=== PATIENT | female | born 1965 | race African-American/Black ===

== ENCOUNTER 2018-07-14 20:56 | Inpatient (IN) ==
[2018-07-14] MEDS ORDERED: Ondansetron 4 MG/2 ML VIAL IVP PRN (22:19)
[2018-07-14] MEDS ORDERED: Naloxone 0.4 MG/ML INJ IVP PRN (22:19)
[2018-07-14] MEDS ORDERED: Acetaminophen 325 MG TABLET PO PRN (22:19)
--- NOTE | 2018-07-14 22:19 | Internal Med History&Physical ---
Date of Encounter: 08/13/18 Time of Encounter: 22:19 Internal Medicine - H&P: HPI Chief complaint: increasing leukocytosis despite being on antibiotics Admitted From: Emergency Dept History of present illness: Ms. Ngo is a 52 year old female Patient sent to ED from local [facility] for evaluation of increasing leukocytosis despite being on antibiotics vancomycin and ceftin. Per assisted report to ED staff they suspected that patient may have an infection at her permacath dialysis access site, The patient also has a picc line and decubitus wound ulcer, Patient has a tracheostomy and is vent dependent. She had history of anoxic brain injury and she cannot answer any questions, the patient was admitted for further evaluation and management Past Med Surg Social Fam HX - Past Medical History Medical history: diabetes, GERD, hyperlipidemia, renal disease, seizures, other Additional medical history: Anoxic brain injury. Anemia. Contracture Psychiatric history: other - Social History Smoking Status: Smoker, status unknown Smokeless Tobacco Status: No (unknown) Alcohol use: none Drug use: unknown Internal Medicine - H&P: Meds Atorvastatin Calcium [Lipitor] 40 mg GTUBE DAILY 07/14/18 [History] Benzocaine [Orabase] 1 appl MM QID PRN 07/14/18 [History] Chlorhexidine Gluconate [Peridex] 1 appl MM QID PRN 07/14/18 [History] Docusate [Colace] 100 mg GTUBE DAILY 07/14/18 [History] Esomeprazole Magnesium [Nexium] 40 mg GTUBE BID 07/14/18 [History] Mineral Oil/Petrolatum,White [Minerin Creme] 1 appl TP DAILY 07/14/18 [History] Nystatin [Nystatin Suspension] 500,000 units PO QID PRN 07/14/18 [History] RX: Baclofen 5 mg GTUBE TID 07/14/18 [History] RX: Heparin 5,000 unit SQ Q8HR 07/14/18 [History] RX: Vancomycin HCl 500 mg IV MOWEFR 07/14/18 [History] Sennosides/Docusate Sodium [Senna-Docusate Sodium Tablet] 1 tab GTUBE DAILY PRN 07/14/18 [History] Vit B Comp C 19/Folic Acid/D3 [Nephronex-Sl Tablet] 1 tab GTUBE DAILY 07/14/18 [History] Amino Acids/Protein Hydrolys [Pro-Stat Awc Liquid Packet] 30 ml GTUBE TID 07/15/18 [History] Aspirin [Lo-Dose Aspirin EC] 81 mg GTUBE DAILY 07/15/18 [History] Cefepime HCl [Maxipime] 500 mg IV 2000 07/15/18 [History] Insulin Glargine [Lantus] 40 unit SQ DAILY 07/15/18 [History] Insulin Human Regular [HumuLIN R] 0 - 12 unit SQ QID 07/15/18 [History] Ipratropium/Albuterol Neb [Duoneb] 3 ml IH Q6HR PRN 07/15/18 [History] LevETIRAcetam [Keppra] 500 mg GTUBE DAILY 07/15/18 [History] Polyvinyl Alcohol [Artificial Tears] 1 drop BOTH EYES QID PRN 07/15/18 [History] Allergy/AdvReac Type Severity Reaction Status Date / Time No Known Allergies Allergy Verified 07/14/18 17:44 ROS unobtainable: due to mental status All Systems PM: A 10-system review of systems was performed and is negative for pertinent findings except as documented above in the HPI. - Constitutional Exam: As below - Head Head exam: Present: atraumatic, normocephalic - Respiratory Respiratory exam: Present: rhonchi. Absent: accessory muscle use, rales, wheezes - Cardiovascular Cardiovascular exam: Present: RRR, +S1, +S2. Absent: diastolic murmur, gallop, rubs, systolic murmur - GI/Abdominal GI/Abdominal exam: Present: normal bowel sounds, soft, no peritoneal signs. Absent: distended, tenderness - Extremities Exam Extremities exam: Present: warm, radial pulses palpable and symmetrical. Absent: calf tenderness, cyanotic, pedal edema Internal Med - H&P Results - Labs CBC & Chem 7: 08/02/18 04:28 08/02/18 04:28 - Assessment and plan (1) Sepsis Status: Acute Assessment and plan: ASSESSMENT: -Septic shock DD *Pneumonia *Decubitus *UTI * Line related bacterimia - ABs -UA -CBCD, BMP in AM -Tylenol 650 mg PO q 4-6 hr PRN pain or fever -Protonix 40 mg IV QD -Heparin 5000 U SQ BID Qualifiers: Sepsis type: sepsis due to unspecified organism Qualified Code(s): A41.9 - Sepsis, unspecified organism (2) Hypokalemia Status: Acute Assessment and plan: We will replace and repeat renal panel in a.m. (3) Anemia in chronic kidney disease (CKD) Status: Chronic Assessment and plan: hronic and stable. Closely monitor H/H. Per nephro, 1 unit of PRBC transfused. Hgb 7.4 today. Transfusion as needed Qualifiers: Chronic kidney disease stage: on chronic dialysis Qualified Code(s): N18.6 - End stage renal disease; D63.1 - Anemia in chronic kidney disease; Z99.2 - Dependence on renal dialysis (4) Chronic kidney disease-mineral and bone disorder Status: Acute (5) ESRD (end stage renal disease) Status: Chronic Assessment and plan: Family will persue hospice and now code status is DNRCC, no further HD. - Time Spent With Patient Total time spent is greater than 50% in coordination of care (as documented) at patient's floor/unit and/or counseling patient:
[2018-07-14] MEDS ORDERED: Vancomycin (wt based) 1,000 MG VIAL IVPB SCH (23:00)
[2018-07-15 00:02] LABS: Hematocrit 24.7 % (35.3-44.9); Hemoglobin 7.8 g/dL (11.5-15.4); Mean Corpuscular HGB Conc 31.6 g/dL (31.6-35.5); Mean Corpuscular Hemoglobin 27.3 pg (28.0-33.3); Mean Corpuscular Volume 86.4 fL (83.0-100.0); Mean Platelet Volume 9.3 fL (9.4-12.4); Platelet Count 590 K/mcL (140-400); Red Blood Count 2.86 M/mcL (3.82-4.97); Red Cell Distribution Width 15.8 % (11.5-14.5)
[2018-07-15 00:06] LABS: INR 1.1; Prothrombin Time 12.3 Seconds (9.4-12.1)
[2018-07-15 00:08] LABS: Activated Partial Thrombo Time 31.5 Seconds (26.0-36.0)
[2018-07-15 00:12] LABS: Albumin 2.5 g/dL (3.5-5.7); Albumin/Globulin Ratio 0.6 (1.1-2.2); Bilirubin,Total 0.3 mg/dL (0.3-1.0); Calcium 8.6 mg/dL (8.6-10.3); Globulin 4.4 g/dL (2.4-3.5); Magnesium 2.1 mg/dL (1.6-2.6); Phosphorous 1.2 mg/dL (2.7-4.5); Potassium 2.8 mEq/L (3.5-5.1); Total Protein 6.9 g/dL (6.4-8.9)
[2018-07-15 00:58] LABS: Chol/HDL Ratio 3.2 (0-4.9)
[2018-07-15] MEDS ORDERED: *HR* Dextrose 50 % in Water (Syg) 50 ML SYRINGE IVP PRN (07:52)
[2018-07-15] MEDS ORDERED: D5% in Water 1,000 ML IVC PRN (07:52)
[2018-07-15] MEDS ORDERED: Dextrose Gel 15 GM/37.5 ML TUBE PO PRN ×2 (07:52)
[2018-07-15] MEDS ORDERED: Insulin LISPRO 300 UNITS/3 ML VIAL SQ SCH ×2 (08:00)
--- NOTE | 2018-07-15 11:04 | Internal Med Progress Note ---
Hospitalist Progress Note - Encounter Date of Encounter: 07/15/18 Time of Encounter: 10:35 - Subjective Interval History: H&P reviewed. Patient with history of anoxic brain injury on trach/PEG was admitted for worsening leukocytosis despite being on vanco/ceftin. It appears that she was being treated for ?HD cath infection but was declining. Pt is unab le to provide any meaningful history due to her premorbid condition. No fever overnight. - Exam Vitals: Temp Pulse Resp BP Pulse Ox 99.4 F 92 19 128/72 100 07/15/18 07:32 07/15/18 07:32 07/15/18 08:29 07/15/18 07:32 07/15/18 08:29 Exam: General: Alert, breathing spontaneously. Not oriented, no verbal output Cardiovascular:Normal S1 & S2, No JVD. Borderline tachycardia Lungs: diminished breath sounds bilaterally Abdomen:Soft, non-tender, no rigidity. Extremities: Both UE contracted. R chest HD catheter and R UE midline noted - Assessment and Plan (1) Sepsis Current Visit: Yes Status: Acute Assessment and Plan: Presented from assisted with worsening leukocytosis despite being on vanc/ceftin CXR suspicious for L lower zone opacity blood culture from 07/13 +ve for Enterobacter cloacae by PCR other possible sources include tunneled HD catheter on R chest and infected decubitus ulcer continue vanc/zosyn, renally dosed peripheral blood cultures obtained overnight, get blood culture from HD catheter as well monitor WBC may need line removed, consult ID (2) ESRD (end stage renal disease) Current Visit: No Status: Acute Assessment and Plan: nephrology consulted for HD (3) Hypokalemia Current Visit: No Status: Acute Assessment and Plan: IV replacement undergoing repeat BMP after (4) Anemia in chronic kidney disease (CKD) Current Visit: No Status: Acute Assessment and Plan: monitor Hb DVT Prophylaxis: SQ heparin - Time Spent with Patient Total time spent is greater than 50% in coordination of care (as documented) at patient's floor/unit and/or counseling patient: Plan of Care Discussed with: nurse (discussed with RN and ID) Internal Medicine: Result - Labs CBC & Chem 7: 07/14/18 23:41 07/14/18 23:41 Labs: Short CBC 07/14/18 Range/Units 23:41 WBC 21.4 H (4.3-11.1) K/mcL Hgb 7.8 L (11.5-15.4) g/dL Hct 24.7 L (35.3-44.9) % Plt Count 590 H (140-400) K/mcL BMP 07/14/18 23:41 Sodium 134 L Potassium 2.8 L Chloride 100 Carbon Dioxide 24 BUN 53 H Creatinine 3.58 H Glucose 313 H Calcium 8.6 Liver Function 07/14/18 Range/Units 23:41 Total Bilirubin 0.3 (0.3-1.0) mg/dL AST 19 (13-39) Units/L ALT 26 (7-52) Units/L Alkaline Phosphatase 141 H (34-104) Units/L Albumin 2.5 L (3.5-5.7) g/dL - ABG Interpretation ABG results: PT/INR, D-dimer PT 12.3 Seconds (9.4-12.1) H 07/14/18 23:41 Consult Discharge Plan - Plan Referrals: NONE,PCP [Primary Care Provider] - (1) Sepsis Qualifiers: Sepsis type: sepsis due to unspecified organism Qualified Code(s): A41.9 - Sepsis, unspecified organism (4) Anemia in chronic kidney disease (CKD) Qualifiers: Chronic kidney disease stage: on chronic dialysis Qualified Code(s): N18.6 - End stage renal disease; D63.1 - Anemia in chronic kidney disease; Z99.2 - Dependence on renal dialysis
[2018-07-15 11:53] LABS: Basophils # 0.1 K/mcL (0.0-0.2); Basophils % 0.3 %; Eosinophils # 0.3 K/mcL (0.0-0.6); Eosinophils % 1.4 %; Hematocrit 24.9 % (35.3-44.9); Hemoglobin 7.4 g/dL (11.5-15.4); Immature Granulocytes % 3.1 % (0-4); Lymphocytes # 1.6 K/mcL (0.6-4.6); Lymphocytes % 8.5 %; Mean Corpuscular HGB Conc 29.7 g/dL (31.6-35.5); Mean Corpuscular Volume 90.9 fL (83.0-100.0); Mean Platelet Volume 9.1 fL (9.4-12.4); Monocytes # 1.1 K/mcL (0.0-1.3); Monocytes % 5.9 %; Neutrophils # 15.2 K/mcL (1.6-8.9); Nucleated Red Blood Cells 0.1 /100 WBC (0); Platelet Count 577 K/mcL (140-400); Red Blood Count 2.74 M/mcL (3.82-4.97); Red Cell Distribution Width 16.1 % (11.5-14.5); Segmented Neutrophils % 80.8 %
[2018-07-15] MEDS ORDERED: Piperacillin/Tazobactam 3.375 GM in 0.9 % Sodium Chloride Mini Bag 100 ML IVPB SCH ×2 (12:00)
[2018-07-15 12:13] LABS: Calcium 8.7 mg/dL (8.6-10.3); Potassium 3.5 mEq/L (3.5-5.1)
[2018-07-15] MEDS: Insulin LISPRO 300 UNITS/3 ML VIAL SQ SCH ×2 (13:23→17:54)
--- NOTE | 2018-07-15 15:46 | Infectious Disease Consult ---
Date of Encounter: 07/15/18 Time of Encounter: 15:26 Assessment and Plan (1) Sepsis Status: Acute Assessment and plan: Patient had severe sepsis criteria including tachycardia, tachypnea, leukocytosis and lactic acidosis Likely secondary to central line associated bloodstream infection and possible pneumonia Decubitus ulcers do not appear to be infected but recommend wound care Qualifiers: Sepsis type: sepsis due to unspecified organism Qualified Code(s): A41.9 - Sepsis, unspecified organism (2) CLABSI (central line-associated bloodstream infection) Status: Acute Assessment and plan: cultures obtained from dialysis cath on 07/13 positive for Enterobacter cloacae only one set and none from peripheral patient was started on zosyn get blood cutlures x 2 peripheral will need to remove dialysis cath if okay with nephrology and reinsert it once cultures are negative for 48 hours will d/c zosyn and start meropenem until susceptibilites come back stop vancomycin monitor labs duration of treatment depends on clinical picture but likely 14 days Qualifiers: Encounter type: initial encounter Qualified Code(s): T80.211A - Bloodstream infection due to central venous catheter, initial encounter (3) Pneumonia Status: Acute Assessment and plan: Unable to really tell if she has a pneumonia or no. Aspiration is a concern but there is no residual on tube feeding We will check urine legionella and pneumococcal antigen Check MRSA screen is negative. Vancomycin Continue meropenem Low probability of viral infection so I will not check a respiratory infectious panel Qualifiers: Pneumonia type: due to unspecified organism Laterality: bilateral Lung location: lower lobe of lung Qualified Code(s): J18.1 - Lobar pneumonia, unspecified organism (4) Diabetes mellitus type 2 in obese Status: Acute (5) Anoxic brain injury Status: Acute Assessment and plan: History of anoxic brain injury, vent dependent Not sure what the etiology is not in the records (6) Chronic respiratory failure Status: Acute Assessment and plan: On ventilator support with a tracheostomy Qualifiers: Respiratory failure complication: hypoxia Qualified Code(s): J96.11 - Chr onic respiratory failure with hypoxia (7) ESRD (end stage renal disease) on dialysis Status: Acute Assessment and plan: Dialysis catheter has to be removed if okay with nephrology and a new catheter has to be placed once she is not bacteremic for 48 hours Infectious Disease HPI - Data of Consult Patient: new to practice Consult date: 07/15/18 Requesting Physician: David Arora MD Primary Care Provider: PCP NONE - Consult Narrative Reason for consult: Bacteremia with Enterobacter History of present illness: Ms. Ngo is a 52 year old female Patient is a 52-year-old woman who presented to [facility] for evaluation of increasing leukocytosis. We are consulted for antibiotic recommendation. All the information on this patient were taken from medical records since the patient is nonverbal and on vent support with tracheostomy. Apparently patient has been having leukocytosis and they suspected a an infection of the permacath dialysis access site. Patient was started on vancomycin and Ceftin but continues to have rising leukocytosis from 16,000-19,000 for the past few days. Patient was sent to the emergency department for evaluation. I was unable to get review of system the patient. Since admission, patient has been afebrile with MAXIMUM TEMPERATURE of 99.8, tachycardic and tachypneic but hemodynamically stable. Presenting labs revealed a WBC of 23.2 thousand with 78% neutrophils no bands, BUN 51, CR 3.53, potassium 2.8, lactic acid of 2.8. Apparently patient had a peripheral central catheter blood cultures obtained which grew Enterobacter cloacae with susceptibilities pending. I did review her whole chart there is no previous records of her had no previous cultures that we can compare to. Patient had a chest x-ray done which was read as limited by patient rotation and shallow inspiration.. Mild nonspecific left basilar opacities with pneumonia not excluded. A sputum culture was obtained and revealed gram-positive cocci and gram-positive rods and yeast but no gram-negative rods. Patient was started on vancomycin and Zosyn and we were asked to evaluate the patient's make further recommendations. Currently patient laying in bed on vent support does not answer questions does not respond does not track with her eyes when I move around the room. She does have 3 decubitus ulcers on her back some R stage III. PEG tube intact. Dialysis catheter dry and intact no erythema CC: David Arora MD Past Med Surg Social Fam HX - Past Medical History Medical history: diabetes, GERD, hyperlipidemia, renal disease, seizures, other Additional medical history: Anoxic brain injury. Anemia. Contracture Psychiatric history: other - Social History Smoking Status: Smoker, status unknown Smokeless Tobacco Status: No (unknown) Alcohol use: none Drug use: unknown Infectious Disease-CN:Meds Atorvastatin Calcium [Lipitor] 40 mg GTUBE DAILY 07/14/18 [History] Baclofen 5 mg GTUBE TID 07/14/18 [History] Benzocaine [Orabase] 1 appl MM QID PRN 07/14/18 [History] Chlorhexidine Gluconate [Peridex] 1 appl MM QID PRN 07/14/18 [History] Docusate [Colace] 100 mg GTUBE DAILY 07/14/18 [History] Esomeprazole Magnesium [Nexium] 40 mg GTUBE BID 07/14/18 [History] Heparin 5,000 unit SQ Q8HR 07/14/18 [History] Mineral Oil/Petrolatum,White [Minerin Creme] 1 appl TP DAILY 07/14/18 [History] Nystatin [Nystatin Suspension] 500,000 units PO QID PRN 07/14/18 [History] Sennosides/Docusate Sodium [Senna-Docusate Sodium Tablet] 1 tab GTUBE DAILY PRN 07/14/18 [History] Vancomycin HCl 500 mg IV MOWEFR 07/14/18 [History] Vit B Comp C 19/Folic Acid/D3 [Nephronex-Sl Tablet] 1 tab GTUBE DAILY 07/14/18 [History] Amino Acids/Protein Hydrolys [Pro-Stat Awc Liquid Packet] 30 ml GTUBE TID 07/15/18 [History] Aspirin [Lo-Dose Aspirin EC] 81 mg GTUBE DAILY 07/15/18 [History] Cefepime HCl [Maxipime] 500 mg IV 2000 07/15/18 [History] Insulin Glargine [Lantus] 40 unit SQ DAILY 07/15/18 [History] Insulin Human Regular [HumuLIN R] 0 - 12 unit SQ QID 07/15/18 [History] Ipratropium/Albuterol Neb [Duoneb] 3 ml IH Q6HR PRN 07/15/18 [History] LevETIRAcetam [Keppra] 500 mg GTUBE DAILY 07/15/18 [History] Polyvinyl Alcohol [Artificial Tears] 1 drop BOTH EYES QID PRN 07/15/18 [History] Allergy/AdvReac Type Severity Reaction Status Date / Time No Known Allergies Allergy Verified 07/14/18 17:44 ROS unobtainable: due to endotracheal tube Exam - Constitutional Vitals: Temp Pulse Resp BP Pulse Ox 98.3 F 100 18 125/79 100 07/15/18 11:27 07/15/18 11:27 07/15/18 11:27 07/15/18 11:27 07/15/18 11:27 General appearance: no febrile, no cooperative, no no acute distress - Head Head exam: Present: atraumatic, normocephalic - Eye Eye exam: Present: PERRL, sclera anicteric - ENT ENT exam: Present: mucous membranes dry, normal exam - Neck Additional comments: Tracheostomy collar intact. No erythema or mucus drainage. No stridor. - Respiratory Additional comments: Air sounds audible both lung arambula. Poor inspiratory effort. Chest expanding symmetrically. No obvious wheezing - Cardiovascular Cardiovascular exam: Present: RRR, +S1, +S2, tachycardia - GI/Abdominal GI/Abdominal exam: Present: soft. Absent: firm, guarding Additional comments: PEG tube intact - Extremities Exam Additional comments: Contractures upper and lower extremities. No joint swelling - Back Exam Additional comments: 3 different decubitus ulcers stages 2 and 3. - Neurological Exam Neurological exam: Present: altered. Absent: alert, oriented X3 Additional comments: Eyes open spontaneously. Does not follow command. Does not respond to questions. - Skin Skin exam: Present: normal color. Absent: rash Infectious Disease CN: Results - Labs CBC & Chem 7: 07/15/18 11:41 07/15/18 11:41 Consult Discharge Plan - Plan Referrals: NONE,PCP [Primary Care Provider] -
[2018-07-15] MEDS ORDERED: Meropenem 500 MG in 0.9 % Sodium Chloride Mini Bag 100 ML IVPB SCH (16:00)
[2018-07-15] MEDS: *HR* Heparin 5,000 UNIT/ML VIAL SQ SCH (17:02)
--- NOTE | 2018-07-15 17:35 | Nephrology Consult Note ---
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 I will be happy to help arrange for dialysis for this pt while admitted. She has a Right sided Tunneled Dialysis Catheter. ID is following and is working her up for potential Dialysis Catheter infection -- this pt is not one who I follow chronically, and so it's unclear why she has a Permacath instead of an AVF. Need to request medical records from her asbestos worker, if she has one since [employer] has reportedly retired. Next HD planned for tomorrow 07/16/18. Thank you for consulting the [facility]. (2) Anemia in chronic kidney disease (CKD) Current Visit: No Status: Chronic She is quite anemic. Often chronic dialysis pt's will have anemia of CKD, and I will prove EPO with her HD tomorrow. I will defer any GIB work up to the primary team, if indicated. Qualifiers: Chronic kidney disease stage: on chronic dialysis Qualified Code(s): N18.6 - End stage renal disease; D63.1 - Anemia in chronic kidney disease; Z99.2 - Dependence on renal dialysis History of Present Illness - Reason for Consult Consult date: 07/15/18 end stage renal disease Requesting physician: Aziza Gomes - Chief Complaint ESRD - History of Present Illness Monica Ngo is a 52 y/o AAF with a pmh of ESRD, reported anoxic brain injury on chronic trach who was recently admitted from an ECF. She reported dialyzes thrice weekly, but none of her outside dialysis records are immediately available to me. Her prior nephrology was with the former [employer] group who retired and has no inpatient coverage at [facility]; not clear who this pt's current asbestos worker is. Nevertheless, she was by herself in the room, and she is not able to communicate, so her HPI, Family history, ROS, and even PMH and PSH and Medicine list, and Allergies cannot be confirmed with the pt. This limits the HPI. Past Med Surg Social Fam HX - Past Medical History Medical history: diabetes, GERD, hyperlipidemia, renal disease, seizures, other Additional medical history: Anoxic brain injury. Anemia. Contracture Psychiatric history: other - Social History Smoking Status: Smoker, status unknown Smokeless Tobacco Status: No (unknown) Alcohol use: none Drug use: unknown Medications and Allergies Atorvastatin Calcium [Lipitor] 40 mg GTUBE DAILY 07/14/18 [History] Baclofen 5 mg GTUBE TID 07/14/18 [History] Benzocaine [Orabase] 1 appl MM QID PRN 07/14/18 [History] Chlorhexidine Gluconate [Peridex] 1 appl MM QID PRN 07/14/18 [History] Docusate [Colace] 100 mg GTUBE DAILY 07/14/18 [History] Esomeprazole Magnesium [Nexium] 40 mg GTUBE BID 07/14/18 [History] Heparin 5,000 unit SQ Q8HR 07/14/18 [History] Mineral Oil/Petrolatum,White [Minerin Creme] 1 appl TP DAILY 07/14/18 [History] Nystatin [Nystatin Suspension] 500,000 units PO QID PRN 07/14/18 [History] Sennosides/Docusate Sodium [Senna-Docusate Sodium Tablet] 1 tab GTUBE DAILY PRN 07/14/18 [History] Vancomycin HCl 500 mg IV MOWEFR 07/14/18 [History] Vit B Comp C 19/Folic Acid/D3 [Nephronex-Sl Tablet] 1 tab GTUBE DAILY 07/14/18 [History] Amino Acids/Protein Hydrolys [Pro-Stat Awc Liquid Packet] 30 ml GTUBE TID 07/15/18 [History] Aspirin [Lo-Dose Aspirin EC] 81 mg GTUBE DAILY 07/15/18 [History] Cefepime HCl [Maxipime] 500 mg IV 2000 07/15/18 [History] Insulin Glargine [Lantus] 40 unit SQ DAILY 07/15/18 [History] Insulin Human Regular [HumuLIN R] 0 - 12 unit SQ QID 07/15/18 [History] Ipratropium/Albuterol Neb [Duoneb] 3 ml IH Q6HR PRN 07/15/18 [History] LevETIRAcetam [Keppra] 500 mg GTUBE DAILY 07/15/18 [History] Polyvinyl Alcohol [Artificial Tears] 1 drop BOTH EYES QID PRN 07/15/18 [History] Allergy/AdvReac Type Severity Reaction Status Date / Time No Known Allergies Allergy Verified 07/14/18 17:44 Review of Systems ROS unobtainable: due to mental status Exam - Vital Signs Vital signs: Initial Vital Signs Temp Pulse Resp BP Pulse Ox 98.7 F 103 18 123/66 100 07/14/18 23:20 07/14/18 23:20 07/14/18 23:20 07/14/18 23:20 07/14/18 23:20 Vital Signs - Last 8 Hours Temp Pulse Resp BP Pulse Ox 07/15/18 16:27 98.8 F 89 18 127/69 100 07/15/18 11:27 98.3 F 100 18 125/79 100 07/15/18 11:12 22 100 Intake and Output 07/15/18 07/15/18 07/15/18 07:59 15:59 23:59 Intake Total 250 / 250 837 / 837 200 / 200 Balance 250 / 250 837 / 837 200 / 200 Intake: IV Fluids 250 / 250 400 / 400 Zosyn 3.375 GM In 0.9 % Sodium 100 / 100 Chloride (Mini-Bag +) 100 ML @ 25 mls/hr IVPB Q8HR [facility] Rx#: [id number] Potassium Chloride 10 mEq/100mL 300 / 300 10 meq In 100 ml @ 100 mls/hr IVPB Q1H [facility] Rx#:[id number] Vancocin 750 MG In 0.9 % Sodium 250 / 250 Chloride 250 ML @ 250 mls/hr IVPB ONCE ONE Rx#:[id number] Oral 0 / 0 Tube Feeding 237 / 237 Free Water 200 / 200 Free Water Intake Amount 200 / 200 Other: Meal NPO Percent of Meal Consumed 0% Stool Size Smear Stool Color Brown # Bowel Movements 1 # Bowel Movement Diapers 1 Weight 68.7 kg Blood Glucose* 283 278 Patient Weight 07/15/18 23:59 Weight 68.7 kg - General Appearance General appearance: chronically ill, frail, comatose EENT: mucous membranes moist Respiratory: course breath sounds Cardiology: no edema, normal S1, normal S2 - Dialysis Access Dialysis Vascular Access: Venous Catheter (Right sided Permacath with exit site C/D/I) Gastrointestinal: normoactive bowel sounds, distended Integumentary: warm and dry Neurologic: obtunded Musculoskeletal: no clubbing Results - Lab Results 07/16/18 05:36 07/16/18 05:36 Most recent lab results Calcium 8.7 mg/dL (8.6-10.3) 07/15/18 11:41 Phosphorus 1.2 mg/dL (2.7-4.5) L 07/14/18 23:41 Magnesium 2.1 mg/dL (1.6-2.6) 07/14/18 23:41 Consult Discharge Plan - Plan Referrals: NONE,PCP [Primary Care Provider] -
[2018-07-16 04:24] LABS: C.difficile Toxin A/B Gene PCR Not detected (Not detect); Campylobacter by PCR Not detected (Not detect); Enteroaggregative E.coli(EAEC) Not detected (Not detect); Enteropathogenic E.coli(EPEC) Not detected (Not detect); Enterotoxigenic E.coli (ETEC) Not detected (Not detect); Plesiomonas shigelloides PCR Not detected (Not detect); Salmonella PCR Not detected (Not detect); Shigalike tox-prod E coli STEC Not detected (Not detect); Vibrio PCR Not detected (Not detect); Vibrio cholerae PCR Not detected (Not detect); Yersinia enterocolitica PCR Not detected (Not detect)
[2018-07-16 04:25] LABS: Adenovirus F 40/41 PCR Not detected (Not detect); Astrovirus PCR Not detected (Not detect); Cryptosporidium by PCR Not detected (Not detect); Cyclospora cayetanensis PCR Not detected (Not detect); Entamoeba histolytica PCR Not detected (Not detect); Giardia lamblia PCR Not detected (Not detect); Norovirus GI/GII PCR Not detected (Not detect); Rotavirus A PCR Not detected (Not detect); Sapovirus PCR Not detected (Not detect); Shig/EnteroinvasiveE coli EIEC Not detected (Not detect)
[2018-07-16] MEDS: Insulin LISPRO 300 UNITS/3 ML VIAL SQ SCH ×5 (05:03→23:34)
[2018-07-16] MEDS: *HR* Heparin 5,000 UNIT/ML VIAL SQ SCH ×2 (05:10→17:21)
[2018-07-16 06:04] LABS: Basophils # 0.1 K/mcL (0.0-0.2); Basophils % 0.3 %; Eosinophils # 0.3 K/mcL (0.0-0.6); Eosinophils % 1.5 %; Hematocrit 22.6 % (35.3-44.9); Immature Granulocytes % 2.6 % (0-4); Lymphocytes # 1.7 K/mcL (0.6-4.6); Lymphocytes % 10.2 %; Mean Corpuscular Volume 87.3 fL (83.0-100.0); Mean Platelet Volume 9.1 fL (9.4-12.4); Monocytes % 5.6 %; Neutrophils # 13.6 K/mcL (1.6-8.9); Nucleated Red Blood Cells 0.2 /100 WBC (0); Platelet Count 573 K/mcL (140-400); Red Blood Count 2.59 M/mcL (3.82-4.97); Red Cell Distribution Width 15.9 % (11.5-14.5); Segmented Neutrophils % 79.8 %
[2018-07-16 06:11] LABS: INR 1.1
[2018-07-16 06:12] LABS: Albumin 2.6 g/dL (3.5-5.7); Albumin/Globulin Ratio 0.6 (1.1-2.2); Bilirubin,Total 0.3 mg/dL (0.3-1.0); Calcium 9.2 mg/dL (8.6-10.3); Globulin 4.2 g/dL (2.4-3.5); Magnesium 2.3 mg/dL (1.6-2.6); Phosphorous 1.3 mg/dL (2.7-4.5); Potassium 3.2 mEq/L (3.5-5.1); Total Protein 6.8 g/dL (6.4-8.9)
[2018-07-16] MEDS ORDERED: 0.9 % Sodium Chloride 250 ML IVC PRN (06:41)
[2018-07-16 08:33] LABS: Hepatitis B Surface Antibody 38.07 mIU/mL
[2018-07-16 08:43] LABS: Hepatitis B Surface Antigen Nonreactive (Nonreactive)
--- NOTE | 2018-07-16 09:45 | Nephrology Progress Note ---
Addendum entered and electronically signed by Claudy Lockett DO 07/17/18 09:28: I have personally performed a face to face evaluation on this patient. I have reviewed and agree with the care plan. History and Exam on 07/16/18 (delayed documentation) by me shows: ESRD on HD MWF with no outside dialysis records immediately available to me; her outside nephrology provider has no coverage at [facility]. Needs HD for clearance on Saturday; her next HD is planned for Saturday. Appreciate ID and IR and I helped in discussions regarding the dialysis catheter exchange with culture of the tip. This CLABSI should be attributed not to the [facility] but her outside Nephrology provider. Original Note: Date of Encounter: 07/16/18 Time of Encounter: 09:41 - Assessment and Plan (1) ESRD (end stage renal disease) on dialysis Current Visit: No Status: Acute ESRD on MWF. HD in progress. IR consulted to remove HD line per ID note. 48 hour line holiday, replace line on Saturday07/18/18. (2) Anemia in chronic kidney disease (CKD) Current Visit: No Status: Chronic Goal Hgb is 10-11. Hgb is 7 today. Will defer workup to primary team. Qualifiers: Chronic kidney disease stage: on chronic dialysis Qualified Code(s): N18.6 - End stage renal disease; D63.1 - Anemia in chronic kidney disease; Z99.2 - Dependence on renal dialysis (3) CLABSI (central line-associated bloodstream infection) Current Visit: Yes Status: Acute See above. Qualifiers: Encounter type: initial encounter Qualified Code(s): T80.211A - Bloodstream infection due to central venous catheter, initial encounter Subjective Principal diagnosis: leukocytosis Interval history: Pt seen and examined during HD, tolerating well. Objective - Vital Signs Vital signs: Vital Signs Temp Pulse Resp BP Pulse Ox 07/16/18 07:39 98.5 F 89 18 133/70 100 07/16/18 05:02 99.1 F 82 18 134/67 100 07/16/18 04:48 18 134/66 100 07/15/18 23:32 98.6 F 88 18 134/66 100 07/15/18 23:24 18 146/76 100 07/15/18 20:05 98.8 F 90 17 146/76 100 07/15/18 18:27 18 127/69 100 07/15/18 16:27 98.8 F 89 18 127/69 100 07/15/18 11:27 98.3 F 100 18 125/79 100 07/15/18 11:12 22 100 Intake and Output 07/15/18 07/16/18 07/16/18 23:59 07:59 15:59 Intake Total 200 / 200 0 / 0 Balance 200 / 200 0 / 0 Intake: Oral 0 / 0 Free Water Intake Amount 200 / 200 Other: Meal NPO/tube feed Percent of Meal Consumed 0% Stool Size Moderate Small Stool Consistency loose Stool Characteristics Normal for Patient Normal for Patient Stool Color Brown Green # Bowel Movements 1 Weight 69 kg Blood Glucose* 232 272 Patient Weight 07/16/18 23:59 Weight 69 kg - General Appearance General appearance: Present: fatigue, frail EENT: Present: ATNC, hearing intact, vision intact Neck: Present: supple Respiratory: Present: clear Cardiology: Present: normal S1, normal S2 Dialysis Vascular Access: Venous Catheter (DRSG C/D/I) Gastrointestinal: Present: normoactive bowel sounds, no tenderness, no guarding Integumentary: Present: no rash, warm and dry Musculoskeletal: Present: no deformities Psychiatric: Present: mood/affect appropriate, cooperative - Lab 07/16/18 05:36 07/16/18 05:36 Most recent lab results Calcium 9.2 mg/dL (8.6-10.3) 07/16/18 05:36 Phosphorus 1.3 mg/dL (2.7-4.5) L 07/16/18 05:36 Magnesium 2.3 mg/dL (1.6-2.6) 07/16/18 05:36 Consult Discharge Plan - Plan Referrals: NONE,PCP [Primary Care Provider] -
--- NOTE | 2018-07-16 11:12 | Internal Med Progress Note ---
Hospitalist Progress Note - Encounter Date of Encounter: 07/16/18 Time of Encounter: 11:11 - Subjective Interval History: 52-year-old female, group home resident with anoxic brain injury on trach and PEG, end-stage renal disease on hemodialysis, diabetes mellitus, sacral decubitus ulcer. She is DNR_CCA She is admitted and being managed for Enterobacter CLABSI. Infectious disease and nephrology following. She is seen and evaluated during hemodialysis She is nonverbal, plan is to remove right permacath and 48 hours line holiday. - Exam Vitals: Temp Pulse Resp BP Pulse Ox 98.5 F 86 18 120/65 100 07/16/18 09:00 07/16/18 08:00 07/16/18 09:00 07/16/18 09:00 07/16/18 09:00 Exam: General: Alert, breathing spontaneously. Not oriented, no verbal output Chest: Right permacath Cardiovascular:Normal S1 & S2, No JVD. Borderline tachycardia Lungs: diminished breath sounds bilaterally Abdomen:Soft, non-tender, no rigidity. Extremities: Both UE contracted. R chest HD catheter and R UE midline noted. Groin: not assessed - Assessment and Plan (1) ESRD (end stage renal disease) Current Visit: Yes Status: Chronic Assessment and Plan: nephrology consulted for HD (2) Sepsis Current Visit: Yes Status: Acute Assessment and Plan: Presented from group home with worsening leukocytosis despite being on vanc/ceftin CXR suspicious for L lower zone opacity Tracheal aspirate with gram-negative matheus, final culture pending cultures obtained from dialysis cath on 07/13 positive for Enterobacter cloacae only one set and none from peripheral Received Zosyn for 48 hours, started on meropenem on 07/15 by infectious disease. Started on levaquin today 07/16 per ID, will continue Total due to of antibiotics -day 2 Blood culture from 07/14 noted, no growth. Blood culture for central venous catheter 07/15 noted, no growth. Central line to be removed today by interventional radiology Infectious disease is following and input appreciated. (3) Hypokalemia Current Visit: Yes Status: Acute Assessment and Plan: Potassium 3.2 today, on dialysis, will continue to monitor chem (4) Anemia in chronic kidney disease (CKD) Current Visit: Yes Status: Chronic Assessment and Plan: Chronic and stable. (5) Anoxic brain injury Current Visit: Yes Status: Chronic Assessment and Plan: Continue tube feeds, regular turning, trach management (6) CLABSI (central line-associated bloodstream infection) Current Visit: Yes Status: Acute Assessment and Plan: As in sepsis. (7) Chronic respiratory failure Current Visit: Yes Status: Chronic Assessment and Plan: Patient with chronic respiratory failure. Trach, vent management per respiratory (8) Diabetes mellitus type 2 in obese Current Visit: Yes Status: Chronic Assessment and Plan: Continue sliding scale insulin DVT Prophylaxis: Subcutaneous heparin - Time Spent with Patient Total time spent is greater than 50% in coordination of care (as documented) at patient's floor/unit and/or counseling patient: Plan of Care Discussed with: nurse Internal Medicine: Result - Labs CBC & Chem 7: 07/16/18 05:36 07/16/18 05:36 Labs: Short CBC 07/15/18 07/16/18 Range/Units 11:41 05:36 WBC 18.9 H 17.0 H (4.3-11.1) K/mcL Hgb 7.4 L 7.0 L (11.5-15.4) g/dL Hct 24.9 L 22.6 L (35.3-44.9) % Plt Count 577 H 573 H (140-400) K/mcL Neutrophils # 15.2 H 13.6 H (1.6-8.9) K/mcL BMP 07/15/18 07/16/18 11:41 05:36 Sodium 135 L 135 L Potassium 3.5 3.2 L Chloride 101 101 Carbon Dioxide 22 L 21 L BUN 59 H 71 H Creatinine 4.11 H 4.96 H Glucose 281 H 286 H Calcium 8.7 9.2 Liver Function 07/16/18 Range/Units 05:36 Total Bilirubin 0.3 (0.3-1.0) mg/dL AST 17 (13-39) Units/L ALT 22 (7-52) Units/L Alkaline Phosphatase 145 H (34-104) Units/L Albumin 2.6 L (3.5-5.7) g/dL - ABG Interpretation ABG results: PT/INR, D-dimer PT 12.0 Seconds (9.4-12.1) 07/16/18 05:36 Consult Discharge Plan - Plan Referrals: NONE,PCP [Primary Care Provider] - ___ (2) Sepsis Qualifiers: Sepsis type: sepsis due to unspecified organism Qualified Code(s): A41.9 - Sepsis, unspecified organism (4) Anemia in chronic kidney disease (CKD) Qualifiers: Chronic kidney disease stage: on chronic dialysis Qualified Code(s): N18.6 - End stage renal disease; D63.1 - Anemia in chronic kidney disease; Z99.2 - Dependence on renal dialysis (6) CLABSI (central line-associated bloodstream infection) Qualifiers: Encounter type: initial encounter Qualified Code(s): T80.211A - Bloodstream infection due to central venous catheter, initial encounter (7) Chronic respiratory failure Qualifiers: Respiratory failure complication: hypoxia Qualified Code(s): J96.11 - Chronic respiratory failure with hypoxia
[2018-07-16] MEDS ORDERED: 0.9 % Sodium Chloride 2,000 ML ONE (12:09)
[2018-07-16] MEDS ORDERED: Aminoglycoside Consult 1 EACH MC ONE (13:44)
[2018-07-16] MEDS ORDERED: Heparin 1,000 UNITS/500 mL 500 ML ONE (14:05)
[2018-07-16] MEDS ORDERED: *HR* Heparin 5,000 UNIT/ML VIAL ONE ×2 (14:59→15:14)
[2018-07-16] MEDS ORDERED: Levofloxacin 750 MG/150 ML 750 MG/150 ML BAG IVPB SCH (15:00)
--- NOTE | 2018-07-16 15:02 | IR Procedure Note ---
Date of procedure: 07/16/18 Consent Obtained: Verbal consent Timeout: Correct patient and procedure verified, Time out performed, Skin prep completed Local anesthetic: Lidocaine 1% Indications: Bacteremia Procedure Performed: Exchange permacath Was there an lead recreation assistant present: No Results/Findings: Successful exchange with new 14F 28 cm anna-split permacath placement Estimated blood loss (cc): 0 Complications: None; Tolerated procedure well Post Procedure Treatment Plan: Monitor on floor Specimen: Tip sent for C&S
--- NOTE | 2018-07-16 19:28 | Infectious Disease Progress No ---
Date of Encounter: 07/16/18 Time of Encounter: 19:25 - Assessment and Plan (1) Sepsis Current Visit: Yes Status: Acute Patient had severe sepsis criteria including tachycardia, tachypnea, leukocytosis and lactic acidosis Likely secondary to central line associated bloodstream infection and possible pneumonia Decubitus ulcers do not appear to be infected but recommend wound care Qualifiers: Sepsis type: sepsis due to unspecified organism Qualified Code(s): A41.9 - Sepsis, unspecified organism (2) CLABSI (central line-associated bloodstream infection) Current Visit: Yes Status: Acute cultures obtained from dialysis cath on 07/13 positive for Enterobacter cloacae only one set and none from peripheral patient was started on zosyn switched to meropenem by me; Enterobacter S:levofloxacin get blood cutlures x 2 peripheral d/w IR, they recommend changing dialysis cath over wire. I explained to them that I had no peripheral cultures and i'm not sure if this is CLABSI or not so I was okay with it Start levaquin await peripheral cultures. monitor labs duration of treatment depends on clinical picture but likely 14 days Qualifiers: Encounter type: initial encounter Qualified Code(s): T80.211A - Bloodstream infection due to central venous catheter, initial encounter (3) Pneumonia Current Visit: Yes Status: Acute Unable to really tell if she has a pneumonia or no. Aspiration is a concern but there is no residual on tube feeding We will check urine legionella and pneumococcal antigen Check MRSA screen is negative. Vancomycin d/c meropenem ; start levaquin and flagyl Low probability of viral infection so I will not check a respiratory infectious panel Qualifiers: Pneumonia type: due to unspecified organism Laterality: bilateral Lung location: lower lobe of lung Qualified Code(s): J18.1 - Lobar pneumonia, unspecified organism (4) Diabetes mellitus type 2 in obese Current Visit: Yes Status: Chronic (5) Anoxic brain injury Current Visit: Yes Status: Chronic (6) Chronic respiratory failure Current Visit: Yes Status: Chronic Qualifiers: Respiratory failure complication: hypoxia Qualified Code(s): J96.11 - Chronic respiratory failure with hypoxia (7) ESRD (end stage renal disease) on dialysis Current Visit: No Status: Acute - Subjective Interval history: patient seen and examined at dialysis. unchaged clinically. unable to ROS due to her mentation Infect Dis PN-Objective Data - Labs CBC & Chem 7: 07/16/18 05:36 07/16/18 05:36 Labs: Laboratory Results - last 24 hr 07/15/18 07/15/18 07/15/18 17:15 17:46 20:02 WBC RBC Hgb Hct MCV MCH MCHC RDW Plt Count MPV Immature Gran % Seg Neutrophils % Lymphocytes % Monocytes % Eosinophils % Basophils % Neutrophils # Lymphocytes # Monocytes # Eosinophils # Basophils # Nucleated RBCs/100 WBC PT INR Sodium Potassium Chloride Carbon Dioxide BUN Creatinine Est GFR ( Amer) Est GFR (Non-Af Amer) BUN/Creatinine Ratio Glucose POC Glucose 255 H 279 H Calculated Osmolality Calcium Phosphorus Magnesium Total Bilirubin AST ALT Alkaline Phosphatase Serum Total Protein Albumin Globulin Albumin/Globulin Ratio Nasal Screen MRSA (PCR) Positive A Stl C. cayetanensis PCR Stool Rotavirus A PCR Stl Adenov F PCR Stool Astrovirus (PCR) Stool Campylobacter PCR Stool Cryptosporidium PCR Stl Sh Tox Pr E STEC PCR Stl Enterotoxigenic E PCR Stool EPEC (PCR) Stool EAEC (PCR) Stl E. histolytica PCR Stool Giardia Lamblia PCR Stool Salmonella PCR Stool Sapovirus (PCR) Stl P. shigelloides PCR Stl Shigella/EIEC PCR St Y.enterocolitica PCR Stool Vibrio (PCR) Stl Vibrio cholerae PCR Stl Norovirus GI/GII PCR Stl GI Panel (PCR) Com Random Vancomycin C.diff Toxin Gene (MARY) Hep Bs Antigen Hep Bs Antibody 07/15/18 07/16/18 07/16/18 23:35 02:40 05:08 WBC RBC Hgb Hct MCV MCH MCHC RDW Plt Count MPV Immature Gran % Seg Neutrophils % Lymphocytes % Monocytes % Eosinophils % Basophils % Neutrophils # Lymphocytes # Monocytes # Eosinophils # Basophils # Nucleated RBCs/100 WBC PT INR Sodium Potassium Chloride Carbon Dioxide BUN Creatinine Est GFR ( Amer) Est GFR (Non-Af Amer) BUN/Creatinine Ratio Glucose POC Glucose 232 H 272 H Calculated Osmolality Calcium Phosphorus Magnesium Total Bilirubin AST ALT Alkaline Phosphatase Serum Total Protein Albumin Globulin Albumin/Globulin Ratio Nasal Screen MRSA (PCR) Stl C. cayetanensis PCR Not detected Stool Rotavirus A PCR Not detected Stl Adenov F 40 PCR Not detected Stool Astrovirus (PCR) Not detected Stool Campylobacter PCR Not detected Stool Cryptosporidium PCR Not detected Stl Sh Tox Pr E STEC PCR Not detected Stl Enterotoxigenic E PCR Not detected Stool EPEC (PCR) Not detected Stool EAEC (PCR) Not detected Stl E. histolytica PCR Not detected Stool Giardia Lamblia PCR Not detected Stool Salmonella PCR Not detected Stool Sapovirus (PCR) Not detected Stl P. shigelloides PCR Not detected Stl Shigella/EIEC PCR Not detected St Y.enterocolitica PCR Not detected Stool Vibrio (PCR) Not detected Stl Vibrio cholerae PCR Not detected Stl Norovirus GI/GII PCR Not detected Stl GI Panel (PCR) Com See below Random Vancomycin C.diff Toxin Gene (MARY) Not detected Hep Bs Antigen Hep Bs Antibody 07/16/18 07/16/18 07/16/18 05:36 05:36 05:36 WBC 17.0 H RBC 2.59 L Hgb 7.0 L Hct 22.6 L MCV 87.3 MCH 27.0 L MCHC 31.0 L RDW 15.9 H Plt Count 573 H MPV 9.1 L Immature Gran % 2.6 Seg Neutrophils % 79.8 Lymphocytes % 10.2 Monocytes % 5.6 Eosinophils % 1.5 Basophils % 0.3 Neutrophils # 13.6 H Lymphocytes # 1.7 Monocytes # 1.0 Eosinophils # 0.3 Basophils # 0.1 Nucleated RBCs/100 WBC 0.2 H PT 12.0 INR 1.1 Sodium Potassium Chloride Carbon Dioxide BUN Creatinine Est GFR ( Amer) Est GFR (Non-Af Amer) BUN/Creatinine Ratio Glucose POC Glucose Calculated Osmolality Calcium Phosphorus Magnesium Total Bilirubin AST ALT Alkaline Phosphatase Serum Total Protein Albumin Globulin Albumin/Globulin Ratio Nasal Screen MRSA (PCR) Stl C. cayetanensis PCR Stool Rotavirus A PCR Stl Adenov F 40/41 PCR Stool Astrovirus (PCR) Stool Campylobacter PCR Stool Cryptosporidium PCR Stl Sh Tox Pr E STEC PCR Stl Enterotoxigenic E PCR Stool EPEC (PCR) Stool EAEC (PCR) Stl E. histolytica PCR Stool Giardia Lamblia PCR Stool Salmonella PCR Stool Sapovirus (PCR) Stl P. shigelloides PCR Stl Shigella/EIEC PCR St Y.enterocolitica PCR Stool Vibrio (PCR) Stl Vibrio cholerae PCR Stl Norovirus GI/GII PCR Stl GI Panel (PCR) Com Random Vancomycin 31 C.diff Toxin Gene (MARY) Hep Bs Antigen Hep Bs Antibody 07/16/18 07/16/18 05:36 07:07 WBC RBC Hgb Hct MCV MCH MCHC RDW Plt Count MPV Immature Gran % Seg Neutrophils % Lymphocytes % Monocytes % Eosinophils % Basophils % Neutrophils # Lymphocytes # Monocytes # Eosinophils # Basophils # Nucleated RBCs/100 WBC PT INR Sodium 135 L Potassium 3.2 L Chloride 101 Carbon Dioxide 21 L BUN 71 H Creatinine 4.96 H Est GFR ( Amer) 11 L Est GFR (Non-Af Amer) 9 L BUN/Creatinine Ratio 14 Glucose 286 H POC Glucose Calculated Osmolality 311 H Calcium 9.2 Phosphorus 1.3 L Magnesium 2.3 Total Bilirubin 0.3 AST 17 ALT 22 Alkaline Phosphatase 145 H Serum Total Protein 6.8 Albumin 2.6 L Globulin 4.2 H Albumin/Globulin Ratio 0.6 L Nasal Screen MRSA (PCR) Stl C. cayetanensis PCR Stool Rotavirus A PCR Stl Adenov F PCR Stool Astrovirus (PCR) Stool Campylobacter PCR Stool Cryptosporidium PCR Stl Sh Tox Pr E STEC PCR Stl Enterotoxigenic E PCR Stool EPEC (PCR) Stool EAEC (PCR) Stl E. histolytica PCR Stool Giardia Lamblia PCR Stool Salmonella PCR Stool Sapovirus (PCR) Stl P. shigelloides PCR Stl Shigella/EIEC PCR St Y.enterocolitica PCR Stool Vibrio (PCR) Stl Vibrio cholerae PCR Stl Norovirus GI/GII PCR Stl GI Panel (PCR) Com Random Vancomycin C.diff Toxin Gene (MARY) Hep Bs Antigen Nonreactive Hep Bs Antibody 38.07 Cultures: Cultures 07/15/18 11:41 Blood Culture - Preliminary Central Venous Catheter Culture is incubating and being continuously monitored for growth. Final report to follow. 07/14/18 23:41 Blood Culture - Preliminary Peripheral Venipuncture Culture is incubating and being continuously monitored for growth. Final report to follow. 07/14/18 23:41 Blood Culture - Preliminary Peripheral Venipuncture Culture is incubating and being continuously monitored for growth. Final report to follow. Serology 07/16/18 07/16/18 07/15/18 Range/Units 07:07 02:40 17:15 Nasal Screen MRSA (PCR) Positive A (Negative) Stl C. cayetanensis PCR Not detected (Not detect) Stool Rotavirus A PCR Not detected (Not detect) Stl Adenov F PCR Not detected (Not detect) Stool Astrovirus (PCR) Not detected (Not detect) Stool Campylobacter PCR Not detected (Not detect) Stool Cryptosporidium PCR Not detected (Not detect) Stl Sh Tox Pr E STEC PCR Not detected (Not detect) Stl Enterotoxigenic E PCR Not detected (Not detect) Stool EPEC (PCR) Not detected (Not detect) Stool EAEC (PCR) Not detected (Not detect) Stl E. histolytica PCR Not detected (Not detect) Stool Giardia Lamblia PCR Not detected (Not detect) Stool Salmonella PCR Not detected (Not detect) Stool Sapovirus (PCR) Not detected (Not detect) Stl P. shigelloides PCR Not detected (Not detect) Stl Shigella/EIEC PCR Not detected (Not detect) St Y.enterocolitica PCR Not detected (Not detect) Stool Vibrio (PCR) Not detected (Not detect) Stl Vibrio cholerae PCR Not detected (Not detect) Stl Norovirus GI/GII PCR Not detected (Not detect) Stl GI Panel (PCR) Com See below C.diff Toxin Gene (MARY) Not detected (Not detect) Hep Bs Antigen Nonreactive (Nonreactive) Hep Bs Antibody 38.07 (10.00 - ) mIU/mL - Impressions Impressions Insertion Tunneled Catheter 07/16/18 00:00 IMPRESSION: 1. Successful fluoroscopic guided exchange of a tunneled dialysis catheter as discussed above. D/ / Nikko Orona MD / Nikko Orona MD Interpreting Provider: Nikko Orona MD Exam - Constitutional Vitals: Temp Pulse Resp BP Pulse Ox 98.2 F 112 20 130/67 100 07/16/18 16:16 07/16/18 17:15 07/16/18 17:15 07/16/18 16:16 07/16/18 17:15 General appearance: no febrile, no cooperative, no no acute distress - Respiratory Additional comments: air sounds audible bilaterally no wheezing. chest expanding symmetrically - Cardiovascular Cardiovascular exam: Present: RRR. Absent: +S1, +S2 - GI/Abdominal GI/Abdominal exam: Present: hyperactive bowel sounds, soft Additional comments: peg intact - Neurological Exam Additional comments: anoexic brain injury, comatosed Consult Discharge Plan - Plan Referrals: NONE,PCP [Primary Care Provider] -
[2018-07-17 04:44] LABS: Hematocrit 24.3 % (35.3-44.9); Hemoglobin 7.6 g/dL (11.5-15.4); Mean Corpuscular HGB Conc 31.3 g/dL (31.6-35.5); Mean Corpuscular Hemoglobin 26.8 pg (28.0-33.3); Mean Corpuscular Volume 85.6 fL (83.0-100.0); Platelet Count 533 K/mcL (140-400); Red Blood Count 2.84 M/mcL (3.82-4.97); Red Cell Distribution Width 16.1 % (11.5-14.5)
[2018-07-17 05:06] LABS: Calcium 8.7 mg/dL (8.6-10.3); Potassium 3.3 mEq/L (3.5-5.1)
[2018-07-17] MEDS: *HR* Heparin 5,000 UNIT/ML VIAL SQ SCH ×2 (06:45→17:41)
[2018-07-17] MEDS: Insulin LISPRO 300 UNITS/3 ML VIAL SQ SCH ×4 (06:47→23:46)
--- NOTE | 2018-07-17 10:05 | Nephrology Progress Note ---
Addendum entered and electronically signed by Claudy Lockett DO 07/17/18 16:45: I have personally performed a face to face evaluation on this patient. I have reviewed and agree with the care plan. History and Exam by me shows: ESRD with next HD due for tomorrow. She is a pt of the former [facility], and so it's unclear why she has just a Tunneled HD catheter instead of an AVF, which would have a lower risk for line infection -- which this infection should be attributed to the former [facility] group (unclear who her current senior sustainability advisor is and why they do not have inpatient coverage for their patients). I would be happy to help in the meantime ensure that she continues to receive intermittent HD every MWF. Appreciate ID and IR. Anemia: cont the EPO that I had started for her ongoing severe anemia. Transfusions parameters as per primary. Original Note: Date of Encounter: 07/17/18 Time of Encounter: 10:03 - Assessment and Plan (1) ESRD (end stage renal disease) on dialysis Current Visit: No Status: Acute ESRD on MWF. HD completed yesterday. Did have line exchanged yesterday per IR. (2) Anemia in chronic kidney disease (CKD) Current Visit: Yes Status: Chronic Goal Hgb is 10-11. Hgb is 7.6, stable. Will defer workup to primary team. Qualifiers: Chronic kidney disease stage: on chronic dialysis Qualified Code(s): N18.6 - End stage renal disease; D63.1 - Anemia in chronic kidney disease; Z99.2 - Dependence on renal dialysis (3) CLABSI (central line-associated bloodstream infection) Current Visit: Yes Status: Acute See above. Qualifiers: Encounter type: initial encounter Qualified Code(s): T80.211A - Bloodstream infection due to central venous catheter, initial encounter (4) Wound of sacral region Current Visit: Yes Status: Acute Per wound care. Qualifiers: Qualified Code(s): S31.000A - Unspecified open wound of lower back and pelvis without penetration into retroperitoneum, initial encounter Subjective Principal diagnosis: leukocytosis Interval history: Pt seen and examined doing well. Objective - Vital Signs Vital signs: Vital Signs Temp Pulse Resp BP Pulse Ox 07/17/18 07:06 100.2 F H 110 18 114/71 100 07/17/18 04:53 18 122/70 100 07/17/18 03:30 100.4 F H 120 20 122/70 100 07/16/18 23:39 18 95/65 100 07/16/18 23:15 99.7 F H 116 18 95/65 100 07/16/18 20:48 18 110/71 100 07/16/18 19:51 99.1 F 123 23 110/71 100 07/16/18 17:15 112 20 100 07/16/18 16:16 98.2 F 119 22 130/67 100 07/16/18 15:55 24 133/70 100 07/16/18 15:40 120 20 100 07/16/18 12:35 98.6 F 16 107/62 07/16/18 12:15 99/54 07/16/18 12:00 112 20 104/64 100 07/16/18 11:45 110/63 07/16/18 11:30 113/69 07/16/18 11:15 111/66 07/16/18 11:00 104/64 07/16/18 10:45 110/67 07/16/18 10:30 111/65 07/16/18 10:15 108/71 Intake and Output 07/16/18 07/17/18 07/17/18 23:59 07:59 15:59 Intake Total 587 / 587 437 / 437 Balance 587 / 587 437 / 437 Intake: IV Fluids 150 / 150 Levaquin Premix 750mg/150 mL 150 / 150 750 mg In 150 ml @ 100 mls/hr IVPB Q48H [facility] Rx#:[id number] Tube Feeding 237 / 237 237 / 237 Free Water 200 / 200 200 / 200 Other: Meal NPO Percent of Meal Consumed 0% Stool Size Copious Small Stool Consistency liquid liquid Stool Color Brown Brown # Bowel Movements 1 Weight 66.1 kg Blood Glucose* 244 342 Patient Weight 07/17/18 23:59 Weight 66.1 kg - General Appearance General appearance: Present: well-developed, well-nourished EENT: Present: ATNC, hearing intact, vision intact Neck: Present: supple Respiratory: Present: clear Cardiology: Present: no edema, normal S1, normal S2 Dialysis Vascular Access: Venous Catheter (Tunneled Line, DRSG C/D/I) Gastrointestinal: Present: normoactive bowel sounds, no tenderness, no guarding Integumentary: Present: no rash, warm and dry Psychiatric: Present: mood/affect appropriate, cooperative - Lab 07/17/18 04:34 07/17/18 04:34 Most recent lab results Calcium 8.7 mg/dL (8.6-10.3) 07/17/18 04:34 Phosphorus 1.3 mg/dL (2.7-4.5) L 07/16/18 05:36 Magnesium 2.3 mg/dL (1.6-2.6) 07/16/18 05:36 Consult Discharge Plan - Plan Referrals: NONE,PCP [Primary Care Provider] -
--- NOTE | 2018-07-17 10:56 | Internal Med Progress Note ---
Hospitalist Progress Note - Encounter Date of Encounter: 07/17/18 Time of Encounter: 10:56 - Subjective Interval History: 52-year-old female, [facility] resident with anoxic brain injury on trach and PEG, end-stage renal disease on hemodialysis, diabetes mellitus, sacral decubitus ulcer. She is DNR_CCA She is admitted and being managed for Enterobacter CLABSI. Trach aspirate with MDRo acinetobacter Infectious disease and nephrology following. She is seen and evaluated at bedside She is nonverbal, plan is to remove right permacath and 48 hours line holiday. - Exam Vitals: Temp Pulse Resp BP Pulse Ox 100.2 F H 110 18 114/71 100 07/17/18 07:06 07/17/18 07:06 07/17/18 07:06 07/17/18 07:06 07/17/18 07:06 Exam: General: Alert, breathing spontaneously. Not oriented, no verbal output Chest: Right permacath Cardiovascular:Normal S1 & S2, No JVD. Borderline tachycardia Lungs: diminished breath sounds bilaterally Abdomen:Soft, non-tender, no rigidity. Extremities: Both UE contracted. R chest HD catheter and R UE midline noted. Groin: not assessed - Assessment and Plan (1) ESRD (end stage renal disease) Current Visit: Yes Status: Chronic Assessment and Plan: nephrology consulted for HD, continue car per recommendation (2) Sepsis Current Visit: Yes Status: Acute Assessment and Plan: Presented from [facility] with worsening leukocytosis despite being on vanc/ceftin CXR suspicious for L lower zone opacity Tracheal aspirate with MDRO acinetobacter, ID following cultures obtained from dialysis cath on 07/13 positive for Enterobacter cloacae only one set and none from peripheral Received Zosyn for 48 hours, started on meropenem on 07/15 by infectious disease. Started on levaquin today 07/16 per ID, will continue Total due to of antibiotics -day 3 Blood culture from 07/14 noted, no growth. Blood culture for central venous catheter 07/15 noted, no growth. Central line exchanged by IR Infectious disease is following and input appreciated. (3) Hypokalemia Current Visit: Yes Status: Acute Assessment and Plan: Potassium 3.2 today, will continue to monitor, patient is on HD (4) Anemia in chronic kidney disease (CKD) Current Visit: Yes Status: Chronic Assessment and Plan: Chronic and stable. (5) Anoxic brain injury Current Visit: Yes Status: Chronic Assessment and Plan: Continue tube feeds, regular turning, trach management (6) CLABSI (central line-associated bloodstream infection) Current Visit: Yes Status: Acute Assessment and Plan: As in sepsis. (7) Chronic respiratory failure Current Visit: Yes Status: Chronic Assessment and Plan: Patient with chronic respiratory failure. Trach, vent management per respiratory (8) Diabetes mellitus type 2 in obese Current Visit: Yes Status: Chronic Assessment and Plan: Continue sliding scale insulin DVT Prophylaxis: Subcutaneous heparin - Time Spent with Patient Total time spent is greater than 50% in coordination of care (as documented) at patient's floor/unit and/or counseling patient: Plan of Care Discussed with: nurse Internal Medicine: Result - Labs CBC & Chem 7: 07/17/18 04:34 07/17/18 04:34 Labs: Short CBC 07/17/18 Range/Units 04:34 WBC 18.8 H (4.3-11.1) K/mcL Hgb 7.6 L (11.5-15.4) g/dL Hct 24.3 L (35.3-44.9) % Plt Count 533 H (140-400) K/mcL BMP 07/17/18 04:34 Sodium 137 Potassium 3.3 L Chloride 94 L Carbon Dioxide 29 BUN 28 H Creatinine 3.02 H Glucose 341 H Calcium 8.7 - ABG Interpretation ABG results: PT/INR, D-dimer PT 12.0 Seconds (9.4-12.1) 07/16/18 05:36 - Impressions Impressions Insertion Tunneled Catheter 07/16/18 00:00 IMPRESSION: 1. Successful fluoroscopic guided exchange of a tunneled dialysis catheter as discussed above. D/ / Nikko Orona MD / Nikko Orona MD Interpreting Provider: Nikko Orona MD Consult Discharge Plan - Plan Referrals: NONE,PCP [Primary Care Provider] - (2) Sepsis Qualifiers: Sepsis type: sepsis due to unspecified organism Qualified Code(s): A41.9 - Sepsis, unspecified organism (4) Anemia in chronic kidney disease (CKD) Qualifiers: Chronic kidney disease stage: on chronic dialysis Qualified Code(s): N18.6 - End stage renal disease; D63.1 - Anemia in chronic kidney disease; Z99.2 - Dependence on renal dialysis (6) CLABSI (central line-associated bloodstream infection) Qualifiers: Encounter type: initial encounter Qualified Code(s): T80.211A - Bloodstream infection due to central venous catheter, initial encounter (7) Chronic respiratory failure Qualifiers: Respiratory failure complication: hypoxia Qualified Code(s): J96.11 - Chronic respiratory failure with hypoxia
--- NOTE | 2018-07-17 11:23 | Infectious Disease Progress No ---
Date of Encounter: 07/17/18 Time of Encounter: 11:21 - Assessment and Plan (1) Sepsis Current Visit: Yes Status: Acute Patient had severe sepsis criteria including tachycardia, tachypnea, leukocytosis and lactic acidosis. Likely secondary to central line associated bloodstream infection and possible pneumonia. Improved initially, but started having fevers again overnight with Tmax 100.4 and tachycardia. WBC trending up. HD catheter blood culture drawn 07/13/18 11 set was positive for E. cloacae. Repeat peripheral blood cultures drawn 07/14 are NGTD x 4 sets. Additional blood culture drawn 07/15/18 x 1 set from the HD catheter is NGTD. Recommendations: Repeat peripheral blood cultures x2 sets. Repeat cultures from HD catheter x 1 set. Draw all blood cultures at the same time. Repeat sputum culture now. Patient is anuric so unable to chekc S. pneumo and Legionella UATs. Place the patient in droplet precautions. Qualifiers: Qualified Code(s): A41.9 - Sepsis, unspecified organism (2) CLABSI (central line-associated bloodstream infection) Current Visit: Yes Status: Acute Causative organism: E. cloacae. Source vs. seeding of the line. HD catheter blood culture drawn 07/13/18 x1 set was positive for E. cloacae. Repeat peripheral blood cultures drawn 07/14 are NGTD x 4 sets. Additional blood culture drawn 07/15/18 x 1 set from the HD catheter is NGTD. Status post [id number] exchange of the line 07/16/18 by IR. Currently on Levaquin. Qualifiers: Qualified Code(s): T80.211A - Bloodstream infection due to central venous catheter, initial encounter (3) Pneumonia Current Visit: Yes Status: Acute PNA vs. colonization. CXR 07/14/18 limited due to patient rotation and shallow inspiration, but mild nonspecific left basilar opacities with pneumonia not excluded. Aspiration is possible given the patient's altered mental status, but has been tolerating tube feeds with minimal residuals. Sputum culture positive for MDRO A. baumannii. MRSA screen positive. Anuric. Unable to check UATs. Low probability of viral infection. Currently on Levaquin. Qualifiers: Qualified Code(s): J18.1 - Lobar pneumonia, unspecified organism (4) Anoxic brain injury Current Visit: Yes Status: Chronic (5) Chronic respiratory failure Current Visit: Yes Status: Chronic Secondary to anoxic brain injury. Chronic trach with ATC vent support. Qualifiers: Qualified Code(s): J96.11 - Chronic respiratory failure with hypoxia (6) Diabetes mellitus type 2 in obese Current Visit: Yes Status: Chronic (7) ESRD (end stage renal disease) on dialysis Current Visit: No Status: Acute Nephrology consulted and following. (8) Wound of sacral region Current Visit: Yes Status: Acute Clinically does not appear infected. Wound care and offloading. Qualifiers: Qualified Code(s): S31.000A - Unspecified open wound of lower back and pelvis without penetration into retroperitoneum, initial encounter - Subjective Interval history: Patient seen and examined. No acute events noted overnight. Patient has been febrile with a MAXIMUM TEMPERATURE of 100.4. She has had tachycardia. She remains unresponsive due to her an anoxic brain injury. Review of systems unobtainable from the patient. She did undergo an over the guidewire exchange of her dialysis catheter yesterday. Per nursing, tolerating tube feeds well. Infect Dis PN-Objective Data - Labs CBC & Chem 7: 07/17/18 04:34 07/17/18 04:34 Labs: Laboratory Results - last 24 hr 07/16/18 07/16/18 07/16/18 11:25 12:49 17:21 WBC RBC Hgb Hct MCV MCH MCHC RDW Plt Count MPV Sodium Potassium Chloride Carbon Dioxide BUN Creatinine Est GFR ( Amer) Est GFR (Non-Af Amer) BUN/Creatinine Ratio Glucose POC Glucose 116 H 129 H 296 H Calculated Osmolality Calcium 07/16/18 07/17/18 07/17/18 23:20 04:34 04:34 WBC 18.8 H RBC 2.84 L Hgb 7.6 L Hct 24.3 L MCV 85.6 MCH 26.8 L MCHC 31.3 L RDW 16.1 H Plt Count 533 H MPV 9.0 L Sodium 137 Potassium 3.3 L Chloride 94 L Carbon Dioxide 29 BUN 28 H Creatinine 3.02 H Est GFR ( Amer) 20 L Est GFR (Non-Af Amer) 16 L BUN/Creatinine Ratio 9 Glucose 341 H POC Glucose 244 H Calculated Osmolality 303 H Calcium 8.7 07/17/18 05:41 WBC RBC Hgb Hct MCV MCH MCHC RDW Plt Count MPV Sodium Potassium Chloride Carbon Dioxide BUN Creatinine Est GFR ( Amer) Est GFR (Non-Af Amer) BUN/Creatinine Ratio Glucose POC Glucose 342 H Calculated Osmolality Calcium Cultures: Cultures 07/15/18 11:41 Blood Culture - Preliminary Central Venous Catheter Culture is incubating and being continuously monitored for growth. Final report to follow. 07/14/18 23:41 Blood Culture - Preliminary Peripheral Venipuncture Culture is incubating and being continuously monitored for growth. Final report to follow. 07/14/18 23:41 Blood Culture - Preliminary Peripheral Venipuncture Culture is incubating and being continuously monitored for growth. Final report to follow. Serology 07/16/18 07/16/18 07/15/18 Range/Units 07:07 02:40 17:15 Nasal Screen MRSA (PCR) Positive A (Negative) Stl C. cayetanensis PCR Not detected (Not detect) Stool Rotavirus A PCR Not detected (Not detect) Stl Adenov F 4041 PCR Not detected (Not detect) Stool Astrovirus (PCR) Not detected (Not detect) Stool Campylobacter PCR Not detected (Not detect) Stool Cryptosporidium PCR Not detected (Not detect) Stl Sh Tox Pr E STEC PCR Not detected (Not detect) Stl Enterotoxigenic E PCR Not detected (Not detect) Stool EPEC (PCR) Not detected (Not detect) Stool EAEC (PCR) Not detected (Not detect) Stl E. histolytica PCR Not detected (Not detect) Stool Giardia Lamblia PCR Not detected (Not detect) Stool Salmonella PCR Not detected (Not detect) Stool Sapovirus (PCR) Not detected (Not detect) Stl P. shigelloides PCR Not detected (Not detect) Stl Shigella/EIEC PCR Not detected (Not detect) St Y.enterocolitica PCR Not detected (Not detect) Stool Vibrio (PCR) Not detected (Not detect) Stl Vibrio cholerae PCR Not detected (Not detect) Stl Norovirus GI/GII PCR Not detected (Not detect) Stl GI Panel (PCR) Com See below C.diff Toxin Gene (MARY) Not detected (Not detect) Hep Bs Antigen Nonreactive (Nonreactive) Hep Bs Antibody 38.07 (10.00 - ) mIU/mL - Impressions Impressions Insertion Tunneled Catheter 07/16/18 00:00 IMPRESSION: 1. Successful fluoroscopic guided exchange of a tunneled dialysis catheter as discussed above. D/ / Nikko Orona MD / Nikko Orona MD Interpreting Provider: Nikko Orona MD Exam - Constitutional Vitals: Temp Pulse Resp BP Pulse Ox 100.2 F H 110 18 114/71 100 07/17/18 07:06 07/17/18 07:06 07/17/18 07:06 07/17/18 07:06 07/17/18 07:06 General appearance: average body habitus, no acute distress, no febrile - Head Head exam: Present: atraumatic, normal inspection, normocephalic - Eye Eye exam: Present: EOMI, normal appearance Pupils: Present: normal accommodation Additional comments: Eyesmove spontaneously, but patient does not follow commands or track me around the room. - ENT ENT exam: Present: mucous membranes dry - Neck Neck exam: Present: normal inspection Additional comments: Tracheostomy midline with O2 via the vent. - Respiratory Respiratory exam: Present: rhonchi (Throughout). Absent: rales, respiratory distress, wheezes - Cardiovascular Cardiovascular exam: Present: +S1, +S2, tachycardia. Absent: irregular rhythm - GI/Abdominal GI/Abdominal exam: Present: normal bowel sounds, soft. Absent: distended, tenderness Additional comments: PEG tube noted to the epigastric region. - Extremities Exam Extremities exam: Absent: normal inspection (Status post TMA of the right foot. Surgical site with scabbing noted. No surrounding erythema, warmth, or drainage noted.) - Back Exam Additional comments: Sacral decubitus ulcer with central area of necrosis with otherwise pink wound bed without surrounding erythema, warmth, or drainage. - Neurological Exam Neurological exam: Present: altered (Eyes open, but does not follow commands or attempt to communicate. Contractures noted to the BUE.) - Skin Skin exam: Present: dry, intact, normal color, warm - Additional findings Additional findings: Perma-cath noted to the right upper chest with transparent dressing C/D/I. No surrounding erythema, warmth, or drainage noted. Consult Discharge Plan - Plan Referrals: NONE,PCP [Primary Care Provider] - - Attending Attestation I examined this patient and my medical decision-making was reviewed with the Resident Physician. I agree with the documented findings, disposition and treatment plan as described except to the extent set forth below.
[2018-07-17] MEDS: Leptospermum Honey Gel 44 ML TUBE TP SCH (13:06)
[2018-07-17] MEDS: levETIRAcetam 500 MG/5 ML UDC GTUBE SCH (13:06)
[2018-07-17] MEDS: Colistin (Colistimethate) 100 MG in 0.9 % Sodium Chloride 50 ML IVPB SCH (15:04)
[2018-07-18] MEDS: *HR* Heparin 5,000 UNIT/ML VIAL SQ SCH ×2 (06:15→18:14)
[2018-07-18] MEDS: Insulin LISPRO 300 UNITS/3 ML VIAL SQ SCH ×3 (06:18→18:14)
--- NOTE | 2018-07-18 06:48 | Nephrology Progress Note ---
Date of Encounter: 07/18/18 Time of Encounter: 07:55 - Assessment and Plan (1) ESRD (end stage renal disease) on dialysis Current Visit: No Status: Acute ESRD on MWF, and so she is due for [employer] today. All her labs are pending at this time. Appreciate ID and IR. Again her line infection should be attributed to her outside Nephrology group who no longer has rounding coverage at [facility], and not to my group [facility]. (2) Anemia in chronic kidney disease (CKD) Current Visit: Yes Status: Chronic Qualifiers: Chronic kidney disease stage: on chronic dialysis Qualified Code(s): N18.6 - End stage renal disease; D63.1 - Anemia in chronic kidney disease; Z99.2 - Dependence on renal dialysis (3) CLABSI (central line-associated bloodstream infection) Current Visit: Yes Status: Acute Qualifiers: Encounter type: initial encounter Qualified Code(s): T80.211A - Bloodstream infection due to central venous catheter, initial encounter (4) Wound of sacral region Current Visit: Yes Status: Acute Qualifiers: Qualified Code(s): S31.000A - Unspecified open wound of lower back and pelvis without penetration into retroperitoneum, initial encounter Subjective Principal diagnosis: leukocytosis Interval history: Pt was s/e. She has anoxic brain injury and does not interact, so this limits the subjective portion of the note. No family present. The Lab team was just finishing drawing AM labs. Objective - Vital Signs Vital signs: Vital Signs Temp Pulse Resp BP Pulse Ox 07/18/18 04:28 100.4 F H 103 21 134/82 92 07/18/18 04:27 19 97 07/18/18 00:13 18 100 07/17/18 23:41 99.3 F 107 22 117/71 100 07/17/18 21:09 18 100 07/17/18 21:05 108 07/17/18 19:42 99.5 F 105 19 107/64 100 07/17/18 16:09 100.9 F H 113 19 145/71 99 07/17/18 16:07 18 100 07/17/18 11:22 100.5 F H 113 18 145/71 99 07/17/18 11:02 19 99 07/17/18 07:06 100.2 F H 110 18 114/71 100 Intake and Output 07/17/18 07/17/18 07/18/18 15:59 23:59 07:59 Intake Total 200 / 200 500 / 500 437 / 437 Output Total 0 / 0 Balance 200 / 200 500 / 500 437 / 437 Intake: IV Fluids 50 / 50 Coly-Mycin M PARENTERAL 100 MG 50 / 50 In 0.9 % Sodium Chloride 50 ML @ 100 mls/hr IVPB DAILY [facility] Rx# :[id number] Oral 0 / 0 Tube Feeding 237 / 237 Free Water 200 / 200 Free Water Intake Amount 200 / 200 450 / 450 Output: Urine 0 / 0 Other: Meal NPO NPO Percent of Meal Consumed 0% 0% Stool Size Small Small Stool Consistency liquid liquid Stool Color Brown Brown Weight 65.7 kg Blood Glucose* [phone] Patient Weight 07/18/18 23:59 Weight 65.7 kg - General Appearance General appearance: Present: chronically ill EENT: Present: mucous membranes moist Additional Comments: trach in place Respiratory: Present: clear Cardiology: Present: no edema, normal S1, normal S2 Dialysis Vascular Access: Venous Catheter (Right sided Permacath with the clear dressing being C/D/I) Gastrointestinal: Present: normoactive bowel sounds, no guarding Neurologic: Present: obtunded (which limits her neuro exam) - Lab 07/18/18 07:54 07/18/18 07:54 Most recent lab results Calcium 8.7 mg/dL (8.6-10.3) 07/17/18 04:34 Phosphorus 1.3 mg/dL (2.7-4.5) L 07/16/18 05:36 Magnesium 2.3 mg/dL (1.6-2.6) 07/16/18 05:36 Consult Discharge Plan - Plan Referrals: NONE,PCP [Primary Care Provider] -
[2018-07-18] MEDS ORDERED: *HR* Heparin 10,000 UNIT/10 ML VIAL IV PRN (06:57)
[2018-07-18] MEDS ORDERED: 0.9 % Sodium Chloride 1,000 ML ONE (07:56)
[2018-07-18 08:20] LABS: Hematocrit 24.4 % (35.3-44.9); Hemoglobin 7.4 g/dL (11.5-15.4); Mean Corpuscular HGB Conc 30.3 g/dL (31.6-35.5); Mean Corpuscular Hemoglobin 26.5 pg (28.0-33.3); Mean Corpuscular Volume 87.5 fL (83.0-100.0); Mean Platelet Volume 9.2 fL (9.4-12.4); Platelet Count 565 K/mcL (140-400); Red Blood Count 2.79 M/mcL (3.82-4.97)
[2018-07-18 08:32] LABS: Calcium 9.1 mg/dL (8.6-10.3); Potassium 3.3 mEq/L (3.5-5.1)
--- NOTE | 2018-07-18 09:23 | Internal Med Progress Note ---
Hospitalist Progress Note - Encounter Date of Encounter: 07/18/18 Time of Encounter: 09:23 - Subjective Interval History: 52-year-old female, [facility] resident with anoxic brain injury on trach and PEG, end-stage renal disease on hemodialysis, diabetes mellitus, sacral decubitus ulcer. She is DNR_CCA She is admitted and being managed for Enterobacter CLABSI. Trach aspirate with MDRo acinetobacter Infectious disease and nephrology following. She is seen and evaluated at bedside She has been started on Colistin for Acinetobacter pneumonia, she is also receiving Levaquin for Enterobacter bacteremia She continues to be febrile with low-grade fevers recorded overnight, remains tachycardic, blood pressure is within normal limits - Exam Vitals: Temp Pulse Resp BP Pulse Ox 100.1 F H 107 18 136/67 100 07/18/18 07:23 07/18/18 07:23 07/18/18 07:23 07/18/18 07:23 07/18/18 07:23 Exam: General: Alert, breathing spontaneously. Not oriented, no verbal output Chest: Right permacath Neck: Trached with mucopurulent discharge in the tubes Cardiovascular:Normal S1 & S2, No JVD. Borderline tachycardia Lungs: diminished breath sounds bilaterally Abdomen:Soft, non-tender, no rigidity. Extremities: Both UE contracted. R chest HD catheter and R UE midline noted. Groin: not assessed Neuro: Nonverbal - Assessment and Plan (1) ESRD (end stage renal disease) Current Visit: Yes Status: Chronic Assessment and Plan: nephrology consulted for HD, continue care per recommendation (2) Sepsis Current Visit: Yes Status: Acute Assessment and Plan: Presented from sn[facility] with worsening leukocytosis despite being on vanc/ceftin CXR suspicious for L lower zone opacity cultures obtained from dialysis cath on 07/13 positive for Enterobacter cloacae only one set and none from peripheral Received Zosyn for 48 hours, started on meropenem on 07/15 by infectious disease. Started on levaquin 07/16 per ID, will continue Tracheal aspirate with MDRO acinetobacter, ID following, started on colistin- Day2 Blood culture from 07/14 noted, no growth. Blood culture for central venous catheter 07/15 noted, no growth. Central line exchanged by IR Blood culture from [facility] 07/17, no growth Peripheral blood culture from 07/17, prelim, no growth Patient with multiple decubiti wounds and still having fever and tachycardia Infectious disease is following and input appreciated. (3) Hypokalemia Current Visit: Yes Status: Acute Assessment and Plan: Potassium 3.3 today, will continue to monitor, patient is on HD (4) Anemia in chronic kidney disease (CKD) Current Visit: Yes Status: Chronic Assessment and Plan: Chronic and stable. (5) Anoxic brain injury Current Visit: Yes Status: Chronic Assessment and Plan: Continue tube feeds, regular turning, trach management (6) CLABSI (central line-associated bloodstream infection) Current Visit: Yes Status: Acute Assessment and Plan: As in sepsis. (7) Chronic respiratory failure Current Visit: Yes Status: Chronic Assessment and Plan: Patient with chronic respiratory failure, vent dependent. Trach, vent management per respiratory (8) Diabetes mellitus type 2 in obese Current Visit: Yes Status: Chronic Assessment and Plan: Continue sliding scale insulin (9) Pneumonia Current Visit: Yes Status: Acute Assessment and Plan: as in sepsis - Time Spent with Patient Total time spent is greater than 50% in coordination of care (as documented) at patient's floor/unit and/or counseling patient: Plan of Care Discussed with: nurse Internal Medicine: Result - Labs CBC & Chem 7: 07/18/18 07:54 07/18/18 07:54 Labs: Short CBC 07/18/18 Range/Units 07:54 WBC 16.5 H (4.3-11.1) K/mcL Hgb 7.4 L (11.5-15.4) g/dL Hct 24.4 L (35.3-44.9) % Plt Count 565 H (140-400) K/mcL BMP 07/18/18 07:54 Sodium 133 L Potassium 3.3 L Chloride 92 L Carbon Dioxide 31 H BUN 45 H Creatinine 4.55 H Glucose 432 H Calcium 9.1 - ABG Interpretation ABG results: PT/INR, D-dimer PT 12.0 Seconds (9.4-12.1) 07/16/18 05:36 Consult Discharge Plan - Plan Referrals: NONE,PCP [Primary Care Provider] - (2) Sepsis Qualifiers: Sepsis type: sepsis due to unspecified organism Qualified Code(s): A41.9 - Sepsis, unspecified organism (4) Anemia in chronic kidney disease (CKD) Qualifiers: Chronic kidney disease stage: on chronic dialysis Qualified Code(s): N18.6 - End stage renal disease; D63.1 - Anemia in chronic kidney disease; Z99.2 - Dependence on renal dialysis (6) CLABSI (central line-associated bloodstream infection) Qualifiers: Encounter type: initial encounter Qualified Code(s): T80.211A - Bloodstream infection due to central venous catheter, initial encounter (7) Chronic respiratory failure Qualifiers: Respiratory failure complication: hypoxia Qualified Code(s): J96.11 - Chronic respiratory failure with hypoxia (9) Pneumonia Qualifiers: Pneumonia type: due to other aerobic Gram-negative bacteria Laterality: bilateral Lung location: lower lobe of lung Qualified Code(s): J15.6 - Pneumonia due to other Gram-negative bacteria
--- NOTE | 2018-07-18 09:51 | Infectious Disease Progress No ---
Date of Encounter: 07/18/18 Time of Encounter: 09:49 - Assessment and Plan (1) Sepsis Current Visit: Yes Status: Acute Patient had severe sepsis criteria including tachycardia, tachypnea, leukocytosis and lactic acidosis. Likely secondary to central line associated bloodstream infection and possible pneumonia. Improved initially, but started having fevers again. Tmax overnight with 100.9 and tachycardia. WBC improved. HD catheter blood culture drawn 07/13/18 11 set was positive for E. cloacae. Repeat peripheral blood cultures drawn 07/14 are NGTD x 4 sets. Additional blood culture drawn 07/15/18 x 1 set from the HD catheter is NGTD. Repeat peripheral blood cultures drawn 07/17/18 x 2 sets are pending. Additional blood culture drawn from the Perma-cath 07/17/18 x 1 set is pending. Recommendations: Await repeat blood cultures. Await repeat sputum culture. Send Acinetobacter culture for colistin susceptibilities. Patient is anuric so unable to chekc S. pneumo and Legionella UATs. Continue droplet/contact precautions. Consider repeat imaging if the patient continues to have fevers. Continue Colistin. Will ask pharmacy to assist with dosing for the patient's HD status. Continue Levaquin 750mg IV Q48H. Start Vancomycin IV. Pharmacy to dose. Goal trough ~15. Duration of treatment depends on the clinical picture. Monitor drug levels and dose-adjust antibiotics. Qualifiers: Qualified Code(s): A41.9 - Sepsis, unspecified organism (2) CLABSI (central line-associated bloodstream infection) Current Visit: Yes Status: Acute Causative organism: E. cloacae. Source vs. seeding of the line. HD catheter blood culture drawn 07/13/18 x1 set was positive for E. cloacae. Repeat peripheral blood cultures drawn 07/14 are NGTD x 4 sets. Additional blood culture drawn 07/15/18 x 1 set from the HD catheter is NGTD. Status post [id number] exchange of the line 07/16/18 by IR. Repeat peripheral blood cultures drawn 07/17/18 x 2 sets are pending. Additional perma-cath blood culture drawn 07/17/18 x 1 set is pending. Currently on Levaquin. Qualifiers: Qualified Code(s): T80.211A - Bloodstream infection due to central venous catheter, initial encounter (3) Pneumonia Current Visit: Yes Status: Acute PNA vs. colonization. CXR 07/14/18 limited due to patient rotation and shallow inspiration, but mild nonspecific left basilar opacities with pneumonia not excluded. Aspiration is possible given the patient's altered mental status, but has been tolerating tube feeds with minimal residuals. Sputum culture positive for MDRO A. baumannii. MRSA screen positive. Anuric. Unable to check UATs. Low probability of viral infection. Repeat sputum culture is pending. Currently on Levaquin and Colistin. Qualifiers: Qualified Code(s): J18.1 - Lobar pneumonia, unspecified organism (4) Anoxic brain injury Current Visit: Yes Status: Chronic Etiology unclear. (5) Chronic respiratory failure Current Visit: Yes Status: Chronic Secondary to anoxic brain injury. Chronic trach with ATC vent support. Qualifiers: Qualified Code(s): J96.11 - Chronic respiratory failure with hypoxia (6) Diabetes mellitus type 2 in obese Current Visit: Yes Status: Chronic (7) ESRD (end stage renal disease) on dialysis Current Visit: No Status: Acute Nephrology consulted and following. (8) Wound of sacral region Current Visit: Yes Status: Acute Clinically does not appear infected. Wound care and offloading. Qualifiers: Qualified Code(s): S31.000A - Unspecified open wound of lower back and pelvis without penetration into retroperitoneum, initial encounter (9) Diarrhea Current Visit: Yes Status: Acute Likely secondary to tube feeds. GI panel and C. diff negative. FMS per the primary team to prevent contamination of her sacral wound. Qualifiers: Qualified Code(s): R19.7 - Diarrhea, unspecified - Subjective Interval history: Patient seen and examined in the HD unit. No acute events noted overnight. Patient has been febrile with a MAXIMUM TEMPERATURE of 100.9. She has had tachycardia. She remains unresponsive due to her an anoxic brain injury. Review of systems unobtainable from the patient. She did undergo an over the guidewire exchange of her dialysis catheter 07/16/18. Per nursing, tolerating tube feeds well. Rectal tube re-inserted to assist with wound contamination. Infect Dis PN-Objective Data - Labs CBC & Chem 7: 07/18/18 07:54 07/18/18 07:54 Labs: Laboratory Results - last 24 hr 07/17/18 07/17/18 07/17/18 11:16 11:16 17:15 WBC RBC Hgb Hct MCV MCH MCHC RDW Plt Count MPV Sodium Potassium Chloride Carbon Dioxide BUN Creatinine Est GFR ( Amer) Est GFR (Non-Af Amer) BUN/Creatinine Ratio Glucose POC Glucose 411 H* 402 H* 330 H Calculated Osmolality Calcium 07/17/18 07/18/18 07/18/18 23:48 05:48 07:54 WBC 16.5 H RBC 2.79 L Hgb 7.4 L Hct 24.4 L MCV 87.5 MCH 26.5 L MCHC 30.3 L RDW 16.0 H Plt Count 565 H MPV 9.2 L Sodium Potassium Chloride Carbon Dioxide BUN Creatinine Est GFR ( Amer) Est GFR (Non-Af Amer) BUN/Creatinine Ratio Glucose POC Glucose 253 H 334 H Calculated Osmolality Calcium 07/18/18 07:54 WBC RBC Hgb Hct MCV MCH MCHC RDW Plt Count MPV Sodium 133 L Potassium 3.3 L Chloride 92 L Carbon Dioxide 31 H BUN 45 H Creatinine 4.55 H Est GFR ( Amer) 12 L Est GFR (Non-Af Amer) 10 L BUN/Creatinine Ratio 10 Glucose 432 H POC Glucose Calculated Osmolality 306 H Calcium 9.1 Cultures: Cultures 07/17/18 20:45 Sputum Culture - Preliminary Trachea 07/17/18 13:53 Blood Culture - Preliminary Peripheral Venipuncture Culture is incubating and being continuously monitored for growth. Final report to follow. 07/17/18 13:53 Blood Culture - Preliminary Peripheral Venipuncture Culture is incubating and being continuously monitored for growth. Final report to follow. 07/17/18 14:35 Blood Culture - Preliminary Central Venous Catheter Culture is incubating and being continuously monitored for growth. Final report to follow. 07/15/18 11:41 Blood Culture - Preliminary Central Venous Catheter Culture is incubating and being continuously monitored for growth. Final report to follow. 07/14/18 23:41 Blood Culture - Preliminary Peripheral Venipuncture Culture is incubating and being continuously monitored for growth. Final report to follow. 07/14/18 23:41 Blood Culture - Preliminary Peripheral Venipuncture Culture is incubating and being continuously monitored for growth. Final report to follow. Serology 07/16/18 07/16/18 07/15/18 Range/Units 07:07 02:40 17:15 Nasal Screen MRSA (PCR) Positive A (Negative) Stl C. cayetanensis PCR Not detected (Not detect) Stool Rotavirus A PCR Not detected (Not detect) Stl Adenov F 40/41 PCR Not detected (Not detect) Stool Astrovirus (PCR) Not detected (Not detect) Stool Campylobacter PCR Not detected (Not detect) Stool Cryptosporidium PCR Not detected (Not detect) Stl Sh Tox Pr E STEC PCR Not detected (Not detect) Stl Enterotoxigenic E PCR Not detected (Not detect) Stool EPEC (PCR) Not detected (Not detect) Stool EAEC (PCR) Not detected (Not detect) Stl E. histolytica PCR Not detected (Not detect) Stool Giardia Lamblia PCR Not detected (Not detect) Stool Salmonella PCR Not detected (Not detect) Stool Sapovirus (PCR) Not detected (Not detect) Stl P. shigelloides PCR Not detected (Not detect) Stl Shigella/EIEC PCR Not detected (Not detect) St Y.enterocolitica PCR Not detected (Not detect) Stool Vibrio (PCR) Not detected (Not detect) Stl Vibrio cholerae PCR Not detected (Not detect) Stl Norovirus GI/GII PCR Not detected (Not detect) Stl GI Panel (PCR) Com See below C.diff Toxin Gene (MARY) Not detected (Not detect) Hep Bs Antigen Nonreactive (Nonreactive) Hep Bs Antibody 38.07 (10.00 - ) mIU/mL Exam - Constitutional Vitals: Temp Pulse Resp BP Pulse Ox 100.0 F H 107 20 94/55 100 07/18/18 09:10 07/18/18 07:23 07/18/18 09:10 07/18/18 09:10 07/18/18 07:23 General appearance: average body habitus, no acute distress, no febrile - Head Head exam: Present: atraumatic, normal inspection, normocephalic - Eye Eye exam: Present: normal appearance Additional comments: Spontaneous eye opening and movement noted, but not purposeful. - Neck Neck exam: Present: normal inspection Additional comments: Tracheostomy midline with O2 via the vent. - Respiratory Respiratory exam: Present: CTAB. Absent: rales, respiratory distress, rhonchi, wheezes - Cardiovascular Cardiovascular exam: Present: +S1, +S2, tachycardia. Absent: irregular rhythm - GI/Abdominal GI/Abdominal exam: Present: normal bowel sounds, soft. Absent: distended, ten derness Additional comments: Rectal tube noted with brown liquid stool in the collection bag. PEG tube noted to the epigastric region, currently clamped. - Extremities Exam Extremities exam: Absent: normal inspection (Right foot TMA site with scabbing noted. No surrounding erythema, warmth, fluctuance, or drainage noted.) Additional comments: Contractures noted to the BUE. - Neurological Exam Neurological exam: Present: altered (Spontaneous eye opening, but no purposeful movement noted. Does not follow commands. Does not attempt to communicate.) - Skin Skin exam: Present: dry, intact, normal color, warm - Additional findings Additional findings: Perma-cath noted to the right upper chest, currently accessed for HD. Consult Discharge Plan - Plan Referrals: NONE,PCP [Primary Care Provider] - - Attending Attestation I examined this patient and my medical decision-making was reviewed with the Resident Physician. I agree with the documented findings, disposition and brooks atment plan as described except to the extent set forth below.
[2018-07-18] MEDS: Colistin (Colistimethate) 100 MG in 0.9 % Sodium Chloride 50 ML IVPB SCH (13:00)
[2018-07-18] MEDS ORDERED: Vancomycin 1 EACH in 0.9 % Sodium Chloride 250 ML IVPB PRN (13:00)
[2018-07-18] MEDS: Levofloxacin 750 MG/150 ML 750 MG/150 ML BAG IVPB SCH (13:02)
[2018-07-18] MEDS: levETIRAcetam 500 MG/5 ML UDC GTUBE SCH (13:02)
[2018-07-18] MEDS: Leptospermum Honey Gel 44 ML TUBE TP SCH (13:03)
[2018-07-18] MEDS: Insulin DETEMIR 100 UNIT/ML X5UNITS SQ SCH (20:08)
[2018-07-19] MEDS: Insulin LISPRO 300 UNITS/3 ML VIAL SQ SCH ×5 (00:15→23:57)
[2018-07-19 05:02] LABS: Hematocrit 25.1 % (35.3-44.9); Hemoglobin 7.8 g/dL (11.5-15.4); Mean Corpuscular HGB Conc 31.1 g/dL (31.6-35.5); Mean Corpuscular Hemoglobin 27.4 pg (28.0-33.3); Mean Corpuscular Volume 88.1 fL (83.0-100.0); Platelet Count 569 K/mcL (140-400); Red Blood Count 2.85 M/mcL (3.82-4.97); Red Cell Distribution Width 16.2 % (11.5-14.5)
[2018-07-19 05:20] LABS: Calcium 9.2 mg/dL (8.6-10.3); Potassium 3.3 mEq/L (3.5-5.1)
[2018-07-19] MEDS: *HR* Heparin 5,000 UNIT/ML VIAL SQ SCH ×2 (05:34→18:22)
--- NOTE | 2018-07-19 07:04 | Event Note ---
Date of Encounter: 07/19/18 Time of Encounter: 07:02 - Nephrology Event Note Nephrology Chart Review/Update ESRD on thrice weekly HD, and she last dialyzed yesterday. Will tentatively plan for HD on Saturday. I will be available this weekend, if needed. After this admission, she would return to her outside [employer] who apparently no longer rounds or has coverage or privileges at [facility].
[2018-07-19] MEDS: Colistin (Colistimethate) 100 MG in 0.9 % Sodium Chloride 50 ML IVPB SCH (08:50)
[2018-07-19] MEDS: levETIRAcetam 500 MG/5 ML UDC GTUBE SCH (08:50)
[2018-07-19] MEDS: Leptospermum Honey Gel 44 ML TUBE TP SCH (08:53)
--- NOTE | 2018-07-19 13:40 | Internal Med Progress Note ---
Hospitalist Progress Note - Encounter Date of Encounter: 07/19/18 Time of Encounter: 13:35 - Subjective Interval History: Pt non-verbal. Discussed with nurse and no acute changes during the night. Currently working on disposition plans as pt does not have an appointed DPOA. - Exam Vitals: Temp Pulse Resp BP Pulse Ox 99.1 F 104 18 136/43 100 07/19/18 11:27 07/19/18 11:27 07/19/18 11:27 07/19/18 11:07/19/18 11:27 Exam: General: Alert, breathing spontaneously. Not oriented, non-verbal Chest: Right permacath Neck: Trached with mucopurulent discharge in the tubes Cardiovascular:Normal S1 & S2, No JVD. Borderline tachycardia Lungs: diminished breath sounds bilaterally Abdomen:Soft, non-tender, no rigidity. Extremities: Both UE contracted. R chest HD catheter and R UE midline noted. Groin: not assessed Neuro: Nonverbal - Assessment and Plan (1) Sepsis Current Visit: Yes Status: Acute Assessment and Plan: Presented from group home with worsening leukocytosis despite being on vanc/ceftin CXR suspicious for L lower zone opacity cultures obtained from dialysis cath on 07/13 positive for Enterobacter cloacae only one set and none from peripheral Received Zosyn for 48 hours, started on meropenem on 07/15 by infectious disease. Started on levaquin 07/16 per ID, will continue Tracheal aspirate with MDRO acinetobacter, ID following, started on colistin-Day 3. Sputum culture growing gram negative matheus. Blood culture from 07/14 noted, no growth. Blood culture for central venous catheter 07/15 noted, no growth. Central line exchanged by IR Blood culture from [facility] 07/17, no growth Peripheral blood culture from 07/17, prelim, no growth Patient with multiple decubiti wounds and still having fever and tachycardia Infectious disease is following and input appreciated. (2) ESRD (end stage renal disease) Current Visit: Yes Status: Chronic Assessment and Plan: nephrology consulted for HD, continue care per recommendation (3) Hypokalemia Current Visit: Yes Status: Acute Assessment and Plan: Potassium 3.3 today, will continue to monitor, patient is on HD (4) Anemia in chronic kidney disease (CKD) Current Visit: Yes Status: Chronic Assessment and Plan: Chronic and stable. (5) CLABSI (central line-associated bloodstream infection) Current Visit: Yes Status: Acute Assessment and Plan: discussed above under sepsis. (6) Pneumonia Current Visit: Yes Status: Acute Assessment and Plan: discussed above under sepsis (7) Diabetes mellitus type 2 in obese Current Visit: Yes Status: Chronic Assessment and Plan: Continue sliding scale insulin (8) Anoxic brain injury Current Visit: Yes Status: Chronic Assessment and Plan: Continue tube feeds, regular turning, trach management (9) Chronic respiratory failure Current Visit: Yes Status: Chronic Assessment and Plan: Patient with chronic respiratory failure, vent dependent. Trach, vent management per respiratory DVT Prophylaxis: Subcutaneous heparin - Summary of Assessment and Plan Summary of Assessment and Plan: Interval History: Dr. Cuba 52-year-old female, group home resident with anoxic brain injury on trach and PEG, end-stage renal disease on hemodialysis, diabetes mellitus, sacral decubitus ulcer. She is DNR_CCA She is admitted and being managed for Enterobacter CLABSI. Trach aspirate with MDRo acinetobacter Infectious disease and nephrology following. She is seen and evaluated at bedside She has been started on Colistin for Acinetobacter pneumonia, she is also receiving Levaquin for Enterobacter bacteremia She continues to be febrile with low-grade fevers recorded overnight, remains tachycardic, blood pressure is within normal limits - Time Spent with Patient Total time spent is greater than 50% in coordination of care (as documented) at patient's floor/unit and/or counseling patient: less than 15 minutes Plan of Care Discussed with: nurse Internal Medicine: Result - Labs CBC & Chem 7: 07/19/18 04:39 07/19/18 04:39 Labs: Short CBC 07/19/18 Range/Units 04:39 WBC 17.3 H (4.3-11.1) K/mcL Hgb 7.8 L (11.5-15.4) g/dL Hct 25.1 L (35.3-44.9) % Plt Count 569 H (140-400) K/mcL BMP 07/19/18 04:39 Sodium 134 L Potassium 3.3 L Chloride 92 L Carbon Dioxide 32 H BUN 26 H Creatinine 2.74 H Glucose 276 H Calcium 9.2 - ABG Interpretation ABG results: PT/INR, D-dimer PT 12.0 Seconds (9.4-12.1) 07/16/18 05:36 Consult Discharge Plan - Plan Referrals: NONE,PCP [Primary Care Provider] - (1) Sepsis Qualifiers: Sepsis type: sepsis due to unspecified organism Qualified Code(s): A41.9 - Sepsis, unspecified organism (4) Anemia in chronic kidney disease (CKD) Qualifiers: Chronic kidney disease stage: on chronic dialysis Qualified Code(s): N18.6 - End stage renal disease; D63.1 - Anemia in chronic kidney disease; Z99.2 - Dependence on renal dialysis (5) CLABSI (central line-associated bloodstream infection) Qualifiers: Encounter type: initial encounter Qualified Code(s): T80.211A - Bloodstream infection due to central venous catheter, initial encounter (6) Pneumonia Qualifiers: Pneumonia type: due to other aerobic Gram-negative bacteria Laterality: bilateral Lung location: lower lobe of lung Qualified Code(s): J15.6 - Pneumonia due to other Gram-negative bacteria (9) Chronic respiratory failure Qualifiers: Respiratory failure complication: hypoxia Qualified Code(s): J96.11 - Chronic respiratory failure with hypoxia
[2018-07-19] MEDS: Insulin DETEMIR 100 UNIT/ML X5UNITS SQ SCH (19:55)
[2018-07-20 04:41] LABS: Mean Corpuscular HGB Conc 31.8 g/dL (31.6-35.5); Mean Corpuscular Hemoglobin 26.8 pg (28.0-33.3); Mean Corpuscular Volume 84.3 fL (83.0-100.0); Platelet Count 511 K/mcL (140-400); Red Blood Count 2.61 M/mcL (3.82-4.97); Red Cell Distribution Width 16.1 % (11.5-14.5)
[2018-07-20 05:02] LABS: Calcium 9.4 mg/dL (8.6-10.3); Potassium 3.6 mEq/L (3.5-5.1)
[2018-07-20] MEDS: Insulin LISPRO 300 UNITS/3 ML VIAL SQ SCH ×3 (05:21→18:33)
[2018-07-20] MEDS: *HR* Heparin 5,000 UNIT/ML VIAL SQ SCH ×2 (05:23→18:34)
[2018-07-20] MEDS: levETIRAcetam 500 MG/5 ML UDC GTUBE SCH (09:16)
[2018-07-20] MEDS: Colistin (Colistimethate) 100 MG in 0.9 % Sodium Chloride 50 ML IVPB SCH (09:16)
[2018-07-20] MEDS: Levofloxacin 750 MG/150 ML 750 MG/150 ML BAG IVPB SCH (10:00)
[2018-07-20] MEDS: Leptospermum Honey Gel 44 ML TUBE TP SCH (10:00)
--- NOTE | 2018-07-20 18:50 | Internal Med Progress Note ---
Hospitalist Progress Note - Encounter Date of Encounter: 07/21/18 Time of Encounter: 18:43 - Subjective Interval History: Pt non-verbal. Discussed with nurse and no acute changes during the night. Currently working on disposition plans. Per case management. Pt's DPOA is her sister. Will likely benefit from palliative care discussion with family. - Exam Vitals: Temp Pulse Resp BP Pulse Ox 99.4 F 96 18 125/35 90 07/20/18 16:17 07/20/18 16:17 07/20/18 17:16 07/20/18 16:17 07/20/18 17:16 Exam: General: Alert, breathing spontaneously. Not oriented, non-verbal Chest: Right perma-cath Neck: Trached with mucopurulent discharge in the tubes Cardiovascular:Normal S1 & S2, No JVD. Borderline tachycardia Lungs: diminished breath sounds bilaterally Abdomen:Soft, non-tender, no rigidity. Extremities: Both UE contracted. R chest HD catheter and R UE midline noted. Groin: not assessed Neuro: Nonverbal - Assessment and Plan (1) Sepsis Current Visit: Yes Status: Acute Assessment and Plan: [facility] despite being on vanc/ceftin CXR suspicious for L lower zone opacity cultures obtained from dialysis cath on 07/13 positive for Enterobacter cloacae only one set and none from peripheral Received Zosyn for 48 hours, started on meropenem on 07/15 by infectious disease. Started on levaquin 07/16 per ID, will continue Tracheal aspirate with MDRO acinetobacter, ID following, started on colistin-Day 3. Sputum culture growing gram negative matheus. Blood culture from 07/14 noted, no growth. Blood culture for central venous catheter 07/15 noted, no growth. Central line exchanged by IR Blood culture from [facility] 07/17, no growth Peripheral blood culture from 07/17, prelim, no growth Patient with multiple decubiti wounds and still having fever and tachycardia Infectious disease is following and input appreciated. Prognosis guarded. (2) ESRD (end stage renal disease) Current Visit: Yes Status: Chronic Assessment and Plan: nephrology consulted for HD, continue care per recommendation (3) Hypokalemia Current Visit: Yes Status: Acute Assessment and Plan: Potassium 3.8 today, will continue to monitor, patient is on HD (4) Anemia in chronic kidney disease (CKD) Current Visit: Yes Status: Chronic Assessment and Plan: Chronic and stable. (5) CLABSI (central line-associated bloodstream infection) Current Visit: Yes Status: Acute Assessment and Plan: discussed above under sepsis. (6) Pneumonia Current Visit: Yes Status: Acute Assessment and Plan: discussed above under sepsis (7) Diabetes mellitus type 2 in obese Current Visit: Yes Status: Chronic Assessment and Plan: Continue sliding scale insulin (8) Anoxic brain injury Current Visit: Yes Status: Chronic Assessment and Plan: Continue tube feeds, regular turning, trach management (9) Chronic respiratory failure Current Visit: Yes Status: Chronic Assessment and Plan: Patient with chronic respiratory failure, vent dependent. Trach, vent management per respiratory (10) Decubitus skin ulcer Current Visit: Yes Status: Acute Assessment and Plan: Continue wound care Wound Care note "Received a referral to see patient regarding pressure injuries. I attempted to see her yesterday, but she was out having her Permacath exchanged. She is currently incontinent of a large amount of dark brown liquid stool that is leaking up under the Allevyn Foam dressings. She does not have the fecal incontinence system in place as documented earlier. This rectal tube needs to be replaced to prevent contamination of her wounds. Her wounds are as listed below: 1] 3cm x 3cm area of patchy excoriation to the right gluteal fold - wound bed is pink - (0.1cm deep) 2] 3cm x 3cm area of patchy excoriation to the left gluteal fold - wound bed is pink - (0.1cm deep) 3] 8cm x 1.4cm area of MASD (moisture associated skin damage) and maceration/fissure mid back in the skin fold between the shoulder blades - (0.1cm deep) light jaramillo wound bed 4] Unstageable pressure injury of the sacrum - total area measures 8cm x 9cm covered with yellow slough - in the center is an area of soft black eschar/brown slough measuring 3.5cm x 2cm. Unable to determine depth, but able to feel the c occyx directly under the area of brown slough. Will write orders to apply Medihoney Gel to the wounds. Will seal the dressings with Tegaderm and skin prep in an attempt to keep stool off wounds. Initialized on 07/17/18 10:32" DVT Prophylaxis: Subcutaneous heparin - Summary of Assessment and Plan Summary of Assessment and Plan: Interval History: Dr. Cuba 52-year-old female, [facility] with anoxic brain injury on trach and PEG, end-stage renal disease on hemodialysis, diabetes mellitus, sacral decubitus ulcer. She is DNR_CCA She is admitted and being managed for Enterobacter CLABSI. Trach aspirate with MDRo acinetobacter Infectious disease and nephrology following. She is seen and evaluated at bedside She has been started on Colistin for Acinetobacter pneumonia, she is also recei ving Levaquin for Enterobacter bacteremia She continues to be febrile with low-grade fevers recorded overnight, remains tachycardic, blood pressure is within normal limits - Time Spent with Patient Total time spent is greater than 50% in coordination of care (as documented) at patient's floor/unit and/or counseling patient: less than 15 minutes Plan of Care Discussed with: patient Internal Medicine: Result - Labs CBC & Chem 7: 07/21/18 04:42 07/21/18 04:42 Labs: Short CBC 07/20/18 Range/Units 04:28 WBC 17.3 H (4.3-11.1) K/mcL Hgb 7.0 L (11.5-15.4) g/dL Hct 22.0 L (35.3-44.9) % Plt Count 511 H (140-400) K/mcL BMP 07/20/18 04:28 Sodium 133 L Potassium 3.6 Chloride 91 L Carbon Dioxide 29 BUN 42 H Creatinine 4.03 H Glucose 231 H Calcium 9.4 - ABG Interpretation ABG results: PT/INR, D-dimer PT 12.0 Seconds (9.4-12.1) 07/16/18 05:36 Consult Discharge Plan - Plan Referrals: NONE,PCP [Primary Care Provider] - (1) Sepsis Qualifiers: Sepsis type: sepsis due to unspecified organism Qualified Code(s): A41.9 - Sepsis, unspecified organism (4) Anemia in chronic kidney disease (CKD) Qualifiers: Chronic kidney disease stage: on chronic dialysis Qualified Code(s): N18.6 - End stage renal disease; D63.1 - Anemia in chronic kidney disease; Z99.2 - Dependence on renal dialysis (5) CLABSI (central line-associated bloodstream infection) Qualifiers: Encounter type: initial encounter Qualified Code(s): T80.211A - Bloodstream infection due to central venous catheter, initial encounter (6) Pneumonia Qualifiers: Pneumonia type: due to other aerobic Gram-negative bacteria Laterality: bilateral Lung location: lower lobe of lung Qualified Code(s): J15.6 - Pneumonia due to other Gram-negative bacteria (9) Chronic respiratory failure Qualifiers: Respiratory failure complication: hypoxia Qualified Code(s): J96.11 - Chronic respiratory failure with hypoxia
[2018-07-20] MEDS: Insulin DETEMIR 100 UNIT/ML X5UNITS SQ SCH (20:11)
[2018-07-21] MEDS: Insulin LISPRO 300 UNITS/3 ML VIAL SQ SCH ×4 (00:11→18:18)
[2018-07-21 05:45] LABS: Hematocrit 23.5 % (35.3-44.9); Hemoglobin 7.6 g/dL (11.5-15.4); Mean Corpuscular HGB Conc 32.3 g/dL (31.6-35.5); Mean Corpuscular Hemoglobin 26.9 pg (28.0-33.3); Mean Platelet Volume 9.2 fL (9.4-12.4); Platelet Count 587 K/mcL (140-400); Red Blood Count 2.83 M/mcL (3.82-4.97); Red Cell Distribution Width 15.9 % (11.5-14.5)
[2018-07-21] MEDS: *HR* Heparin 5,000 UNIT/ML VIAL SQ SCH ×2 (05:52→18:06)
[2018-07-21 06:12] LABS: Calcium 10.3 mg/dL (8.6-10.3); Potassium 3.8 mEq/L (3.5-5.1)
[2018-07-21] MEDS ORDERED: *HR* Heparin 10,000 UNIT/10 ML VIAL IV PRN (07:15)
[2018-07-21] MEDS: levETIRAcetam 500 MG/5 ML UDC GTUBE SCH (08:00)
[2018-07-21] MEDS: Colistin (Colistimethate) 100 MG in 0.9 % Sodium Chloride 50 ML IVPB SCH (08:09)
[2018-07-21] MEDS: Leptospermum Honey Gel 44 ML TUBE TP SCH (08:10)
--- NOTE | 2018-07-21 08:23 | Internal Med Progress Note ---
Hospitalist Progress Note - Encounter Date of Encounter: 07/21/18 Time of Encounter: 08:22 - Subjective Interval History: Pt non-verbal. Discussed with nurse and no acute changes during the night. Currently working on disposition plans as pt does not have an appointed DPOA. Will likely benefit form palliative care consult. prognosis poor - Exam Vitals: Temp Pulse Resp BP Pulse Ox 99.8 F H 115 18 112/60 94 07/21/18 07:11 07/21/18 07:11 07/21/18 08:03 07/21/18 07:11 07/21/18 08:03 Exam: General: Alert, breathing spontaneously. Not oriented, non-verbal Chest: Right perma-cath Neck: Trached with mucopurulent discharge in the tubes Cardiovascular:Normal S1 & S2, No JVD. Borderline tachycardia Lungs: diminished breath sounds bilaterally Abdomen:Soft, non-tender, no rigidity. Extremities: Both UE contracted. R chest HD catheter and R UE midline noted. Groin: not assessed Neuro: Nonverbal - Assessment and Plan (1) Sepsis Current Visit: Yes Status: Acute Assessment and Plan: Presented from halfway with worsening leukocytosis despite being on vanc/ceftin CXR suspicious for L lower zone opacity cultures obtained from dialysis cath on 07/13 positive for Enterobacter cloacae only one set and none from peripheral Received Zosyn for 48 hours, started on meropenem on 07/15 by infectious disease. Started on levaquin 07/16 per ID, will continue Tracheal aspirate with MDRO acinetobacter, ID following, started on colistin-Day 3. Sputum culture growing gram negative matheus. Blood culture from 07/14 noted, no growth. Blood culture for central venous catheter 07/15 noted, no growth. Central line exchanged by IR Blood culture from [facility] 07/17, no growth Peripheral blood culture from 07/17, prelim, no growth Patient with multiple decubiti wounds and still having fever and tachycardia Infectious disease is following and input appreciated. Prognosis guarded. (2) ESRD (end stage renal disease) Current Visit: Yes Status: Chronic Assessment and Plan: nephrology consulted for HD, continue care per recommendation (3) Hypokalemia Current Visit: Yes Status: Acute Assessment and Plan: Potassium 3.8 today, will continue to monitor, patient is on HD (4) Anemia in chronic kidney disease (CKD) Current Visit: Yes Status: Chronic Assessment and Plan: Chronic and stable. (5) CLABSI (central line-associated bloodstream infection) Current Visit: Yes Status: Acute Assessment and Plan: discussed above under sepsis. (6) Pneumonia Current Visit: Yes Status: Acute Assessment and Plan: discussed above under sepsis (7) Diabetes mellitus type 2 in obese Current Visit: Yes Status: Chronic Assessment and Plan: Continue sliding scale insulin (8) Anoxic brain injury Current Visit: Yes Status: Chronic Assessment and Plan: Continue tube feeds, regular turning, trach management (9) Chronic respiratory failure Current Visit: Yes Status: Chronic Assessment and Plan: Patient with chronic respiratory failure, vent dependent. Trach, vent management per respiratory (10) Decubitus skin ulcer Current Visit: Yes Status: Acute Assessment and Plan: Continue wound care Wound Care note "Received a referral to see patient regarding pressure injuries. I attempted to see her yesterday, but she was out having her Permacath exchanged. She is currently incontinent of a large amount of dark brown liquid stool that is leaking up under the Allevyn Foam dressings. She does not have the fecal incontinence system in place as documented earlier. This rectal tube needs to be replaced to prevent contamination of her wounds. Her wounds are as listed below: 1] 3cm x 3cm area of patchy excoriation to the right gluteal fold - wound bed is pink - (0.1cm deep) 2] 3cm x 3cm area of patchy excoriation to the left gluteal fold - wound bed is pink - (0.1cm deep) 3] 8cm x 1.4cm area of MASD (moisture associated skin damage) and maceration/fissure mid back in the skin fold between the shoulder blades - (0.1cm deep) light jaramillo wound bed 4] Unstageable pressure injury of the sacrum - total area measures 8cm x 9cm covered with yellow slough - in the center is an area of soft black eschar/brown slough measuring 3.5cm x 2cm. Unable to determine depth, but able to feel the coccyx directly under the area of brown slough. Will write orders to apply Medihoney Gel to the wounds. Will seal the dressings with Tegaderm and skin prep in an attempt to keep stool off wounds. Initialized on 07/17/18 10:32" (11) Wound of sacral region Current Visit: Yes Status: Acute Assessment and Plan: as above DVT Prophylaxis: Subcutaneous heparin - Summary of Assessment and Plan Summary of Assessment and Plan: Interval History: Dr. Cuba 52-year-old female, halfway resident with anoxic brain injury on trach and PEG, end-stage renal disease on hemodialysis, diabetes mellitus, sacral decubitus ulcer. She is DNR_CCA She is admitted and being managed for Enterobacter CLABSI. Trach aspirate with MDRo acinetobacter Infectious disease and nephrology following. She is seen and evaluated at bedside She has been started on Colistin for Acinetobacter pneumonia, she is also receiving Levaquin for Enterobacter bacteremia She continues to be febrile with low-grade fevers recorded overnight, remains tachycardic, blood pressure is within normal limits - Time Spent with Patient Total time spent is greater than 50% in coordination of care (as documented) at patient's floor/unit and/or counseling patient: less than 15 minutes Plan of Care Discussed with: patient Internal Medicine: Result - Labs CBC & Chem 7: 07/21/18 04:42 07/21/18 04:42 Labs: Short CBC 07/21/18 Range/Units 04:42 WBC 22.0 H (4.3-11.1) K/mcL Hgb 7.6 L (11.5-15.4) g/dL Hct 23.5 L (35.3-44.9) % Plt Count 587 H (140-400) K/mcL BMP 07/21/18 04:42 Sodium 132 L Potassium 3.8 Chloride 88 L Carbon Dioxide 28 BUN 60 H Creatinine 5.06 H Glucose 194 H Calcium 10.3 - ABG Interpretation ABG results: PT/INR, D-dimer PT 12.0 Seconds (9.4-12.1) 07/16/18 05:36 Consult Discharge Plan - Plan Referrals: NONE,PCP [Primary Care Provider] - (1) Sepsis Qualifiers: Sepsis type: sepsis due to unspecified organism Qualified Code(s): A41.9 - Sepsis, unspecified organism (4) Anemia in chronic kidney disease (CKD) Qualifiers: Chronic kidney disease stage: on chronic dialysis Qualified Code(s): N18.6 - End stage renal disease; D63.1 - Anemia in chronic kidney disease; Z99.2 - Dependence on renal dialysis (5) CLABSI (central line-associated bloodstream infection) Qualifiers: Encounter type: initial encounter Qualified Code(s): T80.211A - Bloodstream infection due to central venous catheter, initial encounter (6) Pneumonia Qualifiers: Pneumonia type: due to other aerobic Gram-negative bacteria Laterality: bilateral Lung location: lower lobe of lung Qualified Code(s): J15.6 - Pneumonia due to other Gram-negative bacteria (9) Chronic respiratory failure Qualifiers: Respiratory failure complication: hypoxia Qualified Code(s): J96.11 - Chronic respiratory failure with hypoxia (11) Wound of sacral region Qualifiers: Qualified Code(s): S31.000A - Unspecified open wound of lower back and pelvis without penetration into retroperitoneum, initial encounter
--- NOTE | 2018-07-21 10:29 | Infectious Disease Progress No ---
Date of Encounter: 07/21/18 Time of Encounter: 09:35 - Assessment and Plan (1) Sepsis Current Visit: Yes Status: Acute Patient had severe sepsis criteria including tachycardia, tachypnea, leukocytosis and lactic acidosis. Likely secondary to central line associated bloodstream infection and possible pneumonia. Improved initially, but started having fevers again. Tmax overnight with 100.2 and tachycardia. WBC continues to trend up. HD catheter blood culture drawn 07/13/18 11 set was positive for E. cloacae. Repeat peripheral blood cultures drawn 07/14 are negative x 4 sets. Additional blood culture drawn 07/15/18 x 1 set from the HD catheter is neg ative. Repeat peripheral blood cultures drawn 07/17/18 x 2 sets are NGTD. Additional blood culture drawn from the Perma-cath 07/17/18 x 1 set is NGTD. Recommendations: Await repeat blood cultures to finalize. Await repeat sputum culture. Send Acinetobacter culture for colistin susceptibilities. Patient is anuric so unable to check S. pneumo and Legionella UATs. Continue droplet/contact precautions. Check peripheral smear. Check ESR and CRP. Check amylase, lipase, and LFTs. Get CT of the chest, abdomen, and pelvis. Continue Colistin. Will ask pharmacy to assist with dosing for the patient's HD status. Continue Levaquin 750mg IV Q48H. Continue Vancomycin IV. Pharmacy to dose. Goal trough ~15. Duration of treatment depends on the clinical picture. Monitor drug levels and dose-adjust antibiotics. Qualifiers: Sepsis type: sepsis due to unspecified organism Qualified Code(s): A41.9 - Sepsis, unspecified organism (2) CLABSI (central line-associated bloodstream infection) Current Visit: Yes Status: Acute Causative organism: E. cloacae. Source vs. seeding of the line. HD catheter blood culture drawn 07/13/18 x1 set was positive for E. cloacae. Repeat peripheral blood cultures drawn 07/14 are NGTD x 4 sets. Additional blood culture drawn 07/15/18 x 1 set from the HD catheter is NGTD. Status post [id number] exchange of the line 07/16/18 by IR. Repeat peripheral blood cultures drawn 07/17/18 x 2 sets are NGTD. Additional perma-cath blood culture drawn 07/17/18 x 1 set is NGTD. Currently on Levaquin. Qualifiers: Encounter type: initial encounter Qualified Code(s): T80.211A - Bloodstream infection due to central venous catheter, initial encounter (3) Pneumonia Current Visit: Yes Status: Acute PNA vs. colonization. CXR 07/14/18 limited due to patient rotation and shallow inspiration, but mild nonspecific left basilar opacities with pneumonia not excluded. Aspiration is possible given the patient's altered mental status, but has been tolerating tube feeds with minimal residuals. Sputum culture positive for MDRO A. baumannii. MRSA screen positive. Anuric. Unable to check UATs. Low probability of viral infection. Repeat sputum culture is pending, but gram stain shows GNR. Currently on Levaquin and Colistin and Vancomycin. Qualifiers: Pneumonia type: due to other aerobic Gram-negative bacteria Laterality: bilateral Lung location: lower lobe of lung Qualified Code(s): J15.6 - Pneumonia due to other Gram-negative bacteria (4) Anoxic brain injury Current Visit: Yes Status: Chronic Etiology unclear. (5) Chronic respiratory failure Current Visit: Yes Status: Chronic Secondary to anoxic brain injury. Chronic trach with ATC vent support. Qualifiers: Respiratory failure complication: hypoxia Qualified Code(s): J96.11 - Chronic respiratory failure with hypoxia (6) Diabetes mellitus type 2 in obese Current Visit: Yes Status: Chronic (7) ESRD (end stage renal disease) on dialysis Current Visit: No Status: Acute Nephrology consulted and following. (8) Wound of sacral region Current Visit: Yes Status: Acute Clinically does not appear infected. Wound care and offloading. Qualifiers: Qualified Code(s): S31.000A - Unspecified open wound of lower back and pelvis without penetration into retroperitoneum, initial encounter (9) Diarrhea Current Visit: Yes Status: Acute Likely secondary to tube feeds. GI panel and C. diff negative. FMS per the primary team to prevent contamination of her sacral wound. Qualifiers: Diarrhea type: unspecified type Qualified Code(s): R19.7 - Diarrhea, unspecified - Subjective Interval history: Patient seen and examined. No acute events noted overnight. Patient has been febrile with a MAXIMUM TEMPERATURE of 100.2 in the last 24 hours. She has had tachycardia. She remains unresponsive due to her an anoxic brain injury. Review of systems unobtainable from the patient. She did undergo an over the guidewire exchange of her dialysis catheter 07/16/18. Per nursing, tolerating tube feeds well. Rectal tube re-inserted to assist with wound contamination. No new issues per nursing. Infect Dis PN-Objective Data - Labs CBC & Chem 7: 07/21/18 04:42 07/21/18 04:42 Labs: Laboratory Results - last 24 hr 07/20/18 07/20/18 07/21/18 11:29 18:01 00:13 WBC RBC Hgb Hct MCV MCH MCHC RDW Plt Count MPV Sodium Potassium Chloride Carbon Dioxide BUN Creatinine Est GFR ( Amer) Est GFR (Non-Af Amer) BUN/Creatinine Ratio Glucose POC Glucose 283 H 205 H 179 H Calculated Osmolality Calcium 07/21/18 07/21/18 04:42 04:42 WBC 22.0 H RBC 2.83 L Hgb 7.6 L Hct 23.5 L MCV 83.0 MCH 26.9 L MCHC 32.3 RDW 15.9 H Plt Count 587 H MPV 9.2 L Sodium 132 L Potassium 3.8 Chloride 88 L Carbon Dioxide 28 BUN 60 H Creatinine 5.06 H Est GFR ( Amer) 11 L Est GFR (Non-Af Amer) 9 L BUN/Creatinine Ratio 12 Glucose 194 H POC Glucose Calculated Osmolality 296 Calcium 10.3 Cultures: Cultures 07/17/18 20:45 Sputum Culture - Final Trachea Acinetobacter baumannii MDRO 07/15/18 11:41 Blood Culture - Final Central Venous Catheter No growth. Final report. 07/16/18 15:00 Catheter Tip Culture - Final Intravenous or Arterial Cath Enterobacter cloacae complex 07/14/18 23:41 Blood Culture - Final Peripheral Venipuncture No growth. Final report. 07/14/18 23:41 Blood Culture - Final Peripheral Venipuncture No growth. Final report. 07/17/18 13:53 Blood Culture - Preliminary Peripheral Venipuncture Culture is incubating and being continuously monitored for growth. Final report to follow. 07/17/18 13:53 Blood Culture - Preliminary Peripheral Venipuncture Culture is incubating and being continuously m onitored for growth. Final report to follow. 07/17/18 14:35 Blood Culture - Preliminary Central Venous Catheter Culture is incubating and being continuously monitored for growth. Final report to follow. Serology 07/16/18 07/16/18 07/15/18 Range/Units 07:07 02:40 17:15 Nasal Screen MRSA (PCR) Positive A (Negative) Stl C. cayetanensis PCR Not detected (Not detect) Stool Rotavirus A PCR Not detected (Not detect) Stl Adenov F 40/41 PCR Not detected (Not detect) Stool Astrovirus (PCR) Not detected (Not detect) Stool Campylobacter PCR Not detected (Not detect) Stool Cryptosporidium PCR Not detected (Not detect) Stl Sh Tox Pr E STEC PCR Not detected (Not detect) Stl Enterotoxigenic E PCR Not detected (Not detect) Stool EPEC (PCR) Not detected (Not detect) Stool EAEC (PCR) Not detected (Not detect) Stl E. histolytica PCR Not detected (Not detect) Stool Giardia Lamblia PCR Not detected (Not detect) Stool Salmonella PCR Not detected (Not detect) Stool Sapovirus (PCR) Not detected (Not detect) Stl P. shigelloides PCR Not detected (Not detect) Stl Shigella/EIEC PCR Not detected (Not detect) St Y.enterocolitica PCR Not detected (Not detect) Stool Vibrio (PCR) Not detected (Not detect) Stl Vibrio cholerae PCR Not detected (Not detect) Stl Norovirus GI/GII PCR Not detected (Not detect) Stl GI Panel (PCR) Com See below C.diff Toxin Gene (MARY) Not detected (Not detect) Hep Bs Antigen Nonreactive (Nonreactive) Hep Bs Antibody 38.07 (10.00 - ) mIU/mL Exam - Constitutional Vitals: Temp Pulse Resp BP Pulse Ox 99.8 F H 114 18 112/60 97 07/21/18 07:11 07/21/18 09:00 07/21/18 09:00 07/21/18 07:11 07/21/18 09:00 General appearance: average body habitus, no acute distress, no febrile - Head Head exam: Present: atraumatic, normal inspection, normocephalic - Eye Eye exam: Present: normal appearance (Spontaneous eye movement/opening, but does not follow commands or track around the room.) - ENT ENT exam: Present: mucous membranes dry - Neck Neck exam: Present: normal inspection Additional comments: Tracheostomy midline with O2 via the ventilator. - Respiratory Respiratory exam: Present: CTAB. Absent: rales, respiratory distress, rhonchi, wheezes - Cardiovascular Cardiovascular exam: Present: +S1, +S2, tachycardia. Absent: irregular rhythm - GI/Abdominal GI/Abdominal exam: Present: normal bowel sounds, soft, tenderness (Patient opens eyes with palpation of the abdomen.). Absent: distended Additional comments: PEG tube noted to the epigastric region, currently clamped. Rectal tube noted with liquid brown stool noted in the collection bag. - Extremities Exam Extremities exam: Absent: normal inspection (Right foot TMA site with scabbing noted, but no surrounding erythema, warmth, tenderness, or drainage noted.) - Neurological Exam Neurological exam: Present: altered (Opens eyes spontaneously, but does not respond to verbal or tactile stimuli. Does not follow commands or attempt to verbalize.) Additional comments: Contractures noted to the BUE. - Skin Skin exam: Present: dry, intact, normal color, warm - Additional findings Additional findings: Perma-cath noted to the right upper chest with transparent dressing C/D/I. Consult Discharge Plan - Plan Referrals: NONE,PCP [Primary Care Provider] - - Attending Attestation I examined this patient and my medical decision-making was reviewed with the Resident Physician. I agree with the documented findings, disposition and treatment plan as described except to the extent set forth below.
[2018-07-21 10:35] LABS: Basophils # 0.1 K/mcL (0.0-0.2); Basophils % 0.3 %; Eosinophils # 0.3 K/mcL (0.0-0.6); Eosinophils % 1.5 %; Immature Granulocytes % 2.5 % (0-4); Lymphocytes # 2.3 K/mcL (0.6-4.6); Lymphocytes % 10.3 %; Monocytes # 1.3 K/mcL (0.0-1.3); Monocytes % 5.8 %; Neutrophils # 17.8 K/mcL (1.6-8.9); Nucleated Red Blood Cells 0.1 /100 WBC (0); Segmented Neutrophils % 79.6 %
[2018-07-21] MEDS ORDERED: Isovue-370 500 ML INFUS..BTL IV ONE (11:54)
[2018-07-21 12:59] LABS: Albumin 2.9 g/dL (3.5-5.7); Albumin/Globulin Ratio 0.6 (1.1-2.2); Bilirubin,Indirect 0.4 mg/dL (0.0-1.2); Bilirubin,Total 0.4 mg/dL (0.3-1.0); Globulin 4.5 g/dL (2.4-3.5); Total Protein 7.4 g/dL (6.4-8.9)
--- NOTE | 2018-07-21 15:14 | Nephrology Progress Note ---
Date of Encounter: 07/21/18 Time of Encounter: 15:12 - Assessment and Plan (1) ESRD (end stage renal disease) on dialysis Current Visit: No Status: Acute ESRD on MWF. HD in progress for today. Strict I/O Avoid nephrotoxins and renal dose. (2) Anemia in chronic kidney disease (CKD) Current Visit: Yes Status: Chronic Goal Hgb is 10-11. Hgb is 7.6, stable. Will defer workup to primary team. Qualifiers: Chronic kidney disease stage: on chronic dialysis Qualified Code(s): N18.6 - End stage renal disease; D63.1 - Anemia in chronic kidney disease; Z99.2 - Dependence on renal dialysis (3) CLABSI (central line-associated bloodstream infection) Current Visit: Yes Status: Acute Awaiting final cultures to determine if line holiday is indicated. Per ID, appreciate recommendations. Qualifiers: Encounter type: initial encounter Qualified Code(s): T80.211A - Bloodstream infection due to central venous catheter, initial encounter (4) Wound of sacral region Current Visit: Yes Status: Acute Per wound care. Qualifiers: Qualified Code(s): S31.000A - Unspecified open wound of lower back and pelvis without penetration into retroperitoneum, initial encounter Subjective Principal diagnosis: leukocytosis Interval history: Pt seen and examined during HD, tolerating well. Objective - Vital Signs Vital signs: Vital Signs Temp Pulse Resp BP Pulse Ox 07/21/18 14:25 107/56 07/21/18 14:10 112/56 07/21/18 13:55 114/55 07/21/18 13:40 118/61 07/21/18 13:25 125/50 07/21/18 13:10 111/48 07/21/18 12:55 119/57 07/21/18 12:40 122/65 07/21/18 12:25 108/58 07/21/18 12:10 114/57 07/21/18 11:55 105/69 07/21/18 11:40 113/68 07/21/18 11:25 134/76 07/21/18 11:10 100.3 F H 20 118/48 07/21/18 10:55 25 93 07/21/18 09:00 114 18 97 07/21/18 08:03 18 94 07/21/18 07:11 99.8 F H 115 18 112/60 100 07/21/18 07:00 114 07/21/18 04:27 100.2 F H 110 20 140/73 97 07/21/18 04:21 24 99 07/21/18 00:22 99.2 F 93 18 101/48 97 07/20/18 23:33 18 97 07/20/18 20:39 18 98 07/20/18 20:08 99.6 F 99 18 119/61 97 07/20/18 17:16 18 90 07/20/18 16:17 99.4 F 96 18 125/35 99 Intake and Output 07/20/18 07/21/18 07/21/18 23:59 07:59 15:59 Intake Total 437 / 437 874 / 874 600 / 600 Output Total 150 / 150 Balance 287 / 287 874 / 874 600 / 600 Intake: Oral 0 / 0 0 / 0 Tube Feeding 237 / 237 474 / 474 Free Water 200 / 200 400 / 400 Intake, Rinseback and Flushes 600 / 600 Output: Rectal Tube 150 / 150 Other: Meal NPO/TUBE FEED NPO Percent of Meal Consumed 0% 0% Weight 67.2 kg Blood Glucose* 205 217 Hemodialysis Net Fluid Removed 1600 (mL) Patient Weight 07/21/18 23:59 Weight 67.2 kg - General Appearance General appearance: Present: fatigue, frail EENT: Present: ATNC, hearing intact, vision intact Neck: Present: supple Respiratory: Present: clear Cardiology: Present: no edema, normal S1, normal S2 Dialysis Vascular Access: Venous Catheter (Tunneled Line, DRSG C/D/I) Gastrointestinal: Present: normoactive bowel sounds, no tenderness, no guarding Integumentary: Present: no rash, warm and dry Neurologic: Present: alert and oriented x3 Psychiatric: Present: mood/affect appropriate, cooperative - Lab 07/21/18 04:42 07/21/18 04:42 Most recent lab results Calcium 10.3 mg/dL (8.6-10.3) 07/21/18 04:42 Phosphorus 1.3 mg/dL (2.7-4.5) L 07/16/18 05:36 Magnesium 2.3 mg/dL (1.6-2.6) 07/16/18 05:36 Consult Discharge Plan - Plan Referrals: NONE,PCP [Primary Care Provider] -
[2018-07-21] MEDS ORDERED: Vancomycin 500 MG in 0.9 % Sodium Chloride Mini Bag 100 ML IVPB ONE (16:00)
[2018-07-21] MEDS: Insulin DETEMIR 100 UNIT/ML X5UNITS SQ SCH (20:00)
[2018-07-22] MEDS: Insulin LISPRO 300 UNITS/3 ML VIAL SQ SCH ×5 (00:06→23:54)
[2018-07-22] MEDS: *HR* Heparin 5,000 UNIT/ML VIAL SQ SCH ×2 (06:07→17:58)
[2018-07-22] MEDS ORDERED: Vancomycin 250 MG in 0.9 % Sodium Chloride Mini Bag 100 ML IVPB ONE (07:39)
[2018-07-22 07:40] LABS: Hematocrit 24.2 % (35.3-44.9); Hemoglobin 7.6 g/dL (11.5-15.4); Mean Corpuscular HGB Conc 31.4 g/dL (31.6-35.5); Mean Corpuscular Hemoglobin 26.6 pg (28.0-33.3); Mean Corpuscular Volume 84.6 fL (83.0-100.0); Mean Platelet Volume 9.1 fL (9.4-12.4); Platelet Count 508 K/mcL (140-400); Red Blood Count 2.86 M/mcL (3.82-4.97); Red Cell Distribution Width 16.1 % (11.5-14.5)
[2018-07-22 07:56] LABS: Calcium 9.5 mg/dL (8.6-10.3); Potassium 3.8 mEq/L (3.5-5.1)
[2018-07-22] MEDS: Levofloxacin 750 MG/150 ML 750 MG/150 ML BAG IVPB SCH (08:33)
[2018-07-22] MEDS: levETIRAcetam 500 MG/5 ML UDC GTUBE SCH (08:33)
[2018-07-22] MEDS: Colistin (Colistimethate) 100 MG in 0.9 % Sodium Chloride 50 ML IVPB SCH (10:17)
[2018-07-22] MEDS: Leptospermum Honey Gel 44 ML TUBE TP SCH (12:36)
--- NOTE | 2018-07-22 16:53 | Nephrology Progress Note ---
Date of Encounter: 07/22/18 Time of Encounter: 14:00 - Assessment and Plan (1) ESRD (end stage renal disease) on dialysis Current Visit: Yes Status: Acute s/p HD, next HD tomorrow Lytes stable Plan to consult palliative care to discuss goals of care (2) CLABSI (central line-associated bloodstream infection) Current Visit: Yes Status: Acute Per ID, appreciate recommendations. Qualifiers: Encounter type: initial encounter Qualified Code(s): T80.211A - Bloodstream infection due to central venous catheter, initial encounter (3) Anemia in chronic kidney disease (CKD) Current Visit: Yes Status: Chronic Hgb remains low but stable at 7.6 Goal is 10-11 Qualifiers: Chronic kidney disease stage: on chronic dialysis Qualified Code(s): N18.6 - End stage renal disease; D63.1 - Anemia in chronic kidney disease; Z99.2 - Dependence on renal dialysis (4) Wound of sacral region Current Visit: Yes Status: Acute Per wound care. Qualifiers: Qualified Code(s): S31.000A - Unspecified open wound of lower back and pelvis without penetration into retroperitoneum, initial encounter (5) Pneumonia Current Visit: Yes Status: Acute Abx per ID Qualifiers: Pneumonia type: due to other aerobic Gram-negative bacteria Laterality: bilateral Lung location: lower lobe of lung Qualified Code(s): J15.6 - Pneumonia due to other Gram-negative bacteria Subjective Principal diagnosis: leukocytosis Interval history: Pt seen and examined unchanged from yesterday, still on vent via trach and nonresponsive with eyes closed today. s/p Hd yesterday Objective - Vital Signs Vital signs: Vital Signs Temp Pulse Resp BP Pulse Ox 07/22/18 16:15 18 99 07/22/18 08:12 18 100 07/22/18 07:19 100.6 F H 107 18 119/53 100 07/22/18 04:26 99.4 F 110 18 142/49 100 07/22/18 00:06 99 F 101 20 123/56 91 07/21/18 23:53 18 124/60 100 07/21/18 20:24 20 124/43 100 07/21/18 20:14 99.4 F 109 21 123/43 100 07/21/18 17:53 108 20 99 Intake and Output 07/22/18 07/22/18 07/22/18 07:59 15:59 23:59 Intake Total 824 / 824 150 / 150 Balance 824 / 824 150 / 150 Intake: Oral 0 / 0 Tube Feeding 474 / 474 Free Water 350 / 350 Free Water Intake Amount 150 / 150 Other: Meal Breakfast Percent of Meal Consumed 0% Blood Glucose* 237 - General Appearance General appearance: Present: chronically ill Exam: with trach on vent EENT: Present: ATNC Neck: Present: no JVD Additional Comments: with trach and contracted neck Respiratory: Present: course breath sounds Cardiology: Present: no edema, normal S1, normal S2 Dialysis Vascular Access: Venous Catheter (permcath) Gastrointestinal: Present: no tenderness, no guarding Integumentary: Present: warm and dry, skin tear Additional Comments: nonrepsonsive Musculoskeletal: Present: deformities (contractures UE), decreased ROM Additional Comments: unable to assess due to condition - Lab 07/27/18 03:06 07/27/18 03:06 Most recent lab results Calcium 9.5 mg/dL (8.6-10.3) 07/22/18 07:22 Phosphorus 1.3 mg/dL (2.7-4.5) L 07/16/18 05:36 Magnesium 2.3 mg/dL (1.6-2.6) 07/16/18 05:36 Consult Discharge Plan - Plan Referrals: NONE,PCP [Primary Care Provider] - (PATIENT IS FROM [facility] NO PCP APPOINTMENT NEEDED)
--- NOTE | 2018-07-22 18:46 | Internal Med Progress Note ---
Hospitalist Progress Note - Encounter Date of Encounter: 07/22/18 Time of Encounter: 09:00 - Subjective Interval History: Patient is nonverbal, on ventilator, no family member at bedside. Still have low-grade fever. - Exam Vitals: Temp Pulse Resp BP Pulse Ox 99.8 F H 106 20 117/75 99 07/22/18 18:32 07/22/18 18:32 07/22/18 18:32 07/22/18 18:32 07/22/18 18:32 Exam: General: Alert, breathing spontaneously. Not oriented, non-verbal Chest: Right perma-cath Neck: Trached with mucopurulent discharge in the tubes Cardiovascular:Normal S1 & S2, No JVD. Borderline tachycardia Lungs: diminished breath sounds bilaterally Abdomen:Soft, non-tender, no rigidity. Extremities: Both UE contracted. R chest HD catheter and R UE midline noted. Groin: not assessed Neuro: Nonverbal - Assessment and Plan (1) ESRD (end stage renal disease) Current Visit: Yes Status: Chronic Assessment and Plan: nephrology consulted for HD, continue care per recommendation (2) Sepsis Current Visit: Yes Status: Acute Assessment and Plan: Presented from half-way with worsening leukocytosis despite being on vanc/ceftin CXR suspicious for L lower zone opacity cultures obtained from dialysis cath on 07/13 positive for Enterobacter cloacae only one set and none from peripheral Received Zosyn for 48 hours, started on meropenem on 07/15 by infectious disease. Started on levaquin 07/16 per ID, will continue Tracheal aspirate with MDRO acinetobacter, ID following, started on colistin-Day 3. Sputum culture growing gram negative matheus. Blood culture from 07/14 noted, no growth. Blood culture for central venous catheter 07/15 noted, no growth. Central line exchanged by IR Blood culture from [facility] 07/17, no growth Peripheral blood culture from 07/17, prelim, no growth Patient with multiple decubiti wounds and still having fever and tachycardia Infectious disease is following and input appreciated. Prognosis guarded. (3) Hypokalemia Current Visit: Yes Status: Acute Assessment and Plan: Potassium 3.8 today, will continue to monitor, patient is on HD (4) Anemia in chronic kidney disease (CKD) Current Visit: Yes Status: Chronic Assessment and Plan: Chronic and stable. (5) CLABSI (central line-associated bloodstream infection) Current Visit: Yes Status: Acute Assessment and Plan: discussed above under sepsis. (6) Pneumonia Current Visit: Yes Status: Acute Assessment and Plan: discussed above under sepsis (7) Diabetes mellitus type 2 in obese Current Visit: Yes Status: Chronic Assessment and Plan: Continue sliding scale insulin (8) Anoxic brain injury Current Visit: Yes Status: Chronic Assessment and Plan: Continue tube feeds, regular turning, trach management (9) Chronic respiratory failure Current Visit: Yes Status: Chronic Assessment and Plan: Patient with chronic respiratory failure, vent dependent. Trach, vent management per respiratory (10) Wound of sacral region Current Visit: Yes Status: Acute Assessment and Plan: as above (11) Decubitus skin ulcer Current Visit: Yes Status: Acute Assessment and Plan: Continue wound care per instruction from wound care consult DVT Prophylaxis: Subcutaneous heparin - Time Spent with Patient Total time spent is greater than 50% in coordination of care (as documented) at patient's floor/unit and/or counseling patient: 40 min Greater than 35 minutes Plan of Care Discussed with: nurse Internal Medicine: Result - Labs CBC & Chem 7: 07/22/18 07:22 07/22/18 07:22 Labs: Short CBC 07/22/18 Range/Units 07:22 WBC 19.6 H (4.3-11.1) K/mcL Hgb 7.6 L (11.5-15.4) g/dL Hct 24.2 L (35.3-44.9) % Plt Count 508 H (140-400) K/mcL BMP 07/22/18 07:22 Sodium 131 L Potassium 3.8 Chloride 92 L Carbon Dioxide 27 BUN 36 H Creatinine 3.44 H Glucose 283 H Calcium 9.5 - ABG Interpretation ABG results: PT/INR, D-dimer PT 12.0 Seconds (9.4-12.1) 07/16/18 05:36 Consult Discharge Plan - Plan Referrals: NONE,PCP [Primary Care Provider] - (2) Sepsis Qualifiers: Sepsis type: sepsis due to unspecified organism Qualified Code(s): A41.9 - Sepsis, unspecified organism (4) Anemia in chronic kidney disease (CKD) Qualifiers: Chronic kidney disease stage: on chronic dialysis Qualified Code(s): N18.6 - End stage renal disease; D63.1 - Anemia in chronic kidney disease; Z99.2 - Dependence on renal dialysis (5) CLABSI (central line-associated bloodstream infection) Qualifiers: Encounter type: initial encounter Qualified Code(s): T80.211A - Bloodstream infection due to central venous catheter, initial encounter (6) Pneumonia Qualifiers: Pneumonia type: due to other aerobic Gram-negative bacteria Laterality: bilateral Lung location: lower lobe of lung Qualified Code(s): J15.6 - Pneumonia due to other Gram-negative bacteria (9) Chronic respiratory failure Qualifiers: Respiratory failure complication: hypoxia Qualified Code(s): J96.11 - Chronic respiratory failure with hypoxia (10) Wound of sacral region Qualifiers: Qualified Code(s): S31.000A - Unspecified open wound of lower back and pelvis without penetration into retroperitoneum, initial encounter (11) Decubitus skin ulcer Qualifiers: Pressure injury location: sacral region Pressure injury stage: unstageable Qualified Code(s): L89.150 - Pressure ulcer of sacral region, unstageable
[2018-07-22] MEDS: Insulin DETEMIR 100 UNIT/ML X5UNITS SQ SCH (20:20)
[2018-07-23] MEDS: *HR* Heparin 5,000 UNIT/ML VIAL SQ SCH ×2 (05:09→17:40)
[2018-07-23] MEDS: Insulin LISPRO 300 UNITS/3 ML VIAL SQ SCH ×4 (05:09→23:17)
[2018-07-23 06:22] LABS: Basophils # 0.1 K/mcL (0.0-0.2); Basophils % 0.3 %; Eosinophils # 0.2 K/mcL (0.0-0.6); Eosinophils % 1.1 %; Hematocrit 25.4 % (35.3-44.9); Hemoglobin 7.9 g/dL (11.5-15.4); Immature Granulocytes % 2.6 % (0-4); Lymphocytes # 1.5 K/mcL (0.6-4.6); Lymphocytes % 7.3 %; Mean Corpuscular HGB Conc 31.1 g/dL (31.6-35.5); Mean Corpuscular Hemoglobin 26.5 pg (28.0-33.3); Mean Corpuscular Volume 85.2 fL (83.0-100.0); Mean Platelet Volume 9.1 fL (9.4-12.4); Monocytes # 1.4 K/mcL (0.0-1.3); Monocytes % 7.2 %; Neutrophils # 16.1 K/mcL (1.6-8.9); Platelet Count 554 K/mcL (140-400); Red Blood Count 2.98 M/mcL (3.82-4.97); Red Cell Distribution Width 15.9 % (11.5-14.5); Segmented Neutrophils % 81.5 %
[2018-07-23 06:46] LABS: Potassium 3.9 mEq/L (3.5-5.1)
[2018-07-23] MEDS ORDERED: *HR* Heparin 10,000 UNIT/10 ML VIAL IV PRN ×2 (07:33)
[2018-07-23] MEDS ORDERED: 0.9 % Sodium Chloride 250 ML IVC PRN (07:33)
[2018-07-23] MEDS ORDERED: 0.9 % Sodium Chloride 1,000 ML PRIME SCH (07:45)
[2018-07-23] MEDS ORDERED: 0.9 % Sodium Chloride 1,000 ML ONE (08:53)
--- NOTE | 2018-07-23 11:02 | Infectious Disease Progress No ---
Date of Encounter: 07/23/18 Time of Encounter: 11:00 - Assessment and Plan (1) Sepsis Current Visit: Yes Status: Acute Patient had severe sepsis criteria including tachycardia, tachypnea, leukocytosis and lactic acidosis. Likely secondary to central line associated bloodstream infection and possible pneumonia. Improved initially, but started having fevers again. Tmax overnight with 100.6 and tachycardia. WBC continues to stay elevated. HD catheter blood culture drawn 07/13/18 11 set was positive for E. cloacae. Repeat peripheral blood cultures drawn 07/14 are negative x 4 sets. Additional blood culture drawn 07/15/18 x 1 set from the HD catheter is negative. Repeat peripheral blood cultures drawn 07/17/18 x 2 sets are negative. Additional blood culture drawn from the Perma-cath 07/17/18 x 1 set is negative. ESR elevated at >130. CRP 218. Etiology unclear. Patient had TMA to the right foot, but unsure why/when. Will ask nursing to get details from family/ECF staff if possible. Amylase, lipase, LFTs normal. CT chest showed left basilar PNA vs. aspiration. CT abdomen and pelvis showed findings consistent with diarrheal illness and thickening of the bladder wall, but no other acute findings noted to explain leukocytosis and fevers. Peripheral smear is pending. Recommendations: Consider imaging of the right foot given recent surgery, although clinically it does not look infected. Consider tagged WBC to evaluate for nidus of infection. Continue droplet/contact precautions. Check peripheral smear.--> pending. Continue Colistin. Will ask pharmacy to assist with dosing for the patient's HD status. Continue Levaquin 750mg IV Q48H. Continue Vancomycin IV. Pharmacy to dose. Goal trough ~15. Palliative care consulted per the nephrology team. Duration of treatment depends on the clinical picture. Monitor drug levels and dose-adjust antibiotics. Qualifiers: Qualified Code(s): A41.9 - Sepsis, unspecified organism (2) CLABSI (central line-associated bloodstream infection) Current Visit: Yes Status: Acute Causative organism: E. cloacae. Source vs. seeding of the line. HD catheter blood culture drawn 07/13/18 x1 set was positive for E. cloacae. Repeat peripheral blood cultures drawn 07/14 are NGTD x 4 sets. Additional blood culture drawn 07/15/18 x 1 set from the HD catheter is NGTD. Status post [id number] exchange of the line 07/16/18 by IR. Catheter tip culture positive for E. cloacae. Repeat peripheral blood cultures drawn 07/17/18 x 2 sets are NGTD. Additional perma-cath blood culture drawn 07/17/18 x 1 set is NGTD. Currently on Levaquin. Qualifiers: Qualified Code(s): T80.211A - Bloodstream infection due to central venous catheter, initial encounter (3) Pneumonia Current Visit: Yes Status: Acute PNA vs. colonization. CXR 07/14/18 limited due to patient rotation and shallow inspiration, but mild nonspecific left basilar opacities with pneumonia not excluded. Aspiration is possible given the patient's altered mental status, but has been tolerating tube feeds with minimal residuals. Sputum culture positive for MDRO A. baumannii. MRSA screen positive. Anuric. Unable to check UATs. Low probability of viral infection. Repeat sputum culture A. baumannii. CT chest showed left basilar PNA vs. aspiration. Currently on Levaquin and Colistin and Vancomycin. Qualifiers: Qualified Code(s): J15.6 - Pneumonia due to other Gram-negative bacteria (4) Anoxic brain injury Current Visit: Yes Status: Chronic Etiology unclear. (5) Chronic respiratory failure Current Visit: Yes Status: Chronic Secondary to anoxic brain injury. Chronic trach with ATC vent support. Qualifiers: Qualified Code(s): J96.11 - Chronic respiratory failure with hypoxia (6) Diabetes mellitus type 2 in obese Current Visit: Yes Status: Chronic (7) ESRD (end stage renal disease) on dialysis Current Visit: Yes Status: Acute Nephrology consulted and following. (8) Wound of sacral region Current Visit: Yes Status: Acute Clinically does not appear infected. CT abdomen/pelvis does not show osteomyelitis or abscess. Wound care and offloading. Qualifiers: Qualified Code(s): S31.000A - Unspecified open wound of lower back and pelvis without penetration into retroperitoneum, initial encounter (9) Diarrhea Current Visit: Yes Status: Acute Likely secondary to tube feeds. GI panel and C. diff negative. FMS per the primary team to prevent contamination of her sacral wound. Qualifiers: Qualified Code(s): R19.7 - Diarrhea, unspecified (10) Status post transmetatarsal amputation of right foot Current Visit: Yes Status: Acute Etiology unclear. Timeframe unclear. Will ask nursing to get details. Clinically does not appear infected, but given relatively recent surgery, may be nidus of infection. - Subjective Interval history: Patient seen and examined in the HD unit. No acute events noted overnight. Patient has been febrile with a MAXIMUM TEMPERATURE of 100.6 in the last 24 hours. She has had tachycardia. She remains unresponsive due to her an anoxic brain injury. Review of systems unobtainable from the patient. She did undergo an over the guidewire exchange of her dialysis catheter 07/16/18. Per nursing, tolerating tube feeds well. Rectal tube patent. No new issues per nursing. Discussed with the nephrology team who is recommending Palliative Care consultation. Infect Dis PN-Objective Data - Labs CBC & Chem 7: 07/24/18 06:02 07/24/18 06:02 Labs: Laboratory Results - last 24 hr 07/22/18 07/22/18 07/22/18 00:08 12:38 18:02 WBC RBC Hgb Hct MCV MCH MCHC RDW Plt Count MPV Immature Gran % Seg Neutrophils % Lymphocytes % Monocytes % Eosinophils % Basophils % Neutrophils # Lymphocytes # Monocytes # Eosinophils # Basophils # Sodium Potassium Chloride Carbon Dioxide BUN Creatinine Est GFR ( Amer) Est GFR (Non-Af Amer) BUN/Creatinine Ratio Glucose POC Glucose 199 H 389 H 146 H Calculated Osmolality Calcium Random Vancomycin 07/22/18 07/23/18 07/23/18 23:59 04:53 04:53 WBC 19.8 H RBC 2.98 L Hgb 7.9 L Hct 25.4 L MCV 85.2 MCH 26.5 L MCHC 31.1 L RDW 15.9 H Plt Count 554 H MPV 9.1 L Immature Gran % 2.6 Seg Neutrophils % 81.5 Lymphocytes % 7.3 Monocytes % 7.2 Eosinophils % 1.1 Basophils % 0.3 Neutrophils # 16.1 H Lymphocytes # 1.5 Monocytes # 1.4 H Eosinophils # 0.2 Basophils # 0.1 Sodium 131 L Potassium 3.9 Chloride 90 L Carbon Dioxide 25 BUN 55 H Creatinine 4.43 H Est GFR ( Amer) 13 L Est GFR (Non-Af Amer) 10 L BUN/Creatinine Ratio 12 Glucose 219 H POC Glucose 233 H Calculated Osmolality 294 Calcium 10.0 Random Vancomycin 22 Cultures: Cultures 07/17/18 13:53 Blood Culture - Final Peripheral Venipuncture No growth. Final report. 07/17/18 13:53 Blood Culture - Final Peripheral Venipuncture No growth. Final report. 07/17/18 14:35 Blood Culture - Final Central Venous Catheter No growth. Final report. 07/17/18 20:45 Sputum Culture - Final Trachea Acinetobacter baumannii MDRO 07/15/18 11:41 Blood Culture - Final Central Venous Catheter No growth. Final report. 07/16/18 15:00 Catheter Tip Culture - Final Intravenous or Arterial Cath Enterobacter cloacae complex 07/14/18 23:41 Blood Culture - Final Peripheral Venipuncture No growth. Final report. 07/14/18 23:41 Blood Culture - Final Peripheral Venipuncture No growth. Final report. Serology 07/16/18 07/16/18 07/15/18 Range/Units 07:07 02:40 17:15 Nasal Screen MRSA (PCR) Positive A (Negative) Stl C. cayetanensis PCR Not detected (Not detect) Stool Rotavirus A PCR Not detected (Not detect) Stl Adenov F 40/41 PCR Not detected (Not detect) Stool Astrovirus (PCR) Not detected (Not detect) Stool Campylobacter PCR Not detected (Not detect) Stool Cryptosporidium PCR Not detected (Not detect) Stl Sh Tox Pr E STEC PCR Not detected (Not detect) Stl Enterotoxigenic E PCR Not detected (Not detect) Stool EPEC (PCR) Not detected (Not detect) Stool EAEC (PCR) Not detected (Not detect) Stl E. histolytica PCR Not detected (Not detect) Stool Giardia Lamblia PCR Not detected (Not detect) Stool Salmonella PCR Not detected (Not detect) Stool Sapovirus (PCR) Not detected (Not detect) Stl P. shigelloides PCR Not detected (Not detect) Stl Shigella/EIEC PCR Not detected (Not detect) St Y.enterocolitica PCR Not detected (Not detect) Stool Vibrio (PCR) Not detected (Not detect) Stl Vibrio cholerae PCR Not detected (Not detect) Stl Norovirus GI/GII PCR Not detected (Not detect) Stl GI Panel (PCR) Com See below C.diff Toxin Gene (MARY) Not detected (Not detect) Hep Bs Antigen Nonreactive (Nonreactive) Hep Bs Antibody 38.07 (10.00 - ) mIU/mL Exam - Constitutional Vitals: Temp Pulse Resp BP Pulse Ox 100.2 F H 115 18 140/93 100 07/23/18 07:23 07/23/18 07:23 07/23/18 08:20 07/23/18 08:20 07/23/18 08:20 General appearance: average body habitus, no acute distress, no febrile - Head Head exam: Present: atraumatic, normal inspection, normocephalic - Eye Eye exam: Present: normal appearance Additional comments: Spontaneous eye opening and movement noted, but the patient does not follow commands or track around the room. - ENT ENT exam: Present: mucous membranes moist Additional comments: Lesion noted to the right lower lip from the patient biting. - Neck Neck exam: Present: normal inspection Additional comments: Tracheostomy midline with O2 via the vent. - Respiratory Respiratory exam: Present: CTAB. Absent: rales, respiratory distress, rhonchi, wheezes - Cardiovascular Cardiovascular exam: Present: +S1, +S2, tachycardia. Absent: irregular rhythm - GI/Abdominal GI/Abdominal exam: Present: normal bowel sounds, soft. Absent: distended, tenderness Additional comments: PEG tube noted, currently clamped. Rectal tube noted with liquid brown stool in the bag. - Extremities Exam Extremities exam: Absent: normal inspection (Right foot TMA site with scabbing noted. No erythema, warmth, drainage noted.), pedal edema Additional comments: Contractures noted to the BUE. - Neurological Exam Neurological exam: Present: altered Additional comments: Unresponsive. Spontaneous eye opening. No movement of the extremities. Does not follow commands or respond to painful or verbal stimuli. - Skin Skin exam: Present: dry, intact, normal color, warm Consult Discharge Plan - Plan Referrals: NONE,PCP [Primary Care Provider] - (PATIENT IS FROM [facility] NO PCP APPOINTMENT NEEDED) - Attending Attestation I examined this patient and my medical decision-making was reviewed with the Resident Physician. I agree with the documented findings, disposition and treatment plan as described except to the extent set forth below.
--- NOTE | 2018-07-23 12:24 | Nephrology Progress Note ---
Date of Encounter: 07/23/18 Time of Encounter: 12:21 - Assessment and Plan (1) ESRD (end stage renal disease) on dialysis Current Visit: No Status: Acute ESRD on MWF. HD in progress for today. Strict I/O Avoid nephrotoxins and renal dose. Palliative care consult placed for end of life care. Pt's POA is a brother/sister information is provided in previous social work note. Palliative care aware of consult. (2) Anemia in chronic kidney disease (CKD) Current Visit: Yes Status: Chronic Goal Hgb is 10-11. Hgb is 7.9, stable. Will defer workup to primary team. Qualifiers: Chronic kidney disease stage: on chronic dialysis Qualified Code(s): N18.6 - End stage renal disease; D63.1 - Anemia in chronic kidney disease; Z99.2 - Dependence on renal dialysis (3) CLABSI (central line-associated bloodstream infection) Current Visit: Yes Status: Acute Awaiting final cultures to determine if line holiday is indicated. Per ID, appreciate recommendations. Qualifiers: Encounter type: initial encounter Qualified Code(s): T80.211A - Bloodstream infection due to central venous catheter, initial encounter (4) Wound of sacral region Current Visit: Yes Status: Acute Per wound care. Qualifiers: Qualified Code(s): S31.000A - Unspecified open wound of lower back and pelvis without penetration into retroperitoneum, initial encounter Subjective Principal diagnosis: leukocytosis Interval history: Pt seen and examined during HD, tolerating well. Objective - Vital Signs Vital signs: Vital Signs Temp Pulse Resp BP Pulse Ox 07/23/18 08:20 18 140/93 100 07/23/18 07:23 100.2 F H 115 17 143/49 100 07/23/18 05:06 99.1 F 114 16 131/69 100 07/23/18 04:25 19 100 07/23/18 00:08 99.2 F 109 15 07/22/18 23:57 18 100 07/22/18 22:14 18 128/79 100 07/22/18 21:08 99.1 F 107 16 124/52 98 07/22/18 20:50 18 98 07/22/18 18:32 99.8 F H 106 20 117/75 99 07/22/18 16:15 18 99 07/22/18 15:00 106 117/75 Intake and Output 07/22/18 07/23/18 07/23/18 23:59 07:59 15:59 Intake Total 150 / 150 774 / 774 0 / 0 Output Total 50 / 50 Balance 150 / 150 724 / 724 0 / 0 Intake: Oral 0 / 0 0 / 0 Tube Feeding 474 / 474 Free Water 300 / 300 Free Water Intake Amount 150 / 150 Output: Stool 50 / 50 Other: Meal NPO/TUBE FEED Percent of Meal Consumed 0% Weight 67.3 kg Blood Glucose* 233 230 158 Patient Weight 07/23/18 23:59 Weight 67.3 kg - General Appearance General appearance: Present: cachectic, fatigue, frail EENT: Present: ATNC Neck: Present: supple Respiratory: Present: clear, rhonchi Cardiology: Present: no edema Dialysis Vascular Access: Venous Catheter (DRSG C/D/I) Gastrointestinal: Present: normoactive bowel sounds, no tenderness, no guarding Integumentary: Present: no rash, warm and dry Psychiatric: Present: mood/affect appropriate, cooperative - Lab 07/23/18 04:53 07/23/18 04:53 Most recent lab results Calcium 10.0 mg/dL (8.6-10.3) 07/23/18 04:53 Phosphorus 1.3 mg/dL (2.7-4.5) L 07/16/18 05:36 Magnesium 2.3 mg/dL (1.6-2.6) 07/16/18 05:36 Consult Discharge Plan - Plan Referrals: NONE,PCP [Primary Care Provider] - (PATIENT IS FROM [facility] NO PCP APPOINTMENT NEEDED)
--- NOTE | 2018-07-23 13:10 | Internal Med Progress Note ---
Hospitalist Progress Note - Encounter Date of Encounter: 07/23/18 Time of Encounter: 09:00 - Subjective Interval History: Patient is still nonverbal, open eyes spontanously but not follow command. on ventilator, no family member at bedside. Still have low-grade fever this AM - Exam Vitals: Temp Pulse Resp BP Pulse Ox 98.9 F 115 18 95/68 100 07/23/18 09:00 07/23/18 07:23 07/23/18 09:00 07/23/18 10:30 07/23/18 08:20 Exam: General: Alert, breathing spontaneously. Not oriented, non-verbal Chest: Right perma-cath Neck: Trached with mucopurulent discharge in the tubes Cardiovascular:Normal S1 & S2, No JVD. Borderline tachycardia Lungs: diminished breath sounds bilaterally, coarse breath sound b/l Abdomen:Soft, non-tender, no rigidity. Extremities: Both UE contracted. R chest HD catheter and R UE midline noted. Groin: not assessed Neuro: Nonverbal - Assessment and Plan (1) ESRD (end stage renal disease) Current Visit: Yes Status: Chronic Assessment and Plan: nephrology consulted for HD, continue care per recommendation (2) Sepsis Current Visit: Yes Status: Acute Assessment and Plan: [facility] with worsening leukocytosis despite being on vanc/ceftin Source of infection considered permacath and pneumonia. Permacath have been exchanged by IR. Infectious disease is following and input appreciated. On Vanco, levaquin, and Colistin per ID recommendation. Prognosis guarded. Agree with nephro to consult Palliative care. (3) Hypokalemia Current Visit: Yes Status: Acute Assessment and Plan: Potassium 3.9 today, will continue to monitor, patient is on HD (4) Anemia in chronic kidney disease (CKD) Current Visit: Yes Status: Chronic Assessment and Plan: Chronic and stable. (5) CLABSI (central line-associated bloodstream infection) Current Visit: Yes Status: Acute Assessment and Plan: discussed above under sepsis. (6) Pneumonia Current Visit: Yes Status: Acute Assessment and Plan: discussed above under sepsis. Sputum culture shows Acinetobacter. (7) Diabetes mellitus type 2 in obese Current Visit: Yes Status: Chronic Assessment and Plan: Continue basal and sliding scale insulin (8) Anoxic brain injury Current Visit: Yes Status: Chronic Assessment and Plan: Continue tube feeds, trach management and ventilation (9) Chronic respiratory failure Current Visit: Yes Status: Chronic Assessment and Plan: Patient with chronic respiratory failure, vent dependent. Trach, vent management per respiratory (10) Wound of sacral region Current Visit: Yes Status: Acute Assessment and Plan: as above (11) Decubitus skin ulcer Current Visit: Yes Status: Acute Assessment and Plan: Continue wound care per instruction from wound care consult DVT Prophylaxis: Subcutaneous heparin - Time Spent with Patient Total time spent is greater than 50% in coordination of care (as documented) at patient's floor/unit and/or counseling patient: 40 min Greater than 35 minutes Plan of Care Discussed with: nurse Internal Medicine: Result - Labs CBC & Chem 7: 07/23/18 04:53 07/23/18 04:53 Labs: Short CBC 07/23/18 Range/Units 04:53 WBC 19.8 H (4.3-11.1) K/mcL Hgb 7.9 L (11.5-15.4) g/dL Hct 25.4 L (35.3-44.9) % Plt Count 554 H (140-400) K/mcL Neutrophils # 16.1 H (1.6-8.9) K/mcL BMP 07/23/18 04:53 Sodium 131 L Potassium 3.9 Chloride 90 L Carbon Dioxide 25 BUN 55 H Creatinine 4.43 H Glucose 219 H Calcium 10.0 - ABG Interpretation ABG results: PT/INR, D-dimer PT 12.0 Seconds (9.4-12.1) 07/16/18 05:36 Consult Discharge Plan - Plan Referrals: NONE,PCP [Primary Care Provider] - (PATIENT IS FROM [facility] NO PCP APPOINTMENT NEEDED) (2) Sepsis Qualifiers: Sepsis type: sepsis due to unspecified organism Qualified Code(s): A41.9 - Sepsis, unspecified organism (4) Anemia in chronic kidney disease (CKD) Qualifiers: Chronic kidney disease stage: on chronic dialysis Qualified Code(s): N18.6 - End stage renal disease; D63.1 - Anemia in chronic kidney disease; Z99.2 - Dependence on renal dialysis (5) CLABSI (central line-associated bloodstream infection) Qualifiers: Encounter type: initial encounter Qualified Code(s): T80.211A - Bloodstream infection due to central venous catheter, initial encounter (6) Pneumonia Qualifiers: Pneumonia type: due to other aerobic Gram-negative bacteria Laterality: bilateral Lung location: lower lobe of lung Qualified Code(s): J15.6 - Pneumonia due to other Gram-negative bacteria (9) Chronic respiratory failure Qualifiers: Respiratory failure complication: hypoxia Qualified Code(s): J96.11 - Chronic respiratory failure with hypoxia (10) Wound of sacral region Qualifiers: Qualified Code(s): S31.000A - Unspecified open wound of lower back and pelvis without penetration into retroperitoneum, initial encounter (11) Decubitus skin ulcer Qualifiers: Pressure injury location: sacral region Pressure injury stage: unstageable Qualified Code(s): L89.150 - Pressure ulcer of sacral region, unstageable
[2018-07-23] MEDS: levETIRAcetam 500 MG/5 ML UDC GTUBE SCH (13:14)
[2018-07-23] MEDS: Colistin (Colistimethate) 100 MG in 0.9 % Sodium Chloride 50 ML IVPB SCH (13:14)
[2018-07-23] MEDS: Leptospermum Honey Gel 44 ML TUBE TP SCH (13:15)
--- NOTE | 2018-07-23 14:39 | Palliative - Consult Note ---
Date of Encounter: 07/23/18 Time of Encounter: 14:00 - Assessment and Plan (1) Goals of care, counseling/discussion Current Visit: Yes Status: Acute Assessment and plan: Patient assessed. History of anoxic brain injury. Called patients POA Sister Francheska Ngo #[phone] and set meeting for 07/24/18. Francheska to contact brothers to att end meeting to discuss goals of care. Patient with poor prognosis. ESRD, sepsis with Infectious disease following. Plan is to meet with DAYAN Pritchard and family tomorrow to update on POC and establish GOC. (2) ESRD (end stage renal disease) on dialysis Current Visit: Yes Status: Acute Assessment and plan: Currently on Dialysis with Nephrology following (3) CLABSI (central line-associated bloodstream infection) Current Visit: Yes Status: Acute Assessment and plan: Infectious ID following. Patient currently on Colistimethate and Keppra. Patient still with leukocytosis and low grade temp this AM. Qualifiers: Encounter type: initial encounter Qualified Code(s): T80.211A - Bloodstream infection due to central venous catheter, initial encounter (4) Anoxic brain injury Current Visit: Yes Status: Chronic Assessment and plan: Patient with chronic tracheostomy and vent dependent. From ECF. Nonverbal. (5) Wound of sacral region Current Visit: Yes Status: Acute Assessment and plan: Wound care following. Recommendations noted. Qualifiers: Qualified Code(s): S31.000A - Unspecified open wound of lower back and pelvis without penetration into retroperitoneum, initial encounter Palliative-CN HPI - Data of Consult Patient: new to practice Consult date: 07/23/18 Requesting Physician: Pat Laws NP Primary Care Provider: PCP NONE - Consult Narrative Palliative Care/Comfort Measures: Palliative care Reason for consult: Goals of Care History of present illness: Ms. Ngo is a 52 year old female, admitted on 07/14/19. Patient is snf resident with history of anoxic brain injury. Patient with chronic trach/vent dependency and PEG, end-stage renal disease on hemodialysis, diabetes mellitus, sacral decubitus ulcer. Patient is admitted with leukocytosis and found to be septic. Patient being managed for Enterobacter CLABSI and Tracheostomy aspirate with MDRo acinetobacter. Infectious disease and nephrology following but patent still with leukocytosis, and low grade temp of 99.3. She is seen and evaluated at bedside. Patient is nonverbal, open eyes spontanously but not following commands, remains on ventilator @ TV 350, FiO2 40% and Peep 5. No family member at bedside. This palliative care consult is for goals of care discussion. CC: Juwan Cuba MD - Time Spent with Patient Time: Total time spent is greater than 50% in coordination of care (as documented) at patient's floor/unit and/or counseling patient: Time with patient: 45 minutes Past Med Surg Social Fam HX - Past Medical History Source: unable to obtain, nursing notes reviewed Medical history: diabetes, GERD, hyperlipidemia, renal disease, seizures, other Additional medical history: Anoxic brain injury. Anemia. Contracture Psychiatric history: other - Past Surgical History Surgical History: other (Toe amputation right foot, tracheostomy) - Social History Smoking Status: Smoker, status unknown Smokeless Tobacco Status: No (unknown) Alcohol use: none Drug use: unknown Occupational status: disabled Current living situation: ECF Activity Level: Bed bound Recent Out of Country Travel Within the Last 8 Weeks: No Exposure or Possible Exposure to Illness During Travel: No Medications and Allergies Atorvastatin Calcium [Lipitor] 40 mg GTUBE DAILY 07/14/18 [History] Baclofen 5 mg GTUBE TID 07/14/18 [History] Benzocaine [Orabase] 1 appl MM QID PRN 07/14/18 [History] Chlorhexidine Gluconate [Peridex] 1 appl MM QID PRN 07/14/18 [History] Docusate [Colace] 100 mg GTUBE DAILY 07/14/18 [History] Esomeprazole Magnesium [Nexium] 40 mg GTUBE BID 07/14/18 [History] Heparin 5,000 unit SQ Q8HR 07/14/18 [History] Mineral Oil/Petrolatum,White [Minerin Creme] 1 appl TP DAILY 07/14/18 [History] Nystatin [Nystatin Suspension] 500,000 units PO QID PRN 07/14/18 [History] Sennosides/Docusate Sodium [Senna-Docusate Sodium Tablet] 1 tab GTUBE DAILY PRN 07/14/18 [History] Vancomycin HCl 500 mg IV MOWEFR 07/14/18 [History] Vit B Comp C 19/Folic Acid/D3 [Nephronex-Sl Tablet] 1 tab GTUBE DAILY 07/14/18 [History] Amino Acids/Protein Hydrolys [Pro-Stat Awc Liquid Packet] 30 ml GTUBE TID 07/15/18 [History] Aspirin [Lo-Dose Aspirin EC] 81 mg GTUBE DAILY 07/15/18 [History] Cefepime HCl [Maxipime] 500 mg IV 2000 07/15/18 [History] Insulin Glargine [Lantus] 40 unit SQ DAILY 07/15/18 [History] Insulin Human Regular [HumuLIN R] 0 - 12 unit SQ QID 07/15/18 [History] Ipratropium/Albuterol Neb [Duoneb] 3 ml IH Q6HR PRN 07/15/18 [History] LevETIRAcetam [Keppra] 500 mg GTUBE DAILY 07/15/18 [History] Polyvinyl Alcohol [Artificial Tears] 1 drop BOTH EYES QID PRN 07/15/18 [History] Allergy/AdvReac Type Severity Reaction Status Date / Time No Known Allergies Allergy Verified 07/14/18 17:44 ROS unobtainable: due to mental status Review of systems: Patient with history of anoxic brain injury, trach and vent dependent. Nonve rbal. - Constitutional Constitutional ROS PAL: lethargy, malaise - Musculoskeletal Musculoskeletal ROS IM: muscle weakness - Integumentary ROS Integumentary: skin ulcer (sacral wound) Palliative Care-Exam - Constitutional Vitals: Temp Pulse Resp BP Pulse Ox 99.3 F 110 18 102/54 100 07/23/18 13:21 07/23/18 13:21 07/23/18 13:21 07/23/18 13:21 07/23/18 13:21 General appearance: Present: febrile, no acute distress Exam: Low grade temp 99. 3 - Head Head Exam: Present: atraumatic, normal inspection - Eye Eye exam: Present: PERRL - Expanded ENT Exam Mouth Exam: Present: moist - Neck Additional comments: Tracheostomy in place - Expanded Neck Exam Neck exam: Present: tenderness - Respiratory Respiratory exam: Present: decreased breath sounds Additional comments: Chronic tracheostomy. Vent dependent. Settings: TV 350, FiO2 40%, Peep 5. - Expanded Respiratory Exam Location: decreased breath sounds: Left, Right, Lower - Cardiovascular Cardiovascular exam: Present: RRR, +S1, +S2 - Expanded Cardiovascular Exam Peripheral pulses: 1+: Femoral (L) PM, Femoral (R) PM, Posterior Tibialis (L), Posterior Tibialis (R), 2+: Carotid (L) PM, Carotid (R) PM, Radial (L), Radial (R), Dorsalis Pedis (L) PM, Dorsalis Pedis (R) PM - GI/Abdominal Exam GI/Abdominal exam: Present: normal bowel sounds, soft additional comments: PEG in place and capped - Rectal Additional comments: Rectal tube in place. Draining light brown liquid stool. - Extremities Exam Extremities exam: Present: tenderness Additional comments: Patient with bilateral arm contracture's and bilateral foot drop. Stiffness to bilateral lower extremities. - Back Exam Back exam: Present: tenderness - Neurological Exam Neurological exam: Present: alert Additional comments: Nonverbal - Expanded Neurological Exam Coma Scale Eye Opening: Spontaneous Coma Scale Motor Response: Withdraws to Pain Coma Scale Verbal Response: None Coma Scale Total: 9 - Psychiatric Psychiatric exam: Present: flat affect - Skin Skin exam: Present: warm Additional comments: Sacral decub. Wound care following Internal Medicine - CN: Reslt - Labs CBC & Chem 7: 07/23/18 04:53 07/23/18 04:53 Labs: Short CBC 07/23/18 Range/Units 04:53 WBC 19.8 H (4.3-11.1) K/mcL Hgb 7.9 L (11.5-15.4) g/dL Hct 25.4 L (35.3-44.9) % Plt Count 554 H (140-400) K/mcL Neutrophils # 16.1 H (1.6-8.9) K/mcL BMP 07/23/18 04:53 Sodium 131 L Potassium 3.9 Chloride 90 L Carbon Dioxide 25 BUN 55 H Creatinine 4.43 H Glucose 219 H Calcium 10.0 - ABG Interpretation ABG results: PT/INR, D-dimer PT 12.0 Seconds (9.4-12.1) 07/16/18 05:36 Consult Discharge Plan - Plan Referrals: NONE,PCP [Primary Care Provider] - (PATIENT IS FROM [facility] NO PCP APPOINTMENT NEEDED) Palliative Quality Palliative Quality: Screen for Code Status: Yes, Screen for Goals of Care: Yes, Screen for Pain: Yes, If Pain Regimen Started, Initiate Bowel Regimen: Yes, Screen for Nausea/Vomitting: Yes Code Status: 07/15/18 12:06 Resuscitation Status: Active [RES] Routine Comment: Resuscitation Status: DNR-Comfort Care-Arrest
[2018-07-23] MEDS: Insulin DETEMIR 100 UNIT/ML X5UNITS SQ SCH (20:28)
[2018-07-24] MEDS: *HR* Heparin 5,000 UNIT/ML VIAL SQ SCH (04:16)
[2018-07-24 06:45] LABS: Basophils # 0.1 K/mcL (0.0-0.2); Basophils % 0.4 %; Eosinophils # 0.1 K/mcL (0.0-0.6); Eosinophils % 0.4 %; Hematocrit 24.2 % (35.3-44.9); Hemoglobin 7.6 g/dL (11.5-15.4); Immature Granulocytes % 3.8 % (0-4); Lymphocytes # 1.6 K/mcL (0.6-4.6); Lymphocytes % 6.8 %; Mean Corpuscular HGB Conc 31.4 g/dL (31.6-35.5); Mean Corpuscular Volume 82.9 fL (83.0-100.0); Mean Platelet Volume 9.2 fL (9.4-12.4); Monocytes % 8.5 %; Neutrophils # 18.6 K/mcL (1.6-8.9); Nucleated Red Blood Cells 0.1 /100 WBC (0); Platelet Count 539 K/mcL (140-400); Red Blood Count 2.92 M/mcL (3.82-4.97); Red Cell Distribution Width 16.1 % (11.5-14.5); Segmented Neutrophils % 80.1 %
[2018-07-24 07:04] LABS: Calcium 9.9 mg/dL (8.6-10.3); Potassium 3.7 mEq/L (3.5-5.1)
[2018-07-24] MEDS: Insulin LISPRO 300 UNITS/3 ML VIAL SQ SCH ×4 (07:33→23:47)
[2018-07-24] MEDS: Levofloxacin 750 MG/150 ML 750 MG/150 ML BAG IVPB SCH (08:37)
[2018-07-24] MEDS: levETIRAcetam 500 MG/5 ML UDC GTUBE SCH (08:38)
[2018-07-24] MEDS: Colistin (Colistimethate) 100 MG in 0.9 % Sodium Chloride 50 ML IVPB SCH (08:38)
--- NOTE | 2018-07-24 10:23 | Infectious Disease Progress No ---
Date of Encounter: 07/24/18 Time of Encounter: 10:21 - Assessment and Plan (1) Sepsis Current Visit: Yes Status: Acute Patient had severe sepsis criteria including tachycardia, tachypnea, leukocytosis and lactic acidosis. Likely secondary to central line associated bloodstream infection and possible pneumonia. Etiology of persistent leukocytosis and fevers remains unclear. Improved initially, but started having fevers again. Tmax overnight with 101.4 and tachycardia. WBC continues to stay elevated. HD catheter blood culture drawn 07/13/18 11 set was positive for E. cloacae. Repeat peripheral blood cultures drawn 07/14 are negative x 4 sets. Additional blood culture drawn 07/15/18 x 1 set from the HD catheter is negative. Repeat peripheral blood cultures drawn 07/17/18 x 2 sets are negative. Additional blood culture drawn from the Perma-cath 07/17/18 x 1 set is negative. ESR elevated at >130. CRP 218. Etiology unclear. Patient had TMA to the right foot in March, but clinically it does not appear infected. Amylase, lipase, LFTs normal. CT chest showed left basilar PNA vs. aspiration. CT abdomen and pelvis showed findings consistent with diarrheal illness and thickening of the bladder wall, but no other acute findings noted to explain leukocytosis and fevers. Peripheral smear is negative for toxic granules or Dohle bodies. Recommendations: Check RIP. Consider imaging of the right foot given recent surgery, although clinically it does not look infected. Consider tagged WBC to evaluate for nidus of infection. Continue droplet/contact precautions. Continue Colistin. Will ask pharmacy to assist with dosing for the patient's HD status. Continue Levaquin 750mg IV Q48H. Continue Vancomycin IV. Pharmacy to dose. Goal trough ~15. Palliative care consulted. Family meeting planned for later today. Will hold off on ordering imaging for now until family makes decision about goals of care. Duration of treatment depends on the clinical picture. Monitor drug levels and dose-adjust antibiotics. Qualifiers: Sepsis type: sepsis due to unspecified organism Qualified Code(s): A41.9 - Sepsis, unspecified organism (2) CLABSI (central line-associated bloodstream infection) Current Visit: Yes Status: Acute Causative organism: E. cloacae. Source vs. seeding of the line. HD catheter blood culture drawn 07/13/18 x1 set was positive for E. cloacae. Repeat peripheral blood cultures drawn 07/14 are NGTD x 4 sets. Additional blood culture drawn 07/15/18 x 1 set from the HD catheter is NGTD. Status post [id number] exchange of the line 07/16/18 by IR. Catheter tip culture positive for E. cloacae. Repeat peripheral blood cultures drawn 07/17/18 x 2 sets are negative. Additional perma-cath blood culture drawn 07/17/18 x 1 set is negative. Currently on Levaquin. Qualifiers: Encounter type: initial encounter Qualified Code(s): T80.211A - Bloodstream infection due to central venous catheter, initial encounter (3) Pneumonia Current Visit: Yes Status: Acute PNA vs. colonization. CXR 07/14/18 limited due to patient rotation and shallow inspiration, but mild nonspecific left basilar opacities with pneumonia not excluded. Aspiration is possible given the patient's altered mental status, but has been tolerating tube feeds with minimal residuals. Sputum culture positive for MDRO A. baumannii. MRSA screen positive. Anuric. Unable to check UATs. Low probability of viral infection, but will check RIP if family opts to continue aggressive treatment. Repeat sputum culture A. baumannii. CT chest showed left basilar PNA vs. aspiration. Currently on Levaquin and Colistin and Vancomycin. Qualifiers: Pneumonia type: due to other aerobic Gram-negative bacteria Laterality: bilateral Lung location: lower lobe of lung Qualified Code(s): J15.6 - Pneumonia due to other Gram-negative bacteria (4) Anoxic brain injury Current Visit: Yes Status: Chronic Secondary to cardiac arrest after right foot surgery in March 2018. (5) Chronic respiratory failure Current Visit: Yes Status: Chronic Secondary to anoxic brain injury. Chronic trach with ATC vent support. Qualifiers: Respiratory failure complication: hypoxia Qualified Code(s): J96.11 - Chronic respiratory failure with hypoxia (6) Diabetes mellitus type 2 in obese Current Visit: Yes Status: Chronic (7) ESRD (end stage renal disease) on dialysis Current Visit: Yes Status: Acute Nephrology consulted and following. (8) Wound of sacral region Current Visit: Yes Status: Acute Clinically does not appear infected. CT abdomen/pelvis does not show osteomyelitis or abscess. Wound care and offloading. Qualifiers: Qualified Code(s): S31.000A - Unspecified open wound of lower back and pelvis without penetration into retroperitoneum, initial encounter (9) Diarrhea Current Visit: Yes Status: Acute Likely secondary to tube feeds. GI panel and C. diff negative. FMS per the primary team to prevent contamination of her sacral wound. Qualifiers: Diarrhea type: unspecified type Qualified Code(s): R19.7 - Diarrhea, unspecified (10) Status post transmetatarsal amputation of right foot Current Visit: Yes Status: Acute Status post TMA March 2018 secondary to right foot infection at [facility]. Clinically does not appear infected, but given relatively recent surgery, may be nidus of infection. Will pursue imaging if the patient's family opts to pursue aggressive treatment. - Subjective Interval history: Patient seen and examined. No acute events noted overnight. Patient has been febrile with a MAXIMUM TEMPERATURE of 101.4 in the last 24 hours. She has had tachycardia. She remains unresponsive due to her an anoxic brain injury. Review of systems unobtainable from the patient. She did undergo an over the guidewire exchange of her dialysis catheter 07/16/18. Per nursing, tolerating tube feeds well. Rectal tube patent. No new issues per nursing. Palliative care consulted and planning for family meeting later today. Per nursing, likely withdrawing care pending family's decision. Infect Dis PN-Objective Data - Labs CBC & Chem 7: 07/25/18 07:09 07/25/18 07:09 Labs: Laboratory Results - last 24 hr 07/23/18 07/23/18 07/23/18 05:11 10:54 11:21 WBC RBC Hgb Hct MCV MCH MCHC RDW Plt Count MPV Immature Gran % Seg Neutrophils % Lymphocytes % Monocytes % Eosinophils % Basophils % Neutrophils # Lymphocytes # Monocytes # Eosinophils # Basophils # Nucleated RBCs/100 WBC Smear Path Review Sodium Potassium Chloride Carbon Dioxide BUN Creatinine Est GFR ( Amer) Est GFR (Non-Af Amer) BUN/Creatinine Ratio Glucose POC Glucose 230 H 158 H Calculated Osmolality Calcium 07/23/18 07/23/18 07/23/18 13:16 17:46 23:06 WBC RBC Hgb Hct MCV MCH MCHC RDW Plt Count MPV Immature Gran % Seg Neutrophils % Lymphocytes % Monocytes % Eosinophils % Basophils % Neutrophils # Lymphocytes # Monocytes # Eosinophils # Basophils # Nucleated RBCs/100 WBC Smear Path Review Sodium Potassium Chloride Carbon Dioxide BUN Creatinine Est GFR ( Amer) Est GFR (Non-Af Amer) BUN/Creatinine Ratio Glucose POC Glucose 194 H 378 H 451 H* Calculated Osmolality Calcium 07/23/18 07/24/18 07/24/18 23:08 05:52 06:02 WBC RBC Hgb Hct MCV MCH MCHC RDW Plt Count MPV Immature Gran % Seg Neutrophils % Lymphocytes % Monocytes % Eosinophils % Basophils % Neutrophils # Lymphocytes # Monocytes # Eosinophils # Basophils # Nucleated RBCs/100 WBC Smear Path Review Sodium 134 L Potassium 3.7 Chloride 93 L Carbon Dioxide 30 H BUN 42 H Creatinine 3.53 H Est GFR ( Amer) 16 L Est GFR (Non-Af Amer) 13 L BUN/Creatinine Ratio 12 Glucose 259 H POC Glucose 407 H* 281 H Calculated Osmolality 297 Calcium 9.9 07/24/18 06:02 WBC 23.2 H RBC 2.92 L Hgb 7.6 L Hct 24.2 L MCV 82.9 L MCH 26.0 L MCHC 31.4 L RDW 16.1 H Plt Count 539 H MPV 9.2 L Immature Gran % 3.8 Seg Neutrophils % 80.1 Lymphocytes % 6.8 Monocytes % 8.5 Eosinophils % 0.4 Basophils % 0.4 Neutrophils # 18.6 H Lymphocytes # 1.6 Monocytes # 2.0 H Eosinophils # 0.1 Basophils # 0.1 Nucleated RBCs/100 WBC 0.1 H Smear Path Review Sodium Potassium Chloride Carbon Dioxide BUN Creatinine Est GFR ( Amer) Est GFR (Non-Af Amer) BUN/Creatinine Ratio Glucose POC Glucose Calculated Osmolality Calcium Cultures: Cultures 07/17/18 13:53 Blood Culture - Final Peripheral Venipuncture No growth. Final report. 07/17/18 13:53 Blood Culture - Final Peripheral Venipuncture No growth. Final report. 07/17/18 14:35 Blood Culture - Final Central Venous Catheter No growth. Final report. 07/17/18 20:45 Sputum Culture - Final Trachea Acinetobacter baumannii MDRO 07/15/18 11:41 Blood Culture - Final Central Venous Catheter No growth. Final report. 07/16/18 15:00 Catheter Tip Culture - Final Intravenous or Arterial Cath Enterobacter cloacae complex 07/14/18 23:41 Blood Culture - Final Peripheral Venipuncture No growth. Final report. 07/14/18 23:41 Blood Culture - Final Peripheral Venipuncture No growth. Final report. Serology 12/26/18 12/26/18 12/25/18 Range/Units 07:07 02:40 17:15 Nasal Screen MRSA (PCR) Positive A (Negative) Stl C. cayetanensis PCR Not detected (Not detect) Stool Rotavirus A PCR Not detected (Not detect) Stl Adenov F 40/41 PCR Not detected (Not detect) Stool Astrovirus (PCR) Not detected (Not detect) Stool Campylobacter PCR Not detected (Not detect) Stool Cryptosporidium PCR Not detected (Not detect) Stl Sh Tox Pr E STEC PCR Not detected (Not detect) Stl Enterotoxigenic E PCR Not detected (Not detect) Stool EPEC (PCR) Not detected (Not detect) Stool EAEC (PCR) Not detected (Not detect) Stl E. histolytica PCR Not detected (Not detect) Stool Giardia Lamblia PCR Not detected (Not detect) Stool Salmonella PCR Not detected (Not detect) Stool Sapovirus (PCR) Not detected (Not detect) Stl P. shigelloides PCR Not detected (Not detect) Stl Shigella/EIEC PCR Not detected (Not detect) St Y.enterocolitica PCR Not detected (Not detect) Stool Vibrio (PCR) Not detected (Not detect) Stl Vibrio cholerae PCR Not detected (Not detect) Stl Norovirus GI/GII PCR Not detected (Not detect) Stl GI Panel (PCR) Com See below C.diff Toxin Gene (MARY) Not detected (Not detect) Hep Bs Antigen Nonreactive (Nonreactive) Hep Bs Antibody 38.07 (10.00 - ) mIU/mL Exam - Constitutional Vitals: Temp Pulse Resp BP Pulse Ox 99.9 F H 118 17 131/79 99 07/24/18 07:49 07/24/18 09:51 07/24/18 09:51 07/24/18 07:49 07/24/18 09:51 General appearance: average body habitus, no acute distress, no febrile - Head Head exam: Present: atraumatic, normal inspection, normocephalic - Eye Eye exam: Present: normal appearance Additional comments: Spontaneous eye opening and movement noted, but does not follow commands or participate in exam. - ENT ENT exam: Present: mucous membranes moist Additional comments: Scabbed lesion noted to the right lower lip. - Neck Neck exam: Present: normal inspection Additional comments: Tracheostomy midline with O2 via the vent. - Respiratory Respiratory exam: Present: CTAB. Absent: rales, respiratory distress, rhonchi, wheezes - Cardiovascular Cardiovascular exam: Present: +S1, +S2, tachycardia. Absent: irregular rhythm - GI/Abdominal GI/Abdominal exam: Present: normal bowel sounds, soft. Absent: distended, tenderness Additional comments: PEG tube noted, clamped. Rectal tube noted with light brown liquid stool noted in the collection bag. - Extremities Exam Extremities exam: Absent: normal inspection (Right foot TMA site with scabbing noted. No erythema, warmth, tenderness, drainage, or fluctuance noted.) - Neurological Exam Neurological exam: Present: altered (Unresponsive. Does not participate in exam, follow commands, or attempt to communicate. Eyes open spontaneously, but the patient does not track me around the room.) - Skin Skin exam: Present: dry, intact, normal color, warm Consult Discharge Plan - Plan Referrals: NONE,PCP [Primary Care Provider] - (PATIENT IS FROM [facility] NO PCP APPOINTMENT NEEDED) - Attending Attestation I examined this patient and my medical decision-making was reviewed with the Resident Physician. I agree with the documented findings, disposition and treatment plan as described except to the extent set forth below.
[2018-07-24] MEDS: Leptospermum Honey Gel 44 ML TUBE TP SCH (11:26)
--- NOTE | 2018-07-24 12:14 | Nephrology Progress Note ---
Date of Encounter: 07/24/18 Time of Encounter: 12:12 - Assessment and Plan (1) ESRD (end stage renal disease) on dialysis Current Visit: Yes Status: Acute ESRD on MWF. HD completed yesterday without complication. Strict I/O Avoid nephrotoxins and renal dose. Palliative care meeting with family today. (2) Anemia in chronic kidney disease (CKD) Current Visit: Yes Status: Chronic Goal Hgb is 10-11. Hgb is 7.6, stable. Will defer workup to primary team. Qualifiers: Chronic kidney disease stage: on chronic dialysis Qualified Code(s): N18.6 - End stage renal disease; D63.1 - Anemia in chronic kidney disease; Z99.2 - De pendence on renal dialysis (3) CLABSI (central line-associated bloodstream infection) Current Visit: Yes Status: Acute Awaiting final cultures to determine if line holiday is indicated. Per ID, appreciate recommendations. Qualifiers: Encounter type: initial encounter Qualified Code(s): T80.211A - Bloodstream infection due to central venous catheter, initial encounter (4) Wound of sacral region Current Visit: Yes Status: Acute Per wound care. Qualifiers: Qualified Code(s): S31.000A - Unspecified open wound of lower back and pelvis without penetration into retroperitoneum, initial encounter Subjective Principal diagnosis: leukocytosis Interval history: Pt seen and examined. Objective - Vital Signs Vital signs: Vital Signs Temp Pulse Resp BP Pulse Ox 07/24/18 11:19 116 07/24/18 11:10 99.1 F 117 20 138/63 100 07/24/18 09:51 118 17 99 07/24/18 09:03 120 18 100 07/24/18 08:27 20 99 07/24/18 07:49 99.9 F H 123 16 131/79 100 07/24/18 05:30 98.1 F 117 16 109/82 100 07/24/18 05:02 18 98/61 100 07/24/18 00:40 20 98/61 100 07/23/18 23:12 100.2 F H 115 18 98/61 100 07/23/18 20:35 18 136/65 100 07/23/18 20:15 101.4 F H 118 16 136/65 100 07/23/18 16:28 99.7 F H 115 18 112/35 100 07/23/18 15:54 110 07/23/18 15:53 18 102/54 100 07/23/18 13:21 99.3 F 110 18 102/54 100 07/23/18 13:10 19 143/49 100 07/23/18 12:48 98.8 F 18 111/74 07/23/18 12:30 100/67 07/23/18 12:15 102/73 Intake and Output 07/23/18 07/24/18 07/24/18 23:59 07:59 15:59 Intake Total 600 / 600 150 / 150 50 / 50 Output Total 0 / 0 0 / 0 Balance 600 / 600 150 / 150 50 / 50 Intake: Oral 0 / 0 0 / 0 Free Water 150 / 150 Free Water Intake Amount 450 / 450 150 / 150 50 / 50 Output: Urine 0 / 0 Catheter 0 / 0 Other: Meal Nourishment/Supplement Percent of Meal Consumed 100% Blood Glucose* 407 281 288 - General Appearance General appearance: Present: fatigue, frail EENT: Present: ATNC Neck: Present: supple Respiratory: Present: clear, rhonchi Cardiology: Present: no edema, normal S1, normal S2 Dialysis Vascular Access: Venous Catheter (DRSG C/D/I) Gastrointestinal: Present: normoactive bowel sounds, no tenderness, no guarding Integumentary: Present: no rash, warm and dry Additional Comments: Unable to assess mentation. Psychiatric: Present: mood/affect appropriate, cooperative - Lab 07/24/18 06:02 07/24/18 06:02 Most recent lab results Calcium 9.9 mg/dL (8.6-10.3) 07/24/18 06:02 Phosphorus 1.3 mg/dL (2.7-4.5) L 07/16/18 05:36 Magnesium 2.3 mg/dL (1.6-2.6) 07/16/18 05:36 Consult Discharge Plan - Plan Referrals: NONE,PCP [Primary Care Provider] - (PATIENT IS FROM [facility] NO PCP APPOINTMENT NEEDED)
--- NOTE | 2018-07-24 12:32 | Palliative Progress Note ---
Date of Encounter: 07/24/18 Time of Encounter: 12:01 - Assessment and plan (1) Goals of care, counseling/discussion Current Visit: Yes Status: Acute Assessment and plan: 30 minutes family meeting with pt's sister Francheska (POA), son Cruz, and 3 cousins. discussed pt's medical condition, trajectory of illness, goals of care and over all poor prognosis. Pt has 2 chldren, but the sister is the POA. Francheska states she will not make any decision without consulting with the children. It appears that the daughter is not very involved in pt's care. Son Cruz was very emotional. Per family, pt was active and functional, until end of March 2018 when she suffered a cardiac arrest and anoxic brain injury. Family is struggling with accepting that pt is in multi-organ failure and dying. Family was made aware that pt is in MOF, unable to fight infections despite appropriate antibiotics. All questions were answered. After a lengthy discussion, they are now open to considering a changes in GOC. Francheska stated they will have a family meeting to decide how to move on. Palliative care will follow. (2) ESRD (end stage renal disease) on dialysis Current Visit: Yes Status: Acute Assessment and plan: Nephrology following (3) Anoxic brain injury Current Visit: Yes Status: Chronic Assessment and plan: Pt is opening eyes, but not interacting with surroundings or following commands. Trach to vent and PEG in place. (4) Sepsis Current Visit: Yes Status: Acute Assessment and plan: Presented from group home with worsening leukocytosis despite being on v anc/ceftin Source of infection considered permacath and pneumonia. Permacath have been exchanged by IR. Infectious disease is following and input appreciated. On Vanco, levaquin, and Colistin. Qualifiers: Sepsis type: sepsis due to unspecified organism Qualified Code(s): A41.9 - Sepsis, unspecified organism (5) Pain Current Visit: Yes Status: Acute Assessment and plan: Patient has several pressure wounds, and nursing noticed grimacing in pain during dessing changes. Recommend Roxanol 5 mg q4hrs prn for pain, administer at least 15 minutes before care. - Time Spent With Patient Total time spent is greater than 50% in coordination of care (as documented) at patient's floor/unit and/or counseling patient: Greater than 35 minutes - Subjective Interval history: Patient is nonverbal, open eyes spontanously but not following commands, remains on ventilator @ TV 350, FiO2 40% and Peep 5. Family present at the bedside. - Constitutional Vitals: Abnormal lab results WBC 23.2 K/mcL (4.3-11.1) H 07/24/18 06:02 RBC 2.92 M/mcL (3.82-4.97) L 07/24/18 06:02 Hgb 7.6 g/dL (11.5-15.4) L 07/24/18 06:02 Hct 24.2 % (35.3-44.9) L 07/24/18 06:02 MCV 82.9 fL (83.0-100.0) L 07/24/18 06:02 MCH 26.0 pg (28.0-33.3) L 07/24/18 06:02 MCHC 31.4 g/dL (31.6-35.5) L 07/24/18 06:02 RDW 16.1 % (11.5-14.5) H 07/24/18 06:02 Plt Count 539 K/mcL (140-400) H 07/24/18 06:02 MPV 9.2 fL (9.4-12.4) L 07/24/18 06:02 Neutrophils # 18.6 K/mcL (1.6-8.9) H 07/24/18 06:02 Monocytes # 2.0 K/mcL (0.0-1.3) H 07/24/18 06:02 Nucleated RBCs/100 WBC 0.1 /100 WBC (0) H 07/24/18 06:02 ESR >= 130 mm/hr (0-15) H 07/21/18 12:24 Sodium 134 mEq/L (136-145) L 07/24/18 06:02 Chloride 93 mEq/L (98-107) L 07/24/18 06:02 Carbon Dioxide 30 mEq/L (23-29) H 07/24/18 06:02 BUN 42 mg/dL (6-20) H 07/24/18 06:02 Creatinine 3.53 mg/dL (0.60-1.20) H 07/24/18 06:02 Est GFR ( Amer) 16 (> 60) L 07/24/18 06:02 Est GFR (Non-Af Amer) 13 (> 60) L 07/24/18 06:02 Glucose 259 mg/dL (70-105) H 07/24/18 06:02 POC Glucose 281 mg/dL (70-99) H 07/24/18 05:52 Phosphorus 1.3 mg/dL (2.7-4.5) L 07/16/18 05:36 Alkaline Phosphatase 139 Units/L (34-104) H 07/21/18 12:24 C-Reactive Protein 218 mg/L (Less than 10) H 07/21/18 12:24 Albumin 2.9 g/dL (3.5-5.7) L 07/21/18 12:24 Globulin 4.5 g/dL (2.4-3.5) H 07/21/18 12:24 Albumin/Globulin Ratio 0.6 (1.1-2.2) L 07/21/18 12:24 Triglycerides 163 mg/dL (< 150) H 07/14/18 23:41 VLDL Cholesterol, Calc 33 mg/dL (< 31) H 07/14/18 23:41 HDL Cholesterol 25 mg/dL (40-59) L 07/14/18 23:41 Nasal Screen MRSA (PCR) Positive (Negative) A 07/15/18 17:15 Exam: General: opens eyes, in no acute distress. Not oriented, non-verbal Chest: Right perma-cath Neck: Trached with mucopurulent discharge in the tubes Cardiovascular:Normal S1 & S2, No JVD. Borderline tachycardia Lungs: diminished breath sounds bilaterally, coarse breath sound b/l Abdomen:Soft, non-tender, no rigidity. Extremities: Both UE contracted. R chest HD catheter and R UE midline noted. Neuro: Nonverbal, opening eyes, not tracking or following commands. Palliative Quality Palliative Quality: Screen for Code Status: Yes, Screen for Goals of Care: Yes, Screen for Pain: Yes, If Pain Regimen Started, Initiate Bowel Regimen: NA (pt has diarrhea), Screen for Nausea/Vomitting: Yes Code Status: 07/15/18 12:06 Resuscitation Status: Active [RES] Routine Comment: Resuscitation Status: DNR-Comfort Care-Arrest - Labs CBC & Chem 7: 07/24/18 06:02 07/24/18 06:02 Labs: Laboratory Results - last 24 hr 07/23/18 07/23/18 07/23/18 05:11 10:54 13:16 WBC RBC Hgb Hct MCV MCH MCHC RDW Plt Count MPV Immature Gran % Seg Neutrophils % Lymphocytes % Monocytes % Eosinophils % Basophils % Neutrophils # Lymphocytes # Monocytes # Eosinophils # Basophils # Nucleated RBCs/100 WBC Sodium Potassium Chloride Carbon Dioxide BUN Creatinine Est GFR ( Amer) Est GFR (Non-Af Amer) BUN/Creatinine Ratio Glucose POC Glucose 230 H 158 H 194 H Calculated Osmolality Calcium 07/23/18 07/23/18 07/23/18 17:46 23:06 23:08 WBC RBC Hgb Hct MCV MCH MCHC RDW Plt Count MPV Immature Gran % Seg Neutrophils % Lymphocytes % Monocytes % Eosinophils % Basophils % Neutrophils # Lymphocytes # Monocytes # Eosinophils # Basophils # Nucleated RBCs/100 WBC Sodium Potassium Chloride Carbon Dioxide BUN Creatinine Est GFR ( Amer) Est GFR (Non-Af Amer) BUN/Creatinine Ratio Glucose POC Glucose 378 H 451 H* 407 H* Calculated Osmolality Calcium 07/24/18 07/24/18 07/24/18 05:52 06:02 06:02 WBC 23.2 H RBC 2.92 L Hgb 7.6 L Hct 24.2 L MCV 82.9 L MCH 26.0 L MCHC 31.4 L RDW 16.1 H Plt Count 539 H MPV 9.2 L Immature Gran % 3.8 Seg Neutrophils % 80.1 Lymphocytes % 6.8 Monocytes % 8.5 Eosinophils % 0.4 Basophils % 0.4 Neutrophils # 18.6 H Lymphocytes # 1.6 Monocytes # 2.0 H Eosinophils # 0.1 Basophils # 0.1 Nucleated RBCs/100 WBC 0.1 H Sodium 134 L Potassium 3.7 Chloride 93 L Carbon Dioxide 30 H BUN 42 H Creatinine 3.53 H Est GFR ( Amer) 16 L Est GFR (Non-Af Amer) 13 L BUN/Creatinine Ratio 12 Glucose 259 H POC Glucose 281 H Calculated Osmolality 297 Calcium 9.9 - ABG Interpretation ABG results: PT/INR, D-dimer PT 12.0 Seconds (9.4-12.1) 07/16/18 05:36 Palliative Scale - Palliative Performance Scale How ambulatory is this patient?: Totally bed bound What is patient's level of activity and evidence of disease?: Unable to do any activity, Extensive disease How much self-care assistance does patient require?: Total care Palliative Performance Score: 20 % Consult Discharge Plan - Plan Referrals: NONE,PCP [Primary Care Provider] - (PATIENT IS FROM [facility] NO PCP APPOINTMENT NEEDED)
--- NOTE | 2018-07-24 12:44 | Internal Med Progress Note ---
Hospitalist Progress Note - Encounter Date of Encounter: 07/24/18 Time of Encounter: 09:00 - Subjective Interval History: Patient is still nonverbal, open eyes spontanously but not follow command. on ventilator, no family member at bedside. Still have low-grade fever this AM, lower than yesterday AM. Per RN, 250ml residual coffee ground fluid from PEG t ube this AM. - Exam Vitals: Temp Pulse Resp BP Pulse Ox 99.1 F 116 20 138/63 100 07/24/18 11:10 07/24/18 11:19 07/24/18 11:10 07/24/18 11:10 07/24/18 11:10 Exam: General: Alert, breathing spontaneously or on ventilator. Not oriented, non- verbal Chest: Right perma-cath Neck: Trached with mucopurulent discharge in the tubes Cardiovascular:Normal S1 & S2, No JVD. Borderline tachycardia Lungs: diminished breath sounds bilaterally, coarse breath sound b/l Abdomen:Soft, non-tender, no rigidity. Extremities: Both UE contracted. R chest HD catheter and R UE midline noted. Groin: not assessed Neuro: Nonverbal - Assessment and Plan (1) ESRD (end stage renal disease) Current Visit: Yes Status: Chronic Assessment and Plan: nephrology consulted for HD, continue care per recommendation (2) Sepsis Current Visit: Yes Status: Acute Assessment and Plan: Presented from [facility] with worsening leukocytosis despite being on vanc/ceftin Source of infection considered permacath and pneumonia. Permacath have been exchanged by IR. Infectious disease is following and input appreciated. On Vanco, levaquin, and Colistin per ID recommendation. Prognosis guarded. Palliative care consult appreciated. (3) Anemia in chronic kidney disease (CKD) Current Visit: Yes Status: Chronic Assessment and Plan: Chronic and stable. Closely monitor H/H (4) CLABSI (central line-associated bloodstream infection) Current Visit: Yes Status: Acute Assessment and Plan: discussed above under sepsis. (5) Pneumonia Current Visit: Yes Status: Acute Assessment and Plan: discussed above under sepsis. Sputum culture shows Acinetobacter. (6) Diabetes mellitus type 2 in obese Current Visit: Yes Status: Chronic Assessment and Plan: Continue basal and sliding scale insulin (7) Anoxic brain injury Current Visit: Yes Status: Chronic Assessment and Plan: Cont trach management and ventilation. Cont tube feeding if residual resolved. (8) Chronic respiratory failure Current Visit: Yes Status: Chronic Assessment and Plan: Patient with chronic respiratory failure, vent dependent. Trach, vent management per respiratory (9) Wound of sacral region Current Visit: Yes Status: Acute Assessment and Plan: as above (10) Decubitus skin ulcer Current Visit: Yes Status: Acute Assessment and Plan: Continue wound care per instruction from wound care consult (11) GI bleed Current Visit: Yes Status: Suspected Assessment and Plan: Per RN report, 250ml coffee ground residual from PEG tube. Cannot r/o GI bleed. - Temoperarily hold tube feeding, recheck residual, if resolved, will cont tube feeding, if tube feeding cannot be cont, will consider IVF (try to avoid as pt is on HD). - Add prontonix iv 40mg q12hr - Closely monitor H/H, transfuse if necessary. - Hold SC heparin, EPCDs for DVT prophylaxis - Pt's general condition is poor, cannot tolerate further test at this point. (12) Goals of care, counseling/discussion Current Visit: Yes Status: Acute Assessment and Plan: Palliative care consult on case, will have family meeting today. DVT Prophylaxis: EPCDs - Time Spent with Patient Total time spent is greater than 50% in coordination of care (as documented) at patient's floor/unit and/or counseling patient: 40 min Greater than 35 minutes Internal Medicine: Result - Labs CBC & Chem 7: 07/24/18 06:02 07/24/18 06:02 Labs: Short CBC 07/24/18 Range/Units 06:02 WBC 23.2 H (4.3-11.1) K/mcL Hgb 7.6 L (11.5-15.4) g/dL Hct 24.2 L (35.3-44.9) % Plt Count 539 H (140-400) K/mcL Neutrophils # 18.6 H (1.6-8.9) K/mcL BMP 07/24/18 06:02 Sodium 134 L Potassium 3.7 Chloride 93 L Carbon Dioxide 30 H BUN 42 H Creatinine 3.53 H Glucose 259 H Calcium 9.9 - ABG Interpretation ABG results: PT/INR, D-dimer PT 12.0 Seconds (9.4-12.1) 07/16/18 05:36 Consult Discharge Plan - Plan Referrals: NONE,PCP [Primary Care Provider] - (PATIENT IS FROM [facility] NO PCP APPOINTMENT NEEDED) (2) Sepsis Qualifiers: Sepsis type: sepsis due to unspecified organism Qualified Code(s): A41.9 - Sepsis, unspecified organism (3) Anemia in chronic kidney disease (CKD) Qualifiers: Chronic kidney disease stage: on chronic dialysis Qualified Code(s): N18.6 - End stage renal disease; D63.1 - Anemia in chronic kidney disease; Z99.2 - Dependence on renal dialysis (4) CLABSI (central line-associated bloodstream infection) Qualifiers: Encounter type: initial encounter Qualified Code(s): T80.211A - Bloodstream infection due to central venous catheter, initial encounter (5) Pneumonia Qualifiers: Pneumonia type: due to other aerobic Gram-negative bacteria Laterality: bilateral Lung location: lower lobe of lung Qualified Code(s): J15.6 - Pneumonia due to other Gram-negative bacteria (8) Chronic respiratory failure Qualifiers: Respiratory failure complication: hypoxia Qualified Code(s): J96.11 - Chronic respiratory failure with hypoxia (9) Wound of sacral region Qualifiers: Qualified Code(s): S31.000A - Unspecified open wound of lower back and pelvis without penetration into retroperitoneum, initial encounter (10) Decubitus skin ulcer Qualifiers: Pressure injury location: sacral region Pressure injury stage: unstageable Qualified Code(s): L89.150 - Pressure ulcer of sacral region, unstageable (11) GI bleed Qualifiers: GI bleed type/associated pathology: unspecified gastrointestinal hemorrhage type Qualified Code(s): K92.2 - Gastrointestinal hemorrhage, unspecified
[2018-07-24 15:23] LABS: Hematocrit 24.7 % (35.3-44.9); Hemoglobin 7.6 g/dL (11.5-15.4)
[2018-07-24] MEDS: Pantoprazole 40 MG VIAL IVP SCH (17:53)
[2018-07-24 18:00] LABS: Adenovirus Not Detected (Not Detect); Bordetella Pertussis Not Detected (Not Detect); Chlamydophila pneumoniae Not Detected (Not Detect); Coronavirus 229E Not Detected (Not Detect); Coronavirus HKU1 Not Detected (Not Detect); Coronavirus NL63 Not Detected (Not Detect); Coronavirus OC43 Not Detected (Not Detect); Human Metapneumovirus Not Detected (Not Detect); Human Rhinovirus/Enterovirus Not Detected (Not Detect); Influenza A Subtype 2009 H1 Not Detected (Not Detect); Influenza A Untypeable Not Detected (Not Detect); Influenza B Not Detected (Not Detect); Mycoplasma pneumoniae Not Detected (Not Detect); Parainfluenza Virus 1 Not Detected (Not Detect); Parainfluenza Virus 2 Not Detected (Not Detect); Parainfluenza Virus 3 Not Detected (Not Detect); Parainfluenza Virus 4 Not Detected (Not Detect); Respiratory Syncytial Virus Not Detected (Not Detect)
[2018-07-24] MEDS: Insulin DETEMIR 100 UNIT/ML X5UNITS SQ SCH (20:11)
[2018-07-24 23:44] LABS: Hematocrit 23.4 % (35.3-44.9); Hemoglobin 7.3 g/dL (11.5-15.4)
[2018-07-25] MEDS: Pantoprazole 40 MG VIAL IVP SCH (04:02)
[2018-07-25] MEDS: MORPHINE SUL Oral CONC 10 MG/0.5 ML ORAL.SYG GTUBE PRN (04:03)
[2018-07-25] MEDS: Insulin LISPRO 300 UNITS/3 ML VIAL SQ SCH ×3 (07:14→19:42)
[2018-07-25 07:28] LABS: Basophils # 0.1 K/mcL (0.0-0.2); Basophils % 0.4 %; Eosinophils # 0.1 K/mcL (0.0-0.6); Eosinophils % 0.4 %; Hematocrit 22.8 % (35.3-44.9); Hemoglobin 7.1 g/dL (11.5-15.4); Immature Granulocytes % 4.1 % (0-4); Lymphocytes # 1.6 K/mcL (0.6-4.6); Lymphocytes % 6.4 %; Mean Corpuscular HGB Conc 31.1 g/dL (31.6-35.5); Mean Corpuscular Hemoglobin 26.1 pg (28.0-33.3); Mean Corpuscular Volume 83.8 fL (83.0-100.0); Mean Platelet Volume 9.2 fL (9.4-12.4); Monocytes # 1.9 K/mcL (0.0-1.3); Monocytes % 7.7 %; Neutrophils # 20.1 K/mcL (1.6-8.9); Platelet Count 505 K/mcL (140-400); Red Blood Count 2.72 M/mcL (3.82-4.97); Red Cell Distribution Width 16.4 % (11.5-14.5)
[2018-07-25] MEDS ORDERED: 0.9 % Sodium Chloride 2,000 ML ONE (07:35)
[2018-07-25 07:50] LABS: Calcium 9.7 mg/dL (8.6-10.3); Potassium 3.8 mEq/L (3.5-5.1)
[2018-07-25] MEDS ORDERED: 0.9 % Sodium Chloride 250 ML IVC PRN (08:08)
[2018-07-25] MEDS ORDERED: *HR* Heparin 10,000 UNIT/10 ML VIAL IV PRN (08:08)
[2018-07-25] MEDS ORDERED: 0.9 % Sodium Chloride 1,000 ML PRIME SCH (08:15)
[2018-07-25] MEDS: levETIRAcetam 500 MG/5 ML UDC GTUBE SCH (09:33)
[2018-07-25] MEDS: Colistin (Colistimethate) 100 MG in 0.9 % Sodium Chloride 50 ML IVPB SCH (09:33)
[2018-07-25] MEDS: Levofloxacin 750 MG/150 ML 750 MG/150 ML BAG IVPB SCH (10:18)
--- NOTE | 2018-07-25 11:55 | Infectious Disease Progress No ---
Date of Encounter: 07/25/18 Time of Encounter: 11:53 - Assessment and Plan (1) Sepsis Current Visit: Yes Status: Acute Patient had severe sepsis criteria including tachycardia, tachypnea, leukocytosis and lactic acidosis. Likely secondary to central line associated bloodstream infection and possible pneumonia. Etiology of persistent leukocytosis and fevers remains unclear. Improved initially, but started having fevers again. Tmax overnight with 100.2 and tachycardia. WBC continues to stay elevated. HD catheter blood culture drawn 07/13/18 11 set was positive for E. cloacae. Repeat peripheral blood cultures drawn 07/14 are negative x 4 sets. Additional blood culture drawn 07/15/18 x 1 set from the HD catheter is negative. Repeat peripheral blood cultures drawn 07/17/18 x 2 sets are negative. Additional blood culture drawn from the Perma-cath 07/17/18 x 1 set is negative. ESR elevated at >130. CRP 218. Etiology unclear. Patient had TMA to the right foot in March, but clinically it does not appear infected. Amylase, lipase, LFTs normal. CT chest showed left basilar PNA vs. aspiration. CT abdomen and pelvis showed findings consistent with diarrheal illness and thickening of the bladder wall, but no other acute findings noted to explain leukocytosis and fevers. Peripheral smear is negative for toxic granules or Dohle bodies. RIP negative. Recommendations: Consider imaging of the right foot given recent surgery, although clinically it does not look infected. Consider tagged WBC to evaluate for nidus of infection. Continue droplet/contact precautions. Continue Colistin. Will ask pharmacy to assist with dosing for the patient's HD status. Continue Levaquin 750mg IV Q48H. Continue Vancomycin IV. Pharmacy to dose. Goal trough ~15. Palliative care consulted. Family still making decision. Duration of treatment depends on the clinical picture. Monitor drug levels and dose-adjust antibiotics. Qualifiers: Sepsis type: sepsis due to unspecified organism Qualified Code(s): A41.9 - Sepsis, unspecified organism (2) CLABSI (central line-associated bloodstream infection) Current Visit: Yes Status: Acute Causative organism: E. cloacae. Source vs. seeding of the line. HD catheter blood culture drawn 07/13/18 x1 set was positive for E. cloacae. Repeat peripheral blood cultures drawn 07/14 are NGTD x 4 sets. Additional blood culture drawn 07/15/18 x 1 set from the HD catheter is NGTD. Status post [id number] exchange of the line 07/16/18 by IR. Catheter tip culture positive for E. cloacae. Repeat peripheral blood cultures drawn 07/17/18 x 2 sets are negative. Additional perma-cath blood culture drawn 07/17/18 x 1 set is negative. Currently on Levaquin. Qualifiers: Encounter type: initial encounter Qualified Code(s): T80.211A - Bloodstream infection due to central venous catheter, initial encounter (3) Pneumonia Current Visit: Yes Status: Acute PNA vs. colonization. CXR 07/14/18 limited due to patient rotation and shallow inspiration, but mild nonspecific left basilar opacities with pneumonia not excluded. Aspiration is possible given the patient's altered mental status, but has been tolerating tube feeds with minimal residuals. Sputum culture positive for MDRO A. baumannii. MRSA screen positive. Anuric. Unable to check UATs. RIP negative. Repeat sputum culture A. baumannii. CT chest showed left basilar PNA vs. aspiration. Currently on Levaquin and Colistin and Vancomycin. Qualifiers: Pneumonia type: due to other aerobic Gram-negative bacteria Laterality: bilateral Lung location: lower lobe of lung Qualified Code(s): J15.6 - Pneu monia due to other Gram-negative bacteria (4) Anoxic brain injury Current Visit: Yes Status: Chronic Secondary to cardiac arrest after right foot surgery in March 2018. (5) Chronic respiratory failure Current Visit: Yes Status: Chronic Secondary to anoxic brain injury. Chronic trach with ATC vent support. Qualifiers: Respiratory failure complication: hypoxia Qualified Code(s): J96.11 - Chronic respiratory failure with hypoxia (6) Diabetes mellitus type 2 in obese Current Visit: Yes Status: Chronic (7) ESRD (end stage renal disease) on dialysis Current Visit: Yes Status: Acute Nephrology consulted and following. (8) Wound of sacral region Current Visit: Yes Status: Acute Clinically does not appear infected. CT abdomen/pelvis does not show osteomyelitis or abscess. Wound care and offloading. Qualifiers: Qualified Code(s): S31.000A - Unspecified open wound of lower back and pelvis without penetration into retroperitoneum, initial encounter (9) Diarrhea Current Visit: Yes Status: Acute Likely secondary to tube feeds. GI panel and C. diff negative. FMS per the primary team to prevent contamination of her sacral wound. Qualifiers: Diarrhea type: unspecified type Qualified Code(s): R19.7 - Diarrhea, unspecified (10) Status post transmetatarsal amputation of right foot Current Visit: Yes Status: Acute Status post TMA March 2018 secondary to right foot infection at [facility]. Clinically does not appear infected, but given relatively recent surgery, may be nidus of infection. Will pursue imaging if the patient's family opts to pursue aggressive treatment. - Subjective Interval history: Patient seen and examined. No acute events noted overnight. Patient has been febrile with a MAXIMUM TEMPERATURE of 100.2 in the last 24 hours. She has had tachycardia. She remains unresponsive due to her an anoxic brain injury. Review of systems unobtainable from the patient. She did undergo an over the guidewire exchange of her dialysis catheter 07/16/18. Per nursing, tolerating tube feeds well today, but had some coffee-ground gastric contents yesterday. Rectal tube patent. No new issues per nursing. Palliative care consulted and family is still discussing plan of care. Infect Dis PN-Objective Data - Labs CBC & Chem 7: 07/25/18 07:09 07/25/18 07:09 Labs: Laboratory Results - last 24 hr 07/24/18 07/24/18 07/24/18 10:55 14:56 16:00 WBC RBC Hgb 7.6 L Hct 24.7 L MCV MCH MCHC RDW Plt Count MPV Immature Gran % Seg Neutrophils % Lymphocytes % Monocytes % Eosinophils % Basophils % Neutrophils # Lymphocytes # Monocytes # Eosinophils # Basophils # Sodium Potassium Chloride Carbon Dioxide BUN Creatinine Est GFR ( Amer) Est GFR (Non-Af Amer) BUN/Creatinine Ratio Glucose POC Glucose 288 H Calculated Osmolality Calcium Random Vancomycin Chlamy pneumoniae PCR Not Detected Adenovirus (PCR) Not Detected B. pertussis DNA (PCR) Not Detected B.parapertussis DNA PCR Not Detected Coronavirus OC43 (PCR) Not Detected Coronavirus HKU1 (PCR) Not Detected Coronavirus 229E (PCR) Not Detected Coronavirus NL63 (PCR) Not Detected Human Metapneumovir PCR Not Detected Influenza A (H1) PCR Not Detected Influ A (H1N1/09) PCR Not Detected Influenza A (H3) PCR Not Detected Influenza A Untype (PCR) Not Detected Influenza Type B (PCR) Not Detected M.pneumoniae DNA (PCR) Not Detected Parainfluenza 1 (PCR) Not Detected Parainfluenza 2 (PCR) Not Detected Parainfluenza 3 (PCR) Not Detected Parainfluenza 4 (PCR) Not Detected RSV (PCR) Not Detected Entero/Rhino (PCR) Not Detected Blood Type Antibody Screen Crossmatch 07/24/18 07/24/18 07/25/18 17:47 23:33 07:09 WBC RBC Hgb 7.3 L Hct 23.4 L MCV MCH MCHC RDW Plt Count MPV Immature Gran % Seg Neutrophils % Lymphocytes % Monocytes % Eosinophils % Basophils % Neutrophils # Lymphocytes # Monocytes # Eosinophils # Basophils # Sodium Potassium Chloride Carbon Dioxide BUN Creatinine Est GFR ( Amer) Est GFR (Non-Af Amer) BUN/Creatinine Ratio Glucose POC Glucose 258 H Calculated Osmolality Calcium Random Vancomycin 14 Chlamy pneumoniae PCR Adenovirus (PCR) B. pertussis DNA (PCR) B.parapertussis DNA PCR Coronavirus OC43 (PCR) Coronavirus HKU1 (PCR) Coronavirus 229E (PCR) Coronavirus NL63 (PCR) Human Metapneumovir PCR Influenza A (H1) PCR Influ A (H1N1/09) PCR Influenza A (H3) PCR Influenza A Untype (PCR) Influenza Type B (PCR) M.pneumoniae DNA (PCR) Parainfluenza 1 (PCR) Parainfluenza 2 (PCR) Parainfluenza 3 (PCR) Parainfluenza 4 (PCR) RSV (PCR) Entero/Rhino (PCR) Blood Type Antibody Screen Crossmatch 07/25/18 07/25/18 07/25/18 07:09 07:09 08:45 WBC 24.8 H RBC 2.72 L Hgb 7.1 L Hct 22.8 L MCV 83.8 MCH 26.1 L MCHC 31.1 L RDW 16.4 H Plt Count 505 H MPV 9.2 L Immature Gran % 4.1 H Seg Neutrophils % 81.0 Lymphocytes % 6.4 Monocytes % 7.7 Eosinophils % 0.4 Basophils % 0.4 Neutrophils # 20.1 H Lymphocytes # 1.6 Monocytes # 1.9 H Eosinophils # 0.1 Basophils # 0.1 Sodium 132 L Potassium 3.8 Chloride 93 L Carbon Dioxide 26 BUN 63 H Creatinine 4.84 H Est GFR ( Amer) 11 L Est GFR (Non-Af Amer) 9 L BUN/Creatinine Ratio 13 Glucose 195 H POC Glucose Calculated Osmolality 297 Calcium 9.7 Random Vancomycin Chlamy pneumoniae PCR Adenovirus (PCR) B. pertussis DNA (PCR) B.parapertussis DNA PCR Coronavirus OC43 (PCR) Coronavirus HKU1 (PCR) Coronavirus 229E (PCR) Coronavirus NL63 (PCR) Human Metapneumovir PCR Influenza A (H1) PCR Influ A (H1N1/09) PCR Influenza A (H3) PCR Influenza A Untype (PCR) Influenza Type B (PCR) M.pneumoniae DNA (PCR) Parainfluenza 1 (PCR) Parainfluenza 2 (PCR) Parainfluenza 3 (PCR) Parainfluenza 4 (PCR) RSV (PCR) Entero/Rhino (PCR) Blood Type O POSITIVE Antibody Screen NEGATIVE Crossmatch See Detail Cultures: Cultures 07/17/18 13:53 Blood Culture - Final Peripheral Venipuncture No growth. Final report. 07/17/18 13:53 Blood Culture - Final Peripheral Venipuncture No growth. Final report. 07/17/18 14:35 Blood Culture - Final Central Venous Catheter No growth. Final report. 07/17/18 20:45 Sputum Culture - Final Trachea Acinetobacter baumannii MDRO 07/15/18 11:41 Blood Culture - Final Central Venous Catheter No growth. Final report. 07/16/18 15:00 Catheter Tip Culture - Final Intravenous or Arterial Cath Enterobacter cloacae complex 07/14/18 23:41 Blood Culture - Final Peripheral Venipuncture No growth. Final report. 07/14/18 23:41 Blood Culture - Final Peripheral Venipuncture No growth. Final report. Serology 07/24/18 07/16/18 07/16/18 Range/Units 16:00 07:07 02:40 Nasal Screen MRSA (PCR) (Negative) Stl C. cayetanensis PCR Not detected (Not detect) Stool Rotavirus A PCR Not detected (Not detect) Stl Adenov F PCR Not detected (Not detect) Stool Astrovirus (PCR) Not detected (Not detect) Stool Campylobacter PCR Not detected (Not detect) Stool Cryptosporidium PCR Not detected (Not detect) Stl Sh Tox Pr E STEC PCR Not detected (Not detect) Stl Enterotoxigenic E PCR Not detected (Not detect) Stool EPEC (PCR) Not detected (Not detect) Stool EAEC (PCR) Not detected (Not detect) Stl E. histolytica PCR Not detected (Not detect) Stool Giardia Lamblia PCR Not detected (Not detect) Stool Salmonella PCR Not detected (Not detect) Stool Sapovirus (PCR) Not detected (Not detect) Stl P. shigelloides PCR Not detected (Not detect) Stl Shigella/EIEC PCR Not detected (Not detect) St Y.enterocolitica PCR Not detected (Not detect) Stool Vibrio (PCR) Not detected (Not detect) Stl Vibrio cholerae PCR Not detected (Not detect) Stl Norovirus GI/GII PCR Not detected (Not detect) Stl GI Panel (PCR) Com See below Chlamy pneumoniae PCR Not Detected (Not Detect) Adenovirus (PCR) Not Detected (Not Detect) B. pertussis DNA (PCR) Not Detected (Not Detect) B.parapertussis DNA PCR Not Detected (Not Detect) C.diff Toxin Gene (MARY) Not detected (Not detect) Coronavirus OC43 (PCR) Not Detected (Not Detect) Coronavirus HKU1 (PCR) Not Detected (Not Detect) Coronavirus 229E (PCR) Not Detected (Not Detect) Coronavirus NL63 (PCR) Not Detected (Not Detect) Hep Bs Antigen Nonreactive (Nonreactive) Hep Bs Antibody 38.07 (10.00 - ) mIU/mL Human Metapneumovir PCR Not Detected (Not Detect) Influenza A (H1) PCR Not Detected (Not Detect) Influ A (H1N1/09) PCR Not Detected (Not Detect) Influenza A (H3) PCR Not Detected (Not Detect) Influenza A Untype (PCR) Not Detected (Not Detect) Influenza Type B (PCR) Not Detected (Not Detect) M.pneumoniae DNA (PCR) Not Detected (Not Detect) Parainfluenza 1 (PCR) Not Detected (Not Detect) Parainfluenza 2 (PCR) Not Detected (Not Detect) Parainfluenza 3 (PCR) Not Detected (Not Detect) Parainfluenza 4 (PCR) Not Detected (Not Detect) RSV (PCR) Not Detected (Not Detect) Entero/Rhino (PCR) Not Detected (Not Detect) 07/15/18 Range/Units 17:15 Nasal Screen MRSA (PCR) Positive A (Negative) Stl C. cayetanensis PCR (Not detect) Stool Rotavirus A PCR (Not detect) Stl Adenov F 40/41 PCR (Not detect) Stool Astrovirus (PCR) (Not detect) Stool Campylobacter PCR (Not detect) Stool Cryptosporidium PCR (Not detect) Stl Sh Tox Pr E STEC PCR (Not detect) Stl Enterotoxigenic E PCR (Not detect) Stool EPEC (PCR) (Not detect) Stool EAEC (PCR) (Not detect) Stl E. histolytica PCR (Not detect) Stool Giardia Lamblia PCR (Not detect) Stool Salmonella PCR (Not detect) Stool Sapovirus (PCR) (Not detect) Stl P. shigelloides PCR (Not detect) Stl Shigella/EIEC PCR (Not detect) St Y.enterocolitica PCR (Not detect) Stool Vibrio (PCR) (Not detect) Stl Vibrio cholerae PCR (Not detect) Stl Norovirus GI/GII PCR (Not detect) Stl GI Panel (PCR) Com Chlamy pneumoniae PCR (Not Detect) Adenovirus (PCR) (Not Detect) B. pertussis DNA (PCR) (Not Detect) B.parapertussis DNA PCR (Not Detect) C.diff Toxin Gene (MARY) (Not detect) Coronavirus OC43 (PCR) (Not Detect) Coronavirus HKU1 (PCR) (Not Detect) Coronavirus 229E (PCR) (Not Detect) Coronavirus NL63 (PCR) (Not Detect) Hep Bs Antigen (Nonreactive) Hep Bs Antibody (10.00 - ) mIU/mL Human Metapneumovir PCR (Not Detect) Influenza A (H1) PCR (Not Detect) Influ A (H1N1/09) PCR (Not Detect) Influenza A (H3) PCR (Not Detect) Influenza A Untype (PCR) (Not Detect) Influenza Type B (PCR) (Not Detect) M.pneumoniae DNA (PCR) (Not Detect) Parainfluenza 1 (PCR) (Not Detect) Parainfluenza 2 (PCR) (Not Detect) Parainfluenza 3 (PCR) (Not Detect) Parainfluenza 4 (PCR) (Not Detect) RSV (PCR) (Not Detect) Entero/Rhino (PCR) (Not Detect) Exam - Constitutional Vitals: Temp Pulse Resp BP Pulse Ox 98.8 F 104 16 124/63 97 07/25/18 07:25 07/25/18 08:00 07/25/18 10:11 07/25/18 07:25 07/25/18 10:11 General appearance: average body habitus, no acute distress, no febrile - Head Head exam: Present: atraumatic, normal inspection, normocephalic - Eye Eye exam: Present: normal appearance Additional comments: Eyes open spontaneously with some non-purposeful eye movement. - ENT ENT exam: Present: mucous membranes dry Additional comments: Lesion noted to the lower lip. - Neck Neck exam: Present: normal inspection Additional comments: Tracheostomy midline. - Respiratory Respiratory exam: Present: CTAB. Absent: rales, respiratory distress, rhonchi, wheezes - Cardiovascular Cardiovascular exam: Present: +S1, +S2, tachycardia. Absent: irregular rhythm - GI/Abdominal GI/Abdominal exam: Present: normal bowel sounds, soft. Absent: distended, tenderness Additional comments: PEG tube currently clamped. Rectal tube with brown liquid stool noted. - Extremities Exam Extremities exam: Absent: normal inspection (Right TMA site with scabbing noted. No surrounding erythema, warmth, drainage.), pedal edema Additional comments: Contractures noted to the BUE. - Neurological Exam Neurological exam: Present: altered (Unresponsive.) - Skin Skin exam: Present: dry, intact, normal color, warm Consult Discharge Plan - Plan Referrals: NONE,PCP [Primary Care Provider] - (PATIENT IS FROM [facility] NO PCP APPOINTMENT NEEDED) - Attending Attestation I examined this patient and my medical decision-making was reviewed with the Resident Physician. I agree with the documented findings, disposition and treatment plan as described except to the extent set forth below.
--- NOTE | 2018-07-25 11:59 | Internal Med Progress Note ---
Hospitalist Progress Note - Encounter Date of Encounter: 07/25/18 Time of Encounter: 09:00 - Subjective Interval History: Patient is still nonverbal, open eyes spontanously but not follow command. on ventilator, no family member at bedside. Still have low-grade feverovernight. No further residual in PEG tube, no melena,H/H stable, tube feeding resumed. - Exam Vitals: Temp Pulse Resp BP Pulse Ox 98.8 F 104 16 124/63 97 07/25/18 07:25 07/25/18 08:00 07/25/18 10:11 07/25/18 07:25 07/25/18 10:11 Exam: General: Alert, breathing spontaneously or on ventilator. Not oriented, non- verbal Chest: Right perma-cath Neck: Trached with mucopurulent discharge in the tubes Cardiovascular:Normal S1 & S2, No JVD. Borderline tachycardia Lungs: diminished breath sounds bilaterally, coarse breath sound b/l Abdomen:Soft, non-tender, no rigidity. Extremities: Both UE contracted. R chest HD catheter and R UE midline noted. Groin: not assessed Neuro: Nonverbal - Assessment and Plan (1) ESRD (end stage renal disease) Current Visit: Yes Status: Chronic Assessment and Plan: nephrology consulted for HD, continue care per recommendation (2) Sepsis Current Visit: Yes Status: Acute Assessment and Plan: Presented from [facility] with worsening leukocytosis despite being on vanc/ceftin Source of infection considered permacath and pneumonia. Permacath have been exchanged by IR. Infectious disease is following and input appreciated. On Vanco, levaquin, and Colistin per ID recommendation. Persist fever and leukocytosis despite abx. Prognosis guarded. Palliative care consult appreciated. (3) Anemia in chronic kidney disease (CKD) Current Visit: Yes Status: Chronic Assessment and Plan: Chronic and stable. Closely monitor H/H. Per nephro, will give 1 unit of PRBC today. (4) CLABSI (central line-associated bloodstream infection) Current Visit: Yes Status: Acute Assessment and Plan: discussed above under sepsis. (5) Pneumonia Current Visit: Yes Status: Acute Assessment and Plan: discussed above under sepsis. Sputum culture shows Acinetobacter. (6) Diabetes mellitus type 2 in obese Current Visit: Yes Status: Chronic Assessment and Plan: Continue basal and sliding scale insulin (7) Anoxic brain injury Current Visit: Yes Status: Chronic Assessment and Plan: Cont trach management and ventilation. Cont tube feeding. (8) Chronic respiratory failure Current Visit: Yes Status: Chronic Assessment and Plan: Patient with chronic respiratory failure, vent dependent. Trach, vent management per respiratory (9) Wound of sacral region Current Visit: Yes Status: Acute Assessment and Plan: as above (10) Decubitus skin ulcer Current Visit: Yes Status: Acute Assessment and Plan: Continue wound care per instruction from wound care consult (11) GI bleed Current Visit: Yes Status: Suspected Assessment and Plan: No further residual today. No melena. H/H stable. Less likely GI bleed. - Cont tube feeding - Cont prophylactic dose of prontonix iv 40mg qd - Cont closely monitor pt. (12) Goals of care, counseling/discussion Current Visit: Yes Status: Acute Assessment and Plan: Palliative care consult on case, had family meeting, will cont f/u the family decision, cont current treatment. DVT Prophylaxis: EPCDs - Time Spent with Patient Total time spent is greater than 50% in coordination of care (as documented) at patient's floor/unit and/or counseling patient: 40 min Greater than 35 minutes Plan of Care Discussed with: patient Internal Medicine: Result - Labs CBC & Chem 7: 07/25/18 07:09 07/25/18 07:09 Labs: Short CBC 07/24/18 07/24/18 07/25/18 Range/Units 14:56 23:33 07:09 WBC 24.8 H (4.3-11.1) K/mcL Hgb 7.6 L 7.3 L 7.1 L (11.5-15.4) g/dL Hct 24.7 L 23.4 L 22.8 L (35.3-44.9) % Plt Count 505 H (140-400) K/mcL Neutrophils # 20.1 H (1.6-8.9) K/mcL BMP 07/25/18 07:09 Sodium 132 L Potassium 3.8 Chloride 93 L Carbon Dioxide 26 BUN 63 H Creatinine 4.84 H Glucose 195 H Calcium 9.7 - ABG Interpretation ABG results: PT/INR, D-dimer PT 12.0 Seconds (9.4-12.1) 07/16/18 05:36 Consult Discharge Plan - Plan Referrals: NONE,PCP [Primary Care Provider] - ([facility]IENT IS FROM [facility] NO PCP APPOINTMENT NEEDED) (2) Sepsis Qualifiers: Qualified Code(s): A41.9 - Sepsis, unspecified organism (3) Anemia in chronic kidney disease (CKD) Qualifiers: Qualified Code(s): N18.6 - End stage renal disease; D63.1 - Anemia in chronic kidney disease; Z99.2 - Dependence on renal dialysis (4) CLABSI (central line-associated bloodstream infection) Qualifiers: Qualified Code(s): T80.211A - Bloodstream infection due to central venous catheter, initial encounter (5) Pneumonia Qualifiers: Qualified Code(s): J15.6 - Pneumonia due to other Gram-negative bacteria (8) Chronic respiratory failure Qualifiers: Qualified Code(s): J96.11 - Chronic respiratory failure with hypoxia (9) Wound of sacral region Qualifiers: Qualified Code(s): S31.000A - Unspecified open wound of lower back and pelvis without penetration into retroperitoneum, initial encounter (10) Decubitus skin ulcer Qualifiers: Qualified Code(s): L89.150 - Pressure ulcer of sacral region, unstageable (11) GI bleed Qualifiers: Qualified Code(s): K92.2 - Gastrointestinal hemorrhage, unspecified
--- NOTE | 2018-07-25 12:35 | Palliative Progress Note ---
Date of Encounter: 07/25/18 Time of Encounter: 12:31 - Assessment and plan (1) Goals of care, counseling/discussion Current Visit: Yes Status: Acute Assessment and plan: Called pt's sister and POA Francheska Ngo for follow up [phone]). Francheska states the family is meeting on Saturday to discuss and decide about changes in GOC. Meanwh ile pt to remain DNRCCA on current level of care. Palliative care will follow up with family on Saturday. (2) ESRD (end stage renal disease) on dialysis Current Visit: Yes Status: Acute Assessment and plan: Nephrology following, HD today (3) Anoxic brain injury Current Visit: Yes Status: Chronic Assessment and plan: Pt is opening eyes, but not interacting with surroundings or following commands. Trach to vent and PEG in place. (4) Sepsis Current Visit: Yes Status: Acute Assessment and plan: leukocytosis continue to worsen despite being on vanc/ceftin Source of infection considered permacath and pneumonia. Permacath have been exchanged by IR. Infectious disease is following and input appreciated. On Vanco, levaquin, and Colistin. Qualifiers: Sepsis type: sepsis due to unspecified organism Qualified Code(s): A41.9 - Sepsis, unspecified organism (5) Pain Current Visit: Yes Status: Acute Assessment and plan: Patient has several pressure wounds, and nursing noticed grimacing in pain during dessing changes. Recommend Roxanol 5 mg q4hrs prn for pain, administer at least 15 minutes before care. Patient received one dose yesterday - Time Spent With Patient Total time spent is greater than 50% in coordination of care (as documented) at patient's floor/unit and/or counseling patient: 25 - 35 minutes - Subjective Interval history: Patient is clinically unchanged. Overnight she had an acute event of dyspnea, that improved with roxanol. - Constitutional Vitals: Abnormal lab results WBC 24.8 K/mcL (4.3-11.1) H 07/25/18 07:09 RBC 2.72 M/mcL (3.82-4.97) L 07/25/18 07:09 Hgb 7.1 g/dL (11.5-15.4) L 07/25/18 07:09 Hct 22.8 % (35.3-44.9) L 07/25/18 07:09 MCH 26.1 pg (28.0-33.3) L 07/25/18 07:09 MCHC 31.1 g/dL (31.6-35.5) L 07/25/18 07:09 RDW 16.4 % (11.5-14.5) H 07/25/18 07:09 Plt Count 505 K/mcL (140-400) H 07/25/18 07:09 MPV 9.2 fL (9.4-12.4) L 07/25/18 07:09 Immature Gran % 4.1 % (0-4) H 07/25/18 07:09 Neutrophils # 20.1 K/mcL (1.6-8.9) H 07/25/18 07:09 Monocytes # 1.9 K/mcL (0.0-1.3) H 07/25/18 07:09 Nucleated RBCs/100 WBC 0.1 /100 WBC (0) H 07/24/18 06:02 ESR >= 130 mm/hr (0-15) H 07/21/18 12:24 Sodium 132 mEq/L (136-145) L 07/25/18 07:09 Chloride 93 mEq/L (98-107) L 07/25/18 07:09 BUN 63 mg/dL (6-20) H 07/25/18 07:09 Creatinine 4.84 mg/dL (0.60-1.20) H 07/25/18 07:09 Est GFR ( Amer) 11 (> 60) L 07/25/18 07:09 Est GFR (Non-Af Amer) 9 (> 60) L 07/25/18 07:09 Glucose 195 mg/dL (70-105) H 07/25/18 07:09 POC Glucose 127 mg/dL (70-99) H 07/25/18 11:47 Phosphorus 1.3 mg/dL (2.7-4.5) L 07/16/18 05:36 Alkaline Phosphatase 139 Units/L (34-104) H 07/21/18 12:24 C-Reactive Protein 218 mg/L (Less than 10) H 07/21/18 12:24 Albumin 2.9 g/dL (3.5-5.7) L 07/21/18 12:24 Globulin 4.5 g/dL (2.4-3.5) H 07/21/18 12:24 Albumin/Globulin Ratio 0.6 (1.1-2.2) L 07/21/18 12:24 Triglycerides 163 mg/dL (< 150) H 07/14/18 23:41 VLDL Cholesterol, Calc 33 mg/dL (< 31) H 07/14/18 23:41 HDL Cholesterol 25 mg/dL (40-59) L 07/14/18 23:41 Nasal Screen MRSA (PCR) Positive (Negative) A 07/15/18 17:15 Exam: General: opens eyes, in no acute distress. Not oriented, non-verbal Chest: Right perma-cath Neck: Trached with mucopurulent discharge in the tubes Cardiovascular:Normal S1 & S2, No JVD. Borderline tachycardia Lungs: diminished breath sounds bilaterally, coarse breath sound b/l Abdomen:Soft, non-tender, no rigidity. Extremities: Both UE contracted. R chest HD catheter and R UE midline noted. Neuro: Nonverbal, opening eyes, not tracking or following commands. Palliative Quality Palliative Quality: Screen for Code Status: Yes, Screen for Goals of Care: Yes, Screen for Pain: Yes, If Pain Regimen Started, Initiate Bowel Regimen: NA (pt has diarrhea), Screen for Nausea/Vomitting: Yes Code Status: 07/15/18 12:06 Resuscitation Status: Active [RES] Routine Comment: Resuscitation Status: DNR-Comfort Care-Arrest - Labs CBC & Chem 7: 07/25/18 07:09 07/25/18 07:09 Labs: Laboratory Results - last 24 hr 07/24/18 07/24/18 07/24/18 10:55 14:56 16:00 WBC RBC Hgb 7.6 L Hct 24.7 L MCV MCH MCHC RDW Plt Count MPV Immature Gran % Seg Neutrophils % Lymphocytes % Monocytes % Eosinophils % Basophils % Neutrophils # Lymphocytes # Monocytes # Eosinophils # Basophils # Sodium Potassium Chloride Carbon Dioxide BUN Creatinine Est GFR ( Amer) Est GFR (Non-Af Amer) BUN/Creatinine Ratio Glucose POC Glucose 288 H Calculated Osmolality Calcium Random Vancomycin Chlamy pneumoniae PCR Not Detected Adenovirus (PCR) Not Detected B. pertussis DNA (PCR) Not Detected B.parapertussis DNA PCR Not Detected Coronavirus OC43 (PCR) Not Detected Coronavirus HKU1 (PCR) Not Detected Coronavirus 229E (PCR) Not Detected Coronavirus NL63 (PCR) Not Detected Human Metapneumovir PCR Not Detected Influenza A (H1) PCR Not Detected Influ A (H1N1/09) PCR Not Detected Influenza A (H3) PCR Not Detected Influenza A Untype (PCR) Not Detected Influenza Type B (PCR) Not Detected M.pneumoniae DNA (PCR) Not Detected Parainfluenza 1 (PCR) Not Detected Parainfluenza 2 (PCR) Not Detected Parainfluenza 3 (PCR) Not Detected Parainfluenza 4 (PCR) Not Detected RSV (PCR) Not Detected Entero/Rhino (PCR) Not Detected Blood Type Antibody Screen Crossmatch 07/24/18 07/24/18 07/25/18 17:47 23:33 07:09 WBC RBC Hgb 7.3 L Hct 23.4 L MCV MCH MCHC RDW Plt Count MPV Immature Gran % Seg Neutrophils % Lymphocytes % Monocytes % Eosinophils % Basophils % Neutrophils # Lymphocytes # Monocytes # Eosinophils # Basophils # Sodium Potassium Chloride Carbon Dioxide BUN Creatinine Est GFR ( Amer) Est GFR (Non-Af Amer) BUN/Creatinine Ratio Glucose POC Glucose 258 H Calculated Osmolality Calcium Random Vancomycin 14 Chlamy pneumoniae PCR Adenovirus (PCR) B. pertussis DNA (PCR) B.parapertussis DNA PCR Coronavirus OC43 (PCR) Coronavirus HKU1 (PCR) Coronavirus 229E (PCR) Coronavirus NL63 (PCR) Human Metapneumovir PCR Influenza A (H1) PCR Influ A (H1N1/09) PCR Influenza A (H3) PCR Influenza A Untype (PCR) Influenza Type B (PCR) M.pneumoniae DNA (PCR) Parainfluenza 1 (PCR) Parainfluenza 2 (PCR) Parainfluenza 3 (PCR) Parainfluenza 4 (PCR) RSV (PCR) Entero/Rhino (PCR) Blood Type Antibody Screen Crossmatch 07/25/18 07/25/18 07/25/18 07:09 07:09 08:45 WBC 24.8 H RBC 2.72 L Hgb 7.1 L Hct 22.8 L MCV 83.8 MCH 26.1 L MCHC 31.1 L RDW 16.4 H Plt Count 505 H MPV 9.2 L Immature Gran % 4.1 H Seg Neutrophils % 81.0 Lymphocytes % 6.4 Monocytes % 7.7 Eosinophils % 0.4 Basophils % 0.4 Neutrophils # 20.1 H Lymphocytes # 1.6 Monocytes # 1.9 H Eosinophils # 0.1 Basophils # 0.1 Sodium 132 L Potassium 3.8 Chloride 93 L Carbon Dioxide 26 BUN 63 H Creatinine 4.84 H Est GFR ( Amer) 11 L Est GFR (Non-Af Amer) 9 L BUN/Creatinine Ratio 13 Glucose 195 H POC Glucose Calculated Osmolality 297 Calcium 9.7 Random Vancomycin Chlamy pneumoniae PCR Adenovirus (PCR) B. pertussis DNA (PCR) B.parapertussis DNA PCR Coronavirus OC43 (PCR) Coronavirus HKU1 (PCR) Coronavirus 229E (PCR) Coronavirus NL63 (PCR) Human Metapneumovir PCR Influenza A (H1) PCR Influ A (H1N1) PCR Influenza A (H3) PCR Influenza A Untype (PCR) Influenza Type B (PCR) M.pneumoniae DNA (PCR) Parainfluenza 1 (PCR) Parainfluenza 2 (PCR) Parainfluenza 3 (PCR) Parainfluenza 4 (PCR) RSV (PCR) Entero/Rhino (PCR) Blood Type O POSITIVE Antibody Screen NEGATIVE Crossmatch See Detail 07/25/18 11:47 WBC RBC Hgb Hct MCV MCH MCHC RDW Plt Count MPV Immature Gran % Seg Neutrophils % Lymphocytes % Monocytes % Eosinophils % Basophils % Neutrophils # Lymphocytes # Monocytes # Eosinophils # Basophils # Sodium Potassium Chloride Carbon Dioxide BUN Creatinine Est GFR ( Amer) Est GFR (Non-Af Amer) BUN/Creatinine Ratio Glucose POC Glucose 127 H Calculated Osmolality Calcium Random Vancomycin Chlamy pneumoniae PCR Adenovirus (PCR) B. pertussis DNA (PCR) B.parapertussis DNA PCR Coronavirus OC43 (PCR) Coronavirus HKU1 (PCR) Coronavirus 229E (PCR) Coronavirus NL63 (PCR) Human Metapneumovir PCR Influenza A (H1) PCR Influ A (H1N1) PCR Influenza A (H3) PCR Influenza A Untype (PCR) Influenza Type B (PCR) M.pneumoniae DNA (PCR) Parainfluenza 1 (PCR) Parainfluenza 2 (PCR) Parainfluenza 3 (PCR) Parainfluenza 4 (PCR) RSV (PCR) Entero/Rhino (PCR) Blood Type Antibody Screen Crossmatch - ABG Interpretation ABG results: PT/INR, D-dimer PT 12.0 Seconds (9.4-12.1) 07/16/18 05:36 Palliative Scale - Palliative Performance Scale How ambulatory is this patient?: Totally bed bound What is patient's level of activity and evidence of disease?: Unable to do any activity, Extensive disease How much self-care assistance does patient require?: Total care Palliative Performance Score: 20 % Consult Discharge Plan - Plan Referrals: NONE,PCP [Primary Care Provider] - (PATIENT IS FROM [facility] NO PCP APPOINTMENT NEEDED)
[2018-07-25] MEDS ORDERED: Vancomycin 500 MG in 0.9 % Sodium Chloride Mini Bag 100 ML IVPB ONE (15:00)
--- NOTE | 2018-07-25 18:43 | Nephrology Progress Note ---
Date of Encounter: 07/25/18 Time of Encounter: 12:00 - Assessment and Plan (1) ESRD (end stage renal disease) on dialysis Current Visit: Yes Status: Acute Continue HD with UF as tolerated Await more of goals of care, palliative care on board (2) Anemia in chronic kidney disease (CKD) Current Visit: Yes Status: Chronic Hgb low at 7.1, will transfuse with 1 unit pRBCs Goal is 10-11 Qualifiers: Chronic kidney disease stage: on chronic dialysis Qualified Code(s): N18.6 - End stage renal disease; D63.1 - Anemia in chronic kidney disease; Z99.2 - Dependence on renal dialysis (3) CLABSI (central line-associated bloodstream infection) Current Visit: Yes Status: Acute Per ID, appreciate recommendations. Qualifiers: Encounter type: initial encounter Qualified Code(s): T80.211A - Bloodstream infection due to central venous catheter, initial encounter (4) Wound of sacral region Current Visit: Yes Status: Acute Per wound care. Qualifiers: Qualified Code(s): S31.000A - Unspecified open wound of lower back and pelvis without penetration into retroperitoneum, initial encounter (5) Pneumonia Current Visit: Yes Status: Acute Abx per ID Qualifiers: Pneumonia type: due to other aerobic Gram-negative bacteria Laterality: bilateral Lung location: lower lobe of lung Qualified Code(s): J15.6 - Pneumonia due to other Gram-negative bacteria Subjective Principal diagnosis: leukocytosis Interval history: Pt seen and examined on HD remains on vent and unresponsive. Objective - Vital Signs Vital signs: Vital Signs Temp Pulse Resp BP Pulse Ox 07/25/18 18:10 103/68 07/25/18 17:55 97/63 07/25/18 17:40 94/63 07/25/18 17:25 91/64 07/25/18 17:10 105/68 07/25/18 16:55 107/71 07/25/18 16:50 92/66 07/25/18 16:45 94/07/25/18 16:40 92/62 07/25/18 16:25 98.9 F 106 20 102/70 07/25/18 16:10 103/67 07/25/18 15:55 95/63 07/25/18 15:40 99.1 F 18 94/07/25/18 15:25 99.5 F 103 18 92/62 07/25/18 15:10 97/62 07/25/18 14:55 99.3 F 18 101/63 07/25/18 14:52 14 100 07/25/18 12:07 14 100 07/25/18 12:02 98.6 F 100 14 99/54 100 07/25/18 10:11 16 97 07/25/18 09:00 104 16 99 07/25/18 08:15 16 97 07/25/18 08:00 104 07/25/18 07:25 98.8 F 102 13 124/63 100 07/25/18 04:11 99.3 F 117 11 108/60 99 07/25/18 03:48 29 97 07/24/18 23:57 99.7 F H 13 124/64 100 07/24/18 23:34 16 100 07/24/18 20:46 100.2 F H 119 15 123/78 100 07/24/18 19:47 17 99 Intake and Output 07/25/18 07/25/18 07/25/18 07:59 15:59 23:59 Intake Total 300 / 300 1150 / 1150 350 / 350 Output Total 0 / 0 Balance 300 / 300 1150 / 1150 350 / 350 Intake: IV Fluids 50 / 50 Coly-Mycin M PARENTERAL 100 MG 50 / 50 In 0.9 % Sodium Chloride 50 ML @ 100 mls/hr IVPB DAILY [facility] Rx# :[id number] Oral 0 / 0 0 / 0 0 / 0 Blood Product 350 / 350 350 / 350 Rbcs Leuko Poor As-1 Unit 350 / 350 350 / 350 [id number] Free Water 150 / 150 Intake, Rinseback and Flushes 600 / 600 Free Water Intake Amount 300 / 300 Output: Urine 0 / 0 Other: Meal NPO/TUBE FEED NPO Percent of Meal Consumed 0% 0% Weight 67.3 kg Blood Glucose* 239 124 Hemodialysis Net Fluid Removed 1105 3629 (mL) Patient Weight 07/25/18 23:59 Weight 67.3 kg - General Appearance General appearance: Present: chronically ill Exam: with trach on vent EENT: Present: ATNC, mucous membranes moist Neck: Present: no JVD Additional Comments: +trach Respiratory: Present: course breath sounds Cardiology: Present: no edema, normal S1, normal S2 Dialysis Vascular Access: Venous Catheter (permcath) Gastrointestinal: Present: no tenderness, no guarding Additional Comments: +PEG Integumentary: Present: warm and dry, skin tear Additional Comments: nonresponsive Musculoskeletal: Present: deformities (contractures UE) Additional Comments: unable to assess due to condition - Lab 07/27/18 03:06 07/27/18 03:06 Most recent lab results Calcium 9.7 mg/dL (8.6-10.3) 07/25/18 07:09 Phosphorus 1.3 mg/dL (2.7-4.5) L 07/16/18 05:36 Magnesium 2.3 mg/dL (1.6-2.6) 07/16/18 05:36 Consult Discharge Plan - Plan Referrals: NONE,PCP [Primary Care Provider] - (PATIENT IS FROM [facility] NO PCP APPOINTMENT NEEDED)
[2018-07-25] MEDS: Insulin DETEMIR 100 UNIT/ML X5UNITS SQ SCH (19:38)
[2018-07-25] MEDS: Leptospermum Honey Gel 44 ML TUBE TP SCH (19:40)
[2018-07-26] MEDS: Insulin LISPRO 300 UNITS/3 ML VIAL SQ SCH ×4 (01:36→18:06)
[2018-07-26 05:43] LABS: Basophils # 0.2 K/mcL (0.0-0.2); Basophils % 0.7 %; Eosinophils # 0.1 K/mcL (0.0-0.6); Eosinophils % 0.5 %; Hematocrit 27.7 % (35.3-44.9); Hemoglobin 8.6 g/dL (11.5-15.4); Immature Granulocytes % 6.2 % (0-4); Lymphocytes # 1.5 K/mcL (0.6-4.6); Lymphocytes % 6.5 %; Mean Corpuscular Hemoglobin 26.5 pg (28.0-33.3); Mean Corpuscular Volume 85.5 fL (83.0-100.0); Mean Platelet Volume 9.2 fL (9.4-12.4); Monocytes # 1.7 K/mcL (0.0-1.3); Monocytes % 7.2 %; Nucleated Red Blood Cells 0.2 /100 WBC (0); Platelet Count 527 K/mcL (140-400); Red Blood Count 3.24 M/mcL (3.82-4.97); Red Cell Distribution Width 15.8 % (11.5-14.5); Segmented Neutrophils % 78.9 %
[2018-07-26 05:47] LABS: Neutrophils # 18.5 K/mcL (1.6-8.9)
[2018-07-26 05:58] LABS: Calcium 9.4 mg/dL (8.6-10.3); Potassium 3.7 mEq/L (3.5-5.1)
[2018-07-26] MEDS: levETIRAcetam 500 MG/5 ML UDC GTUBE SCH (08:43)
[2018-07-26] MEDS: Pantoprazole 40 MG VIAL IVP SCH (08:43)
[2018-07-26] MEDS: Colistin (Colistimethate) 100 MG in 0.9 % Sodium Chloride 50 ML IVPB SCH (09:47)
--- NOTE | 2018-07-26 11:33 | Nephrology Progress Note ---
Date of Encounter: 07/26/18 Time of Encounter: 12:00 - Assessment and Plan (1) ESRD (end stage renal disease) on dialysis Current Visit: Yes Status: Acute s/p HD yesterday, next hD on saturday planned Await family decesions (2) Anemia in chronic kidney disease (CKD) Current Visit: Yes Status: Chronic Hgb improved to 8.6 after transfusion 1unit pRBCs yesterday Qualifiers: Chronic kidney disease stage: on chronic dialysis Qualified Code(s): N18.6 - End stage renal disease; D63.1 - Anemia in chronic kidney disease; Z99.2 - Dependence on renal dialysis (3) CLABSI (central line-associated bloodstream infection) Current Visit: Yes Status: Acute Per ID, appreciate recommendations. Qualifiers: Encounter type: initial encounter Qualified Code(s): T80.211A - Bloodstream infection due to central venous catheter, initial encounter (4) Wound of sacral region Current Visit: Yes Status: Acute Per wound care. Qualifiers: Qualified Code(s): S31.000A - Unspecified open wound of lower back and pelvis without penetration into retroperitoneum, initial encounter (5) Anoxic brain injury Current Visit: Yes Status: Chronic Await family decision on goals of care, appreciate all of palliative care team's work on this (6) Chronic respiratory failure Current Visit: Yes Status: Chronic Continue vent, managment per primary team Qualifiers: Respiratory failure complication: hypoxia Qualified Code(s): J96.11 - Chronic respiratory failure with hypoxia Subjective Principal diagnosis: leukocytosis Interval history: Pt seen and examined s/p HD yesterday had a restless episode in between with tachycardia but quickly resolved. Per palliative care, family to meet and decide goals of care on saturday. Overall status unchanged, nonresponsive Objective - Vital Signs Vital signs: Vital Signs Temp Pulse Resp BP Pulse Ox 07/26/18 07:59 100.0 F H 97 18 87/63 100 07/26/18 04:43 16 97 07/26/18 00:10 99.5 F 110 14 89/63 94 07/25/18 23:35 17 96 07/25/18 20:48 24 96/65 98 07/25/18 19:33 98.7 F 105 16 96/65 96 07/25/18 19:03 18 100 07/25/18 18:52 98.9 F 18 111/64 07/25/18 18:25 95/63 07/25/18 18:10 103/68 07/25/18 17:55 97/63 07/25/18 17:40 94/63 07/25/18 17:25 91/64 07/25/18 17:10 105/68 07/25/18 16:55 107/71 07/25/18 16:50 92/07/25/18 16:45 94/66 07/25/18 16:40 92/62 07/25/18 16:25 98.9 F 106 20 102/70 07/25/18 16:10 103/67 07/25/18 15:55 95/63 07/25/18 15:40 99.1 F 18 94/68 07/25/18 15:25 99.5 F 103 18 92/07/25/18 15:10 97/62 07/25/18 14:55 99.3 F 18 101/63 07/25/18 14:52 14 100 07/25/18 12:07 14 100 07/25/18 12:02 98.6 F 100 14 99/54 100 Intake and Output 07/25/18 07/26/18 07/26/18 23:59 07:59 15:59 Intake Total 350 / 350 300 / 300 170 / 170 Output Total 3900 / 3900 Balance -3550 / -3550 300 / 300 170 / 170 Intake: IV Fluids 150 / 150 Levaquin Premix 750mg/150 mL 150 / 150 750 mg In 150 ml @ 100 mls/hr IVPB Q48H [facility] Rx#:[id number] Oral 0 / 0 Blood Product 350 / 350 Rbcs Leuko Poor As-1 Unit 350 / 350 [id number] Free Water Intake Amount 300 / 300 20 / 20 Output: Urine 0 / 0 Total Dialysis (HD) Output 3900 / 3900 Other: Meal NPO NPO Percent of Meal Consumed 0% 0% Blood Glucose* 146 242 Hemodialysis Net Fluid Removed 3000 (mL) - General Appearance General appearance: Present: chronically ill Exam: trach on vent EENT: Present: ATNC, mucous membranes moist Neck: Present: no JVD Additional Comments: neck is contracted to one side Respiratory: Present: course breath sounds Cardiology: Present: edema, normal S1, normal S2 Dialysis Vascular Access: Venous Catheter (permcath) Gastrointestinal: Present: no tenderness, no guarding Additional Comments: +PEG Integumentary: Present: warm and dry, skin tear Additional Comments: nonresponsive Musculoskeletal: Present: deformities (contractures UE bilat), decreased ROM Additional Comments: unable to assess due to state - Lab 07/27/18 03:06 07/27/18 03:06 Most recent lab results Calcium 9.4 mg/dL (8.6-10.3) 07/26/18 04:49 Phosphorus 1.3 mg/dL (2.7-4.5) L 07/16/18 05:36 Magnesium 2.3 mg/dL (1.6-2.6) 07/16/18 05:36 Consult Discharge Plan - Plan Referrals: NONE,PCP [Primary Care Provider] - (PATIENT IS FROM [facility] NO PCP APPOINTMENT NEEDED)
--- NOTE | 2018-07-26 12:19 | Internal Med Progress Note ---
Hospitalist Progress Note - Encounter Date of Encounter: 07/26/18 Time of Encounter: 09:00 - Subjective Interval History: Patient is still nonverbal, open eyes spontanously but not follow command. on ventilator, no family member at bedside. Still have low-grade fever overnight. - Exam Vitals: Temp Pulse Resp BP Pulse Ox 100.1 F H 97 18 101/72 100 07/26/18 11:34 07/26/18 11:34 07/26/18 11:34 07/26/18 11:34 07/26/18 11:34 Exam: General: Alert, breathing spontaneously or on ventilator. Not oriented, non- verbal Chest: Right perma-cath Neck: Trached with mucopurulent discharge in the tubes Cardiovascular:Normal S1 & S2, No JVD. Borderline tachycardia Lungs: diminished breath sounds bilaterally, coarse breath sound b/l Abdomen:Soft, non-tender, no rigidity. Extremities: Both UE contracted. R chest HD catheter and R UE midline noted. Groin: not assessed Neuro: Nonverbal - Assessment and Plan (1) ESRD (end stage renal disease) Current Visit: Yes Status: Chronic Assessment and Plan: nephrology consulted for HD, continue care per recommendation (2) Sepsis Current Visit: Yes Status: Acute Assessment and Plan: Presented from [facility] with worsening leukocytosis despite being on vanc/ceftin Source of infection considered permacath and pneumonia. Permacath have been exchanged by IR. Infectious disease is following and input appreciated. On Vanco, levaquin, and Colistin per ID recommendation. Persist fever and leukocytosis despite abx. Prognosis guarded. Palliative care consult appreciated. (3) Anemia in chronic kidney disease (CKD) Current Visit: Yes Status: Chronic Assessment and Plan: Chronic and stable. Closely monitor H/H. Per nephro, 1 unit of PRBC transfused yesterday. Hgb increase to 8.6 today. (4) CLABSI (central line-associated bloodstream infection) Current Visit: Yes Status: Acute Assessment and Plan: discussed above under sepsis. (5) Pneumonia Current Visit: Yes Status: Acute Assessment and Plan: discussed above under sepsis. Sputum culture shows Acinetobacter. (6) Diabetes mellitus type 2 in obese Current Visit: Yes Status: Chronic Assessment and Plan: Continue basal and sliding scale insulin (7) Anoxic brain injury Current Visit: Yes Status: Chronic Assessment and Plan: Cont trach management and ventilation. Cont tube feeding. (8) Chronic respiratory failure Current Visit: Yes Status: Chronic Assessment and Plan: Patient with chronic respiratory failure, vent dependent. Trach, vent management per respiratory (9) Wound of sacral region Current Visit: Yes Status: Acute Assessment and Plan: as above (10) Decubitus skin ulcer Current Visit: Yes Status: Acute Assessment and Plan: Continue wound care per instruction from wound care consult (11) GI bleed Current Visit: Yes Status: Ruled-out Assessment and Plan: No further residual today. No melena. H/H stable. - Cont prophylactic dose of prontonix iv 40mg qd - Cont closely monitor pt. (12) Goals of care, counseling/discussion Current Visit: Yes Status: Acute Assessment and Plan: Palliative care consult on case, had family meeting, will cont f/u the family decision, cont current treatment. DVT Prophylaxis: EPCDs - Time Spent with Patient Total time spent is greater than 50% in coordination of care (as documented) at patient's floor/unit and/or counseling patient: 40 min Greater than 35 minutes Plan of Care Discussed with: nurse Internal Medicine: Result - Labs CBC & Chem 7: 07/26/18 04:49 07/26/18 04:49 Labs: Short CBC 07/26/18 Range/Units 04:49 WBC 23.4 H (4.3-11.1) K/mcL Hgb 8.6 L D (11.5-15.4) g/dL Hct 27.7 L (35.3-44.9) % Plt Count 527 H (140-400) K/mcL Neutrophils # 18.5 H (1.6-8.9) K/mcL BMP 07/26/18 04:49 Sodium 135 L Potassium 3.7 Chloride 95 L Carbon Dioxide 25 BUN 32 H Creatinine 3.01 H Glucose 242 H Calcium 9.4 - ABG Interpretation ABG results: PT/INR, D-dimer PT 12.0 Seconds (9.4-12.1) 07/16/18 05:36 Consult Discharge Plan - Plan Referrals: NONE,PCP [Primary Care Provider] - (PATIENT IS FROM [facility] NO PCP APPOINTMENT NEEDED) (2) Sepsis Qualifiers: Sepsis type: sepsis due to unspecified organism Qualified Code(s): A41.9 - Sepsis, unspecified organism (3) Anemia in chronic kidney disease (CKD) Qualifiers: Chronic kidney disease stage: on chronic dialysis Qualified Code(s): N18.6 - End stage renal disease; D63.1 - Anemia in chronic kidney disease; Z99.2 - Dependence on renal dialysis (4) CLABSI (central line-associated bloodstream infection) Qualifiers: Encounter type: initial encounter Qualified Code(s): T80.211A - Bloodstream infection due to central venous catheter, initial encounter (5) Pneumonia Qualifiers: Pneumonia type: due to other aerobic Gram-negative bacteria Laterality: bilateral Lung location: lower lobe of lung Qualified Code(s): J15.6 - Pneumonia due to other Gram-negative bacteria (8) Chronic respiratory failure Qualifiers: Respiratory failure complication: hypoxia Qualified Code(s): J96.11 - Chronic respiratory failure with hypoxia (9) Wound of sacral region Qualifiers: Qualified Code(s): S31.000A - Unspecified open wound of lower back and pelvis without penetration into retroperitoneum, initial encounter (10) Decubitus skin ulcer Qualifiers: Pressure injury location: sacral region Pressure injury stage: unstageable Qualified Code(s): L89.150 - Pressure ulcer of sacral region, unstageable (11) GI bleed Qualifiers: GI bleed type/associated pathology: unspecified gastrointestinal hemorrhage t ype Qualified Code(s): K92.2 - Gastrointestinal hemorrhage, unspecified
[2018-07-26] MEDS: Leptospermum Honey Gel 44 ML TUBE TP SCH (14:00)
[2018-07-26] MEDS: Insulin DETEMIR 100 UNIT/ML X5UNITS SQ SCH (21:31)
[2018-07-27] MEDS: Insulin LISPRO 300 UNITS/3 ML VIAL SQ SCH ×5 (00:47→23:51)
[2018-07-27 03:56] LABS: Basophils # 0.2 K/mcL (0.0-0.2); Basophils % 0.8 %; Eosinophils # 0.2 K/mcL (0.0-0.6); Eosinophils % 0.8 %; Hematocrit 27.3 % (35.3-44.9); Hemoglobin 8.4 g/dL (11.5-15.4); Immature Granulocytes % 6.4 % (0-4); Lymphocytes # 1.9 K/mcL (0.6-4.6); Lymphocytes % 9.6 %; Mean Corpuscular HGB Conc 30.8 g/dL (31.6-35.5); Mean Corpuscular Hemoglobin 26.4 pg (28.0-33.3); Mean Corpuscular Volume 85.8 fL (83.0-100.0); Mean Platelet Volume 9.2 fL (9.4-12.4); Monocytes % 7.9 %; Neutrophils # 14.6 K/mcL (1.6-8.9); Nucleated Red Blood Cells 0.2 /100 WBC (0); Platelet Count 502 K/mcL (140-400); Red Blood Count 3.18 M/mcL (3.82-4.97); Segmented Neutrophils % 74.5 %
[2018-07-27 04:08] LABS: Monocytes # 1.6 K/mcL (0.0-1.3)
[2018-07-27 04:13] LABS: Calcium 9.5 mg/dL (8.6-10.3); Potassium 3.5 mEq/L (3.5-5.1)
[2018-07-27] MEDS: Nystatin Cream 15 GM TUBE TP SCH ×3 (06:16→20:02)
[2018-07-27] MEDS: Colistin (Colistimethate) 100 MG in 0.9 % Sodium Chloride 50 ML IVPB SCH (09:15)
[2018-07-27] MEDS: Pantoprazole 40 MG VIAL IVP SCH (09:16)
[2018-07-27] MEDS: levETIRAcetam 500 MG/5 ML UDC GTUBE SCH (09:16)
[2018-07-27] MEDS: Levofloxacin 750 MG/150 ML 750 MG/150 ML BAG IVPB SCH (10:04)
--- NOTE | 2018-07-27 13:07 | Internal Med Progress Note ---
Hospitalist Progress Note - Encounter Date of Encounter: 07/27/18 Time of Encounter: 09:00 - Subjective Interval History: Patient is still nonverbal, open eyes spontanously but not follow command. on ventilator. Still have low-grade fever overnight. - Exam Vitals: Temp Pulse Resp BP Pulse Ox 100.3 F H 99 16 108/66 98 07/27/18 11:44 07/27/18 11:44 07/27/18 11:44 07/27/18 11:44 07/27/18 11:44 Exam: General: Alert, breathing spontaneously or on ventilator. Not oriented, non- verbal Chest: Right perma-cath Neck: Trached with mucopurulent discharge in the tubes Cardiovascular:Normal S1 & S2, No JVD. Borderline tachycardia Lungs: diminished breath sounds bilaterally, coarse breath sound b/l Abdomen:Soft, non-tender, no rigidity. Extremities: Both UE contracted. R chest HD catheter and R UE midline noted. Groin: not assessed Neuro: Nonverbal - Assessment and Plan (1) ESRD (end stage renal disease) Current Visit: Yes Status: Chronic Assessment and Plan: nephrology consulted for HD, continue care per recommendation (2) Sepsis Current Visit: Yes Status: Acute Assessment and Plan: Presented from detention with worsening leukocytosis despite being on vanc/ceftin Source of infection considered permacath and pneumonia. Permacath have been exchanged by IR. Infectious disease is following and input appreciated. On Vanco, levaquin, and Colistin per ID recommendation. Persist fever and leukocytosis despite abx. Prognosis guarded. Palliative care consult appreciated. (3) Anemia in chronic kidney disease (CKD) Current Visit: Yes Status: Chronic Assessment and Plan: Chronic and stable. Closely monitor H/H. Per nephro, 1 unit of PRBC transfused yesterday. Hgb 8.4 today. (4) CLABSI (central line-associated bloodstream infection) Current Visit: Yes Status: Acute Assessment and Plan: discussed above under sepsis. (5) Pneumonia Current Visit: Yes Status: Acute Assessment and Plan: discussed above under sepsis. Sputum culture shows Acinetobacter. (6) Diabetes mellitus type 2 in obese Current Visit: Yes Status: Chronic Assessment and Plan: Continue basal and sliding scale insulin (7) Anoxic brain injury Current Visit: Yes Status: Chronic Assessment and Plan: Cont trach management and ventilation. Cont tube feeding. (8) Chronic respiratory failure Current Visit: Yes Status: Chronic Assessment and Plan: Patient with chronic respiratory failure, vent dependent. Trach, vent management per respiratory (9) Wound of sacral region Current Visit: Yes Status: Acute Assessment and Plan: as above (10) Decubitus skin ulcer Current Visit: Yes Status: Acute Assessment and Plan: Continue wound care per instruction from wound care consult (11) Goals of care, counseling/discussion Current Visit: Yes Status: Acute Assessment and Plan: Palliative care consult on case, had family meeting, will cont f/u the family decision, cont current treatment. DVT Prophylaxis: EPCDs - Time Spent with Patient Total time spent is greater than 50% in coordination of care (as documented) at patient's floor/unit and/or counseling patient: 40 min Greater than 35 minutes Plan of Care Discussed with: patient Internal Medicine: Result - Labs CBC & Chem 7: 07/27/18 03:06 07/27/18 03:06 Labs: Short CBC 07/27/18 Range/Units 03:06 WBC 19.6 H (4.3-11.1) K/mcL Hgb 8.4 L (11.5-15.4) g/dL Hct 27.3 L (35.3-44.9) % Plt Count 502 H (140-400) K/mcL Neutrophils # 14.6 H (1.6-8.9) K/mcL BMP 07/27/18 03:06 Sodium 134 L Potassium 3.5 Chloride 94 L Carbon Dioxide 24 BUN 51 H Creatinine 4.31 H Glucose 230 H Calcium 9.5 - ABG Interpretation ABG results: PT/INR, D-dimer PT 12.0 Seconds (9.4-12.1) 07/16/18 05:36 Consult Discharge Plan - Plan Referrals: NONE,PCP [Primary Care Provider] - (PATIENT IS FROM [facility] NO PCP APPOINTMENT NEEDED) (2) Sepsis Qualifiers: Sepsis type: sepsis due to unspecified organism Qualified Code(s): A41.9 - Sepsis, unspecified organism (3) Anemia in chronic kidney disease (CKD) Qualifiers: Chronic kidney disease stage: on chronic dialysis Qualified Code(s): N18.6 - End stage renal disease; D63.1 - Anemia in chronic kidney disease; Z99.2 - Dependence on renal dialysis (4) CLABSI (central line-associated bloodstream infection) Qualifiers: Encounter type: initial encounter Qualified Code(s): T80.211A - Bloodstream infection due to central venous catheter, initial encounter (5) Pneumonia Qualifiers: Pneumonia type: due to other aerobic Gram-negative bacteria Laterality: bilateral Lung location: lower lobe of lung Qualified Code(s): J15.6 - Pneumonia due to other Gram-negative bacteria (8) Chronic respiratory failure Qualifiers: Respiratory failure complication: hypoxia Qualified Code(s): J96.11 - Chronic respiratory failure with hypoxia (9) Wound of sacral region Qualifiers: Qualified Code(s): S31.000A - Unspecified open wound of lower back and pelvis without penetration into retroperitoneum, initial encounter (10) Decubitus skin ulcer Qualifiers: Pressure injury location: sacral region Pressure injury stage: unstageable Qualified Code(s): L89.150 - Pressure ulcer of sacral region, unstageable
[2018-07-27] MEDS: Leptospermum Honey Gel 44 ML TUBE TP SCH (15:41)
[2018-07-27] MEDS: Insulin DETEMIR 100 UNIT/ML X5UNITS SQ SCH (20:02)
[2018-07-28 04:11] LABS: Hemoglobin 8.4 g/dL (11.5-15.4); Mean Corpuscular HGB Conc 31.1 g/dL (31.6-35.5); Mean Corpuscular Hemoglobin 26.4 pg (28.0-33.3); Mean Corpuscular Volume 84.9 fL (83.0-100.0); Mean Platelet Volume 9.1 fL (9.4-12.4); Nucleated Red Blood Cells 0.2 /100 WBC (0); Platelet Count 522 K/mcL (140-400); Red Blood Count 3.18 M/mcL (3.82-4.97); Red Cell Distribution Width 16.3 % (11.5-14.5)
[2018-07-28 04:28] LABS: Calcium 9.5 mg/dL (8.6-10.3); Potassium 3.8 mEq/L (3.5-5.1)
[2018-07-28 04:45] LABS: Monocytes # 0.4 K/mcL (0.0-1.3); Neutrophils # 17.6 K/mcL (1.6-8.9); Platelet Estimate Increased (Normal)
[2018-07-28] MEDS ORDERED: Vancomycin 500 MG in 0.9 % Sodium Chloride Mini Bag 100 ML IVPB ONE (06:01)
[2018-07-28] MEDS: Insulin LISPRO 300 UNITS/3 ML VIAL SQ SCH ×4 (06:21→23:57)
[2018-07-28] MEDS ORDERED: 0.9 % Sodium Chloride 250 ML IVC PRN (08:13)
[2018-07-28] MEDS ORDERED: *HR* Heparin 10,000 UNIT/10 ML VIAL IV PRN (08:13)
[2018-07-28] MEDS: Colistin (Colistimethate) 100 MG in 0.9 % Sodium Chloride 50 ML IVPB SCH (09:56)
[2018-07-28] MEDS: levETIRAcetam 500 MG/5 ML UDC GTUBE SCH (09:59)
[2018-07-28] MEDS: Pantoprazole 40 MG VIAL IVP SCH (09:59)
[2018-07-28] MEDS: Leptospermum Honey Gel 44 ML TUBE TP SCH (10:00)
[2018-07-28] MEDS: Nystatin Cream 15 GM TUBE TP SCH ×2 (10:00→20:29)
--- NOTE | 2018-07-28 10:01 | Infectious Disease Progress No ---
Date of Encounter: 07/28/18 Time of Encounter: 09:59 - Assessment and Plan (1) Sepsis Current Visit: Yes Status: Acute Patient had severe sepsis criteria including tachycardia, tachypnea, leukocytosis and lactic acidosis. Likely secondary to central line associated bloodstream infection and possible pneumonia. Etiology of persistent leukocytosis and fevers remains unclear. Consider non-infectious etiologies: central vs. drug-induced vs. other. Improved initially, but started having fevers again. Tmax overnight with 100.2 and tachycardia. WBC continues to stay elevated. HD catheter blood culture drawn 07/13/18 11 set was positive for E. cloacae. Repeat peripheral blood cultures drawn 07/14 are negative x 4 sets. Additional blood culture drawn 07/15/18 x 1 set from the HD catheter is negative. Repeat peripheral blood cultures drawn 07/17/18 x 2 sets are negative. Additional blood culture drawn from the Perma-cath 07/17/18 x 1 set is negative. ESR elevated at >130. CRP 218. Etiology unclear. Patient had TMA to the right foot in March, but clinically it does not appear infected. Amylase, lipase, LFTs normal. CT chest showed left basilar PNA vs. aspiration. CT abdomen and pelvis showed findings consistent with diarrheal illness and thic kening of the bladder wall, but no other acute findings noted to explain leukocytosis and fevers. Peripheral smear is negative for toxic granules or Dohle bodies. RIP negative. Recommendations: Still waiting for family to make final decision. Get CT head, chest, abdomen, and pelvis with IV contrast. Continue droplet/contact precautions. Continue Colistin. Will ask pharmacy to assist with dosing for the patient's HD status. Continue Levaquin 750mg IV Q48H. Continue Vancomycin IV. Pharmacy to dose. Goal trough ~15. Palliative care consulted. Family still making decision. If they do not opt to withdraw care or pursue hospice we will need to continue workup for the patient's fever and leukocytosis. Duration of treatment depends on the clinical picture. Monitor drug levels and dose-adjust antibiotics. Qualifiers: Sepsis type: sepsis due to unspecified organism Qualified Code(s): A41.9 - Sepsis, unspecified organism (2) CLABSI (central line-associated bloodstream infection) Current Visit: Yes Status: Acute Causative organism: E. cloacae. Source vs. seeding of the line. HD catheter blood culture drawn 07/13/18 x1 set was positive for E. cloacae. Repeat peripheral blood cultures drawn 07/14 are NGTD x 4 sets. Additional blood culture drawn 07/15/18 x 1 set from the HD catheter is NGTD. Status post [id number] exchange of the line 07/16/18 by IR. Catheter tip culture positive for E. cloacae. Repeat peripheral blood cultures drawn 07/17/18 x 2 sets are negative. Additional perma-cath blood culture drawn 07/17/18 x 1 set is negative. Currently on Levaquin. Qualifiers: Encounter type: initial encounter Qualified Code(s): T80.211A - Bloodstream infection due to central venous catheter, initial encounter (3) Pneumonia Current Visit: Yes Status: Acute PNA vs. colonization. CXR 07/14/18 limited due to patient rotation and shallow inspiration, but mild nonspecific left basilar opacities with pneumonia not excluded. Aspiration is possible given the patient's altered mental status, but has been tolerating tube feeds with minimal residuals. Sputum culture positive for MDRO A. baumannii. MRSA screen positive. Anuric. Unable to check UATs. RIP negative. Repeat sputum culture A. baumannii. CT chest showed left basilar PNA vs. aspiration. Currently on Levaquin and Colistin and Vancomycin. Qualifiers: Pneumonia type: due to other aerobic Gram-negative bacteria Laterality: bilateral Lung location: lower lobe of lung Qualified Code(s): J15.6 - Pneumonia due to other Gram-negative bacteria (4) Anoxic brain injury Current Visit: Yes Status: Chronic Secondary to cardiac arrest after right foot surgery in March 2018. (5) Chronic respiratory failure Current Visit: Yes Status: Chronic Secondary to anoxic brain injury. Chronic trach with ATC vent support. Qualifiers: Respiratory failure complication: hypoxia Qualified Code(s): J96.11 - Chronic respiratory failure with hypoxia (6) Diabetes mellitus type 2 in obese Current Visit: Yes Status: Chronic (7) ESRD (end stage renal disease) on dialysis Current Visit: Yes Status: Acute Nephrology consulted and following. (8) Wound of sacral region Current Visit: Yes Status: Acute Clinically does not appear infected. CT abdomen/pelvis does not show osteomyelitis or abscess. Wound care and offloading. Qualifiers: Qualified Code(s): S31.000A - Unspecified open wound of lower back and pelvis without penetration into retroperitoneum, initial encounter (9) Diarrhea Current Visit: Yes Status: Acute Likely secondary to tube feeds. GI panel and C. diff negative. FMS per the primary team to prevent contamination of her sacral wound. Qualifiers: Diarrhea type: unspecified type Qualified Code(s): R19.7 - Diarrhea, unspecified (10) Status post transmetatarsal amputation of right foot Current Visit: Yes Status: Acute Status post TMA March 2018 secondary to right foot infection at [facility]. Clinically does not appear infected, but given relatively recent surgery, may be nidus of infection. Will pursue imaging if the patient's family opts to pursue aggressive treatment. - Subjective Interval history: Patient seen and examined. No acute events noted overnight. Patient has been febrile with a MAXIMUM TEMPERATURE of 100.6 in the last 24 hours. She has had tachycardia. She remains unresponsive due to her an anoxic brain injury. Review of systems unobtainable from the patient. She did undergo an over the guidewire exchange of her dialysis catheter 07/16/18. Per nursing, tolerating tube feeds well. Rectal tube patent. No new issues per nursing. Palliative care consulted and family is still discussing plan of care. Infect Dis PN-Objective Data - Labs CBC & Chem 7: 07/28/18 03:28 07/28/18 03:28 Labs: Laboratory Results - last 24 hr 07/27/18 07/27/18 07/27/18 06:09 11:41 17:41 WBC RBC Hgb Hct MCV MCH MCHC RDW Plt Count MPV Seg Neutrophils % Band Neutrophils % Lymphocytes % Monocytes % Neutrophils # Lymphocytes # Monocytes # Nucleated RBCs/100 WBC Platelet Estimate Sodium Potassium Chloride Carbon Dioxide BUN Creatinine Est GFR ( Amer) Est GFR (Non-Af Amer) BUN/Creatinine Ratio Glucose POC Glucose 219 H 238 H 198 H Calculated Osmolality Calcium Random Vancomycin 07/27/18 07/28/18 07/28/18 23:57 03:28 03:28 WBC RBC Hgb Hct MCV MCH MCHC RDW Plt Count MPV Seg Neutrophils % Band Neutrophils % Lymphocytes % Monocytes % Neutrophils # Lymphocytes # Monocytes # Nucleated RBCs/100 WBC Platelet Estimate Sodium 129 L Potassium 3.8 Chloride 90 L Carbon Dioxide 23 BUN 78 H Creatinine 5.23 H Est GFR ( Amer) 10 L Est GFR (Non-Af Amer) 9 L BUN/Creatinine Ratio 15 Glucose 323 H POC Glucose 232 H Calculated Osmolality 304 H Calcium 9.5 Random Vancomycin 11 07/28/18 07/28/18 03:28 06:20 WBC 20.0 H RBC 3.18 L Hgb 8.4 L Hct 27.0 L MCV 84.9 MCH 26.4 L MCHC 31.1 L RDW 16.3 H Plt Count 522 H MPV 9.1 L Seg Neutrophils % 74.0 Band Neutrophils % 14.0 H Lymphocytes % 10.0 Monocytes % 2.0 Neutrophils # 17.6 H Lymphocytes # 2.0 Monocytes # 0.4 Nucleated RBCs/100 WBC 0.2 H Platelet Estimate Increased H Sodium Potassium Chloride Carbon Dioxide BUN Creatinine Est GFR ( Amer) Est GFR (Non-Af Amer) BUN/Creatinine Ratio Glucose POC Glucose 246 H Calculated Osmolality Calcium Random Vancomycin Cultures: Cultures 07/17/18 13:53 Blood Culture - Final Peripheral Venipuncture No growth. Final report. 07/17/18 13:53 Blood Culture - Final Peripheral Venipuncture No growth. Final report. 07/17/18 14:35 Blood Culture - Final Central Venous Catheter No growth. Final report. 07/17/18 20:45 Sputum Culture - Final Trachea Acinetobacter baumannii MDRO 07/15/18 11:41 Blood Culture - Final Central Venous Catheter No growth. Final report. 07/16/18 15:00 Catheter Tip Culture - Final Intravenous or Arterial Cath Enterobacter cloacae complex 07/14/18 23:41 Blood Culture - Final Peripheral Venipuncture No growth. Final report. 07/14/18 23:41 Blood Culture - Final Peripheral Venipuncture No growth. Final report. Serology 07/24/18 07/16/18 07/16/18 Range/Units 16:00 07:07 02:40 Nasal Screen MRSA (PCR) (Negative) Stl C. cayetanensis PCR Not detected (Not detect) Stool Rotavirus A PCR Not detected (Not detect) Stl Adenov F 40/41 PCR Not detected (Not detect) Stool Astrovirus (PCR) Not detected (Not detect) Stool Campylobacter PCR Not detected (Not detect) Stool Cryptosporidium PCR Not detected (Not detect) Stl Sh Tox Pr E STEC PCR Not detected (Not detect) Stl Enterotoxigenic E PCR Not detected (Not detect) Stool EPEC (PCR) Not detected (Not detect) Stool EAEC (PCR) Not detected (Not detect) Stl E. histolytica PCR Not detected (Not detect) Stool Giardia Lamblia PCR Not detected (Not detect) Stool Salmonella PCR Not detected (Not detect) Stool Sapovirus (PCR) Not detected (Not detect) Stl P. shigelloides PCR Not detected (Not detect) Stl Shigella/EIEC PCR Not detected (Not detect) St Y.enterocolitica PCR Not detected (Not detect) Stool Vibrio (PCR) Not detected (Not detect) Stl Vibrio cholerae PCR Not detected (Not detect) Stl Norovirus GI/GII PCR Not detected (Not detect) Stl GI Panel (PCR) Com See below Chlamy pneumoniae PCR Not Detected (Not Detect) Adenovirus (PCR) Not Detected (Not Detect) B. pertussis DNA (PCR) Not Detected (Not Detect) B.parapertussis DNA PCR Not Detected (Not Detect) C.diff Toxin Gene (MARY) Not detected (Not detect) Coronavirus OC43 (PCR) Not Detected (Not Detect) Coronavirus HKU1 (PCR) Not Detected (Not Detect) Coronavirus 229E (PCR) Not Detected (Not Detect) Coronavirus NL63 (PCR) Not Detected (Not Detect) Hep Bs Antigen Nonreactive (Nonreactive) Hep Bs Antibody 38.07 (10.00 - ) mIU/mL Human Metapneumovir PCR Not Detected (Not Detect) Influenza A (H1) PCR Not Detected (Not Detect) Influ A (H1N1/09) PCR Not Detected (Not Detect) Influenza A (H3) PCR Not Detected (Not Detect) Influenza A Untype (PCR) Not Detected (Not Detect) Influenza Type B (PCR) Not Detected (Not Detect) M.pneumoniae DNA (PCR) Not Detected (Not Detect) Parainfluenza 1 (PCR) Not Detected (Not Detect) Parainfluenza 2 (PCR) Not Detected (Not Detect) Parainfluenza 3 (PCR) Not Detected (Not Detect) Parainfluenza 4 (PCR) Not Detected (Not Detect) RSV (PCR) Not Detected (Not Detect) Entero/Rhino (PCR) Not Detected (Not Detect) 07/15/18 Range/Units 17:15 Nasal Screen MRSA (PCR) Positive A (Negative) Stl C. cayetanensis PCR (Not detect) Stool Rotavirus A PCR (Not detect) Stl Adenov F 40/41 PCR (Not detect) Stool Astrovirus (PCR) (Not detect) Stool Campylobacter PCR (Not detect) Stool Cryptosporidium PCR (Not detect) Stl Sh Tox Pr E STEC PCR (Not detect) Stl Enterotoxigenic E PCR (Not detect) Stool EPEC (PCR) (Not detect) Stool EAEC (PCR) (Not detect) Stl E. histolytica PCR (Not detect) Stool Giardia Lamblia PCR (Not detect) Stool Salmonella PCR (Not detect) Stool Sapovirus (PCR) (Not detect) Stl P. shigelloides PCR (Not detect) Stl Shigella/EIEC PCR (Not detect) St Y.enterocolitica PCR (Not detect) Stool Vibrio (PCR) (Not detect) Stl Vibrio cholerae PCR (Not detect) Stl Norovirus GI/GII PCR (Not detect) Stl GI Panel (PCR) Com Chlamy pneumoniae PCR (Not Detect) Adenovirus (PCR) (Not Detect) B. pertussis DNA (PCR) (Not Detect) B.parapertussis DNA PCR (Not Detect) C.diff Toxin Gene (MARY) (Not detect) Coronavirus OC43 (PCR) (Not Detect) Coronavirus HKU1 (PCR) (Not Detect) Coronavirus 229E (PCR) (Not Detect) Coronavirus NL63 (PCR) (Not Detect) Hep Bs Antigen (Nonreactive) Hep Bs Antibody (10.00 - ) mIU/mL Human Metapneumovir PCR (Not Detect) Influenza A (H1) PCR (Not Detect) Influ A (H1N1/09) PCR (Not Detect) Influenza A (H3) PCR (Not Detect) Influenza A Untype (PCR) (Not Detect) Influenza Type B (PCR) (Not Detect) M.pneumoniae DNA (PCR) (Not Detect) Parainfluenza 1 (PCR) (Not Detect) Parainfluenza 2 (PCR) (Not Detect) Parainfluenza 3 (PCR) (Not Detect) Parainfluenza 4 (PCR) (Not Detect) RSV (PCR) (Not Detect) Entero/Rhino (PCR) (Not Detect) Exam - Constitutional Vitals: Temp Pulse Resp BP Pulse Ox 98.9 F 95 18 103/60 99 07/28/18 07:34 07/28/18 07:34 07/28/18 08:00 07/28/18 08:00 07/28/18 08:00 General appearance: average body habitus, no acute distress, no febrile - Head Head exam: Present: atraumatic, normal inspection, normocephalic - Eye Eye exam: Present: normal appearance Additional comments: Spontaneous eye movement and opening noted, but the patient does not participate in the exam to assess extraocular muscles. - ENT ENT exam: Present: mucous membranes moist Additional comments: Drooling noted. Scab lesion noted to the right lower lip. - Neck Neck exam: Present: normal inspection Additional comments: Tracheostomy midline with O2 via the vent. - Respiratory Respiratory exam: Present: CTAB. Absent: rales, respiratory distress, rhonchi, wheezes - Cardiovascular Cardiovascular exam: Present: RRR, +S1, +S2 - GI/Abdominal GI/Abdominal exam: Present: normal bowel sounds, soft. Absent: distended, tenderness Additional comments: PEG tube noted, currently clamped. Rectal tube noted to be draining brown liquid stool. - Extremities Exam Extremities exam: Absent: normal inspection (Contractures noted to the bilateral upper extremities), pedal edema Additional comments: Previous TMA site with scabbing noted. No warmth, fluctuance, or erythema noted. - Neurological Exam Neurological exam: Present: altered (Spontaneous eye opening and movement noted. No purposeful movement of the extremities noted. Patient does not participate in exam does not attempt to communicate.) - Skin Skin exam: Present: dry, intact, normal color, warm Consult Discharge Plan - Plan Referrals: NONE,PCP [Primary Care Provider] - (PATIENT IS FROM [facility] NO PCP APPOINTMENT NEEDED) - Attending Attestation I examined this patient and my medical decision-making was reviewed with the Resident Physician. I agree with the documented findings, disposition and treatment plan as described except to the extent set forth below.
--- NOTE | 2018-07-28 11:10 | Nephrology Progress Note ---
Addendum entered and electronically signed by Bayron Nicole MD 07/28/18 21:05: I examined this patient and discussed the medical decision-making with MADY Ca. I agree with the documented findings, disposition and treatment plan as described except to the extent set forth below. Dialysis as needed. She was unable to tolerate dialysis today secondary to hypotension. Original Note: Date of Encounter: 07/28/18 Time of Encounter: 10:00 - Assessment and Plan (1) ESRD (end stage renal disease) on dialysis Current Visit: Yes Status: Acute HD had to be aborted today due to hypotension. Lytes stable Plan to consult palliative care to discuss goals of care (2) Anemia in chronic kidney disease (CKD) Current Visit: Yes Status: Chronic Hgb remains low but stable at 8.4. Goal is 10-11 Qualifiers: Chronic kidney disease stage: on chronic dialysis Qualified Code(s): N18.6 - End stage renal disease; D63.1 - Anemia in chronic kidney disease; Z99.2 - Dependence on renal dialysis (3) CLABSI (central line-associated bloodstream infection) Current Visit: Yes Status: Acute Per ID, appreciate recommendations. Qualifiers: Encounter type: initial encounter Qualified Code(s): T80.211A - Bloodstream infection due to central venous catheter, initial encounter (4) Pneumonia Current Visit: Yes Status: Acute Abx per ID Qualifiers: Pneumonia type: due to other aerobic Gram-negative bacteria Laterality: bilateral Lung location: lower lobe of lung Qualified Code(s): J15.6 - Pneumonia due to other Gram-negative bacteria (5) Wound of sacral region Current Visit: Yes Status: Acute Per wound care. Qualifiers: Qualified Code(s): S31.000A - Unspecified open wound of lower back and pelvis without penetration into retroperitoneum, initial encounter Subjective Principal diagnosis: leukocytosis Interval history: Pt seen and examined. No acute events overnight. Remains febrile and tachycardic. Palliative on board to discuss goals of care with family. Pt was unable to tolerate HD today. Systolic BP in the 70's and 80's. Session was aborted for today. Objective - Vital Signs Vital signs: Vital Signs Temp Pulse Resp BP Pulse Ox 07/28/18 08:00 18 103/60 99 07/28/18 07:34 98.9 F 95 18 103/60 100 07/28/18 04:19 20 99 07/28/18 04:00 99.7 F H 97 18 99/59 95 07/28/18 00:00 99.2 F 101 18 104/56 99 07/27/18 23:47 16 99 07/27/18 20:08 99.7 F H 97 18 97/64 100 07/27/18 19:55 21 98/64 99 07/27/18 15:54 19 98/64 96 07/27/18 15:36 100.6 F H 100 18 98/64 97 07/27/18 11:44 100.3 F H 99 16 108/66 98 Intake and Output 07/27/18 07/28/18 07/28/18 23:59 07:59 15:59 Intake Total 737 / 737 0 / 0 Balance 737 / 737 0 / 0 Intake: IV Fluids 50 / 50 Coly-Mycin M PARENTERAL 100 MG 50 / 50 In 0.9 % Sodium Chloride 50 ML @ 100 mls/hr IVPB DAILY [facility] Rx# :[id number] Oral 0 / 0 Tube Feeding 387 / 387 Free Water 150 / 150 Free Water Intake Amount 150 / 150 Other: Meal NPO/TUBE FEED Percent of Meal Consumed 0% Weight 67.5 kg Blood Glucose* 198 232 Patient Weight 07/28/18 23:59 Weight 67.5 kg - General Appearance General appearance: Present: fatigue, frail EENT: Present: ATNC Neck: Present: supple Respiratory: Present: clear Cardiology: Present: no edema, normal S1, normal S2 Dialysis Vascular Access: Venous Catheter (DRSG C/D/I) Gastrointestinal: Present: normoactive bowel sounds, no tenderness, no guarding Integumentary: Present: no rash, warm and dry Psychiatric: Present: mood/affect appropriate, cooperative - Lab 07/28/18 03:28 07/28/18 03:28 Most recent lab results Calcium 9.5 mg/dL (8.6-10.3) 07/28/18 03:28 Phosphorus 1.3 mg/dL (2.7-4.5) L 07/16/18 05:36 Magnesium 2.3 mg/dL (1.6-2.6) 07/16/18 05:36 Consult Discharge Plan - Plan Referrals: NONE,PCP [Primary Care Provider] - (PATIENT IS FROM [facility] NO PCP APPOINTMENT NEEDED)
--- NOTE | 2018-07-28 12:42 | Palliative Progress Note ---
Date of Encounter: 07/28/18 Time of Encounter: 12:30 - Assessment and plan (1) Goals of care, counseling/discussion Current Visit: Yes Status: Acute Assessment and plan: Called pt's sister and DAYAN Ngo for follow up [phone] and updated on current medical condition. There was a family meeting at home on Saturday, but her family is "pulled in different ways". However, she states the family will be present here on Saturday between 11am and 12 pm for a meeting with all teams taking care of pt. Pt remained DNRCCA. (2) ESRD (end stage renal disease) on dialysis Current Visit: Yes Status: Acute Assessment and plan: Nephrology following, Pt did not tolerate HD today (3) Anoxic brain injury Current Visit: Yes Status: Chronic Assessment and plan: Pt is opening eyes, but not interacting with surroundings or following commands. Trach to vent and PEG in place. (4) Sepsis Current Visit: Yes Status: Acute Assessment and plan: Pt contines to have low grade fever and leukocytosis, despite antibiotics. ID recommending further work up, pending family decision on GOC. Source of infection considered permacath and pneumonia. Permacath have been exchanged by IR. Infectious disease is following and input appreciated. On Vanco, levaquin, and Colistin. Qualifiers: Sepsis type: sepsis due to unspecified organism Qualified Code(s): A41.9 - Sepsis, unspecified organism (5) Pain Current Visit: Yes Status: Acute Assessment and plan: Patient has several pressure wounds, and as such may be experiencing pain even if she is unable to show signs of distress. Roxanol 5 mg q4hrs prn for pain, Encouraged nurse to administer at least 15 minutes before care. - Time Spent With Patient Total time spent is greater than 50% in coordination of care (as documented) at patient's floor/unit and/or counseling patient: 25 - 35 minutes - Subjective Interval history: Patient mental status remains unchanged, she opens her eyes, but does not track or follow commands. Per nurse, she does not show any sgns of pain or distress d uring care or dressing change. today she was unable to tolerate HD due to drop in BP. - Constitutional Vitals: Abnormal lab results WBC 20.0 K/mcL (4.3-11.1) H 07/28/18 03:28 RBC 3.18 M/mcL (3.82-4.97) L 07/28/18 03:28 Hgb 8.4 g/dL (11.5-15.4) L 07/28/18 03:28 Hct 27.0 % (35.3-44.9) L 07/28/18 03:28 MCH 26.4 pg (28.0-33.3) L 07/28/18 03:28 MCHC 31.1 g/dL (31.6-35.5) L 07/28/18 03:28 RDW 16.3 % (11.5-14.5) H 07/28/18 03:28 Plt Count 522 K/mcL (140-400) H 07/28/18 03:28 MPV 9.1 fL (9.4-12.4) L 07/28/18 03:28 Immature Gran % 6.4 % (0-4) H 07/27/18 03:06 Band Neutrophils % 14.0 % (0-4) H 07/28/18 03:28 Neutrophils # 17.6 K/mcL (1.6-8.9) H 07/28/18 03:28 Nucleated RBCs/100 WBC 0.2 /100 WBC (0) H 07/28/18 03:28 Platelet Estimate Increased (Normal) H 07/28/18 03:28 ESR >= 130 mm/hr (0-15) H 07/21/18 12:24 Sodium 129 mEq/L (136-145) L 07/28/18 03:28 Chloride 90 mEq/L (98-107) L 07/28/18 03:28 BUN 78 mg/dL (6-20) H 07/28/18 03:28 Creatinine 5.23 mg/dL (0.60-1.20) H 07/28/18 03:28 Est GFR ( Amer) 10 (> 60) L 07/28/18 03:28 Est GFR (Non-Af Amer) 9 (> 60) L 07/28/18 03:28 Glucose 323 mg/dL (70-105) H 07/28/18 03:28 POC Glucose 177 mg/dL (70-99) H 07/28/18 11:33 Calculated Osmolality 304 (280-300) H 07/28/18 03:28 Phosphorus 1.3 mg/dL (2.7-4.5) L 07/16/18 05:36 Alkaline Phosphatase 139 Units/L (34-104) H 07/21/18 12:24 C-Reactive Protein 218 mg/L (Less than 10) H 07/21/18 12:24 Albumin 2.9 g/dL (3.5-5.7) L 07/21/18 12:24 Globulin 4.5 g/dL (2.4-3.5) H 07/21/18 12:24 Albumin/Globulin Ratio 0.6 (1.1-2.2) L 07/21/18 12:24 Triglycerides 163 mg/dL (< 150) H 07/14/18 23:41 VLDL Cholesterol, Calc 33 mg/dL (< 31) H 07/14/18 23:41 HDL Cholesterol 25 mg/dL (40-59) L 07/14/18 23:41 Nasal Screen MRSA (PCR) Positive (Negative) A 07/15/18 17:15 Exam: General: opens eyes, in no acute distress. Not oriented, non-verbal Chest: Right perma-cath Neck: Trached to vent Cardiovascular:Normal S1 & S2, No JVD. Borderline tachycardia Lungs: diminished breath sounds bilaterally, coarse breath sound b/l Abdomen:Soft, non-tender, no rigidity. Extremities: Both UE contracted. R chest HD catheter and R UE midline noted. Neuro: Nonverbal, opening eyes, not tracking or following commands. Palliative Quality Palliative Quality: Screen for Code Status: Yes, Screen for Goals of Care: Yes, Screen for Pain: Yes, If Pain Regimen Started, Initiate Bowel Regimen: NA (pt has diarrhea), Screen for Nausea/Vomitting: Yes Code Status: 07/15/18 12:06 Resuscitation Status: Active [RES] Routine Comment: Resuscitation Status: DNR-Comfort Care-Arrest - Labs CBC & Chem 7: 07/28/18 03:28 07/28/18 03:28 Labs: Laboratory Results - last 24 hr 07/27/18 07/27/18 07/27/18 11:41 17:41 23:57 WBC RBC Hgb Hct MCV MCH MCHC RDW Plt Count MPV Seg Neutrophils % Band Neutrophils % Lymphocytes % Monocytes % Neutrophils # Lymphocytes # Monocytes # Nucleated RBCs/100 WBC Platelet Estimate Sodium Potassium Chloride Carbon Dioxide BUN Creatinine Est GFR ( Amer) Est GFR (Non-Af Amer) BUN/Creatinine Ratio Glucose POC Glucose 238 H 198 H 232 H Calculated Osmolality Calcium Random Vancomycin 07/28/18 07/28/18 07/28/18 03:28 03:28 03:28 WBC 20.0 H RBC 3.18 L Hgb 8.4 L Hct 27.0 L MCV 84.9 MCH 26.4 L MCHC 31.1 L RDW 16.3 H Plt Count 522 H MPV 9.1 L Seg Neutrophils % 74.0 Band Neutrophils % 14.0 H Lymphocytes % 10.0 Monocytes % 2.0 Neutrophils # 17.6 H Lymphocytes # 2.0 Monocytes # 0.4 Nucleated RBCs/100 WBC 0.2 H Platelet Estimate Increased H Sodium 129 L Potassium 3.8 Chloride 90 L Carbon Dioxide 23 BUN 78 H Creatinine 5.23 H Est GFR ( Amer) 10 L Est GFR (Non-Af Amer) 9 L BUN/Creatinine Ratio 15 Glucose 323 H POC Glucose Calculated Osmolality 304 H Calcium 9.5 Random Vancomycin 11 07/28/18 07/28/18 06:20 11:33 WBC RBC Hgb Hct MCV MCH MCHC RDW Plt Count MPV Seg Neutrophils % Band Neutrophils % Lymphocytes % Monocytes % Neutrophils # Lymphocytes # Monocytes # Nucleated RBCs/100 WBC Platelet Estimate Sodium Potassium Chloride Carbon Dioxide BUN Creatinine Est GFR ( Amer) Est GFR (Non-Af Amer) BUN/Creatinine Ratio Glucose POC Glucose 246 H 177 H Calculated Osmolality Calcium Random Vancomycin - ABG Interpretation ABG results: PT/INR, D-dimer PT 12.0 Seconds (9.4-12.1) 07/16/18 05:36 Palliative Scale - Palliative Performance Scale How ambulatory is this patient?: Totally bed bound What is patient's level of activity and evidence of disease?: Unable to do any activity, Extensive disease How much self-care assistance does patient require?: Total care Palliative Performance Score: 20 % Consult Discharge Plan - Plan Referrals: NONE,PCP [Primary Care Provider] - (PATIENT IS FROM [facility] NO PCP APPOINTMENT NEEDED)
--- NOTE | 2018-07-28 13:12 | Internal Med Progress Note ---
Hospitalist Progress Note - Encounter Date of Encounter: 07/28/18 Time of Encounter: 09:00 - Subjective Interval History: Patient is still nonverbal, open eyes spontanously but not follow command. on ventilator. Still have low-grade fever overnight. - Exam Vitals: Temp Pulse Resp BP Pulse Ox 98.8 F 93 18 107/66 99 07/28/18 11:34 07/28/18 11:34 07/28/18 11:34 07/28/18 11:34 07/28/18 11:34 Exam: General: Alert, breathing spontaneously or on ventilator. Not oriented, non- verbal Chest: Right perma-cath Neck: Trached with mucopurulent discharge in the tubes Cardiovascular:Normal S1 & S2, No JVD. Borderline tachycardia Lungs: diminished breath sounds bilaterally, coarse breath sound b/l Abdomen:Soft, non-tender, no rigidity. Extremities: Both UE contracted. R chest HD catheter and R UE midline noted. Groin: not assessed Neuro: Nonverbal - Assessment and Plan (1) ESRD (end stage renal disease) Current Visit: Yes Status: Chronic Assessment and Plan: nephrology consulted for HD, continue care per recommendation (2) Sepsis Current Visit: Yes Status: Acute Assessment and Plan: Presented from [facility] with worsening leukocytosis despite being on vanc/ceftin Source of infection considered permacath and pneumonia. Permacath have been exchanged by IR. Infectious disease is following and input appreciated. On Vanco, levaquin, and Colistin per ID recommendation. Persist fever and leukocytosis despite abx. Will order right foot CT and WBC tagging NM test per ID recommendation. Prognosis guarded. Palliative care consult appreciated. (3) Anemia in chronic kidney disease (CKD) Current Visit: Yes Status: Chronic Assessment and Plan: Chronic and stable. Closely monitor H/H. Per nephro, 1 unit of PRBC transfused. Hgb 8.4 today. (4) CLABSI (central line-associated bloodstream infection) Current Visit: Yes Status: Acute Assessment and Plan: discussed above under sepsis. (5) Pneumonia Current Visit: Yes Status: Acute Assessment and Plan: discussed above under sepsis. Sputum culture shows Acinetobacter. (6) Diabetes mellitus type 2 in obese Current Visit: Yes Status: Chronic Assessment and Plan: Continue basal and sliding scale insulin (7) Anoxic brain injury Current Visit: Yes Status: Chronic Assessment and Plan: Cont trach management and ventilation. Cont tube feeding. (8) Chronic respiratory failure Current Visit: Yes Status: Chronic Assessment and Plan: Patient with chronic respiratory failure, vent dependent. Trach, vent managemen t per respiratory (9) Wound of sacral region Current Visit: Yes Status: Acute Assessment and Plan: as above (10) Decubitus skin ulcer Current Visit: Yes Status: Acute Assessment and Plan: Continue wound care per instruction from wound care consult (11) Goals of care, counseling/discussion Current Visit: Yes Status: Acute Assessment and Plan: Palliative care consult on case, had family meeting, will cont f/u the family decision, cont current treatment. DVT Prophylaxis: EPCDs - Time Spent with Patient Total time spent is greater than 50% in coordination of care (as documented) at patient's floor/unit and/or counseling patient: 40 min Greater than 35 minutes Plan of Care Discussed with: nurse Internal Medicine: Result - Labs CBC & Chem 7: 07/28/18 03:28 07/28/18 03:28 Labs: Short CBC 07/28/18 Range/Units 03:28 WBC 20.0 H (4.3-11.1) K/mcL Hgb 8.4 L (11.5-15.4) g/dL Hct 27.0 L (35.3-44.9) % Plt Count 522 H (140-400) K/mcL Neutrophils # 17.6 H (1.6-8.9) K/mcL BMP 07/28/18 03:28 Sodium 129 L Potassium 3.8 Chloride 90 L Carbon Dioxide 23 BUN 78 H Creatinine 5.23 H Glucose 323 H Calcium 9.5 - ABG Interpretation ABG results: PT/INR, D-dimer PT 12.0 Seconds (9.4-12.1) 07/16/18 05:36 Consult Discharge Plan - Plan Referrals: NONE,PCP [Primary Care Provider] - (PATIENT IS FROM [facility] NO PCP APPOINTMENT NEEDED) (2) Sepsis Qualifiers: Sepsis type: sepsis due to unspecified organism Qualified Code(s): A41.9 - Sepsis, unspecified organism (3) Anemia in chronic kidney disease (CKD) Qualifiers: Chronic kidney disease stage: on chronic dialysis Qualified Code(s): N18.6 - End stage renal disease; D63.1 - Anemia in chronic kidney disease; Z99.2 - Dependence on renal dialysis (4) CLABSI (central line-associated bloodstream infection) Qualifiers: Encounter type: initial encounter Qualified Code(s): T80.211A - Bloodstream infection due to central venous catheter, initial encounter (5) Pneumonia Qualifiers: Pneumonia type: due to other aerobic Gram-negative bacteria Laterality: bilateral Lung location: lower lobe of lung Qualified Code(s): J15.6 - Pneumonia due to other Gram-negative bacteria (8) Chronic respiratory failure Qualifiers: Respiratory failure complication: hypoxia Qualified Code(s): J96.11 - Chronic respiratory failure with hypoxia (9) Wound of sacral region Qualifiers: Qualified Code(s): S31.000A - Unspecified open wound of lower back and pelvis without penetration into retroperitoneum, initial encounter (10) Decubitus skin ulcer Qualifiers: Pressure injury location: sacral region Pressure injury stage: unstageable Q ualified Code(s): L89.150 - Pressure ulcer of sacral region, unstageable
[2018-07-28] MEDS ORDERED: Isovue-370 500 ML INFUS..BTL IV ONE (13:56)
[2018-07-28] MEDS: Insulin DETEMIR 100 UNIT/ML X5UNITS SQ SCH (20:23)
[2018-07-29 04:18] LABS: Basophils # 0.2 K/mcL (0.0-0.2); Basophils % 0.8 %; Eosinophils # 0.3 K/mcL (0.0-0.6); Eosinophils % 1.7 %; Hematocrit 26.3 % (35.3-44.9); Hemoglobin 8.2 g/dL (11.5-15.4); Immature Granulocytes % 7.9 % (0-4); Lymphocytes # 1.8 K/mcL (0.6-4.6); Lymphocytes % 9.3 %; Mean Corpuscular HGB Conc 31.2 g/dL (31.6-35.5); Mean Corpuscular Hemoglobin 26.2 pg (28.0-33.3); Mean Platelet Volume 9.2 fL (9.4-12.4); Monocytes # 1.4 K/mcL (0.0-1.3); Monocytes % 6.9 %; Neutrophils # 14.3 K/mcL (1.6-8.9); Nucleated Red Blood Cells 0.2 /100 WBC (0); Platelet Count 530 K/mcL (140-400); Red Blood Count 3.13 M/mcL (3.82-4.97); Red Cell Distribution Width 16.5 % (11.5-14.5); Segmented Neutrophils % 73.4 %
[2018-07-29 04:36] LABS: Calcium 9.6 mg/dL (8.6-10.3)
[2018-07-29 05:02] LABS: Platelet Estimate Increased (Normal)
[2018-07-29] MEDS: Insulin LISPRO 300 UNITS/3 ML VIAL SQ SCH ×4 (05:49→23:51)
[2018-07-29] MEDS: Nystatin Cream 15 GM TUBE TP SCH ×2 (08:58→20:17)
[2018-07-29] MEDS: Colistin (Colistimethate) 100 MG in 0.9 % Sodium Chloride 50 ML IVPB SCH (08:58)
[2018-07-29] MEDS: levETIRAcetam 500 MG/5 ML UDC GTUBE SCH (08:58)
[2018-07-29] MEDS: Levofloxacin 750 MG/150 ML 750 MG/150 ML BAG IVPB SCH (10:54)
--- NOTE | 2018-07-29 11:06 | Nephrology Progress Note ---
Addendum entered and electronically signed by Bayron Nicole MD 07/29/18 21:56: I examined this patient and discussed the medical decision-making with MADY Ca. I agree with the documented findings, disposition and treatment plan as described except to the extent set forth below. Original Note: Date of Encounter: 07/29/18 Time of Encounter: 11:04 - Assessment and Plan (1) ESRD (end stage renal disease) on dialysis Current Visit: Yes Status: Acute Will plan for HD tomorrow. Jay Feliz states there is a family meeting tomorrow between -. (2) Anemia in chronic kidney disease (CKD) Current Visit: Yes Status: Chronic Hgb remains low but stable at 8.2 Goal is 10-11 Qualifiers: Chronic kidney disease stage: on chronic dialysis Qualified Code(s): N18.6 - End stage renal disease; D63.1 - Anemia in chronic kidney disease; Z99.2 - De pendence on renal dialysis (3) CLABSI (central line-associated bloodstream infection) Current Visit: Yes Status: Acute Per ID, appreciate recommendations. Qualifiers: Encounter type: initial encounter Qualified Code(s): T80.211A - Bloodstream infection due to central venous catheter, initial encounter (4) Pneumonia Current Visit: Yes Status: Acute Abx per ID Qualifiers: Pneumonia type: due to other aerobic Gram-negative bacteria Laterality: bilateral Lung location: lower lobe of lung Qualified Code(s): J15.6 - Pneumonia due to other Gram-negative bacteria (5) Wound of sacral region Current Visit: Yes Status: Acute Per wound care. Qualifiers: Qualified Code(s): S31.000A - Unspecified open wound of lower back and pelvis without penetration into retroperitoneum, initial encounter Subjective Principal diagnosis: leukocytosis Interval history: Pt seen and examined. No acute events overnight. Remains febrile. Palliative on board to discuss goals of care with family. Will attempt HD again tomorrow. Objective - Vital Signs Vital signs: Vital Signs Temp Pulse Resp BP Pulse Ox 07/29/18 11:02 99.2 F 95 19 112/73 99 07/29/18 09:25 20 100 07/29/18 08:10 17 105/67 99 07/29/18 07:45 97 16 100 07/29/18 04:46 20 125/29 90 07/29/18 04:06 99.9 F H 102 18 125/69 10 07/29/18 00:45 20 127/73 97 07/28/18 23:58 100 20 127/73 100 07/28/18 19:58 99.1 F 97 18 121/81 100 07/28/18 18:15 18 100 07/28/18 16:30 18 100 07/28/18 16:29 99.2 F 92 18 109/65 98 07/28/18 16:14 20 107/66 91 07/28/18 14:00 18 99 07/28/18 12:00 17 100 07/28/18 11:34 98.8 F 93 18 107/66 99 07/28/18 11:11 23 94/54 99 Intake and Output 07/28/18 07/29/18 07/29/18 23:59 07:59 15:59 Intake Total 387 / 387 774 / 774 Balance 387 / 387 774 / 774 Intake: Oral 0 / 0 Tube Feeding 237 / 237 474 / 474 Free Water 150 / 150 300 / 300 Free Water Intake Amount Other: Meal NPO/TUBE FEED Percent of Meal Consumed 0% Weight 68 kg Blood Glucose* 216 Patient Weight 07/29/18 23:59 Weight 68 kg - General Appearance General appearance: Present: cachectic, fatigue, frail EENT: Present: ATNC Neck: Present: supple Respiratory: Present: clear Cardiology: Present: no edema, normal S1, normal S2 Dialysis Vascular Access: Venous Catheter (DRSG C/D/I) Integumentary: Present: no rash, warm and dry Psychiatric: Present: mood/affect appropriate, cooperative - Lab 07/29/18 03:30 07/29/18 03:30 Most recent lab results Calcium 9.6 mg/dL (8.6-10.3) 07/29/18 03:30 Phosphorus 1.3 mg/dL (2.7-4.5) L 07/16/18 05:36 Magnesium 2.3 mg/dL (1.6-2.6) 07/16/18 05:36 Consult Discharge Plan - Plan Referrals: NONE,PCP [Primary Care Provider] - ([facility] NO PCP APPOINTMENT NEEDED)
--- NOTE | 2018-07-29 11:47 | Internal Med Progress Note ---
Hospitalist Progress Note - Encounter Date of Encounter: 07/29/18 Time of Encounter: 09:00 - Subjective Interval History: Patient is still nonverbal, open eyes spontanously but not follow command. on ventilator. Still have low-grade fever overnight. - Exam Vitals: Temp Pulse Resp BP Pulse Ox 99.2 F 95 19 112/73 99 07/29/18 11:02 07/29/18 11:02 07/29/18 11:02 07/29/18 11:02 07/29/18 11:02 Exam: General: Alert, breathing spontaneously or on ventilator. Not oriented, non- verbal Chest: Right perma-cath Neck: Trached with mucopurulent discharge in the tubes Cardiovascular:Normal S1 & S2, No JVD. Borderline tachycardia Lungs: diminished breath sounds bilaterally, coarse breath sound b/l Abdomen:Soft, non-tender, no rigidity. Extremities: Both UE contracted. R chest HD catheter and R UE midline noted. Groin: not assessed Neuro: Nonverbal - Assessment and Plan (1) ESRD (end stage renal disease) Current Visit: Yes Status: Chronic Assessment and Plan: nephrology consulted for HD, continue care per recommendation (2) Sepsis Current Visit: Yes Status: Acute Assessment and Plan: Presented [facility] with worsening leukocytosis despite being on vanc/ceftin Source of infection considered permacath and pneumonia. Permacath have been exchanged by IR. Infectious disease is following and input appreciated. On Vanco, levaquin, and Colistin per ID recommendation. Persist fever and leukocytosis despite abx. Will order right foot CT and WBC tagging NM test per ID recommendation. Prognosis guarded. Palliative care consult appreciated. (3) Anemia in chronic kidney disease (CKD) Current Visit: Yes Status: Chronic Assessment and Plan: Chronic and stable. Closely monitor H/H. Per nephro, 1 unit of PRBC transfused. Hgb 8.2 today. (4) CLABSI (central line-associated bloodstream infection) Current Visit: Yes Status: Acute Assessment and Plan: discussed above under sepsis. (5) Pneumonia Current Visit: Yes Status: Acute Assessment and Plan: discussed above under sepsis. Sputum culture shows Acinetobacter. (6) Diabetes mellitus type 2 in obese Current Visit: Yes Status: Chronic Assessment and Plan: Continue basal and sliding scale insulin (7) Anoxic brain injury Current Visit: Yes Status: Chronic Assessment and Plan: Cont trach management and ventilation. Cont tube feeding. (8) Chronic respiratory failure Current Visit: Yes Status: Chronic Assessment and Plan: Patient with chronic respiratory failure, vent dependent. Trach, vent managemen t per respiratory (9) Wound of sacral region Current Visit: Yes Status: Acute Assessment and Plan: as above (10) Decubitus skin ulcer Current Visit: Yes Status: Acute Assessment and Plan: Continue wound care per instruction from wound care consult (11) Goals of care, counseling/discussion Current Visit: Yes Status: Acute Assessment and Plan: Palliative care consult on case, had family meeting, will cont f/u the family decision, cont current treatment. DVT Prophylaxis: EPCDs - Time Spent with Patient Total time spent is greater than 50% in coordination of care (as documented) at patient's floor/unit and/or counseling patient: 40 min Greater than 35 minutes Plan of Care Discussed with: nurse Internal Medicine: Result - Labs CBC & Chem 7: 07/29/18 03:30 07/29/18 03:30 Labs: Short CBC 07/29/18 Range/Units 03:30 WBC 19.5 H (4.3-11.1) K/mcL Hgb 8.2 L (11.5-15.4) g/dL Hct 26.3 L (35.3-44.9) % Plt Count 530 H (140-400) K/mcL Neutrophils # 14.3 H (1.6-8.9) K/mcL BMP 07/29/18 03:30 Sodium 130 L Potassium 4.0 Chloride 87 L Carbon Dioxide 22 L BUN 93 H Creatinine 5.86 H Glucose 267 H Calcium 9.6 - ABG Interpretation ABG results: PT/INR, D-dimer PT 12.0 Seconds (9.4-12.1) 07/16/18 05:36 - Impressions Impressions Foot CT 07/28/18 12:54 IMPRESSION: 1. Soft tissue ulceration of the distal dorsal aspect of the foot. No evidence for organized drainable fluid collection. Diffuse subcutaneous edema. Correlate for cellulitis. 2. No definite CT evidence for osteomyelitis. The bones are severely osteopenic mildly limiting evaluation, however, the surgical margins at the transmetatarsal amputation sites remain sharp. D/ / Osmar Tong MD / Osmar Tong MD Interpreting Provider: Osmar Tong MD Abdomen/Pelvis CT 07/29/18 13:56 IMPRESSION: 1. Bilateral posterior lower lobe patchy consolidation left greater than right probably combination of atelectasis and pneumonia. 2. Tracheostomy tube in place. 3. Circumferential bladder wall thickening representing underdistention, cystitis or combination. Unchanged. D/ / Doyle Hall MD / Doyle Hall MD Interpreting Provider: Doyle Hall MD Chest CT 07/29/18 13:56 IMPRESSION: 1. Bilateral posterior lower lobe patchy consolidation left greater than right probably combination of atelectasis and pneumonia. 2. Tracheostomy tube in place. 3. Circumferential bladder wall thickening representing underdistention, cystitis or combination. Unchanged. D/ / Doyle Hall MD / Doyle Hall MD Interpreting Provider: Doyle Hall MD Head CT 07/29/18 13:56 IMPRESSION: 1. Cerebral and cerebellar parenchymal volume loss with severe chronic microvascular white matter ischemic disease. 2. No acute intracranial abnormality. 3. Findings concerning for acute left sphenoid sinusitis. 4. There is fluid opacification of bilateral mastoid air cells and right middle ear, correlate with signs of infection. D/ / 07/29/2018 10:05:55 Van Caruso MD / lela Interpreting Provider: Van Caruso MD Consult Discharge Plan - Plan Referrals: NONE,PCP [Primary Care Provider] - (PATIENT IS FROM [facility] NO PCP APPOINTMENT NEEDED) (2) Sepsis Qualifiers: Sepsis type: sepsis due to unspecified organism Qualified Code(s): A41.9 - Sepsis, unspecified organism (3) Anemia in chronic kidney disease (CKD) Qualifiers: Chronic kidney disease stage: on chronic dialysis Qualified Code(s): N18.6 - End stage renal disease; D63.1 - Anemia in chronic kidney disease; Z99.2 - Dependence on renal dialysis (4) CLABSI (central line-associated bloodstream infection) Qualifiers: Encounter type: initial encounter Qualified Code(s): T80.211A - Bloodstream infection due to central venous catheter, initial encounter (5) Pneumonia Qualifiers: Pneumonia type: due to other aerobic Gram-negative bacteria Laterality: bilateral Lung location: lower lobe of lung Qualified Code(s): J15.6 - Pneumonia due to other Gram-negative bacteria (8) Chronic respiratory failure Qualifiers: Respiratory failure complication: hypoxia Qualified Code(s): J96.11 - Chronic respiratory failure with hypoxia (9) Wound of sacral region Qualifiers: Qualified Code(s): S31.000A - Unspecified open wound of lower back and pelvis without penetration into retroperitoneum, initial encounter (10) Decubitus skin ulcer Qualifiers: Pressure injury location: sacral region Pressure injury stage: unstageable Qualified Code(s): L89.150 - Pressure ulcer of sacral region, unstageable
--- NOTE | 2018-07-29 11:49 | Infectious Disease Progress No ---
Date of Encounter: 07/29/18 Time of Encounter: 11:00 - Assessment and Plan (1) Sepsis Current Visit: Yes Status: Acute Patient had severe sepsis criteria including tachycardia, tachypnea, leukocytosis and lactic acidosis. Likely secondary to central line associated bloodstream infection and possible pneumonia. Etiology of persistent leukocytosis and fevers remains unclear. Consider non-infectious etiologies: central vs. drug-induced vs. other. Improved initially, but started having fevers again. Tmax overnight with 100.2 and tachycardia. WBC continues to stay elevated. HD catheter blood culture drawn 07/13/18 11 set was positive for E. cloacae. Repeat peripheral blood cultures drawn 07/14 are negative x 4 sets. Additional blood culture drawn 07/15/18 x 1 set from the HD catheter is negative. Repeat peripheral blood cultures drawn 07/17/18 x 2 sets are negative. Additional blood culture drawn from the Perma-cath 07/17/18 x 1 set is negative. ESR elevated at >130. CRP 218. Etiology unclear. Patient had TMA to the right foot in March, but clinically it does not appear infected. Amylase, lipase, LFTs normal. CT chest showed left basilar PNA vs. aspiration. CT abdomen and pelvis showed findings consistent with diarrheal illness and thic kening of the bladder wall, but no other acute findings noted to explain leukocytosis and fevers. Peripheral smear is negative for toxic granules or Dohle bodies. RIP negative. Repeat CT of the head, chest abdomen, and pelvis completed this morning, pending reading by radiology. Recommendations: Still waiting for family to make final decision. Await CT results. Continue droplet/contact precautions. Continue Colistin. Will ask pharmacy to assist with dosing for the patient's HD status. Continue Levaquin 750mg IV Q48H. Continue Vancomycin IV. Pharmacy to dose. Goal trough ~15. Palliative care consulted. Family still making decision. Duration of treatment depends on the clinical picture. Monitor drug levels and dose-adjust antibiotics. Overall prognosis very poor. Qualifiers: Sepsis type: sepsis due to unspecified organism Qualified Code(s): A41.9 - Sepsis, unspecified organism (2) CLABSI (central line-associated bloodstream infection) Current Visit: Yes Status: Acute Causative organism: E. cloacae. Source vs. seeding of the line. HD catheter blood culture drawn 07/13/18 x1 set was positive for E. cloacae. Repeat peripheral blood cultures drawn 07/14 are NGTD x 4 sets. Additional blood culture drawn 07/15/18 x 1 set from the HD catheter is NGTD. Status post [id number] exchange of the line 07/16/18 by IR. Catheter tip culture positive for E. cloacae. Repeat peripheral blood cultures drawn 07/17/18 x 2 sets are negative. Additional perma-cath blood culture drawn 07/17/18 x 1 set is negative. Currently on Levaquin. Qualifiers: Encounter type: initial encounter Qualified Code(s): T80.211A - Bloodstream infection due to central venous catheter, initial encounter (3) Pneumonia Current Visit: Yes Status: Acute PNA vs. colonization. CXR 07/14/18 limited due to patient rotation and shallow inspiration, but mild nonspecific left basilar opacities with pneumonia not excluded. Aspiration is possible given the patient's altered mental status, but has been tolerating tube feeds with minimal residuals. Sputum culture positive for MDRO A. baumannii. MRSA screen positive. Anuric. Unable to check UATs. RIP negative. Repeat sputum culture A. baumannii. CT chest showed left basilar PNA vs. aspiration. Currently on Levaquin and Colistin and Vancomycin. Qualifiers: Pneumonia type: due to other aerobic Gram-negative bacteria Laterality: bilateral Lung location: lower lobe of lung Qualified Code(s): J15.6 - Pneumonia due to other Gram-negative bacteria (4) Anoxic brain injury Current Visit: Yes Status: Chronic Secondary to cardiac arrest after right foot surgery in March 2018. (5) Chronic respiratory failure Current Visit: Yes Status: Chronic Secondary to anoxic brain injury. Chronic trach with ATC vent support. Qualifiers: Respiratory failure complication: hypoxia Qualified Code(s): J96.11 - Chronic respiratory failure with hypoxia (6) Diabetes mellitus type 2 in obese Current Visit: Yes Status: Chronic (7) ESRD (end stage renal disease) on dialysis Current Visit: Yes Status: Acute Nephrology consulted and following. (8) Wound of sacral region Current Visit: Yes Status: Acute Clinically does not appear infected. CT abdomen/pelvis does not show osteomyelitis or abscess. Wound care and offloading. Qualifiers: Qualified Code(s): S31.000A - Unspecified open wound of lower back and pelvis without penetration into retroperitoneum, initial encounter (9) Diarrhea Current Visit: Yes Status: Acute Likely secondary to tube feeds. GI panel and C. diff negative. FMS per the primary team to prevent contamination of her sacral wound. Qualifiers: Diarrhea type: unspecified type Qualified Code(s): R19.7 - Diarrhea, unsp ecified (10) Status post transmetatarsal amputation of right foot Current Visit: Yes Status: Acute Status post TMA March 2018 secondary to right foot infection at [facility]. CT of the right foot negative for infection. - Subjective Interval history: Patient seen and examined. No acute events noted overnight. Patient has been afebrile overnight. She has had tachycardia. She remains unresponsive due to her an anoxic brain injury. Review of systems unobtainable from the patient. S he did undergo an over the guidewire exchange of her dialysis catheter 07/16/18. Per nursing, tolerating tube feeds well. Rectal tube patent. No new issues per nursing. Palliative care consulted and family is still discussing plan of care. Status post CT C/A/P and head this morning. WBC scan pending completion at 1230. Infect Dis PN-Objective Data - Labs CBC & Chem 7: 07/29/18 03:30 07/29/18 03:30 Labs: Laboratory Results - last 24 hr 07/28/18 07/28/18 07/29/18 11:33 17:50 00:05 WBC RBC Hgb Hct MCV MCH MCHC RDW Plt Count MPV Immature Gran % Seg Neutrophils % Lymphocytes % Monocytes % Eosinophils % Basophils % Neutrophils # Lymphocytes # Monocytes # Eosinophils # Basophils # Nucleated RBCs/100 WBC Platelet Estimate Sodium Potassium Chloride Carbon Dioxide BUN Creatinine Est GFR ( Amer) Est GFR (Non-Af Amer) BUN/Creatinine Ratio Glucose POC Glucose 177 H 199 H 216 H Calculated Osmolality Calcium 07/29/18 07/29/18 07/29/18 03:30 03:30 05:56 WBC 19.5 H RBC 3.13 L Hgb 8.2 L Hct 26.3 L MCV 84.0 MCH 26.2 L MCHC 31.2 L RDW 16.5 H Plt Count 530 H MPV 9.2 L Immature Gran % 7.9 H Seg Neutrophils % 73.4 Lymphocytes % 9.3 Monocytes % 6.9 Eosinophils % 1.7 Basophils % 0.8 Neutrophils # 14.3 H Lymphocytes # 1.8 Monocytes # 1.4 H Eosinophils # 0.3 Basophils # 0.2 Nucleated RBCs/100 WBC 0.2 H Platelet Estimate Increased H Sodium 130 L Potassium 4.0 Chloride 87 L Carbon Dioxide 22 L BUN 93 H Creatinine 5.86 H Est GFR ( Amer) 9 L Est GFR (Non-Af Amer) 7 L BUN/Creatinine Ratio 16 Glucose 267 H POC Glucose 212 H Calculated Osmolality 308 H Calcium 9.6 Cultures: Cultures 07/17/18 13:53 Blood Culture - Final Peripheral Venipuncture No growth. Final report. 07/17/18 13:53 Blood Culture - Final Peripheral Venipuncture No growth. Final report. 07/17/18 14:35 Blood Culture - Final Central Venous Catheter No growth. Final report. 07/17/18 20:45 Sputum Culture - Final Trachea Acinetobacter baumannii MDRO 07/15/18 11:41 Blood Culture - Final Central Venous Catheter No growth. Final report. 07/16/18 15:00 Catheter Tip Culture - Final Intravenous or Arterial Cath Enterobacter cloacae complex 07/14/18 23:41 Blood Culture - Final Peripheral Venipuncture No growth. Final report. 07/14/18 23:41 Blood Culture - Final Peripheral Venipuncture No growth. Final report. Serology 07/24/18 07/16/18 07/16/18 Range/Units 16:00 07:07 02:40 Nasal Screen MRSA (PCR) (Negative) Stl C. cayetanensis PCR Not detected (Not detect) Stool Rotavirus A PCR Not detected (Not detect) Stl Adenov F 40/41 PCR Not detected (Not detect) Stool Astrovirus (PCR) Not detected (Not detect) Stool Campylobacter PCR Not detected (Not detect) Stool Cryptosporidium PCR Not detected (Not detect) Stl Sh Tox Pr E STEC PCR Not detected (Not detect) Stl Enterotoxigenic E PCR Not detected (Not detect) Stool EPEC (PCR) Not detected (Not detect) Stool EAEC (PCR) Not detected (Not detect) Stl E. histolytica PCR Not detected (Not detect) Stool Giardia Lamblia PCR Not detected (Not detect) Stool Salmonella PCR Not detected (Not detect) Stool Sapovirus (PCR) Not detected (Not detect) Stl P. shigelloides PCR Not detected (Not detect) Stl Shigella/EIEC PCR Not detected (Not detect) St Y.enterocolitica PCR Not detected (Not detect) Stool Vibrio (PCR) Not detected (Not detect) Stl Vibrio cholerae PCR Not detected (Not detect) Stl Norovirus GI/GII PCR Not detected (Not detect) Stl GI Panel (PCR) Com See below Chlamy pneumoniae PCR Not Detected (Not Detect) Adenovirus (PCR) Not Detected (Not Detect) B. pertussis DNA (PCR) Not Detected (Not Detect) B.parapertussis DNA PCR Not Detected (Not Detect) C.diff Toxin Gene (MARY) Not detected (Not detect) Coronavirus OC43 (PCR) Not Detected (Not Detect) Coronavirus HKU1 (PCR) Not Detected (Not Detect) Coronavirus 229E (PCR) Not Detected (Not Detect) Coronavirus NL63 (PCR) Not Detected (Not Detect) Hep Bs Antigen Nonreactive (Nonreactive) Hep Bs Antibody 38.07 (10.00 - ) mIU/mL Human Metapneumovir PCR Not Detected (Not Detect) Influenza A (H1) PCR Not Detected (Not Detect) Influ A (H1N1/09) PCR Not Detected (Not Detect) Influenza A (H3) PCR Not Detected (Not Detect) Influenza A Untype (PCR) Not Detected (Not Detect) Influenza Type B (PCR) Not Detected (Not Detect) M.pneumoniae DNA (PCR) Not Detected (Not Detect) Parainfluenza 1 (PCR) Not Detected (Not Detect) Parainfluenza 2 (PCR) Not Detected (Not Detect) Parainfluenza 3 (PCR) Not Detected (Not Detect) Parainfluenza 4 (PCR) Not Detected (Not Detect) RSV (PCR) Not Detected (Not Detect) Entero/Rhino (PCR) Not Detected (Not Detect) 07/15/18 Range/Units 17:15 Nasal Screen MRSA (PCR) Positive A (Negative) Stl C. cayetanensis PCR (Not detect) Stool Rotavirus A PCR (Not detect) Stl Adenov F 40/41 PCR (Not detect) Stool Astrovirus (PCR) (Not detect) Stool Campylobacter PCR (Not detect) Stool Cryptosporidium PCR (Not detect) Stl Sh Tox Pr E STEC PCR (Not detect) Stl Enterotoxigenic E PCR (Not detect) Stool EPEC (PCR) (Not detect) Stool EAEC (PCR) (Not detect) Stl E. histolytica PCR (Not detect) Stool Giardia Lamblia PCR (Not detect) Stool Salmonella PCR (Not detect) Stool Sapovirus (PCR) (Not detect) Stl P. shigelloides PCR (Not detect) Stl Shigella/EIEC PCR (Not detect) St Y.enterocolitica PCR (Not detect) Stool Vibrio (PCR) (Not detect) Stl Vibrio cholerae PCR (Not detect) Stl Norovirus GI/GII PCR (Not detect) Stl GI Panel (PCR) Com Chlamy pneumoniae PCR (Not Detect) Adenovirus (PCR) (Not Detect) B. pertussis DNA (PCR) (Not Detect) B.parapertussis DNA PCR (Not Detect) C.diff Toxin Gene (MARY) (Not detect) Coronavirus OC43 (PCR) (Not Detect) Coronavirus HKU1 (PCR) (Not Detect) Coronavirus 229E (PCR) (Not Detect) Coronavirus NL63 (PCR) (Not Detect) Hep Bs Antigen (Nonreactive) Hep Bs Antibody (10.00 - ) mIU/mL Human Metapneumovir PCR (Not Detect) Influenza A (H1) PCR (Not Detect) Influ A (H1N1/09) PCR (Not Detect) Influenza A (H3) PCR (Not Detect) Influenza A Untype (PCR) (Not Detect) Influenza Type B (PCR) (Not Detect) M.pneumoniae DNA (PCR) (Not Detect) Parainfluenza 1 (PCR) (Not Detect) Parainfluenza 2 (PCR) (Not Detect) Parainfluenza 3 (PCR) (Not Detect) Parainfluenza 4 (PCR) (Not Detect) RSV (PCR) (Not Detect) Entero/Rhino (PCR) (Not Detect) - Impressions Impressions Foot CT 07/28/18 12:54 IMPRESSION: 1. Soft tissue ulceration of the distal dorsal aspect of the foot. No evidence for organized drainable fluid collection. Diffuse subcutaneous edema. Correlate for cellulitis. 2. No definite CT evidence for osteomyelitis. The bones are severely osteopenic mildly limiting evaluation, however, the surgical margins at the transmetatarsal amputation sites remain sharp. D/ / Osmar Tong MD / Osmar Tong MD Interpreting Provider: Osmar Tong MD Abdomen/Pelvis CT 07/29/18 13:56 IMPRESSION: 1. Bilateral posterior lower lobe patchy consolidation left greater than right probably combination of atelectasis and pneumonia. 2. Tracheostomy tube in place. 3. Circumferential bladder wall thickening representing underdistention, cystitis or combination. Unchanged. D/ / Doyle Hall MD / Doyle Hall MD Interpreting Provider: Doyle Hall MD Chest CT 07/29/18 13:56 IMPRESSION: 1. Bilateral posterior lower lobe patchy consolidation left greater than right probably combination of atelectasis and pneumonia. 2. Tracheostomy tube in place. 3. Circumferential bladder wall thickening representing underdistention, cystitis or combination. Unchanged. D/ / Doyle Hall MD / Doyle Hall MD Interpreting Provider: Doyle Hall MD Head CT 07/29/18 13:56 IMPRESSION: 1. Cerebral and cerebellar parenchymal volume loss with severe chronic microvascular white matter ischemic disease. 2. No acute intracranial abnormality. 3. Findings concerning for acute left sphenoid sinusitis. 4. There is fluid opacification of bilateral mastoid air cells and right middle ear, correlate with signs of infection. D/ / 07/29/2018 10:05:55 Van Caruso MD / lela Interpreting Provider: Van Caruso MD Exam - Constitutional Vitals: Temp Pulse Resp BP Pulse Ox 99.2 F 95 19 112/73 99 07/29/18 11:02 07/29/18 11:02 07/29/18 11:02 07/29/18 11:02 07/29/18 11:02 General appearance: average body habitus, no acute distress, no cooperative - Head Head exam: Present: atraumatic, normal inspection, normocephalic - Eye Eye exam: Present: normal appearance, PERRL Additional comments: Spontaneous eye opening and movement noted, but patient not compliant with exam to assess EOMs. - ENT ENT exam: Present: mucous membranes moist Additional comments: Scabbed lesion noted to the right lower lip. Large amount of oral secretions noted. - Neck Neck exam: Present: normal inspection Additional comments: Tracheostomy midline with O2 via the vent. - Respiratory Respiratory exam: Present: CTAB. Absent: rales, respiratory distress, rhonchi, wheezes - Cardiovascular Cardiovascular exam: Present: +S1, +S2, tachycardia. Absent: irregular rhythm - GI/Abdominal GI/Abdominal exam: Present: normal bowel sounds, soft. Absent: distended, tenderness Additional comments: PEG tube noted, currently clamped. Rectal tube patent draining liquid brown stool. - Extremities Exam Extremities exam: Absent: normal inspection (Right foot TMA site with scabbing noted. No surrounding erythema, warmth, drainage noted.) - Neurological Exam Neurological exam: Present: altered (Spontaneous eye opening, but patient does not have purposeful movement, follow commands, or attempt to communicate.) - Skin Skin exam: Present: dry, intact, normal color, warm Consult Discharge Plan - Plan Referrals: NONE,PCP [Primary Care Provider] - (PATIENT IS FROM [facility] NO PCP APPOINTMENT NEEDED) - Attending Attestation I examined this patient and my medical decision-making was reviewed with the Resident Physician. I agree with the documented findings, disposition and treatment plan as described except to the extent set forth below.
[2018-07-29] MEDS: Leptospermum Honey Gel 44 ML TUBE TP SCH (17:00)
[2018-07-29] MEDS: Insulin DETEMIR 100 UNIT/ML X5UNITS SQ SCH (20:15)
[2018-07-30 04:04] LABS: Hematocrit 24.6 % (35.3-44.9); Hemoglobin 7.8 g/dL (11.5-15.4); Mean Corpuscular HGB Conc 31.7 g/dL (31.6-35.5); Mean Platelet Volume 9.2 fL (9.4-12.4); Platelet Count 507 K/mcL (140-400); Red Cell Distribution Width 16.3 % (11.5-14.5)
[2018-07-30 04:21] LABS: Calcium 9.4 mg/dL (8.6-10.3); Potassium 4.1 mEq/L (3.5-5.1)
[2018-07-30 04:38] LABS: Eosinophils # 0.4 K/mcL (0.0-0.6); Lymphocytes # 2.2 K/mcL (0.6-4.6); Monocytes # 3.3 K/mcL (0.0-1.3); Neutrophils # 12.3 K/mcL (1.6-8.9); Platelet Estimate Increased (Normal); Smudge Cells Present (Not Present)
[2018-07-30] MEDS: Insulin LISPRO 300 UNITS/3 ML VIAL SQ SCH ×3 (05:41→17:54)
[2018-07-30] MEDS ORDERED: *HR* Heparin 10,000 UNIT/10 ML VIAL IV PRN (07:39)
[2018-07-30] MEDS ORDERED: 0.9 % Sodium Chloride 250 ML IVC PRN (07:39)
[2018-07-30] MEDS ORDERED: 0.9 % Sodium Chloride 1,000 ML PRIME SCH (07:45)
--- NOTE | 2018-07-30 09:24 | Nephrology Progress Note ---
Addendum entered and electronically signed by Bayron Nicole MD 07/30/18 21:59: I examined this patient and discussed the medical decision-making with MADY Ca. I agree with the documented findings, disposition and treatment plan as described except to the extent set forth below. She was seen on dialysis. Original Note: Date of Encounter: 07/30/18 Time of Encounter: 09:22 - Assessment and Plan (1) ESRD (end stage renal disease) on dialysis Current Visit: Yes Status: Acute HD ordered for today. Jay stable Palliative meeting today at 1100. (2) Anemia in chronic kidney disease (CKD) Current Visit: Yes Status: Chronic Hgb remains low but stable at 7.8. Goal is 10-11 Qualifiers: Chronic kidney disease stage: on chronic dialysis Qualified Code(s): N18.6 - End stage renal disease; D63.1 - Anemia in chronic kidney disease; Z99.2 - Dependence on renal dialysis (3) CLABSI (central line-associated bloodstream infection) Current Visit: Yes Status: Acute Per ID, appreciate recommendations. Qualifiers: Encounter type: initial encounter Qualified Code(s): T80.211A - Bloodstream infection due to central venous catheter, initial encounter (4) Pneumonia Current Visit: Yes Status: Acute Abx per ID Qualifiers: Pneumonia type: due to other aerobic Gram-negative bacteria Laterality: bilateral Lung location: lower lobe of lung Qualified Code(s): J15.6 - Pneumonia due to other Gram-negative bacteria (5) Wound of sacral region Current Visit: Yes Status: Acute Per wound care. Qualifiers: Qualified Code(s): S31.000A - Unspecified open wound of lower back and pelvis without penetration into retroperitoneum, initial encounter Subjective Principal diagnosis: leukocytosis Interval history: Pt seen and examined in the HD unit, had not yet started treatment. No acute events overnight. Remains febrile. Palliative on board to discuss goals of care with family. HD was aborted Saturday due to hypotension. Objective - Vital Signs Vital signs: Vital Signs Temp Pulse Resp BP Pulse Ox 07/30/18 07:59 19 99 07/30/18 07:44 100.2 F H 102 18 135/79 99 07/30/18 04:56 21 130/61 99 07/30/18 00:18 21 130/61 98 07/29/18 23:57 98.7 F 91 16 130/61 100 07/29/18 20:56 22 100 07/29/18 20:55 98.9 F 96 18 132/69 100 07/29/18 15:57 21 112/73 100 07/29/18 12:50 20 100 07/29/18 11:50 17 112/73 99 07/29/18 11:02 99.2 F 95 19 112/73 99 07/29/18 09:25 20 100 Intake and Output 07/29/18 07/30/18 07/30/18 23:59 07:59 15:59 Intake Total 150 / 150 774 / 774 Balance 150 / 150 774 / 774 Intake: Tube Feeding 474 / 474 Free Water 300 / 300 Free Water Intake Amount 150 / 150 Other: Meal NPO Percent of Meal Consumed 0% Blood Glucose* 185 169 - General Appearance General appearance: Present: cachectic, fatigue, frail EENT: Present: ATNC Neck: Present: supple Respiratory: Present: clear Cardiology: Present: no edema, normal S1, normal S2 Dialysis Vascular Access: Venous Catheter (DRSG C/D/I) Gastrointestinal: Present: normoactive bowel sounds, no tenderness, no guarding Integumentary: Present: no rash, warm and dry - Lab 07/30/18 02:53 07/30/18 02:53 Most recent lab results Calcium 9.4 mg/dL (8.6-10.3) 07/30/18 02:53 Phosphorus 1.3 mg/dL (2.7-4.5) L 07/16/18 05:36 Magnesium 2.3 mg/dL (1.6-2.6) 07/16/18 05:36 Consult Discharge Plan - Plan Referrals: NONE,PCP [Primary Care Provider] - (PATIENT IS FROM [facility] NO PCP APPOINTMENT NEEDED)
[2018-07-30] MEDS ORDERED: 0.9 % Sodium Chloride 1,000 ML ONE (10:11)
[2018-07-30] MEDS: MetroNIDAZOLE 500 MG/100 ML 500 MG/100 ML BAG IVPB SCH ×2 (13:39→21:40)
[2018-07-30] MEDS: levETIRAcetam 500 MG/5 ML UDC GTUBE SCH (13:39)
[2018-07-30] MEDS: Colistin (Colistimethate) 100 MG in 0.9 % Sodium Chloride 50 ML IVPB SCH (13:40)
[2018-07-30] MEDS: Nystatin Cream 15 GM TUBE TP SCH ×2 (13:42→21:15)
[2018-07-30] MEDS: Leptospermum Honey Gel 44 ML TUBE TP SCH (13:42)
--- NOTE | 2018-07-30 14:59 | Infectious Disease Progress No ---
Date of Encounter: 07/30/18 Time of Encounter: 13:15 - Assessment and Plan (1) Sepsis Current Visit: Yes Status: Acute Patient had severe sepsis criteria including tachycardia, tachypnea, leukocytosis and lactic acidosis. Likely secondary to central line associated bloodstream infection and possible pneumonia. Etiology of persistent leukocytosis and fevers remains unclear. Consider non-infectious etiologies: central vs. drug-induced vs. other. Improved initially, but started having fevers again. Tmax overnight with 100.2 and tachycardia. WBC continues to stay elevated. HD catheter blood culture drawn 07/13/18 11 set was positive for E. cloacae. Repeat peripheral blood cultures drawn 07/14 are negative x 4 sets. Additional blood culture drawn 07/15/18 x 1 set from the HD catheter is negative. Repeat peripheral blood cultures drawn 07/17/18 x 2 sets are negative. Additional blood culture drawn from the Perma-cath 07/17/18 x 1 set is negative. ESR elevated at >130. CRP 218. Etiology unclear. Patient had TMA to the right foot in March, but clinically it does not appear infected. CT of the foot negative for infectious etiology. Amylase, lipase, LFTs normal. CT chest showed left basilar PNA vs. aspiration. CT abdomen and pelvis showed findings consistent with diarrheal illness and thickening of the bladder wall, but no other acute findings noted to explain leukocytosis and fevers. Peripheral smear is negative for toxic granules or Dohle bodies. RIP negative. Repeat CT of the head shows sinusitis and bilateral mastoid opacification. CT chest shows persistent PNA. CT abdomen/pelvis negative for acute finding. WBC scan showed some abnormality of the RUE, likely extravasation of contrast. Recommendations: Still waiting for family to make final decision. Continue droplet/contact precautions. Start flagyl 500mg IV TID. Continue Colistin. Will ask pharmacy to assist with dosing for the patient's HD status. Continue Levaquin 750mg IV Q48H. Continue Vancomycin IV. Pharmacy to dose. Goal trough ~15. Palliative care consulted. Family still making decision. Duration of treatment depends on the clinical picture. Monitor drug levels and dose-adjust antibiotics. Overall prognosis very poor. Qualifiers: Sepsis type: sepsis due to unspecified organism Qualified Code(s): A41.9 - Sepsis, unspecified organism (2) CLABSI (central line-associated bloodstream infection) Current Visit: Yes Status: Acute Causative organism: E. cloacae. Source vs. seeding of the line. HD catheter blood culture drawn 07/13/18 x1 set was positive for E. cloacae. Repeat peripheral blood cultures drawn 07/14 are NGTD x 4 sets. Additional blood culture drawn 07/15/18 x 1 set from the HD catheter is NGTD. Status post [id number] exchange of the line 07/16/18 by IR. Catheter tip culture positive for E. cloacae. Repeat peripheral blood cultures drawn 07/17/18 x 2 sets are negative. Additional perma-cath blood culture drawn 07/17/18 x 1 set is negative. Currently on Levaquin. Qualifiers: Encounter type: initial encounter Qualified Code(s): T80.211A - Bloodstream infection due to central venous catheter, initial encounter (3) Pneumonia Current Visit: Yes Status: Acute PNA vs. colonization. CXR 07/14/18 limited due to patient rotation and shallow inspiration, but mild nonspecific left basilar opacities with pneumonia not excluded. Aspiration is possible given the patient's altered mental status, but has been tolerating tube feeds with minimal residuals. Sputum culture positive for MDRO A. baumannii. MRSA screen positive. Anuric. Unable to check UATs. RIP negative. Repeat sputum culture A. baumannii. CT chest showed left basilar PNA vs. aspiration. Repeat CT shows redemonstration of what appears to be PNA. Concern for continued aspiration given the patient's anoxic brain injury. Currently on Levaquin and Colistin and Vancomycin. Qualifiers: Pneumonia type: due to other aerobic Gram-negative bacteria Laterality: bilateral Lung location: lower lobe of lung Qualified Code(s): J15.6 - Pneumonia due to other Gram-negative bacteria (4) Anoxic brain injury Current Visit: Yes Status: Chronic Secondary to cardiac arrest after right foot surgery in March 2018. (5) Chronic respiratory failure Current Visit: Yes Status: Chronic Secondary to anoxic brain injury. Chronic trach with ATC vent support. Qualifiers: Respiratory failure complication: hypoxia Qualified Code(s): J96.11 - Chronic respiratory failure with hypoxia (6) Diabetes mellitus type 2 in obese Current Visit: Yes Status: Chronic (7) ESRD (end stage renal disease) on dialysis Current Visit: Yes Status: Acute Nephrology consulted and following. (8) Wound of sacral region Current Visit: Yes Status: Acute Clinically does not appear infected. CT abdomen/pelvis does not show osteomyelitis or abscess. Wound care and offloading. Qualifiers: Qualified Code(s): S31.000A - Unspecified open wound of lower back and pelvis without penetration into retroperitoneum, initial encounter (9) Diarrhea Current Visit: Yes Status: Acute Likely secondary to tube feeds. GI panel and C. diff negative. FMS per the primary team to prevent contamination of her sacral wound. Qualifiers: Diarrhea type: unspecified type Qualified Code(s): R19.7 - Diarrhea, unspecified (10) Status post transmetatarsal amputation of right foot Current Visit: Yes Status: Acute Status post TMA March 2018 secondary to right foot infection at [facility]. CT of the right foot negative for infection. - Subjective Interval history: Patient seen and examined in the HD unit. No acute events noted overnight. Tmax 100.2 overnight. She has had tachycardia. She remains unresponsive due to her an anoxic brain injury. Review of systems unobtainable from the patient. She did undergo an over the guidewire exchange of her dialysis catheter 07/16/18. Per nursing, tolerating tube feeds well. Rectal tube patent, but has some cali-rectal skin breakdown per nursing. No new issues per nursing. Palliative care consulted and family is still discussing plan of care. Infect Dis PN-Objective Data - Labs CBC & Chem 7: 07/30/18 02:53 07/30/18 02:53 Labs: Laboratory Results - last 24 hr 07/29/18 07/29/18 07/30/18 17:46 23:52 02:53 WBC RBC Hgb Hct MCV MCH MCHC RDW Plt Count MPV Seg Neutrophils % Band Neutrophils % Lymphocytes % Monocytes % Eosinophils % Neutrophils # Lymphocytes # Monocytes # Eosinophils # Smudge Cells Platelet Estimate Sodium Potassium Chloride Carbon Dioxide BUN Creatinine Est GFR ( Amer) Est GFR (Non-Af Amer) BUN/Creatinine Ratio Glucose POC Glucose 248 H 185 H Calculated Osmolality Calcium Random Vancomycin 18 07/30/18 07/30/18 07/30/18 02:53 02:53 05:42 WBC 18.1 H RBC 3.00 L Hgb 7.8 L Hct 24.6 L MCV 82.0 L MCH 26.0 L MCHC 31.7 RDW 16.3 H Plt Count 507 H MPV 9.2 L Seg Neutrophils % 56.0 Band Neutrophils % 12.0 H Lymphocytes % 12.0 Monocytes % 18.0 Eosinophils % 2.0 Neutrophils # 12.3 H Lymphocytes # 2.2 Monocytes # 3.3 H Eosinophils # 0.4 Smudge Cells Present A Platelet Estimate Increased H Sodium 125 L Potassium 4.1 Chloride 87 L Carbon Dioxide 21 L BUN 112 H Creatinine 6.13 H Est GFR ( Amer) 9 L Est GFR (Non-Af Amer) 7 L BUN/Creatinine Ratio 18 Glucose 178 H POC Glucose 169 H Calculated Osmolality 300 Calcium 9.4 Random Vancomycin Cultures: Cultures 07/17/18 13:53 Blood Culture - Final Peripheral Venipuncture No growth. Final report. 07/17/18 13:53 Blood Culture - Final Peripheral Venipuncture No growth. Final report. 07/17/18 14:35 Blood Culture - Final Central Venous Catheter No growth. Final report. 07/17/18 20:45 Sputum Culture - Final Trachea Acinetobacter baumannii MDRO 07/15/18 11:41 Blood Culture - Final Central Venous Catheter No growth. Final report. 07/16/18 15:00 Catheter Tip Culture - Final Intravenous or Arterial Cath Enterobacter cloacae complex 07/14/18 23:41 Blood Culture - Final Peripheral Venipuncture No growth. Final report. 07/14/18 23:41 Blood Culture - Final Peripheral Venipuncture No growth. Final report. Serology 07/24/18 07/16/18 07/16/18 Range/Units 16:00 07:07 02:40 Nasal Screen MRSA (PCR) (Negative) Stl C. cayetanensis PCR Not detected (Not detect) Stool Rotavirus A PCR Not detected (Not detect) Stl Adenov F 40/41 PCR Not detected (Not detect) Stool Astrovirus (PCR) Not detected (Not detect) Stool Campylobacter PCR Not detected (Not detect) Stool Cryptosporidium PCR Not detected (Not detect) Stl Sh Tox Pr E STEC PCR Not detected (Not detect) Stl Enterotoxigenic E PCR Not detected (Not detect) Stool EPEC (PCR) Not detected (Not detect) Stool EAEC (PCR) Not detected (Not detect) Stl E. histolytica PCR Not detected (Not detect) Stool Giardia Lamblia PCR Not detected (Not detect) Stool Salmonella PCR Not detected (Not detect) Stool Sapovirus (PCR) Not detected (Not detect) Stl P. shigelloides PCR Not detected (Not detect) Stl Shigella/EIEC PCR Not detected (Not detect) St Y.enterocolitica PCR Not detected (Not detect) Stool Vibrio (PCR) Not detected (Not detect) Stl Vibrio cholerae PCR Not detected (Not detect) Stl Norovirus GI/GII PCR Not detected (Not detect) Stl GI Panel (PCR) Com See below Chlamy pneumoniae PCR Not Detected (Not Detect) Adenovirus (PCR) Not Detected (Not Detect) B. pertussis DNA (PCR) Not Detected (Not Detect) B.parapertussis DNA PCR Not Detected (Not Detect) C.diff Toxin Gene (MARY) Not detected (Not detect) Coronavirus OC43 (PCR) Not Detected (Not Detect) Coronavirus HKU1 (PCR) Not Detected (Not Detect) Coronavirus 229E (PCR) Not Detected (Not Detect) Coronavirus NL63 (PCR) Not Detected (Not Detect) Hep Bs Antigen Nonreactive (Nonreactive) Hep Bs Antibody 38.07 (10.00 - ) mIU/mL Human Metapneumovir PCR Not Detected (Not Detect) Influenza A (H1) PCR Not Detected (Not Detect) Influ A (H1N1/09) PCR Not Detected (Not Detect) Influenza A (H3) PCR Not Detected (Not Detect) Influenza A Untype (PCR) Not Detected (Not Detect) Influenza Type B (PCR) Not Detected (Not Detect) M.pneumoniae DNA (PCR) Not Detected (Not Detect) Parainfluenza 1 (PCR) Not Detected (Not Detect) Parainfluenza 2 (PCR) Not Detected (Not Detect) Parainfluenza 3 (PCR) Not Detected (Not Detect) Parainfluenza 4 (PCR) Not Detected (Not Detect) RSV (PCR) Not Detected (Not Detect) Entero/Rhino (PCR) Not Detected (Not Detect) 07/15/18 Range/Units 17:15 Nasal Screen MRSA (PCR) Positive A (Negative) Stl C. cayetanensis PCR (Not detect) Stool Rotavirus A PCR (Not detect) Stl Adenov F 40/41 PCR (Not detect) Stool Astrovirus (PCR) (Not detect) Stool Campylobacter PCR (Not detect) Stool Cryptosporidium PCR (Not detect) Stl Sh Tox Pr E STEC PCR (Not detect) Stl Enterotoxigenic E PCR (Not detect) Stool EPEC (PCR) (Not detect) Stool EAEC (PCR) (Not detect) Stl E. histolytica PCR (Not detect) Stool Giardia Lamblia PCR (Not detect) Stool Salmonella PCR (Not detect) Stool Sapovirus (PCR) (Not detect) Stl P. shigelloides PCR (Not detect) Stl Shigella/EIEC PCR (Not detect) St Y.enterocolitica PCR (Not detect) Stool Vibrio (PCR) (Not detect) Stl Vibrio cholerae PCR (Not detect) Stl Norovirus GI/GII PCR (Not detect) Stl GI Panel (PCR) Com Chlamy pneumoniae PCR (Not Detect) Adenovirus (PCR) (Not Detect) B. pertussis DNA (PCR) (Not Detect) B.parapertussis DNA PCR (Not Detect) C.diff Toxin Gene (MARY) (Not detect) Coronavirus OC43 (PCR) (Not Detect) Coronavirus HKU1 (PCR) (Not Detect) Coronavirus 229E (PCR) (Not Detect) Coronavirus NL63 (PCR) (Not Detect) Hep Bs Antigen (Nonreactive) Hep Bs Antibody (10.00 - ) mIU/mL Human Metapneumovir PCR (Not Detect) Influenza A (H1) PCR (Not Detect) Influ A (H1N1/09) PCR (Not Detect) Influenza A (H3) PCR (Not Detect) Influenza A Untype (PCR) (Not Detect) Influenza Type B (PCR) (Not Detect) M.pneumoniae DNA (PCR) (Not Detect) Parainfluenza 1 (PCR) (Not Detect) Parainfluenza 2 (PCR) (Not Detect) Parainfluenza 3 (PCR) (Not Detect) Parainfluenza 4 (PCR) (Not Detect) RSV (PCR) (Not Detect) Entero/Rhino (PCR) (Not Detect) Exam - Constitutional Vitals: Temp Pulse Resp BP Pulse Ox 99.8 F H 102 18 103/68 99 07/30/18 13:34 07/30/18 07:44 07/30/18 13:34 07/30/18 13:34 07/30/18 07:59 General appearance: average body habitus, no acute distress, no cooperative - Head Head exam: Present: atraumatic, normal inspection, normocephalic - Eye Eye exam: Present: normal appearance, PERRL Additional comments: Spontaneous eye opening. Does not follow commands or track around the room. - ENT ENT exam: Present: mucous membranes moist Additional comments: Scabbed lesion noted to the right lower lip. - Neck Neck exam: Present: normal inspection Additional comments: Tracheostomy midline with O2 via the vent. - Respiratory Respiratory exam: Present: CTAB. Absent: rales, respiratory distress, rhonchi, wheezes - Cardiovascular Cardiovascular exam: Present: +S1, +S2, tachycardia. Absent: irregular rhythm - GI/Abdominal GI/Abdominal exam: Present: normal bowel sounds, soft. Absent: distended, tenderness Additional comments: PEG tube noted, currently clamped. Rectal tube with small amount of liquid brown stool noted. - Extremities Exam Extremities exam: Absent: normal inspection (Contractures noted to the BUE. Right foot TMA site without erythema, warmth, or drainage. Wound edges are well- healed. Scabbing noted.) - Neurological Exam Neurological exam: Present: altered (Opens eyes spontaneously, but does not follow commands or attempt to communicate.) - Skin Skin exam: Present: dry, intact, normal color, warm Consult Discharge Plan - Plan Referrals: NONE,PCP [Primary Care Provider] - (PATIENT IS FROM [facility] NO PCP APPOINTMENT NEEDED) - Attending Attestation I examined this patient and my medical decision-making was reviewed with the Resident Physician. I agree with the documented findings, disposition and treatment plan as described except to the extent set forth below.
--- NOTE | 2018-07-30 15:46 | Palliative Progress Note ---
Date of Encounter: 07/30/18 Time of Encounter: 15:31 - Assessment and plan (1) Goals of care, counseling/discussion Current Visit: Yes Status: Acute Assessment and plan: Family meeting today, present were myself, Dr. Leigh and ID CAR DUMPER Tori Bowen and the pt's sister and MARY Pritchard, as well as 2 cousins. Family was updated on curr ent medical condition and on overall worsening of pt after 14 day of treatment. They were explained the extremely poor prognosis. Patient is unlikely to improve physically, and mentally. Family said they noticed some improvement of mental status since the acute event 4 months ago, however, pt's quality of life and physical condition remains poor. Francheska was reluctant to make any decision on her own, and would like the pt's children Nicholas and Maged to decide. She stated there was more family coming up this weekend and they will have further meetings. I urged her to consider the futility of most interventions being done to pt at this time, and the fact that we are prolonging her suffering and process, instead of improving her life. Sister Francheska asked me to call and talk to pt's children Nicholas and Maged, as well as the other 2 MPOA Kyrie and Samson. Attempted to reach son Maged([phone]) unable to reach, left voicemail with call back number. I reached pt's daughter Nicholas ([phone]) as she called the floor for updates. Discussed in detail pt's clinical condition. Nicholas at first was very emotional and refusing to consider any decision that may result in her mother's demise. She hung up stating she will try to get in touch with her brother. Received a call back about 30 minutes later from Nicholas, she discussed with her aunt Francheska, and now she believes it's time to "let her go". However, she was unable to reach pt's son so far. Called and reached pt's brother Kyrie gNo (alternate MPOA) ([phone]). He stated right away that he believes pt is suffering and would like her to be let go to rest. I encouraged him to make his voice heard, and he agreed. He stated he will meet with Francheska and their brother Samson rangel, and they will come in tomorrow morning to make a final decision. Called Samson (alternate MPOA) ([phone]) unable to reach. Left voicemail with call back number. Palliative care will follow up. (2) ESRD (end stage renal disease) on dialysis Current Visit: Yes Status: Acute Assessment and plan: Nephrology following (3) Anoxic brain injury Current Visit: Yes Status: Chronic Assessment and plan: Pt is opening eyes, but not interacting with surroundings or following commands. Trach to vent and PEG in place. (4) Sepsis Current Visit: Yes Status: Acute Assessment and plan: Pt contines to have low grade fever and leukocytosis, despite antibiotics. ID recommending further work up, pending family decision on GOC. Source of infection considered permacath and pneumonia. Permacath have been exchanged by IR. Infectious disease is following . On Vanco, levaquin, and Colistin. Qualifiers: Sepsis type: sepsis due to unspecified organism Qualified Code(s): A41.9 - Sepsis, unspecified organism (5) Pain Current Visit: Yes Status: Acute Assessment and plan: Patient has several pressure wounds, and as such may be experiencing pain even if she is unable to show signs of distress. Roxanol 5 mg q4hrs prn for pain, Encouraged nurse to administer at least 15 minutes before care. - Time Spent With Patient Total time spent is greater than 50% in coordination of care (as documented) at patient's floor/unit and/or counseling patient: Greater than 35 minutes - Subjective Interval history: Patient mental status remains unchanged. Pt continues to run fevers and WBC count remains high. Nurse relayed that pt now has fecal material coming out of her vagina, rectal tube was removed. Pt is having lose stool that are soiling her pressure wounds. - Constitutional Vitals: Abnormal lab results WBC 18.1 K/mcL (4.3-11.1) H 07/30/18 02:53 RBC 3.00 M/mcL (3.82-4.97) L 07/30/18 02:53 Hgb 7.8 g/dL (11.5-15.4) L 07/30/18 02:53 Hct 24.6 % (35.3-44.9) L 07/30/18 02:53 MCV 82.0 fL (83.0-100.0) L 07/30/18 02:53 MCH 26.0 pg (28.0-33.3) L 07/30/18 02:53 RDW 16.3 % (11.5-14.5) H 07/30/18 02:53 Plt Count 507 K/mcL (140-400) H 07/30/18 02:53 MPV 9.2 fL (9.4-12.4) L 07/30/18 02:53 Immature Gran % 7.9 % (0-4) H 07/29/18 03:30 Band Neutrophils % 12.0 % (0-4) H 07/30/18 02:53 Neutrophils # 12.3 K/mcL (1.6-8.9) H 07/30/18 02:53 Monocytes # 3.3 K/mcL (0.0-1.3) H 07/30/18 02:53 Nucleated RBCs/100 WBC 0.2 /100 WBC (0) H 07/29/18 03:30 Smudge Cells Present (Not Present) A 07/30/18 02:53 Platelet Estimate Increased (Normal) H 07/30/18 02:53 ESR >= 130 mm/hr (0-15) H 07/21/18 12:24 Sodium 125 mEq/L (136-145) L 07/30/18 02:53 Chloride 87 mEq/L (98-107) L 07/30/18 02:53 Carbon Dioxide 21 mEq/L (23-29) L 07/30/18 02:53 BUN 112 mg/dL (6-20) H 07/30/18 02:53 Creatinine 6.13 mg/dL (0.60-1.20) H 07/30/18 02:53 Est GFR ( Amer) 9 (> 60) L 07/30/18 02:53 Est GFR (Non-Af Amer) 7 (> 60) L 07/30/18 02:53 Glucose 178 mg/dL (70-105) H 07/30/18 02:53 POC Glucose 169 mg/dL (70-99) H 07/30/18 05:42 Phosphorus 1.3 mg/dL (2.7-4.5) L 07/16/18 05:36 Alkaline Phosphatase 139 Units/L (34-104) H 07/21/18 12:24 C-Reactive Protein 218 mg/L (Less than 10) H 07/21/18 12:24 Albumin 2.9 g/dL (3.5-5.7) L 07/21/18 12:24 Globulin 4.5 g/dL (2.4-3.5) H 07/21/18 12:24 Albumin/Globulin Ratio 0.6 (1.1-2.2) L 07/21/18 12:24 Triglycerides 163 mg/dL (< 150) H 07/14/18 23:41 VLDL Cholesterol, Calc 33 mg/dL (< 31) H 07/14/18 23:41 HDL Cholesterol 25 mg/dL (40-59) L 07/14/18 23:41 Nasal Screen MRSA (PCR) Positive (Negative) A 07/15/18 17:15 Exam: General: opens eyes, in no acute distress. Not oriented, non-verbal Chest: Right perma-cath Neck: Trached to vent Cardiovascular:Normal S1 & S2, No JVD. Borderline tachycardia Lungs: diminished breath sounds bilaterally, coarse breath sound b/l Abdomen:Soft, non-tender, no rigidity. Extremities: Both UE contracted. R chest HD catheter and R UE midline noted. Neuro: Nonverbal, opening eyes, not tracking or following commands. Palliative Quality Palliative Quality: Screen for Code Status: Yes, Screen for Goals of Care: Yes, Screen for Pain: Yes, If Pain Regimen Started, Initiate Bowel Regimen: NA (pt has diarrhea), Screen for Nausea/Vomitting: Yes Code Status: 07/15/18 12:06 Resuscitation Status: Active [RES] Routine Comment: Resuscitation Status: DNR-Comfort Care-Arrest - Labs CBC & Chem 7: 07/30/18 02:53 07/30/18 02:53 Labs: Laboratory Results - last 24 hr 07/29/18 07/29/18 07/30/18 17:46 23:52 02:53 WBC RBC Hgb Hct MCV MCH MCHC RDW Plt Count MPV Seg Neutrophils % Band Neutrophils % Lymphocytes % Monocytes % Eosinophils % Neutrophils # Lymphocytes # Monocytes # Eosinophils # Smudge Cells Platelet Estimate Sodium Potassium Chloride Carbon Dioxide BUN Creatinine Est GFR ( Amer) Est GFR (Non-Af Amer) BUN/Creatinine Ratio Glucose POC Glucose 248 H 185 H Calculated Osmolality Calcium Random Vancomycin 18 07/30/18 07/30/18 07/30/18 02:53 02:53 05:42 WBC 18.1 H RBC 3.00 L Hgb 7.8 L Hct 24.6 L MCV 82.0 L MCH 26.0 L MCHC 31.7 RDW 16.3 H Plt Count 507 H MPV 9.2 L Seg Neutrophils % 56.0 Band Neutrophils % 12.0 H Lymphocytes % 12.0 Monocytes % 18.0 Eosinophils % 2.0 Neutrophils # 12.3 H Lymphocytes # 2.2 Monocytes # 3.3 H Eosinophils # 0.4 Smudge Cells Present A Platelet Estimate Increased H Sodium 125 L Potassium 4.1 Chloride 87 L Carbon Dioxide 21 L BUN 112 H Creatinine 6.13 H Est GFR ( Amer) 9 L Est GFR (Non-Af Amer) 7 L BUN/Creatinine Ratio 18 Glucose 178 H POC Glucose 169 H Calculated Osmolality 300 Calcium 9.4 Random Vancomycin - ABG Interpretation ABG results: PT/INR, D-dimer PT 12.0 Seconds (9.4-12.1) 07/16/18 05:36 Palliative Scale - Palliative Performance Scale How ambulatory is this patient?: Totally bed bound What is patient's level of activity and evidence of disease?: Unable to do any activity, Extensive disease How much self-care assistance does patient require?: Total care Palliative Performance Score: 20 % Consult Discharge Plan - Plan Referrals: NONE,PCP [Primary Care Provider] - (PATIENT IS FROM [facility] NO PCP APPOINTMENT NEEDED)
--- NOTE | 2018-07-30 16:25 | Internal Med Progress Note ---
Hospitalist Progress Note - Encounter Date of Encounter: 07/30/18 Time of Encounter: 09:00 - Subjective Interval History: Patient is still nonverbal, open eyes spontanously but not follow command. on ventilator. Still have low-grade fever overnight. Report by nurse that feces found from [place]. Had family meeting today with pt's sister, together with SW, ID consult, and palliative consult. pt's condition updated to family. Prognosis discussed. Pt h as been on ventilator/bedbound for four months with repeated lung/skin infection or ulcer. Family still not decide the goal of care yet, will discuss with other family members. - Exam Vitals: Temp Pulse Resp BP Pulse Ox 100.4 F H 117 25 89/62 99 07/30/18 15:39 07/30/18 15:39 07/30/18 15:39 07/30/18 15:39 07/30/18 15:39 Exam: General: Alert, breathing spontaneously or on ventilator. Not oriented, non-verb al Chest: Right perma-cath Neck: Trached with mucopurulent discharge in the tubes Cardiovascular:Normal S1 & S2, No JVD. Borderline tachycardia Lungs: diminished breath sounds bilaterally, coarse breath sound b/l Abdomen:Soft, non-tender, no rigidity. Extremities: Both UE contracted. R chest HD catheter and R UE midline noted. Groin: not assessed Neuro: Nonverbal - Assessment and Plan (1) ESRD (end stage renal disease) Current Visit: Yes Status: Chronic Assessment and Plan: nephrology consulted for HD, continue care per recommendation (2) Sepsis Current Visit: Yes Status: Acute Assessment and Plan: Presented from retirement with worsening leukocytosis despite being on vanc/ceftin Source of infection considered permacath and pneumonia. Permacath have been exchanged by IR. Infectious disease is following and input appreciated. On Vanco, flagyl, and Colistin per ID recommendation. Persist fever and leukocytosis despite abx. Right foot CT unremarkable. WBC ta gging NM test done, unconclusive for clear infectious site. Prognosis guarded. Palliative care consult appreciated. (3) Anemia in chronic kidney disease (CKD) Current Visit: Yes Status: Chronic Assessment and Plan: Chronic and stable. Closely monitor H/H. Per nephro, 1 unit of PRBC transfused. Hgb 7.8 today. (4) CLABSI (central line-associated bloodstream infection) Current Visit: Yes Status: Acute Assessment and Plan: discussed above under sepsis. (5) Pneumonia Current Visit: Yes Status: Acute Assessment and Plan: discussed above under sepsis. Sputum culture shows Acinetobacter. (6) Diabetes mellitus type 2 in obese Current Visit: Yes Status: Chronic Assessment and Plan: Continue basal and sliding scale insulin (7) Anoxic brain injury Current Visit: Yes Status: Chronic Assessment and Plan: Cont trach management and ventilation. Cont tube feeding. (8) Chronic respiratory failure Current Visit: Yes Status: Chronic Assessment and Plan: Patient with chronic respiratory failure, vent dependent. Trach, vent manag ement per respiratory (9) Wound of sacral region Current Visit: Yes Status: Acute Assessment and Plan: as above (10) Decubitus skin ulcer Current Visit: Yes Status: Acute Assessment and Plan: Continue wound care per instruction from wound care consult (11) Goals of care, counseling/discussion Current Visit: Yes Status: Acute Assessment and Plan: Palliative care consult on case, had family meeting, will cont f/u the family decision, cont current treatment. 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 Pt was placed rectal tube on admission to protect decubitus ulcer to be contaminated by stool. Rectal tube has been removed. Will consult surgery for further management. DVT Prophylaxis: EPCDs - Time Spent with Patient Total time spent is greater than 50% in coordination of care (as documented) at patient's floor/unit and/or counseling patient: 40 min Greater than 35 minutes Plan of Care Discussed with: family Internal Medicine: Result - Labs CBC & Chem 7: 07/30/18 02:53 07/30/18 02:53 Labs: Short CBC 07/30/18 Range/Units 02:53 WBC 18.1 H (4.3-11.1) K/mcL Hgb 7.8 L (11.5-15.4) g/dL Hct 24.6 L (35.3-44.9) % Plt Count 507 H (140-400) K/mcL Neutrophils # 12.3 H (1.6-8.9) K/mcL BMP 07/30/18 02:53 Sodium 125 L Potassium 4.1 Chloride 87 L Carbon Dioxide 21 L BUN 112 H Creatinine 6.13 H Glucose 178 H Calcium 9.4 - ABG Interpretation ABG results: PT/INR, D-dimer PT 12.0 Seconds (9.4-12.1) 07/16/18 05:36 Consult Discharge Plan - Plan Referrals: NONE,PCP [Primary Care Provider] - (PATIENT IS FROM [facility] NO PCP APPOINTMENT NEEDED) (2) Sepsis Qualifiers: Sepsis type: sepsis due to unspecified organism Qualified Code(s): A41.9 - Sepsis, unspecified organism (3) Anemia in chronic kidney disease (CKD) Qualifiers: Chronic kidney disease stage: on chronic dialysis Qualified Code(s): N18.6 - End stage renal disease; D63.1 - Anemia in chronic kidney disease; Z99.2 - Dependence on renal dialysis (4) CLABSI (central line-associated bloodstream infection) Qualifiers: Encounter type: initial encounter Qualified Code(s): T80.211A - Bloodstream infection due to central venous catheter, initial encounter (5) Pneumonia Qualifiers: Pneumonia type: due to other aerobic Gram-negative bacteria Laterality: bilateral Lung location: lower lobe of lung Qualified Code(s): J15.6 - Pneumonia due to other Gram-negative bacteria (8) Chronic respiratory failure Qualifiers: Respiratory failure complication: hypoxia Qualified Code(s): J96.11 - Chronic respiratory failure with hypoxia (9) Wound of sacral region Qualifiers: Qualified Code(s): S31.000A - Unspecified open wound of lower back and pelvis without penetration into retroperitoneum, initial encounter (10) Decubitus skin ulcer Qualifiers: Pressure injury location: sacral region Pressure injury stage: unstageable Qualified Code(s): L89.150 - Pressure ulcer of sacral region, unstageable
--- NOTE | 2018-07-30 18:10 | General Surgery Consult Note ---
Date of Encounter: 07/30/18 Time of Encounter: 18:07 Assessment and Plan (1) Colovaginal fistula Current Visit: Yes Status: Acute 53F with unfortunate history now with concern of colovaginal fistula; Patient WBC currently downtrending; no reports of more stool from the vagina since the first report. transition rn consult for vaginal exam US to evaluate sphicter to assess for injury/scar to suggest injury colonoscopy to evaluate for fistula vs malignancy; even before all of these things, I would strongly recommend a sincere sit down with family to determine their goals of care because with a recent RI, anoxic brain injury, currently requiring a trach and PEG, decubitus ulcer that needs to remain clean to prevent further infection and sepsis, I do not suspect that the prognosis is promising and the family may not want any further intervention pending their decision. will cont to follow no acute surgery History of Present Illness Consult date: 07/30/18 Reason for consult: other (stool from vagina) Requesting physician: Naa Leigh History of present illness: 53F with an unfortunate medical history that, based upon reports from other providers, who suffered a significant cardiac event ~ 4 months ago with subsequent anoxic brain injury, currently with a tracheostomy and PEG tube, currently has a significant sacral wound and, to control for contamination, has a rectal tube in place. Per reports the nurse reports stool coming from the patient's vagina. Unknown if there were any prior obsterical trauma/injury, any prior history of radiation, diverticulitis, or other causes to be an potential etiology for such a symptom. No reports of frequent UTIs, pneumaturia or any other complication of a colovaginal fistula. General surgery was consulted for management recommendations. Past Med Surg Social Fam HX - Past Medical History Medical history: diabetes, GERD, hyperlipidemia, renal disease, seizures, other Additional medical history: Anoxic brain injury. Anemia. Contracture Psychiatric history: other - Past Surgical History Surgical History: other (Toe amputation right foot, tracheostomy) - Social History Smoking Status: Smoker, status unknown Smokeless Tobacco Status: No (unknown) Alcohol use: none Drug use: unknown Medications and Allergies Atorvastatin Calcium [Lipitor] 40 mg GTUBE DAILY 07/14/18 [History] Baclofen 5 mg GTUBE TID 07/14/18 [History] Benzocaine [Orabase] 1 appl MM QID PRN 07/14/18 [History] Chlorhexidine Gluconate [Peridex] 1 appl MM QID PRN 07/14/18 [History] Docusate [Colace] 100 mg GTUBE DAILY 07/14/18 [History] Esomeprazole Magnesium [Nexium] 40 mg GTUBE BID 07/14/18 [History] Heparin 5,000 unit SQ Q8HR 07/14/18 [History] Mineral Oil/Petrolatum,White [Minerin Creme] 1 appl TP DAILY 07/14/18 [History] Nystatin [Nystatin Suspension] 500,000 units PO QID PRN 07/14/18 [History] Sennosides/Docusate Sodium [Senna-Docusate Sodium Tablet] 1 tab GTUBE DAILY PRN 07/14/18 [History] Vancomycin HCl 500 mg IV MOWEFR 07/14/18 [History] Vit B Comp C 19/Folic Acid/D3 [Nephronex-Sl Tablet] 1 tab GTUBE DAILY 07/14/18 [History] Amino Acids/Protein Hydrolys [Pro-Stat c Liquid Packet] 30 ml GTUBE TID 07/15/18 [History] Aspirin [Lo-Dose Aspirin EC] 81 mg GTUBE DAILY 07/15/18 [History] Cefepime HCl [Maxipime] 500 mg IV 2000 07/15/18 [History] Insulin Glargine [Lantus] 40 unit SQ DAILY 07/15/18 [History] Insulin Human Regular [HumuLIN R] 0 - 12 unit SQ QID 07/15/18 [History] Ipratropium/Albuterol Neb [Duoneb] 3 ml IH Q6HR PRN 07/15/18 [History] LevETIRAcetam [Keppra] 500 mg GTUBE DAILY 07/15/18 [History] Polyvinyl Alcohol [Artificial Tears] 1 drop BOTH EYES QID PRN 07/15/18 [History] Allergy/AdvReac Type Severity Reaction Status Date / Time No Known Allergies Allergy Verified 07/14/18 17:44 Review of Systems All systems PM: Unable to obtain due to patient condition; General Surgery Exam Initial Vital Signs Temp Pulse Resp BP Pulse Ox 98.7 F 103 18 123/66 100 07/14/18 23:20 07/14/18 23:20 07/14/18 23:20 07/14/18 23:20 07/14/18 23:20 - General physical appearance other (non communicative) - Eyes other (no scleral icterus) - ENT normocephalic - Neck trachea midline - Respiratory normal expansion, other (trach in place) - Cardiovascular Cardiovascular exam: Present: RRR - Abdomen Abdomen general surgery: Present: soft (non distended) - Integumentary Integumentary general surgery: Present: warm and dry - Neurologic Present: other (non communicative; GCS 3 trach) Exam Initial Vital Signs Temp Pulse Resp BP Pulse Ox 98.7 F 103 18 123/66 100 07/14/18 23:20 07/14/18 23:20 07/14/18 23:20 07/14/18 23:20 07/14/18 23:20 Results - Labs 07/30/18 02:53 07/30/18 02:53 Abnormal lab results WBC 18.1 K/mcL (4.3-11.1) H 07/30/18 02:53 RBC 3.00 M/mcL (3.82-4.97) L 07/30/18 02:53 Hgb 7.8 g/dL (11.5-15.4) L 07/30/18 02:53 Hct 24.6 % (35.3-44.9) L 07/30/18 02:53 MCV 82.0 fL (83.0-100.0) L 07/30/18 02:53 MCH 26.0 pg (28.0-33.3) L 07/30/18 02:53 RDW 16.3 % (11.5-14.5) H 07/30/18 02:53 Plt Count 507 K/mcL (140-400) H 07/30/18 02:53 MPV 9.2 fL (9.4-12.4) L 07/30/18 02:53 Immature Gran % 7.9 % (0-4) H 07/29/18 03:30 Band Neutrophils % 12.0 % (0-4) H 07/30/18 02:53 Neutrophils # 12.3 K/mcL (1.6-8.9) H 07/30/18 02:53 Monocytes # 3.3 K/mcL (0.0-1.3) H 07/30/18 02:53 Nucleated RBCs/100 WBC 0.2 /100 WBC (0) H 07/29/18 03:30 Smudge Cells Present (Not Present) A 07/30/18 02:53 Platelet Estimate Increased (Normal) H 07/30/18 02:53 ESR >= 130 mm/hr (0-15) H 07/21/18 12:24 Sodium 125 mEq/L (136-145) L 07/30/18 02:53 Chloride 87 mEq/L (98-107) L 07/30/18 02:53 Carbon Dioxide 21 mEq/L (23-29) L 07/30/18 02:53 BUN 112 mg/dL (6-20) H 07/30/18 02:53 Creatinine 6.13 mg/dL (0.60-1.20) H 07/30/18 02:53 Est GFR ( Amer) 9 (> 60) L 07/30/18 02:53 Est GFR (Non-Af Amer) 7 (> 60) L 07/30/18 02:53 Glucose 178 mg/dL (70-105) H 07/30/18 02:53 POC Glucose 120 mg/dL (70-99) H 07/30/18 11:23 Phosphorus 1.3 mg/dL (2.7-4.5) L 07/16/18 05:36 Alkaline Phosphatase 139 Units/L (34-104) H 07/21/18 12:24 C-Reactive Protein 218 mg/L (Less than 10) H 07/21/18 12:24 Albumin 2.9 g/dL (3.5-5.7) L 07/21/18 12:24 Globulin 4.5 g/dL (2.4-3.5) H 07/21/18 12:24 Albumin/Globulin Ratio 0.6 (1.1-2.2) L 07/21/18 12:24 Triglycerides 163 mg/dL (< 150) H 07/14/18 23:41 VLDL Cholesterol, Calc 33 mg/dL (< 31) H 07/14/18 23:41 HDL Cholesterol 25 mg/dL (40-59) L 07/14/18 23:41 Nasal Screen MRSA (PCR) Positive (Negative) A 07/15/18 17:15 Diabetes panel 07/30/18 Range/Units 02:53 Sodium 125 L (136-145) mEq/L Potassium 4.1 (3.5-5.1) mEq/L Chloride 87 L (98-107) mEq/L Carbon Dioxide 21 L (23-29) mEq/L BUN 112 H (6-20) mg/dL Creatinine 6.13 H (0.60-1.20) mg/dL Glucose 178 H (70-105) mg/dL Calcium 9.4 (8.6-10.3) mg/dL Calcium panel 07/30/18 Range/Units 02:53 Calcium 9.4 (8.6-10.3) mg/dL Pituitary panel 07/30/18 Range/Units 02:53 Sodium 125 L (136-145) mEq/L Potassium 4.1 (3.5-5.1) mEq/L Chloride 87 L (98-107) mEq/L Carbon Dioxide 21 L (23-29) mEq/L BUN 112 H (6-20) mg/dL Creatinine 6.13 H (0.60-1.20) mg/dL Glucose 178 H (70-105) mg/dL Calcium 9.4 (8.6-10.3) mg/dL Adrenal panel 07/30/18 Range/Units 02:53 Sodium 125 L (136-145) mEq/L Potassium 4.1 (3.5-5.1) mEq/L Chloride 87 L (98-107) mEq/L Carbon Dioxide 21 L (23-29) mEq/L BUN 112 H (6-20) mg/dL Creatinine 6.13 H (0.60-1.20) mg/dL Glucose 178 H (70-105) mg/dL Calcium 9.4 (8.6-10.3) mg/dL All other labs normal. - Imaging CT scan - abdomen: report reviewed, image reviewed CT scan - pelvis: report reviewed, image reviewed (CT reviewed and interpreted by me; no evidence to suggest colovaginal fistula;) Consult Discharge Plan - Plan Referrals: NONE,PCP [Primary Care Provider] - (PATIENT IS FROM [facility] NO PCP APPOINTMENT NEEDED)
[2018-07-30] MEDS: Insulin DETEMIR 100 UNIT/ML X5UNITS SQ SCH (21:12)
[2018-07-31] MEDS: Insulin LISPRO 300 UNITS/3 ML VIAL SQ SCH ×4 (00:22→18:42)
[2018-07-31 05:24] LABS: Hematocrit 24.8 % (35.3-44.9); Hemoglobin 7.7 g/dL (11.5-15.4); Mean Corpuscular Hemoglobin 26.3 pg (28.0-33.3); Mean Corpuscular Volume 84.6 fL (83.0-100.0); Mean Platelet Volume 8.9 fL (9.4-12.4); Nucleated Red Blood Cells 0.1 /100 WBC (0); Platelet Count 498 K/mcL (140-400); Red Blood Count 2.93 M/mcL (3.82-4.97); Red Cell Distribution Width 16.1 % (11.5-14.5)
[2018-07-31 05:41] LABS: Potassium 3.7 mEq/L (3.5-5.1)
[2018-07-31] MEDS: MetroNIDAZOLE 500 MG/100 ML 500 MG/100 ML BAG IVPB SCH ×3 (05:57→21:22)
[2018-07-31 06:07] LABS: Anisocytosis 1+ (Not Present); Lymphocytes # 1.9 K/mcL (0.6-4.6); Monocytes # 2.4 K/mcL (0.0-1.3); Neutrophils # 19.7 K/mcL (1.6-8.9); Polychromasia 1+ (Not Present)
[2018-07-31] MEDS: Colistin (Colistimethate) 100 MG in 0.9 % Sodium Chloride 50 ML IVPB SCH (09:27)
[2018-07-31] MEDS: levETIRAcetam 500 MG/5 ML UDC GTUBE SCH (09:34)
[2018-07-31] MEDS: Nystatin Cream 15 GM TUBE TP SCH ×2 (09:35→21:22)
[2018-07-31] MEDS: Leptospermum Honey Gel 44 ML TUBE TP SCH (09:35)
--- NOTE | 2018-07-31 10:22 | Infectious Disease Progress No ---
Date of Encounter: 07/31/18 Time of Encounter: 10:19 - Assessment and Plan (1) Sepsis Current Visit: Yes Status: Acute Patient had severe sepsis criteria including tachycardia, tachypnea, leukocytosis and lactic acidosis. Likely secondary to central line associated bloodstream infection and possible pneumonia. Etiology of persistent leukocytosis and fevers remains unclear. Consider non-infectious etiologies: central vs. drug-induced vs. other. Improved initially, but started having fevers again. Tmax overnight with 100.2 and tachycardia. WBC continues to stay elevated. HD catheter blood culture drawn 07/13/18 11 set was positive for E. cloacae. Repeat peripheral blood cultures drawn 07/14 are negative x 4 sets. Additional blood culture drawn 07/15/18 x 1 set from the HD catheter is negative. Repeat peripheral blood cultures drawn 07/17/18 x 2 sets are negative. Additional blood culture drawn from the Perma-cath 07/17/18 x 1 set is negative. ESR elevated at >130. CRP 218. Etiology unclear. Patient had TMA to the right foot in March, but clinically it does not appear infected. CT of the foot negative for infectious etiology. Amylase, lipase, LFTs normal. CT chest showed left basilar PNA vs. aspiration. CT abdomen and pelvis showed findings consistent with diarrheal illness and thickening of the bladder wall, but no other acute findings noted to explain leukocytosis and fevers. Peripheral smear is negative for toxic granules or Dohle bodies. RIP negative. Repeat CT of the head shows sinusitis and bilateral mastoid opacification. CT chest shows persistent PNA. CT abdomen/pelvis negative for acute finding. WBC scan showed some abnormality of the RUE, likely extravasation of contrast. Recommendations: Consider ENT to evaluate. Still waiting for family to make final decision. If they opt to pursue treatment, would recommend transfer to a tertiary care center for further workup to see if they can identify the source of the patient's fevers. Continue droplet/contact precautions. Continue flagyl 500mg IV TID. Continue Colistin. Will ask pharmacy to assist with dosing for the patient's HD status. Continue Vancomycin IV. Pharmacy to dose. Goal trough ~15. Palliative care consulted. Family still making decision. Duration of treatment depends on the clinical picture. Monitor drug levels and dose-adjust antibiotics. Overall prognosis very poor. Qualifiers: Sepsis type: sepsis due to unspecified organism Qualified Code(s): A41.9 - Sepsis, unspecified organism (2) CLABSI (central line-associated bloodstream infection) Current Visit: Yes Status: Resolved Causative organism: E. cloacae. Source vs. seeding of the line. HD catheter blood culture drawn 07/13/18 x1 set was positive for E. cloacae. Repeat peripheral blood cultures drawn 07/14 are NGTD x 4 sets. Additional blood culture drawn 07/15/18 x 1 set from the HD catheter is NGTD. Status post [id number] exchange of the line 07/16/18 by IR. Catheter tip culture positive for E. cloacae. Repeat peripheral blood cultures drawn 07/17/18 x 2 sets are negative. Additional perma-cath blood culture drawn 07/17/18 x 1 set is negative. Completed course of IV Levaquin (14 days). Qualifiers: Encounter type: initial encounter Qualified Code(s): T80.211A - Bloodstream infection due to central venous catheter, initial encounter (3) Pneumonia Current Visit: Yes Status: Acute PNA vs. colonization. CXR 07/14/18 limited due to patient rotation and shallow inspiration, but mild nonspecific left basilar opacities with pneumonia not excluded. Aspiration is possible given the patient's altered mental status, but has been tolerating tube feeds with minimal residuals. Sputum culture positive for MDRO A. baumannii. MRSA screen positive. Anuric. Unable to check UATs. RIP negative. Repeat sputum culture A. baumannii. CT chest showed left basilar PNA vs. aspiration. Repeat CT shows redemonstration of what appears to be PNA. Concern for continued aspiration given the patient's anoxic brain injury. Currently on Levaquin and Colistin and Vancomycin. Qualifiers: Pneumonia type: due to other aerobic Gram-negative bacteria Laterality: bilateral Lung location: lower lobe of lung Qualified Code(s): J15.6 - Pneumonia due to other Gram-negative bacteria (4) Anoxic brain injury Current Visit: Yes Status: Chronic Secondary to cardiac arrest after right foot surgery in March 2018. (5) Chronic respiratory failure Current Visit: Yes Status: Chronic Secondary to anoxic brain injury. Chronic trach with ATC vent support. Qualifiers: Respiratory failure complication: hypoxia Qualified Code(s): J96.11 - Chronic respiratory failure with hypoxia (6) Diabetes mellitus type 2 in obese Current Visit: Yes Status: Chronic (7) ESRD (end stage renal disease) on dialysis Current Visit: Yes Status: Acute Nephrology consulted and following. (8) Wound of sacral region Current Visit: Yes Status: Acute Clinically does not appear infected. CT abdomen/pelvis does not show osteomyelitis or abscess. Wound care and offloading. Qualifiers: Qualified Code(s): S31.000A - Unspecified open wound of lower back and pelvis without penetration into retroperitoneum, initial encounter (9) Diarrhea Current Visit: Yes Status: Acute Likely secondary to tube feeds. GI panel and C. diff negative. FMS per the primary team to prevent contamination of her sacral wound. Qualifiers: Diarrhea type: unspecified type Qualified Code(s): R19.7 - Diarrhea, unspecified (10) Status post transmetatarsal amputation of right foot Current Visit: Yes Status: Acute Status post TMA March 2018 secondary to right foot infection at [facility]. CT of the right foot negative for infection. - Subjective Interval history: Patient seen and examined. Overnight events noted. Patient was noted to have stool coming from her vagina. Rectal tube was discontinued. General surgery was consulted. Tmax 100.4 overnight. She has had tachycardia. She remains unresponsive due to her an anoxic brain injury. Review of systems unobtainable from the patient. She did undergo an over the guidewire exchange of her dialysis catheter 07/16/18. Per nursing, tolerating tube feeds well. No new issues per nursing. Palliative care consulted and family is still discussing plan of care. Infect Dis PN-Objective Data - Labs CBC & Chem 7: 08/01/18 03:28 08/01/18 03:28 Labs: Laboratory Results - last 24 hr 07/30/18 07/31/18 07/31/18 11:23 05:03 05:03 WBC 24.0 H RBC 2.93 L Hgb 7.7 L Hct 24.8 L MCV 84.6 MCH 26.3 L MCHC 31.0 L RDW 16.1 H Plt Count 498 H MPV 8.9 L Seg Neutrophils % 78.0 Band Neutrophils % 4.0 Lymphocytes % 8.0 Monocytes % 10.0 Neutrophils # 19.7 H Lymphocytes # 1.9 Monocytes # 2.4 H Nucleated RBCs/100 WBC 0.1 H Platelet Estimate Slight increase H Polychromasia 1+ A Anisocytosis 1+ A Sodium 130 L Potassium 3.7 Chloride 94 L Carbon Dioxide 24 BUN 54 H Creatinine 3.71 H Est GFR ( Amer) 15 L Est GFR (Non-Af Amer) 13 L BUN/Creatinine Ratio 15 Glucose 235 H POC Glucose 120 H Calculated Osmolality 292 Calcium 9.0 Cultures: Cultures 07/17/18 13:53 Blood Culture - Final Peripheral Venipuncture No growth. Final report. 07/17/18 13:53 Blood Culture - Final Peripheral Venipuncture No growth. Final report. 07/17/18 14:35 Blood Culture - Final Central Venous Catheter No growth. Final report. 07/17/18 20:45 Sputum Culture - Final Trachea Acinetobacter baumannii MDRO 07/15/18 11:41 Blood Culture - Final Central Venous Catheter No growth. Final report. 07/16/18 15:00 Catheter Tip Culture - Final Intravenous or Arterial Cath Enterobacter cloacae complex 07/14/18 23:41 Blood Culture - Final Peripheral Venipuncture No growth. Final report. 07/14/18 23:41 Blood Culture - Final Peripheral Venipuncture No growth. Final report. Serology 07/24/18 07/16/18 07/16/18 Range/Units 16:00 07:07 02:40 Nasal Screen MRSA (PCR) (Negative) Stl C. cayetanensis PCR Not detected (Not detect) Stool Rotavirus A PCR Not detected (Not detect) Stl Adenov F 40/41 PCR Not detected (Not detect) Stool Astrovirus (PCR) Not detected (Not detect) Stool Campylobacter PCR Not detected (Not detect) Stool Cryptosporidium PCR Not detected (Not detect) Stl Sh Tox Pr E STEC PCR Not detected (Not detect) Stl Enterotoxigenic E PCR Not detected (Not detect) Stool EPEC (PCR) Not detected (Not detect) Stool EAEC (PCR) Not detected (Not detect) Stl E. histolytica PCR Not detected (Not detect) Stool Giardia Lamblia PCR Not detected (Not detect) Stool Salmonella PCR Not detected (Not detect) Stool Sapovirus (PCR) Not detected (Not detect) Stl P. shigelloides PCR Not detected (Not detect) Stl Shigella/EIEC PCR Not detected (Not detect) St Y.enterocolitica PCR Not detected (Not detect) Stool Vibrio (PCR) Not detected (Not detect) Stl Vibrio cholerae PCR Not detected (Not detect) Stl Norovirus GI/GII PCR Not detected (Not detect) Stl GI Panel (PCR) Com See below Chlamy pneumoniae PCR Not Detected (Not Detect) Adenovirus (PCR) Not Detected (Not Detect) B. pertussis DNA (PCR) Not Detected (Not Detect) B.parapertussis DNA PCR Not Detected (Not Detect) C.diff Toxin Gene (MARY) Not detected (Not detect) Coronavirus OC43 (PCR) Not Detected (Not Detect) Coronavirus HKU1 (PCR) Not Detected (Not Detect) Coronavirus 229E (PCR) Not Detected (Not Detect) Coronavirus NL63 (PCR) Not Detected (Not Detect) Hep Bs Antigen Nonreactive (Nonreactive) Hep Bs Antibody 38.07 (10.00 - ) mIU/mL Human Metapneumovir PCR Not Detected (Not Detect) Influenza A (H1) PCR Not Detected (Not Detect) Influ A (H1N1/09) PCR Not Detected (Not Detect) Influenza A (H3) PCR Not Detected (Not Detect) Influenza A Untype (PCR) Not Detected (Not Detect) Influenza Type B (PCR) Not Detected (Not Detect) M.pneumoniae DNA (PCR) Not Detected (Not Detect) Parainfluenza 1 (PCR) Not Detected (Not Detect) Parainfluenza 2 (PCR) Not Detected (Not Detect) Parainfluenza 3 (PCR) Not Detected (Not Detect) Parainfluenza 4 (PCR) Not Detected (Not Detect) RSV (PCR) Not Detected (Not Detect) Entero/Rhino (PCR) Not Detected (Not Detect) 07/15/18 Range/Units 17:15 Nasal Screen MRSA (PCR) Positive A (Negative) Stl C. cayetanensis PCR (Not detect) Stool Rotavirus A PCR (Not detect) Stl Adenov F 40/41 PCR (Not detect) Stool Astrovirus (PCR) (Not detect) Stool Campylobacter PCR (Not detect) Stool Cryptosporidium PCR (Not detect) Stl Sh Tox Pr E STEC PCR (Not detect) Stl Enterotoxigenic E PCR (Not detect) Stool EPEC (PCR) (Not detect) Stool EAEC (PCR) (Not detect) Stl E. histolytica PCR (Not detect) Stool Giardia Lamblia PCR (Not detect) Stool Salmonella PCR (Not detect) Stool Sapovirus (PCR) (Not detect) Stl P. shigelloides PCR (Not detect) Stl Shigella/EIEC PCR (Not detect) St Y.enterocolitica PCR (Not detect) Stool Vibrio (PCR) (Not detect) Stl Vibrio cholerae PCR (Not detect) Stl Norovirus GI/GII PCR (Not detect) Stl GI Panel (PCR) Com Chlamy pneumoniae PCR (Not Detect) Adenovirus (PCR) (Not Detect) B. pertussis DNA (PCR) (Not Detect) B.parapertussis DNA PCR (Not Detect) C.diff Toxin Gene (MARY) (Not detect) Coronavirus OC43 (PCR) (Not Detect) Coronavirus HKU1 (PCR) (Not Detect) Coronavirus 229E (PCR) (Not Detect) Coronavirus NL63 (PCR) (Not Detect) Hep Bs Antigen (Nonreactive) Hep Bs Antibody (10.00 - ) mIU/mL Human Metapneumovir PCR (Not Detect) Influenza A (H1) PCR (Not Detect) Influ A (H1N1/09) PCR (Not Detect) Influenza A (H3) PCR (Not Detect) Influenza A Untype (PCR) (Not Detect) Influenza Type B (PCR) (Not Detect) M.pneumoniae DNA (PCR) (Not Detect) Parainfluenza 1 (PCR) (Not Detect) Parainfluenza 2 (PCR) (Not Detect) Parainfluenza 3 (PCR) (Not Detect) Parainfluenza 4 (PCR) (Not Detect) RSV (PCR) (Not Detect) Entero/Rhino (PCR) (Not Detect) Exam - Constitutional Vitals: Temp Pulse Resp BP Pulse Ox 100.0 F H 99 23 115/88 100 07/31/18 08:23 07/31/18 08:23 07/31/18 08:23 07/31/18 08:23 07/31/18 08:23 General appearance: average body habitus, no acute distress, no cooperative - Head Head exam: Present: atraumatic, normal inspection, normocephalic - Eye Eye exam: Present: normal appearance, PERRL Additional comments: Spontaneous eye opening and movement noted, but the patient does not track me around the room or make eye contact. - ENT ENT exam: Present: mucous membranes moist Additional comments: Scabbed lesion noted to the right lower lip. - Neck Neck exam: Present: normal inspection Additional comments: Tracheostomy midline. - Respiratory Respiratory exam: Present: CTAB. Absent: rales, respiratory distress, rhonchi, wheezes - Cardiovascular Cardiovascular exam: Present: +S1, +S2, tachycardia. Absent: irregular rhythm - GI/Abdominal GI/Abdominal exam: Present: normal bowel sounds, soft. Absent: distended, tenderness Additional comments: PEG tube noted to the epigastric region, currently clamped. - Extremities Exam Extremities exam: Absent: normal inspection (Contractures noted to the bilateral upper extremities. Right foot TMA site with scabbing noted. No surrounding erythema warmth, tenderness, or drainage noted.) - Neurological Exam Neurological exam: Present: altered (Spontaneous eye opening and movement noted, but the patient does not attempt to verbalize or communicate. She has no spontaneous movement of her extremities.) - Skin Skin exam: Present: dry, intact, normal color, warm - Additional findings Additional findings: Dialysis catheter noted to the right upper chest with transparent dressing C/D/I. No erythema, warmth, or drainage noted. Consult Discharge Plan - Plan Referrals: NONE,PCP [Primary Care Provider] - (PATIENT IS FROM [facility] NO PCP APPOINTMENT NEEDED) - Attending Attestation I examined this patient and my medical decision-making was reviewed with the Resident Physician. I agree with the documented findings, disposition and treatment plan as described except to the extent set forth below.
--- NOTE | 2018-07-31 10:48 | Nephrology Progress Note ---
Addendum entered and electronically signed by Bayron Nicole MD 07/31/18 21:40: I examined this patient and discussed the medical decision-making with MADY Ca. I agree with the documented findings, disposition and treatment plan as described except to the extent set forth below. Original Note: Date of Encounter: 07/31/18 Time of Encounter: 10:48 - Assessment and Plan (1) ESRD (end stage renal disease) on dialysis Current Visit: Yes Status: Acute HD ordered for today. Lytes stable Still waiting for family to make final decision. If they opt to pursue treatment, ID does suggest transfer to tertiary care center. (2) Anemia in chronic kidney disease (CKD) Current Visit: Yes Status: Chronic Hgb remains low but stable at 7.7 Goal is 10-11 Qualifiers: Chronic kidney disease stage: on chronic dialysis Qualified Code(s): N18.6 - End stage renal disease; D63.1 - Anemia in chronic kidney disease; Z99.2 - Dependence on renal dialysis (3) CLABSI (central line-associated bloodstream infection) Current Visit: Yes Status: Resolved Per ID, appreciate recommendations. Qualifiers: Encounter type: initial encounter Qualified Code(s): T80.211A - Bloodstream infection due to central venous catheter, initial encounter (4) Pneumonia Current Visit: Yes Status: Acute Abx per ID Qualifiers: Pneumonia type: due to other aerobic Gram-negative bacteria Laterality: bilateral Lung location: lower lobe of lung Qualified Code(s): J15.6 - Pneumonia due to other Gram-negative bacteria (5) Wound of sacral region Current Visit: Yes Status: Acute Per wound care. Qualifiers: Qualified Code(s): S31.000A - Unspecified open wound of lower back and pelvis without penetration into retroperitoneum, initial encounter Subjective Principal diagnosis: leukocytosis Interval history: Pt seen and examined at bedside. No acute events overnight. Remains febrile. Palliative on board to discuss goals of care with family. ROS unobtainable due to anoxic brain injury. Objective - Vital Signs Vital signs: Vital Signs Temp Pulse Resp BP Pulse Ox 07/31/18 08:23 100.0 F H 99 23 115/88 100 07/31/18 04:21 21 107/62 99 07/31/18 00:18 99.1 F 102 16 107/62 100 07/31/18 00:06 19 100/51 99 07/30/18 20:52 100 F H 110 16 100/51 100 07/30/18 20:43 24 100/51 93 07/30/18 16:12 25 99 07/30/18 15:39 100.4 F H 117 25 89/62 99 07/30/18 13:34 99.8 F H 18 103/68 07/30/18 13:15 106/88 07/30/18 13:00 99/58 07/30/18 12:45 92/57 07/30/18 12:30 94/55 07/30/18 12:15 106/68 07/30/18 12:00 96/59 07/30/18 11:45 98/64 07/30/18 11:30 110/64 07/30/18 11:15 95/61 07/30/18 11:00 101/61 Intake and Output 07/30/18 07/31/18 07/31/18 23:59 07:59 15:59 Intake Total 250 / 250 874 / 874 0 / 0 Balance 250 / 250 874 / 874 0 / 0 Intake: IV Fluids 100 / 100 100 / 100 Flagyl Premix 500 MG/100 ML 500 100 / 100 100 / 100 mg In 100 ml @ 100 mls/hr IVPB Q8H [facility] Rx#:[id number] Oral 0 / 0 Tube Feeding 474 / 474 Free Water 300 / 300 Free Water Intake Amount 150 / 150 Other: Meal NPO/TUBE FEED Percent of Meal Consumed 0% Stool Size Small Smear Stool Consistency liquid liquid Stool Color Brown Brown # Bowel Movements 1 1 1 Blood Glucose* 283 212 - General Appearance General appearance: Present: cachectic, frail EENT: Present: ATNC Neck: Present: supple Respiratory: Present: clear, rhonchi Cardiology: Present: no edema, normal S1, normal S2 Dialysis Vascular Access: Venous Catheter (DRSG C/D/I) Gastrointestinal: Present: normoactive bowel sounds, no tenderness, no guarding Integumentary: Present: no rash, warm and dry Psychiatric: Present: mood/affect appropriate, cooperative - Lab 07/31/18 05:03 07/31/18 05:03 Most recent lab results Calcium 9.0 mg/dL (8.6-10.3) 07/31/18 05:03 Phosphorus 1.3 mg/dL (2.7-4.5) L 07/16/18 05:36 Magnesium 2.3 mg/dL (1.6-2.6) 07/16/18 05:36 Consult Discharge Plan - Plan Referrals: NONE,PCP [Primary Care Provider] - ([facility] NO PCP APPOINTMENT NEEDED)
--- NOTE | 2018-07-31 14:57 | OB/GYN Consult Note ---
Date of Encounter: 07/31/18 Time of Encounter: 14:54 Assessment and Plan (1) Chronic kidney disease-mineral and bone disorder Current Visit: No Status: Acute (2) Anoxic brain injury Current Visit: Yes Status: Chronic (3) Rectovaginal fistula Current Visit: Yes Status: Acute Rectovaginal fistula easily palpable. A large amount of stool and vagina. This would require colorectal surgeon to repair. Considering patient's current state I do not recommend any further follow-up or surgical repair of this. History of Present Illness Consult date: 07/31/18 Reason for consult: other (vaginal lesion/fistula) Chief complaint: stool in vagina History of present illness: 53 -year-old female known chronic maintenance care , who suffered a significant cardiac event ~ 4 months ago with subsequent anoxic brain injury, currently with a tracheostomy and PEG tube, currently has a significant sacral wound and, to control for contamination, has a rectal tube in place. Per reports the nurse reports stool coming from the patient's vagina. Nursing today states that there is continued stool. Unknown if there were any prior obsterical trauma/injury, any prior history of radiation, diverticulitis, or other causes to be an potential etiology for such a symptom. No reports of frequent UTIs, pneumaturia or any other complication of a rectovaginal fistula. Past Med Surg Social Fam HX - Past Medical History Medical history: diabetes, GERD, hyperlipidemia, renal disease, seizures, other Additional medical history: Anoxic brain injury. Anemia. Contracture Psychiatric history: other - Past Surgical History Surgical History: other (Toe amputation right foot, tracheostomy) - Social History Smoking Status: Smoker, status unknown Smokeless Tobacco Status: No (unknown) Alcohol use: none Drug use: unknown Medications and Allergies Atorvastatin Calcium [Lipitor] 40 mg GTUBE DAILY 07/14/18 [History] Baclofen 5 mg GTUBE TID 07/14/18 [History] Benzocaine [Orabase] 1 appl MM QID PRN 07/14/18 [History] Chlorhexidine Gluconate [Peridex] 1 appl MM QID PRN 07/14/18 [History] Docusate [Colace] 100 mg GTUBE DAILY 07/14/18 [History] Esomeprazole Magnesium [Nexium] 40 mg GTUBE BID 07/14/18 [History] Heparin 5,000 unit SQ Q8HR 07/14/18 [History] Mineral Oil/Petrolatum,White [Minerin Creme] 1 appl TP DAILY 07/14/18 [History] Nystatin [Nystatin Suspension] 500,000 units PO QID PRN 07/14/18 [History] Sennosides/Docusate Sodium [Senna-Docusate Sodium Tablet] 1 tab GTUBE DAILY PRN 07/14/18 [History] Vancomycin HCl 500 mg IV MOWEFR 07/14/18 [History] Vit B Comp C 19/Folic Acid/D3 [Nephronex-Sl Tablet] 1 tab GTUBE DAILY 07/14/18 [History] Amino Acids/Protein Hydrolys [Pro-Stat Awc Liquid Packet] 30 ml GTUBE TID 07/15/18 [History] Aspirin [Lo-Dose Aspirin EC] 81 mg GTUBE DAILY 07/15/18 [History] Cefepime HCl [Maxipime] 500 mg IV 2000 07/15/18 [History] Insulin Glargine [Lantus] 40 unit SQ DAILY 07/15/18 [History] Insulin Human Regular [HumuLIN R] 0 - 12 unit SQ QID 07/15/18 [History] Ipratropium/Albuterol Neb [Duoneb] 3 ml IH Q6HR PRN 07/15/18 [History] LevETIRAcetam [Keppra] 500 mg GTUBE DAILY 07/15/18 [History] Polyvinyl Alcohol [Artificial Tears] 1 drop BOTH EYES QID PRN 07/15/18 [History] Allergy/AdvReac Type Severity Reaction Status Date / Time No Known Allergies Allergy Verified 07/14/18 17:44 Review of Systems ROS unobtainable: other (Patient unresponsive state) Exam - Vital Signs Vital signs: Initial Vital Signs Temp Pulse Resp BP Pulse Ox 98.7 F 103 18 123/66 100 07/14/18 23:20 07/14/18 23:20 07/14/18 23:20 07/14/18 23:20 07/14/18 23:20 - Vulva Vulva: bilateral: normal - Comments Comments: On pelvic examination, vulva appears normal. In spreading the labia minora moderate amount of very soft stool noted vaginally. Approximately 1-2 inches into vagina is a rectovaginal fistula approximately 1-2 cm in size. No other lesions were palpable or or able to be visualized. Results Result Diagrams: 07/31/18 05:03 07/31/18 05:03 Abnormal lab results WBC 24.0 K/mcL (4.3-11.1) H 07/31/18 05:03 RBC 2.93 M/mcL (3.82-4.97) L 07/31/18 05:03 Hgb 7.7 g/dL (11.5-15.4) L 07/31/18 05:03 Hct 24.8 % (35.3-44.9) L 07/31/18 05:03 MCH 26.3 pg (28.0-33.3) L 07/31/18 05:03 MCHC 31.0 g/dL (31.6-35.5) L 07/31/18 05:03 RDW 16.1 % (11.5-14.5) H 07/31/18 05:03 Plt Count 498 K/mcL (140-400) H 07/31/18 05:03 MPV 8.9 fL (9.4-12.4) L 07/31/18 05:03 Immature Gran % 7.9 % (0-4) H 07/29/18 03:30 Neutrophils # 19.7 K/mcL (1.6-8.9) H 07/31/18 05:03 Monocytes # 2.4 K/mcL (0.0-1.3) H 07/31/18 05:03 Nucleated RBCs/100 WBC 0.1 /100 WBC (0) H 07/31/18 05:03 Smudge Cells Present (Not Present) A 07/30/18 02:53 Platelet Estimate Slight increase (Normal) H 07/31/18 05:03 Polychromasia 1+ (Not Present) A 07/31/18 05:03 Anisocytosis 1+ (Not Present) A 07/31/18 05:03 ESR >= 130 mm/hr (0-15) H 07/21/18 12:24 Sodium 130 mEq/L (136-145) L 07/31/18 05:03 Chloride 94 mEq/L (98-107) L 07/31/18 05:03 BUN 54 mg/dL (6-20) H 07/31/18 05:03 Creatinine 3.71 mg/dL (0.60-1.20) H 07/31/18 05:03 Est GFR ( Amer) 15 (> 60) L 07/31/18 05:03 Est GFR (Non-Af Amer) 13 (> 60) L 07/31/18 05:03 Glucose 235 mg/dL (70-105) H 07/31/18 05:03 POC Glucose 213 mg/dL (70-99) H 07/31/18 05:44 Phosphorus 1.3 mg/dL (2.7-4.5) L 07/16/18 05:36 Alkaline Phosphatase 139 Units/L (34-104) H 07/21/18 12:24 C-Reactive Protein 218 mg/L (Less than 10) H 07/21/18 12:24 Albumin 2.9 g/dL (3.5-5.7) L 07/21/18 12:24 Globulin 4.5 g/dL (2.4-3.5) H 07/21/18 12:24 Albumin/Globulin Ratio 0.6 (1.1-2.2) L 07/21/18 12:24 Triglycerides 163 mg/dL (< 150) H 07/14/18 23:41 VLDL Cholesterol, Calc 33 mg/dL (< 31) H 07/14/18 23:41 HDL Cholesterol 25 mg/dL (40-59) L 07/14/18 23:41 Nasal Screen MRSA (PCR) Positive (Negative) A 07/15/18 17:15 All other labs normal. Consult Discharge Plan - Plan Referrals: NONE,PCP [Primary Care Provider] - ([facility] NO [facility]CP [facility]POINTMENT NEEDED)
--- NOTE | 2018-07-31 15:12 | Palliative Progress Note ---
Date of Encounter: 07/31/18 Time of Encounter: 15:08 - Assessment and plan (1) Goals of care, counseling/discussion Current Visit: Yes Status: Acute Assessment and plan: No family came in today. Ettemted to reach pt's brother michelle Ngo (alternate MPOA) ([phone]), unable to reach. Message left on voicemail. Called and reached Francheska ([facility] [place] Updated on pt's clinical condition and on further conversations. She stated she discussed with her family, and decision was mde to come in on Saturday for a final decision. Family will be present here Saturday at 12 pm. (2) ESRD (end stage renal disease) on dialysis Current Visit: Yes Status: Acute Assessment and plan: Nephrology following (3) Anoxic brain injury Current Visit: Yes Status: Chronic Assessment and plan: Pt is opening eyes, but not interacting with surroundings or following commands. Trach to vent and PEG in place. (4) Sepsis Current Visit: Yes Status: Acute Assessment and plan: Pt contines to have low grade fever and leukocytosis, despite antibiotics. ID recommending further work up, pending family decision on GOC. Source of infection considered permacath and pneumonia. Permacath have been exchanged by IR. Infectious disease is following . On Vanco, levaquin, and Colistin. Qualifiers: Sepsis type: sepsis due to unspecified organism Qualified Code(s): A41.9 - Sepsis, unspecified organism (5) Pain Current Visit: Yes Status: Acute Assessment and plan: Patient has several pressure wounds, and as such may be experiencing pain even if she is unable to show signs of distress. Roxanol 5 mg q4hrs prn for pain, Encouraged nurse to administer at least 15 minutes before care. (6) Rectovaginal fistula Current Visit: Yes Status: Acute Assessment and plan: Surgery and FLOOR INSPECTOR appreciated, recommend to hold further work up and intervention until family final decision on Saturday. - Time Spent With Patient Total time spent is greater than 50% in coordination of care (as documented) at patient's floor/unit and/or counseling patient: - Subjective Interval history: Patient mental status remains unchanged. Pt continues to run fevers and WBC count remains high. Surgery was called for suspected rectovaginal fistula, they recommend FLOOR INSPECTOR consult. - Constitutional Vitals: Abnormal lab results WBC 24.0 K/mcL (4.3-11.1) H 07/31/18 05:03 RBC 2.93 M/mcL (3.82-4.97) L 07/31/18 05:03 Hgb 7.7 g/dL (11.5-15.4) L 07/31/18 05:03 Hct 24.8 % (35.3-44.9) L 07/31/18 05:03 MCH 26.3 pg (28.0-33.3) L 07/31/18 05:03 MCHC 31.0 g/dL (31.6-35.5) L 07/31/18 05:03 RDW 16.1 % (11.5-14.5) H 07/31/18 05:03 Plt Count 498 K/mcL (140-400) H 07/31/18 05:03 MPV 8.9 fL (9.4-12.4) L 07/31/18 05:03 Immature Gran % 7.9 % (0-4) H 07/29/18 03:30 Neutrophils # 19.7 K/mcL (1.6-8.9) H 07/31/18 05:03 Monocytes # 2.4 K/mcL (0.0-1.3) H 07/31/18 05:03 Nucleated RBCs/100 WBC 0.1 /100 WBC (0) H 07/31/18 05:03 Smudge Cells Present (Not Present) A 07/30/18 02:53 Platelet Estimate Slight increase (Normal) H 07/31/18 05:03 Polychromasia 1+ (Not Present) A 07/31/18 05:03 Anisocytosis 1+ (Not Present) A 07/31/18 05:03 ESR >= 130 mm/hr (0-15) H 07/21/18 12:24 Sodium 130 mEq/L (136-145) L 07/31/18 05:03 Chloride 94 mEq/L (98-107) L 07/31/18 05:03 BUN 54 mg/dL (6-20) H 07/31/18 05:03 Creatinine 3.71 mg/dL (0.60-1.20) H 07/31/18 05:03 Est GFR ( Amer) 15 (> 60) L 07/31/18 05:03 Est GFR (Non-Af Amer) 13 (> 60) L 07/31/18 05:03 Glucose 235 mg/dL (70-105) H 07/31/18 05:03 POC Glucose 213 mg/dL (70-99) H 07/31/18 05:44 Phosphorus 1.3 mg/dL (2.7-4.5) L 07/16/18 05:36 Alkaline Phosphatase 139 Units/L (34-104) H 07/21/18 12:24 C-Reactive Protein 218 mg/L (Less than 10) H 07/21/18 12:24 Albumin 2.9 g/dL (3.5-5.7) L 07/21/18 12:24 Globulin 4.5 g/dL (2.4-3.5) H 07/21/18 12:24 Albumin/Globulin Ratio 0.6 (1.1-2.2) L 07/21/18 12:24 Triglycerides 163 mg/dL (< 150) H 07/14/18 23:41 VLDL Cholesterol, Calc 33 mg/dL (< 31) H 07/14/18 23:41 HDL Cholesterol 25 mg/dL (40-59) L 07/14/18 23:41 Nasal Screen MRSA (PCR) Positive (Negative) A 07/15/18 17:15 Exam: General: opens eyes, in no acute distress. Not oriented, non-verbal Chest: Right perma-cath Neck: Trached to vent Cardiovascular:Normal S1 & S2, No JVD. Borderline tachycardia Lungs: diminished breath sounds bilaterally, coarse breath sound b/l Abdomen:Soft, non-tender, no rigidity. Extremities: Both UE contracted. R chest HD catheter and R UE midline noted. Neuro: Nonverbal, opening eyes, not tracking or following commands. Palliative Quality Palliative Quality: Screen for Code Status: Yes, Screen for Goals of Care: Yes, Screen for Pain: Yes, If Pain Regimen Started, Initiate Bowel Regimen: NA (pt has diarrhea), Screen for Nausea/Vomitting: Yes Code Status: 07/15/18 12:06 Resuscitation Status: Active [RES] Routine Comment: Resuscitation Status: DNR-Comfort Care-Arrest - Labs CBC & Chem 7: 07/31/18 05:03 07/31/18 05:03 Labs: Laboratory Results - last 24 hr 07/30/18 07/30/18 07/31/18 11:23 17:36 00:29 WBC RBC Hgb Hct MCV MCH MCHC RDW Plt Count MPV Seg Neutrophils % Band Neutrophils % Lymphocytes % Monocytes % Neutrophils # Lymphocytes # Monocytes # Nucleated RBCs/100 WBC Platelet Estimate Polychromasia Anisocytosis Sodium Potassium Chloride Carbon Dioxide BUN Creatinine Est GFR ( Amer) Est GFR (Non-Af Amer) BUN/Creatinine Ratio Glucose POC Glucose 120 H 283 H 263 H Calculated Osmolality Calcium 07/31/18 07/31/18 07/31/18 05:03 05:03 05:44 WBC 24.0 H RBC 2.93 L Hgb 7.7 L Hct 24.8 L MCV 84.6 MCH 26.3 L MCHC 31.0 L RDW 16.1 H Plt Count 498 H MPV 8.9 L Seg Neutrophils % 78.0 Band Neutrophils % 4.0 Lymphocytes % 8.0 Monocytes % 10.0 Neutrophils # 19.7 H Lymphocytes # 1.9 Monocytes # 2.4 H Nucleated RBCs/100 WBC 0.1 H Platelet Estimate Slight increase H Polychromasia 1+ A Anisocytosis 1+ A Sodium 130 L Potassium 3.7 Chloride 94 L Carbon Dioxide 24 BUN 54 H Creatinine 3.71 H Est GFR ( Amer) 15 L Est GFR (Non-Af Amer) 13 L BUN/Creatinine Ratio 15 Glucose 235 H POC Glucose 213 H Calculated Osmolality 292 Calcium 9.0 - ABG Interpretation ABG results: PT/INR, D-dimer PT 12.0 Seconds (9.4-12.1) 07/16/18 05:36 Palliative Scale - Palliative Performance Scale How ambulatory is this patient?: Totally bed bound What is patient's level of activity and evidence of disease?: Unable to do any activity, Extensive disease How much self-care assistance does patient require?: Total care Palliative Performance Score: 20 % Consult Discharge Plan - Plan Referrals: NONE,PCP [Primary Care Provider] - (PATIENT IS FROM [facility] NO PCP APPOINTMENT NEEDED)
--- NOTE | 2018-07-31 15:28 | Internal Med Progress Note ---
Hospitalist Progress Note - Encounter Date of Encounter: 07/31/18 Time of Encounter: 09:00 - Subjective Interval History: Patient is still nonverbal, open eyes spontanously but not follow command. on ventilator. Still have low-grade fever overnight. - Exam Vitals: Temp Pulse Resp BP Pulse Ox 100.7 F H 100 23 125/74 100 07/31/18 11:49 07/31/18 11:49 07/31/18 11:49 07/31/18 11:49 07/31/18 11:49 Exam: General: Alert, breathing spontaneously or on ventilator. Not oriented, non- verbal Chest: Right perma-cath Neck: Trached with mucopurulent discharge in the tubes Cardiovascular:Normal S1 & S2, No JVD. Borderline tachycardia Lungs: diminished breath sounds bilaterally, coarse breath sound b/l Abdomen:Soft, non-tender, no rigidity. Extremities: Both UE contracted. R chest HD catheter and R UE midline noted. Groin: not assessed Neuro: Nonverbal - Assessment and Plan (1) ESRD (end stage renal disease) Current Visit: Yes Status: Chronic Assessment and Plan: nephrology consulted for HD, continue care per recommendation (2) Sepsis Current Visit: Yes Status: Acute Assessment and Plan: Presented from halfway with worsening leukocytosis despite being on vanc/ceftin Source of infection considered permacath and pneumonia. Permacath have been exchanged by IR. Infectious disease is following and input appreciated. On Vanco, flagyl, and Colistin per ID recommendation. Persist fever and leukocytosis despite abx. Right foot CT unremarkable. WBC tagging NM test done, unconclusive for clear infectious site. Prognosis guarded. Palliative care consult appreciated. (3) Anemia in chronic kidney disease (CKD) Current Visit: Yes Status: Chronic Assessment and Plan: Chronic and stable. Closely monitor H/H. Per nephro, 1 unit of PRBC transfused. Hgb 7.7 today. Transfusion as needed (4) CLABSI (central line-associated bloodstream infection) Current Visit: Yes Status: Resolved Assessment and Plan: discussed above under sepsis. (5) Pneumonia Current Visit: Yes Status: Acute Assessment and Plan: discussed above under sepsis. Sputum culture shows Acinetobacter. (6) Diabetes mellitus type 2 in obese Current Visit: Yes Status: Chronic Assessment and Plan: Continue basal and sliding scale insulin (7) Anoxic brain injury Current Visit: Yes Status: Chronic Assessment and Plan: Cont trach management and ventilation. Cont tube feeding. (8) Chronic respiratory failure Current Visit: Yes Status: Chronic Assessment and Plan: Patient with chronic respiratory failure, vent dependent. Trach, vent management per respiratory (9) Wound of sacral region Current Visit: Yes Status: Acute Assessment and Plan: as above (10) Decubitus skin ulcer Current Visit: Yes Status: Acute Assessment and Plan: Continue wound care per instruction from wound care consult (11) Goals of care, counseling/discussion Current Visit: Yes Status: Acute Assessment and Plan: Palliative care consult on case, had family meeting, will cont f/u the family decision, cont current treatment. 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 Surgical consult and LAB PACK CHEMIST consult appreciated. We will follow recommendations DVT Prophylaxis: EPCDs - Time Spent with Patient Total time spent is greater than 50% in coordination of care (as documented) at patient's floor/unit and/or counseling patient: 40 minutes Greater than 35 minutes Plan of Care Discussed with: nurse Internal Medicine: Result - Labs CBC & Chem 7: 07/31/18 05:03 07/31/18 05:03 Labs: Short CBC 07/31/18 Range/Units 05:03 WBC 24.0 H (4.3-11.1) K/mcL Hgb 7.7 L (11.5-15.4) g/dL Hct 24.8 L (35.3-44.9) % Plt Count 498 H (140-400) K/mcL Neutrophils # 19.7 H (1.6-8.9) K/mcL BMP 07/31/18 05:03 Sodium 130 L Potassium 3.7 Chloride 94 L Carbon Dioxide 24 BUN 54 H Creatinine 3.71 H Glucose 235 H Calcium 9.0 - ABG Interpretation ABG results: PT/INR, D-dimer PT 12.0 Seconds (9.4-12.1) 07/16/18 05:36 Consult Discharge Plan - Plan Referrals: NONE,PCP [Primary Care Provider] - (PATIENT IS FROM [facility] NO PCP APPOINTMENT NEEDED) (2) Sepsis Qualifiers: Sepsis type: sepsis due to unspecified organism Qualified Code(s): A41.9 - Sepsis, unspecified organism (3) Anemia in chronic kidney disease (CKD) Qualifiers: Chronic kidney disease stage: on chronic dialysis Qualified Code(s): N18.6 - End stage renal disease; D63.1 - Anemia in chronic kidney disease; Z99.2 - Dependence on renal dialysis (4) CLABSI (central line-associated bloodstream infection) Qualifiers: Encounter type: initial encounter Qualified Code(s): T80.211A - Bloodstream infection due to central venous catheter, initial encounter (5) Pneumonia Qualifiers: Pneumonia type: due to other aerobic Gram-negative bacteria Laterality: bilateral Lung location: lower lobe of lung Qualified Code(s): J15.6 - Pneumonia due to other Gram-negative bacteria (8) Chronic respiratory failure Qualifiers: Respiratory failure complication: hypoxia Qualified Code(s): J96.11 - Chronic respiratory failure with hypoxia (9) Wound of sacral region Qualifiers: Qualified Code(s): S31.000A - Unspecified open wound of lower back and pelvis without penetration into retroperitoneum, initial encounter (10) Decubitus skin ulcer Qualifiers: Pressure injury location: sacral region Pressure injury stage: unstageable Qualified Code(s): L89.150 - Pressure ulcer of sacral region, unstageable
--- NOTE | 2018-07-31 17:05 | Electrocardiograph Report ---
[address] [address] Test Date: 2018-07-25 Pat Name: Monica Ngo Department: 110 Room: 2N12 Gender: F Moose Hunter: FLASH : 1965 Requested By: Akanksha Gabriel Order Number: [id number] Reading MD: Shelli Nixon Measurements Intervals [place]ane Rate: 110 P: 88 LA: 127 QRS: 21 QRSD: 81 T: 73 QT: 341 QTc: 406 Interpretive Statements Technically poor tracing - please repeat ECG Sinus tachycardia Poor R wave progression Low voltage in limb leads Electronically Signed On 07-31-2018 17:04:33 EST by Shelli Nixon
--- NOTE | 2018-07-31 17:22 | General Surgery Progress Note ---
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 I doubt it is the source of her WBC; in either case, the family is still waiting to make a decision; if surgery were required, I'd recommend a colostomy; my recommendation, however, is against operative intervention as the patient's prognosis is poor and her tolerance for the surgery is highly doubtful no acute surgery awaiting family decision Subjective Patient reports: no new complaints, other (obvious fistula between anal canal and vagina) Objective Vital Signs - Last 8 Hours Temp Pulse Resp BP Pulse Ox 07/31/18 11:49 100.7 F H 100 23 125/74 100 07/31/18 11:32 23 115/88 100 Intake and Output 07/31/18 07/31/18 07/31/18 07:59 15:59 23:59 Intake Total 874 / 874 0 / 0 Balance 874 / 874 0 / 0 Intake: IV Fluids 100 / 100 Flagyl Premix 500 MG/100 ML 500 100 / 100 mg In 100 ml @ 100 mls/hr IVPB Q8H [facility] Rx#:[id number] Oral 0 / 0 Tube Feeding 474 / 474 Free Water 300 / 300 Other: Meal NPO/TUBE FEED Percent of Meal Consumed 0% Stool Size Smear Stool Consistency liquid Stool Color Brown # Bowel Movements 1 1 Blood Glucose* 212 194 - General physical appearance no distress - Respiratory other (trach in place; bilateral breath sounds) - Cardiovascular Cardiovascular exam: Present: RRR - Rectum other (anal-vaginal fistula) - Labs 07/31/18 05:03 07/31/18 05:03 Diabetes panel 07/31/18 Range/Units 05:03 Sodium 130 L (136-145) mEq/L Potassium 3.7 (3.5-5.1) mEq/L Chloride 94 L (98-107) mEq/L Carbon Dioxide 24 (23-29) mEq/L BUN 54 H (6-20) mg/dL Creatinine 3.71 H (0.60-1.20) mg/dL Glucose 235 H (70-105) mg/dL Calcium 9.0 (8.6-10.3) mg/dL Calcium panel 07/31/18 Range/Units 05:03 Calcium 9.0 (8.6-10.3) mg/dL Pituitary panel 07/31/18 Range/Units 05:03 Sodium 130 L (136-145) mEq/L Potassium 3.7 (3.5-5.1) mEq/L Chloride 94 L (98-107) mEq/L Carbon Dioxide 24 (23-29) mEq/L BUN 54 H (6-20) mg/dL Creatinine 3.71 H (0.60-1.20) mg/dL Glucose 235 H (70-105) mg/dL Calcium 9.0 (8.6-10.3) mg/dL Adrenal panel 07/31/18 Range/Units 05:03 Sodium 130 L (136-145) mEq/L Potassium 3.7 (3.5-5.1) mEq/L Chloride 94 L (98-107) mEq/L Carbon Dioxide 24 (23-29) mEq/L BUN 54 H (6-20) mg/dL Creatinine 3.71 H (0.60-1.20) mg/dL Glucose 235 H (70-105) mg/dL Calcium 9.0 (8.6-10.3) mg/dL Consult Discharge Plan - Plan Referrals: NONE,PCP [Primary Care Provider] - (PATIENT IS FROM [facility] NO PCP APPOINTMENT NEEDED)
[2018-07-31] MEDS: Insulin DETEMIR 100 UNIT/ML X5UNITS SQ SCH (21:22)
[2018-08-01] MEDS: Insulin LISPRO 300 UNITS/3 ML VIAL SQ SCH ×4 (00:30→18:39)
[2018-08-01 04:21] LABS: Basophils # 0.1 K/mcL (0.0-0.2); Basophils % 0.6 %; Eosinophils # 0.3 K/mcL (0.0-0.6); Eosinophils % 1.4 %; Hematocrit 25.4 % (35.3-44.9); Immature Granulocytes % 8.3 % (0-4); Lymphocytes # 1.3 K/mcL (0.6-4.6); Mean Corpuscular HGB Conc 31.5 g/dL (31.6-35.5); Mean Corpuscular Hemoglobin 26.2 pg (28.0-33.3); Mean Corpuscular Volume 83.3 fL (83.0-100.0); Mean Platelet Volume 8.9 fL (9.4-12.4); Monocytes # 1.5 K/mcL (0.0-1.3); Neutrophils # 16.4 K/mcL (1.6-8.9); Nucleated Red Blood Cells 0.1 /100 WBC (0); Platelet Count 502 K/mcL (140-400); Red Blood Count 3.05 M/mcL (3.82-4.97); Red Cell Distribution Width 16.2 % (11.5-14.5); Segmented Neutrophils % 76.7 %
[2018-08-01 04:40] LABS: Calcium 9.1 mg/dL (8.6-10.3); Potassium 3.7 mEq/L (3.5-5.1)
[2018-08-01] MEDS: MetroNIDAZOLE 500 MG/100 ML 500 MG/100 ML BAG IVPB SCH ×3 (05:16→23:38)
[2018-08-01] MEDS ORDERED: 0.9 % Sodium Chloride 250 ML IVC PRN (07:01)
[2018-08-01] MEDS ORDERED: *HR* Heparin 10,000 UNIT/10 ML VIAL IV PRN (07:13)
[2018-08-01] MEDS: levETIRAcetam 500 MG/5 ML UDC GTUBE SCH (09:00)
[2018-08-01] MEDS: *HR* Alteplase (Cathflo) 2 MG VIAL IVP ONE ×4 (09:20→11:42)
[2018-08-01] MEDS: Colistin (Colistimethate) 100 MG in 0.9 % Sodium Chloride 50 ML IVPB SCH (10:00)
--- NOTE | 2018-08-01 10:05 | Nephrology Progress Note ---
Date of Encounter: 08/01/18 Time of Encounter: 08:20 - Assessment and Plan (1) ESRD (end stage renal disease) on dialysis Current Visit: Yes Status: Acute ESRD on HD MWF, and is a pt of the former [facility] (who no longer rounds at [facility]). She has had hypotension, which has limited her HD thus far this week, and I reviewed the sign-out from my colleague Dr. Nicole, plus I reviewed labs, vitals, med lists, and prior progress notes and imaging. If she develops intradialytic hypotension again, which she is high risk for, I would tentatively plan to give Albumin 25gm during dialysis. However, when I checked on in the inpatient dialysis unit, her Permacath was not working. I suspect the limited dialysis that she has had this week may have let to fibrin build-up, and despite heparin bolus as standard of care for dialysis pt's with Permacaths, it still did not work. So, I will have to attempt Cathflo of 2mg in each port for at least 30 min. She has been poorly tolerating HD, and the above is another example, in addition to her other comorbidities (anoxic brain injury and wounds and etc): she has a poor prognosis. I appreciate the work of the Palliative Care team. She is not a good care home dialysis candidate d/t her poorly tolerating HD. Next HD is planned for Saturday. I will be available this weekend if needed. Please feel free to call or page me with any questions. Thank you. (2) Anemia in chronic kidney disease (CKD) Current Visit: Yes Status: Chronic Suspect multifactorial anemia, but her renal failure/CKD is likely a contributed for anemia of CKD. Goal Hgb is 10-11 in CKD and EPO was started earlier in this admission. She is not yet to target, but know that she has inc'd inflammation/infection burden, this will limit the effectiveness of EPO. Continue same dosing of EPO thrice weekly with HD. Qualifiers: Chronic kidney disease stage: on chronic dialysis Qualified Code(s): N18.6 - End stage renal disease; D63.1 - Anemia in chronic kidney disease; Z99.2 - Dependence on renal dialysis (3) CLABSI (central line-associated bloodstream infection) Current Visit: Yes Status: Resolved Per ID, appreciate recommendations. Qualifiers: Encounter type: initial encounter Qualified Code(s): T80.211A - Bloodstream infection due to central venous catheter, initial encounter (4) Pneumonia Current Visit: Yes Status: Acute Abx per ID Qualifiers: Pneumonia type: due to other aerobic Gram-negative bacteria Laterality: bilateral Lung location: lower lobe of lung Qualified Code(s): J15.6 - Pneumonia due to other Gram-negative bacteria (5) Wound of sacral region Current Visit: Yes Status: Acute Per wound care. Qualifiers: Qualified Code(s): S31.000A - Unspecified open wound of lower back and pelvis without penetration into retroperitoneum, initial encounter Subjective Principal diagnosis: leukocytosis Interval history: Pt was seen/examined. Her floor RN was present and updated me. The pt was unable to communicate and so this limits the subjective portion of the note. No family present. Objective - Vital Signs Vital signs: Vital Signs Temp Pulse Resp BP Pulse Ox 08/01/18 07:18 98.4 F 92 18 126/67 99 08/01/18 07:12 18 97 08/01/18 04:55 22 100 08/01/18 04:02 98.4 F 96 18 124/64 99 08/01/18 00:12 19 108/61 100 07/31/18 23:53 98.6 F 102 16 108/61 100 07/31/18 21:06 98.6 F 98 22 123/80 98 07/31/18 20:47 18 110/65 98 07/31/18 17:26 98.5 F 98 22 110/65 100 07/31/18 17:00 97 18 100 07/31/18 15:00 97 18 100 07/31/18 13:00 100 20 100 07/31/18 11:49 100.7 F H 100 23 125/74 100 07/31/18 11:32 23 115/88 100 07/31/18 11:00 88 20 100 Intake and Output 07/31/18 08/01/18 08/01/18 23:59 07:59 15:59 Intake Total 200 / 200 537 / 537 0 / 0 Balance 200 / 200 537 / 537 0 / 0 Intake: IV Fluids 200 / 200 Flagyl Premix 500 MG/100 ML 500 200 / 200 mg In 100 ml @ 100 mls/hr IVPB Q8H [facility] Rx#:[id number] Oral 0 / 0 0 / 0 Tube Feeding 237 / 237 Free Water Intake Amount 300 / 300 Other: Meal NPO/TUBE FEED NPO/TUBE FEED Percent of Meal Consumed 0% 0% Stool Size Moderate Large Stool Consistency liquid liquid Stool Color Brown Brown Yellow Yellow # Bowel Movements 1 # Bowel Movement Diapers 1 1 Blood Glucose* 260 245 - General Appearance General appearance: Present: chronically ill, fatigue, frail EENT: Present: mucous membranes moist Neck: Present: supple Respiratory: Present: course breath sounds, rhonchi Cardiology: Present: normal S1, normal S2 Dialysis Vascular Access: Venous Catheter (Right sided tunneled HD catheter with exitsite dressing C/D/I.) Gastrointestinal: Present: normoactive bowel sounds, no tenderness, no guarding Additional Comments: not responsive to verbal commands, drooling and awake but not interactive or alert, which limits my neuro exam. - Lab 08/01/18 03:28 08/01/18 03:28 Most recent lab results Calcium 9.1 mg/dL (8.6-10.3) 08/01/18 03:28 Phosphorus 1.3 mg/dL (2.7-4.5) L 07/16/18 05:36 Magnesium 2.3 mg/dL (1.6-2.6) 07/16/18 05:36 Consult Discharge Plan - Plan Referrals: NONE,PCP [Primary Care Provider] - (PATIENT IS FROM [facility] NO PCP APPOINTMENT NEEDED)
--- NOTE | 2018-08-01 12:52 | Infectious Disease Progress No ---
Date of Encounter: 08/01/18 Time of Encounter: 11:55 - Assessment and Plan (1) Sepsis Current Visit: Yes Status: Acute Patient had severe sepsis criteria including tachycardia, tachypnea, leukocytosis and lactic acidosis. Likely secondary to central line associated bloodstream infection and possible pneumonia. Etiology of persistent leukocytosis and fevers remains unclear. Consider non-infectious etiologies: central vs. drug-induced vs. other. Improved initially, but started having fevers again. Tmax overnight with 100.7 and tachycardia. WBC continues to stay elevated. HD catheter blood culture drawn 07/13/18 11 set was positive for E. cloacae. Repeat peripheral blood cultures drawn 07/14 are negative x 4 sets. Additional blood culture drawn 07/15/18 x 1 set from the HD catheter is negative. Repeat peripheral blood cultures drawn 07/17/18 x 2 sets are negative. Additional blood culture drawn from the Perma-cath 07/17/18 x 1 set is negative. ESR elevated at >130. CRP 218. Etiology unclear. Patient had TMA to the right foot in March, but clinically it does not appear infected. CT of the foot negative for infectious etiology. Amylase, lipase, LFTs normal. CT chest showed left basilar PNA vs. aspiration. CT abdomen and pelvis showed findings consistent with diarrheal illness and thickening of the bladder wall, but no other acute findings noted to explain leukocytosis and fevers. Peripheral smear is negative for toxic granules or Dohle bodies. RIP negative. Repeat CT of the head shows sinusitis and bilateral mastoid opacification. CT chest shows persistent PNA. CT abdomen/pelvis negative for acute finding. WBC scan showed some abnormality of the RUE, likely extravasation of contrast. Recommendations: Consider ENT to evaluate. Still waiting for family to make final decision. If they opt to pursue treatment, would recommend transfer to a tertiary care center for further workup to see if they can identify the source of the patient's fevers. Continue droplet/contact precautions. Continue flagyl 500mg IV TID. (day 3) Continue Colistin. Will ask pharmacy to assist with dosing for the patient's HD status. (day 15) Continue Vancomycin IV. Pharmacy to dose. Goal trough ~15. (day 16) Palliative care consulted. Family still making decision. Duration of treatment depends on the clinical picture. Monitor drug levels and dose-adjust antibiotics. Overall prognosis very poor. Qualifiers: Sepsis type: sepsis due to unspecified organism Qualified Code(s): A41.9 - Sepsis, unspecified organism (2) CLABSI (central line-associated bloodstream infection) Current Visit: Yes Status: Resolved Causative organism: E. cloacae. Source vs. seeding of the line. HD catheter blood culture drawn 07/13/18 x1 set was positive for E. cloacae. Repeat peripheral blood cultures drawn 07/14 are NGTD x 4 sets. Additional blood culture drawn 07/15/18 x 1 set from the HD catheter is NGTD. Status post [id number] exchange of the line 07/16/18 by IR. Catheter tip culture positive for E. cloacae. Repeat peripheral blood cultures drawn 07/17/18 x 2 sets are negative. Additional perma-cath blood culture drawn 07/17/18 x 1 set is negative. Completed course of IV Levaquin (14 days). Qualifiers: Encounter type: initial encounter Qualified Code(s): T80.211A - Bloodstream infection due to central venous catheter, initial encounter (3) Pneumonia Current Visit: Yes Status: Acute PNA vs. colonization. CXR 07/14/18 limited due to patient rotation and shallow inspiration, but mild nonspecific left basilar opacities with pneumonia not excluded. Aspiration is possible given the patient's altered mental status, but has been tolerating tube feeds with minimal residuals. Sputum culture positive for MDRO A. baumannii. MRSA screen positive. Anuric. Unable to check UATs. RIP negative. Repeat sputum culture A. baumannii. CT chest showed left basilar PNA vs. aspiration. Repeat CT shows redemonstration of what appears to be PNA. Concern for continued aspiration given the patient's anoxic brain injury. Concern that the patient is continuously aspirating due to JENNA. Currently on Colistin and Vancomycin and Flagyl. Qualifiers: Pneumonia type: due to other aerobic Gram-negative bacteria Laterality: bilateral Lung location: lower lobe of lung Qualified Code(s): J15.6 - Pneumonia due to other Gram-negative bacteria (4) Anoxic brain injury Current Visit: Yes Status: Chronic Secondary to cardiac arrest after right foot surgery in March 2018. (5) Chronic respiratory failure Current Visit: Yes Status: Chronic Secondary to anoxic brain injury. Chronic trach with ATC vent support. Qualifiers: Respiratory failure complication: hypoxia Qualified Code(s): J96.11 - C hronic respiratory failure with hypoxia (6) Diabetes mellitus type 2 in obese Current Visit: Yes Status: Chronic (7) ESRD (end stage renal disease) on dialysis Current Visit: Yes Status: Acute Nephrology consulted and following. (8) Wound of sacral region Current Visit: Yes Status: Acute Clinically does not appear infected. CT abdomen/pelvis does not show osteomyelitis or abscess. Wound care and offloading. Qualifiers: Qualified Code(s): S31.000A - Unspecified open wound of lower back and pelvis without penetration into retroperitoneum, initial encounter (9) Diarrhea Current Visit: Yes Status: Acute Likely secondary to tube feeds. GI panel and C. diff negative. Rectal tube removed due to RV fistula. Qualifiers: Diarrhea type: unspecified type Qualified Code(s): R19.7 - Diarrhea, unspecified (10) Status post transmetatarsal amputation of right foot Current Visit: Yes Status: Acute Status post TMA March 2018 secondary to right foot infection at [facility]. CT of the right foot negative for infection. (11) Rectovaginal fistula Current Visit: Yes Status: Acute Per PRIMARY SCHOOL TEACHER exam. General surgery consulted, but does not recommend surgical intervention at this time due to the patient's overall poor prognosis. - Subjective Interval history: Patient seen and examined in the HD unit. Overnight events noted. Patient was noted to have stool coming from her vagina. Rectal tube was discontinued. General surgery was consulted. RV fistula noted on exam per PARAFFIN MACHINE OPERATOR. Tmax 100.7 overnight. She has had tachycardia. She remains unresponsive due to her an anoxic brain injury. Review of systems unobtainable from the patient. She did undergo an over the guidewire exchange of her dialysis catheter 07/16/18. Per nursing, tolerating tube feeds well. No new issues per nursing. Palliative care consulted and family is still discussing plan of care. Infect Dis PN-Objective Data - Labs CBC & Chem 7: 08/01/18 03:28 08/01/18 03:28 Labs: Laboratory Results - last 24 hr 07/31/18 07/31/18 08/01/18 11:47 17:30 00:25 WBC RBC Hgb Hct MCV MCH MCHC RDW Plt Count MPV Immature Gran % Seg Neutrophils % Lymphocytes % Monocytes % Eosinophils % Basophils % Neutrophils # Lymphocytes # Monocytes # Eosinophils # Basophils # Nucleated RBCs/100 WBC Platelet Estimate Sodium Potassium Chloride Carbon Dioxide BUN Creatinine Est GFR ( Amer) Est GFR (Non-Af Amer) BUN/Creatinine Ratio Glucose POC Glucose 194 H 260 H 176 H Calculated Osmolality Calcium Random Vancomycin 08/01/18 08/01/18 08/01/18 03:28 03:28 03:28 WBC 21.4 H RBC 3.05 L Hgb 8.0 L Hct 25.4 L MCV 83.3 MCH 26.2 L MCHC 31.5 L RDW 16.2 H Plt Count 502 H MPV 8.9 L Immature Gran % 8.3 H Seg Neutrophils % 76.7 Lymphocytes % 6.0 Monocytes % 7.0 Eosinophils % 1.4 Basophils % 0.6 Neutrophils # 16.4 H Lymphocytes # 1.3 Monocytes # 1.5 H Eosinophils # 0.3 Basophils # 0.1 Nucleated RBCs/100 WBC 0.1 H Platelet Estimate Slight increase H Sodium 127 L Potassium 3.7 Chloride 92 L Carbon Dioxide 23 BUN 70 H Creatinine 4.52 H Est GFR ( Amer) 12 L Est GFR (Non-Af Amer) 10 L BUN/Creatinine Ratio 15 Glucose 242 H POC Glucose Calculated Osmolality 292 Calcium 9.1 Random Vancomycin 12 08/01/18 05:23 WBC RBC Hgb Hct MCV MCH MCHC RDW Plt Count MPV Immature Gran % Seg Neutrophils % Lymphocytes % Monocytes % Eosinophils % Basophils % Neutrophils # Lymphocytes # Monocytes # Eosinophils # Basophils # Nucleated RBCs/100 WBC Platelet Estimate Sodium Potassium Chloride Carbon Dioxide BUN Creatinine Est GFR ( Amer) Est GFR (Non-Af Amer) BUN/Creatinine Ratio Glucose POC Glucose 245 H Calculated Osmolality Calcium Random Vancomycin Cultures: Cultures 07/17/18 13:53 Blood Culture - Final Peripheral Venipuncture No growth. Final report. 07/17/18 13:53 Blood Culture - Final Peripheral Venipuncture No growth. Final report. 07/17/18 14:35 Blood Culture - Final Central Venous Catheter No growth. Final report. 07/17/18 20:45 Sputum Culture - Final Trachea Acinetobacter baumannii MDRO 07/15/18 11:41 Blood Culture - Final Central Venous Catheter No growth. Final report. 07/16/18 15:00 Catheter Tip Culture - Final Intravenous or Arterial Cath Enterobacter cloacae complex 07/14/18 23:41 Blood Culture - Final Peripheral Venipuncture No growth. Final report. 07/14/18 23:41 Blood Culture - Final Peripheral Venipuncture No growth. Final report. Serology 07/24/18 07/16/18 07/16/18 Range/Units 16:00 07:07 02:40 Nasal Screen MRSA (PCR) (Negative) Stl C. cayetanensis PCR Not detected (Not detect) Stool Rotavirus A PCR Not detected (Not detect) Stl Adenov F PCR Not detected (Not detect) Stool Astrovirus (PCR) Not detected (Not detect) Stool Campylobacter PCR Not detected (Not detect) Stool Cryptosporidium PCR Not detected (Not detect) Stl Sh Tox Pr E STEC PCR Not detected (Not detect) Stl Enterotoxigenic E PCR Not detected (Not detect) Stool EPEC (PCR) Not detected (Not detect) Stool EAEC (PCR) Not detected (Not detect) Stl E. histolytica PCR Not detected (Not detect) Stool Giardia Lamblia PCR Not detected (Not detect) Stool Salmonella PCR Not detected (Not detect) Stool Sapovirus (PCR) Not detected (Not detect) Stl P. shigelloides PCR Not detected (Not detect) Stl Shigella/EIEC PCR Not detected (Not detect) St Y.enterocolitica PCR Not detected (Not detect) Stool Vibrio (PCR) Not detected (Not detect) Stl Vibrio cholerae PCR Not detected (Not detect) Stl Norovirus GI/GII PCR Not detected (Not detect) Stl GI Panel (PCR) Com See below Chlamy pneumoniae PCR Not Detected (Not Detect) Adenovirus (PCR) Not Detected (Not Detect) B. pertussis DNA (PCR) Not Detected (Not Detect) B.parapertussis DNA PCR Not Detected (Not Detect) C.diff Toxin Gene (MARY) Not detected (Not detect) Coronavirus OC43 (PCR) Not Detected (Not Detect) Coronavirus HKU1 (PCR) Not Detected (Not Detect) Coronavirus 229E (PCR) Not Detected (Not Detect) Coronavirus NL63 (PCR) Not Detected (Not Detect) Hep Bs Antigen Nonreactive (Nonreactive) Hep Bs Antibody 38.07 (10.00 - ) mIU/mL Human Metapneumovir PCR Not Detected (Not Detect) Influenza A (H1) PCR Not Detected (Not Detect) Influ A (H1N1/09) PCR Not Detected (Not Detect) Influenza A (H3) PCR Not Detected (Not Detect) Influenza A Untype (PCR) Not Detected (Not Detect) Influenza Type B (PCR) Not Detected (Not Detect) M.pneumoniae DNA (PCR) Not Detected (Not Detect) Parainfluenza 1 (PCR) Not Detected (Not Detect) Parainfluenza 2 (PCR) Not Detected (Not Detect) Parainfluenza 3 (PCR) Not Detected (Not Detect) Parainfluenza 4 (PCR) Not Detected (Not Detect) RSV (PCR) Not Detected (Not Detect) Entero/Rhino (PCR) Not Detected (Not Detect) 07/15/18 Range/Units 17:15 Nasal Screen MRSA (PCR) Positive A (Negative) Stl C. cayetanensis PCR (Not detect) Stool Rotavirus A PCR (Not detect) Stl Adenov F 40/41 PCR (Not detect) Stool Astrovirus (PCR) (Not detect) Stool Campylobacter PCR (Not detect) Stool Cryptosporidium PCR (Not detect) Stl Sh Tox Pr E STEC PCR (Not detect) Stl Enterotoxigenic E PCR (Not detect) Stool EPEC (PCR) (Not detect) Stool EAEC (PCR) (Not detect) Stl E. histolytica PCR (Not detect) Stool Giardia Lamblia PCR (Not detect) Stool Salmonella PCR (Not detect) Stool Sapovirus (PCR) (Not detect) Stl P. shigelloides PCR (Not detect) Stl Shigella/EIEC PCR (Not detect) St Y.enterocolitica PCR (Not detect) Stool Vibrio (PCR) (Not detect) Stl Vibrio cholerae PCR (Not detect) Stl Norovirus GI/GII PCR (Not detect) Stl GI Panel (PCR) Com Chlamy pneumoniae PCR (Not Detect) Adenovirus (PCR) (Not Detect) B. pertussis DNA (PCR) (Not Detect) B.parapertussis DNA PCR (Not Detect) C.diff Toxin Gene (MARY) (Not detect) Coronavirus OC43 (PCR) (Not Detect) Coronavirus HKU1 (PCR) (Not Detect) Coronavirus 229E (PCR) (Not Detect) Coronavirus NL63 (PCR) (Not Detect) Hep Bs Antigen (Nonreactive) Hep Bs Antibody (10.00 - ) mIU/mL Human Metapneumovir PCR (Not Detect) Influenza A (H1) PCR (Not Detect) Influ A (H1N1/09) PCR (Not Detect) Influenza A (H3) PCR (Not Detect) Influenza A Untype (PCR) (Not Detect) Influenza Type B (PCR) (Not Detect) M.pneumoniae DNA (PCR) (Not Detect) Parainfluenza 1 (PCR) (Not Detect) Parainfluenza 2 (PCR) (Not Detect) Parainfluenza 3 (PCR) (Not Detect) Parainfluenza 4 (PCR) (Not Detect) RSV (PCR) (Not Detect) Entero/Rhino (PCR) (Not Detect) Exam - Constitutional Vitals: Temp Pulse Resp BP Pulse Ox 98.4 F 92 18 126/67 99 08/01/18 07:18 08/01/18 07:18 08/01/18 07:18 08/01/18 07:18 08/01/18 07:18 General appearance: average body habitus, no acute distress, no febrile - Head Head exam: Present: atraumatic, normal inspection, normocephalic - Eye Eye exam: Present: normal appearance (Eyes open spontaneously, but does not follow command or track around the room.) - ENT ENT exam: Present: mucous membranes moist Additional comments: Scabbed lesion noted to the right lower lip. - Neck Neck exam: Present: normal inspection Additional comments: Tracheostomy midline with O2 via the vent. - Respiratory Respiratory exam: Present: CTAB. Absent: rales, respiratory distress, rhonchi, wheezes - Cardiovascular Cardiovascular exam: Present: +S1, +S2, tachycardia. Absent: irregular rhythm - GI/Abdominal GI/Abdominal exam: Present: normal bowel sounds, soft. Absent: distended, tenderness Additional comments: PEG tube noted to the epigastric region, currently clamped. - Extremities Exam Extremities exam: Absent: normal inspection (Contractures noted to the BUE. Right foot TMA site without erythema, warmth, or tenderness.) - Neurological Exam Neurological exam: Present: altered (Spontaneous eye opening and movement noted. Does not follow commands or attempt to communicate. No movement of the extremities noted.) - Skin Skin exam: Present: dry, intact, normal color, warm Consult Discharge Plan - Plan Referrals: NONE,PCP [Primary Care Provider] - (PATIENT IS FROM [facility] NO PCP APPOINTMENT NEEDED) - Attending Attestation I examined this patient and my medical decision-making was reviewed with the Resident Physician. I agree with the documented findings, disposition and treatment plan as described except to the extent set forth below.
--- NOTE | 2018-08-01 13:10 | Internal Med Progress Note ---
Hospitalist Progress Note - Encounter Date of Encounter: 08/01/18 Time of Encounter: 09:00 - Subjective Interval History: Patient is still nonverbal, close eyes, not open on verbal stimulation. on ventilator. Still have low-grade fever yesterday but not today so far. - Exam Vitals: Temp Pulse Resp BP Pulse Ox 97.9 F 92 20 100/58 99 08/01/18 08:45 08/01/18 07:18 08/01/18 08:45 08/01/18 09:50 08/01/18 07:18 Exam: General: Alert, breathing spontaneously or on ventilator. Not oriented, non- verbal Chest: Right perma-cath Neck: Trached with mucopurulent discharge in the tubes Cardiovascular:Normal S1 & S2, No JVD. Borderline tachycardia Lungs: diminished breath sounds bilaterally, coarse breath sound b/l Abdomen:Soft, non-tender, no rigidity. Extremities: Both UE contracted. R chest HD catheter and R UE midline noted. Groin: not assessed Neuro: Nonverbal - Assessment and Plan (1) ESRD (end stage renal disease) Current Visit: Yes Status: Chronic Assessment and Plan: nephrology consulted for HD, continue care per recommendation (2) Sepsis Current Visit: Yes Status: Acute Assessment and Plan: Presented from skilled nursing with worsening leukocytosis despite being on vanc/ceftin Source of infection considered permacath and pneumonia. Permacath have been exchanged by IR. Infectious disease is following and input appreciated. On Vanco, flagyl, and Colistin per ID recommendation. Persist fever and leukocytosis despite abx. Right foot CT unremarkable. WBC tagging NM test done, unconclusive for clear infectious site. Prognosis guarded. Palliative care consult appreciated. (3) Anemia in chronic kidney disease (CKD) Current Visit: Yes Status: Chronic Assessment and Plan: Chronic and stable. Closely monitor H/H. Per nephro, 1 unit of PRBC transfused. Hgb 8.0 today. Transfusion as needed (4) CLABSI (central line-associated bloodstream infection) Current Visit: Yes Status: Resolved Assessment and Plan: discussed above under sepsis. (5) Pneumonia Current Visit: Yes Status: Acute Assessment and Plan: discussed above under sepsis. Sputum culture shows Acinetobacter. (6) Diabetes mellitus type 2 in obese Current Visit: Yes Status: Chronic Assessment and Plan: Continue basal and sliding scale insulin (7) Anoxic brain injury Current Visit: Yes Status: Chronic Assessment and Plan: Cont trach management and ventilation. Cont tube feeding. (8) Chronic respiratory failure Current Visit: Yes Status: Chronic Assessment and Plan: Patient with chronic respiratory failure, vent dependent. Trach, vent management per respiratory (9) Wound of sacral region Current Visit: Yes Status: Acute Assessment and Plan: as above (10) Decubitus skin ulcer Current Visit: Yes Status: Acute Assessment and Plan: Continue wound care per instruction from wound care consult (11) Goals of care, counseling/discussion Current Visit: Yes Status: Acute Assessment and Plan: Palliative care consult on case, had family meeting, will cont f/u the family decision, cont current treatment. 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 Surgical consult and PICKER PACKER consult appreciated. No immediate procedure at this point. DVT Prophylaxis: EPCDs - Time Spent with Patient Total time spent is greater than 50% in coordination of care (as documented) at patient's floor/unit and/or counseling patient: 40 min Greater than 35 minutes Plan of Care Discussed with: patient Internal Medicine: Result - Labs CBC & Chem 7: 08/01/18 03:28 08/01/18 03:28 Labs: Short CBC 08/01/18 Range/Units 03:28 WBC 21.4 H (4.3-11.1) K/mcL Hgb 8.0 L (11.5-15.4) g/dL Hct 25.4 L (35.3-44.9) % Plt Count 502 H (140-400) K/mcL Neutrophils # 16.4 H (1.6-8.9) K/mcL BMP 08/01/18 03:28 Sodium 127 L Potassium 3.7 Chloride 92 L Carbon Dioxide 23 BUN 70 H Creatinine 4.52 H Glucose 242 H Calcium 9.1 - ABG Interpretation ABG results: PT/INR, D-dimer PT 12.0 Seconds (9.4-12.1) 07/16/18 05:36 Consult Discharge Plan - Plan Referrals: NONE,PCP [Primary Care Provider] - (PATIENT IS FROM [facility] NO PCP APPOINTMENT NEEDED) ____ (2) Sepsis Qualifiers: Sepsis type: sepsis due to unspecified organism Qualified Code(s): A41.9 - Sepsis, unspecified organism (3) Anemia in chronic kidney disease (CKD) Qualifiers: Chronic kidney disease stage: on chronic dialysis Qualified Code(s): N18.6 - End stage renal disease; D63.1 - Anemia in chronic kidney disease; Z99.2 - Dependence on renal dialysis (4) CLABSI (central line-associated bloodstream infection) Qualifiers: Encounter type: initial encounter Qualified Code(s): T80.211A - Bloodstream infection due to central venous catheter, initial encounter (5) Pneumonia Qualifiers: Pneumonia type: due to other aerobic Gram-negative bacteria Laterality: bilateral Lung location: lower lobe of lung Qualified Code(s): J15.6 - Pneumonia due to other Gram-negative bacteria (8) Chronic respiratory failure Qualifiers: Respiratory failure complication: hypoxia Qualified Code(s): J96.11 - Chronic respiratory failure with hypoxia (9) Wound of sacral region Qualifiers: Qualified Code(s): S31.000A - Unspecified open wound of lower back and pelvis without penetration into retroperitoneum, initial encounter (10) Decubitus skin ulcer Qualifiers: Pressure injury location: sacral region Pressure injury stage: unstageable Qualified Code(s): L89.150 - Pressure ulcer of sacral region, unstageable
[2018-08-01] MEDS: Leptospermum Honey Gel 44 ML TUBE TP SCH (15:56)
[2018-08-01] MEDS: Nystatin Cream 15 GM TUBE TP SCH ×2 (15:56→20:32)
[2018-08-01] MEDS: Insulin DETEMIR 100 UNIT/ML X5UNITS SQ SCH (20:32)
[2018-08-02] MEDS: Insulin LISPRO 300 UNITS/3 ML VIAL SQ SCH ×4 (04:11→15:54)
[2018-08-02 05:44] LABS: Hematocrit 23.7 % (35.3-44.9); Hemoglobin 7.4 g/dL (11.5-15.4); Mean Corpuscular HGB Conc 31.2 g/dL (31.6-35.5); Mean Corpuscular Hemoglobin 26.4 pg (28.0-33.3); Mean Corpuscular Volume 84.6 fL (83.0-100.0); Mean Platelet Volume 8.9 fL (9.4-12.4); Nucleated Red Blood Cells 0.1 /100 WBC (0); Platelet Count 475 K/mcL (140-400); Red Cell Distribution Width 16.2 % (11.5-14.5)
[2018-08-02] MEDS: MetroNIDAZOLE 500 MG/100 ML 500 MG/100 ML BAG IVPB SCH (05:48)
[2018-08-02 06:08] LABS: Calcium 8.6 mg/dL (8.6-10.3); Potassium 3.5 mEq/L (3.5-5.1)
[2018-08-02 06:14] LABS: Lymphocytes # 1.2 K/mcL (0.6-4.6); Monocytes # 1.6 K/mcL (0.0-1.3); Neutrophils # 15.9 K/mcL (1.6-8.9); Platelet Estimate Increased (Normal); Polychromasia 1+ (Not Present)
[2018-08-02] MEDS: levETIRAcetam 500 MG/5 ML UDC GTUBE SCH (08:10)
[2018-08-02] MEDS: MORPHINE SUL Oral CONC 10 MG/0.5 ML ORAL.SYG GTUBE PRN ×2 (08:10→17:00)
[2018-08-02] MEDS: Colistin (Colistimethate) 100 MG in 0.9 % Sodium Chloride 50 ML IVPB SCH (08:11)
[2018-08-02] MEDS: Nystatin Cream 15 GM TUBE TP SCH ×2 (08:11→20:05)
[2018-08-02] MEDS: Leptospermum Honey Gel 44 ML TUBE TP SCH (08:11)
--- NOTE | 2018-08-02 12:19 | Internal Med Progress Note ---
Hospitalist Progress Note - Encounter Date of Encounter: 08/02/18 Time of Encounter: 09:00 - Subjective Interval History: Patient is still nonverbal, Open eyes spontanously, not follow commands. on ventilator. Still have low-grade fever overnight. - Exam Vitals: Temp Pulse Resp BP Pulse Ox 98.7 F 108 20 106/69 100 08/02/18 11:25 08/02/18 11:25 08/02/18 11:25 08/02/18 11:25 08/02/18 11:25 Exam: General: Alert, breathing spontaneously or on ventilator. Not oriented, non- verbal Chest: Right perma-cath Neck: Trached with mucopurulent discharge in the tubes Cardiovascular:Normal S1 & S2, No JVD. Borderline tachycardia Lungs: diminished breath sounds bilaterally, coarse breath sound b/l Abdomen:Soft, non-tender, no rigidity. Extremities: Both UE contracted. R chest HD catheter and R UE midline noted. Groin: not assessed Neuro: Nonverbal - Assessment and Plan (1) ESRD (end stage renal disease) Current Visit: Yes Status: Chronic Assessment and Plan: nephrology consulted for HD, continue care per recommendation (2) Sepsis Current Visit: Yes Status: Acute Assessment and Plan: Presented from [facility] with worsening leukocytosis despite being on vanc/ceftin Source of infection considered permacath and pneumonia. Permacath have been exchanged by IR. Infectious disease is following and input appreciated. On Vanco, flagyl, and Colistin per ID recommendation. Persist fever and leukocytosis despite abx. Right foot CT unremarkable. WBC tagging NM test done, unconclusive for clear infectious site. Prognosis guarded. Palliative care consult appreciated. (3) Anemia in chronic kidney disease (CKD) Current Visit: Yes Status: Chronic Assessment and Plan: hronic and stable. Closely monitor H/H. Per nephro, 1 unit of PRBC transfused. Hgb 7.4 today. Transfusion as needed (4) CLABSI (central line-associated bloodstream infection) Current Visit: Yes Status: Resolved Assessment and Plan: discussed above under sepsis. (5) Pneumonia Current Visit: Yes Status: Acute Assessment and Plan: discussed above under sepsis. Sputum culture shows Acinetobacter. (6) Diabetes mellitus type 2 in obese Current Visit: Yes Status: Chronic Assessment and Plan: Continue basal and sliding scale insulin (7) Anoxic brain injury Current Visit: Yes Status: Chronic Assessment and Plan: Cont trach management and ventilation. Cont tube feeding. (8) Chronic respiratory failure Current Visit: Yes Status: Chronic Assessment and Plan: Patient with chronic respiratory failure, vent dependent. Trach, vent management per respiratory (9) Wound of sacral region Current Visit: Yes Status: Acute Assessment and Plan: as above (10) Decubitus skin ulcer Current Visit: Yes Status: Acute Assessment and Plan: Continue wound care per instruction from wound care consult (11) Goals of care, counseling/discussion Current Visit: Yes Status: Acute Assessment and Plan: Palliative care consult on case, had family meeting, will cont f/u the family decision, cont current treatment. 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 Surgical consult and BANK REPRESENTATIVE consult appreciated. No immediate procedure at this point. DVT Prophylaxis: EPCDs - Time Spent with Patient Total time spent is greater than 50% in coordination of care (as documented) at patient's floor/unit and/or counseling patient: 40 minutes Greater than 35 minutes Plan of Care Discussed with: nurse Internal Medicine: Result - Labs CBC & Chem 7: 08/02/18 04:28 08/02/18 04:28 Labs: Short CBC 08/02/18 Range/Units 04:28 WBC 19.9 H (4.3-11.1) K/mcL Hgb 7.4 L (11.5-15.4) g/dL Hct 23.7 L (35.3-44.9) % Plt Count 475 H (140-400) K/mcL Neutrophils # 15.9 H (1.6-8.9) K/mcL BMP 08/02/18 04:28 Sodium 134 L Potassium 3.5 Chloride 99 Carbon Dioxide 25 BUN 34 H Creatinine 2.80 H Glucose 179 H Calcium 8.6 - ABG Interpretation ABG results: PT/INR, D-dimer PT 12.0 Seconds (9.4-12.1) 07/16/18 05:36 Consult Discharge Plan - Plan Referrals: NONE,PCP [Primary Care Provider] - (PATIENT IS FROM [facility] NO PCP APPOINTMENT NEEDED) (2) Sepsis Qualifiers: Sepsis type: sepsis due to unspecified organism Qualified Code(s): A41.9 - Sepsis, unspecified organism (3) Anemia in chronic kidney disease (CKD) Qualifiers: Chronic kidney disease stage: on chronic dialysis Qualified Code(s): N18.6 - End stage renal disease; D63.1 - Anemia in chronic kidney disease; Z99.2 - Dependence on renal dialysis (4) CLABSI (central line-associated bloodstream infection) Qualifiers: Encounter type: initial encounter Qualified Code(s): T80.211A - Bloodstream infection due to central venous catheter, initial encounter (5) Pneumonia Qualifiers: Pneumonia type: due to other aerobic Gram-negative bacteria Laterality: bilateral Lung location: lower lobe of lung Qualified Code(s): J15.6 - Pneumonia due to other Gram-negative bacteria (8) Chronic respiratory failure Qualifiers: Respiratory failure complication: hypoxia Qualified Code(s): J96.11 - Chronic respiratory failure with hypoxia (9) Wound of sacral region Qualifiers: Qualified Code(s): S31.000A - Unspecified open wound of lower back and pelvis without penetration into retroperitoneum, initial encounter (10) Decubitus skin ulcer Qualifiers: Pressure injury location: sacral region Pressure injury stage: unstageable Qualified Code(s): L89.150 - Pressure ulcer of sacral region, unstageable
--- NOTE | 2018-08-02 13:38 | Palliative Progress Note ---
Date of Encounter: 08/02/18 Time of Encounter: 13:36 - Assessment and plan (1) Goals of care, counseling/discussion Current Visit: Yes Status: Acute Assessment and plan: I conducted a 40 minutes family meeting today with more then 15 family members, of which Sisters Francheska and Ish, brothers Samson and Kyrie, Children Maged and Nicholas, cousins Doyle, Darius and barbie, adult grand children. Updated all on patient's clinical condition and prognosis, all questions answered. Family after discussion was unanimous that they did not want pt to suffer any longer. However, they were not ready for discontinuation of mechanical ventilation. Family agreeable for DNRCC, form signed. Plan is to discontinue dialysis, blood works, tube feeds and all medication not geared toward comfort, except mechanical ventilation. Family to return on Saturday for compassionate extubation. (2) ESRD (end stage renal disease) on dialysis Current Visit: Yes Status: Acute Assessment and plan: will discontinue HD per family wishes. (3) Anoxic brain injury Current Visit: Yes Status: Chronic Assessment and plan: Pt is opening eyes, but not interacting with surroundings or following commands. continue Trach to vent, discontinue PEG feeding. (4) Sepsis Current Visit: Yes Status: Acute Assessment and plan: Pt contines to have low grade fever and leukocytosis, despite antibiotics. ID recommending further work up, pending family decision on GOC. Source of infection considered permacath and pneumonia. Permacath have been exchanged by IR. Infectious disease is following . On Vanco, levaquin, and Colistin. Will discontinue all antibiotics and blood work Qualifiers: Sepsis type: sepsis due to unspecified organism Qualified Code(s): A41.9 - Sepsis, unspecified organism (5) Pain Current Visit: Yes Status: Acute Assessment and plan: Patient has several pressure wounds, and as such may be experiencing pain even if she is unable to show signs of distress. Roxanol 5 mg q4hrs prn for pain, Encouraged nurse to administer at least 15 minutes before care. (6) Rectovaginal fistula Current Visit: Yes Status: Acute Assessment and plan: Surgery and JEWELRY MANAGER appreciated, they recommend no further work up or intervention in view of pt's poor clinical condition. (7) Palliative care patient Current Visit: Yes Status: Acute Assessment and plan: Discontinue all interventions not geared toward comfort, including IV fluids, dialysis, PEG tube feeds, antibiotics. continue mechanical ventilation, to be discontinued on Saturday Secretions: Atropine prn Agitation and anxiety: Ativan 1 mg IV prn. Roxanol q4hrs before care and PRN for pain and dyspnea continue wound care Mouth care - Time Spent With Patient Total time spent is greater than 50% in coordination of care (as documented) at patient's floor/unit and/or counseling patient: - Subjective Interval history: Patient mental status remains unchanged. WBC count remains high, but trended down. Several family members at the bedside. - Constitutional Vitals: Abnormal lab results WBC 19.9 K/mcL (4.3-11.1) H 08/02/18 04:28 RBC 2.80 M/mcL (3.82-4.97) L 08/02/18 04:28 Hgb 7.4 g/dL (11.5-15.4) L 08/02/18 04:28 Hct 23.7 % (35.3-44.9) L 08/02/18 04:28 MCH 26.4 pg (28.0-33.3) L 08/02/18 04:28 MCHC 31.2 g/dL (31.6-35.5) L 08/02/18 04:28 RDW 16.2 % (11.5-14.5) H 08/02/18 04:28 Plt Count 475 K/mcL (140-400) H 08/02/18 04:28 MPV 8.9 fL (9.4-12.4) L 08/02/18 04:28 Immature Gran % 8.3 % (0-4) H 08/01/18 03:28 Myelocytes % 6.0 % (0) H 08/02/18 04:28 Neutrophils # 15.9 K/mcL (1.6-8.9) H 08/02/18 04:28 Monocytes # 1.6 K/mcL (0.0-1.3) H 08/02/18 04:28 Nucleated RBCs/100 WBC 0.1 /100 WBC (0) H 08/02/18 04:28 Smudge Cells Present (Not Present) A 07/30/18 02:53 Platelet Estimate Increased (Normal) H 08/02/18 04:28 Polychromasia 1+ (Not Present) A 08/02/18 04:28 Anisocytosis 1+ (Not Present) A 07/31/18 05:03 ESR >= 130 mm/hr (0-15) H 07/21/18 12:24 Sodium 134 mEq/L (136-145) L 08/02/18 04:28 BUN 34 mg/dL (6-20) H 08/02/18 04:28 Creatinine 2.80 mg/dL (0.60-1.20) H 08/02/18 04:28 Est GFR ( Amer) 21 (> 60) L 08/02/18 04:28 Est GFR (Non-Af Amer) 18 (> 60) L 08/02/18 04:28 Glucose 179 mg/dL (70-105) H 08/02/18 04:28 POC Glucose 257 mg/dL (70-99) H 08/01/18 18:01 Phosphorus 1.3 mg/dL (2.7-4.5) L 07/16/18 05:36 Alkaline Phosphatase 139 Units/L (34-104) H 07/21/18 12:24 C-Reactive Protein 218 mg/L (Less than 10) H 07/21/18 12:24 Albumin 2.9 g/dL (3.5-5.7) L 07/21/18 12:24 Globulin 4.5 g/dL (2.4-3.5) H 07/21/18 12:24 Albumin/Globulin Ratio 0.6 (1.1-2.2) L 07/21/18 12:24 Triglycerides 163 mg/dL (< 150) H 07/14/18 23:41 VLDL Cholesterol, Calc 33 mg/dL (< 31) H 07/14/18 23:41 HDL Cholesterol 25 mg/dL (40-59) L 07/14/18 23:41 Nasal Screen MRSA (PCR) Positive (Negative) A 07/15/18 17:15 Exam: General: opens eyes, in no acute distress. Not oriented, non-verbal Chest: Right perma-cath Neck: Trached to vent Cardiovascular:Normal S1 & S2, No JVD. Borderline tachycardia Lungs: diminished breath sounds bilaterally, coarse breath sound b/l Abdomen:Soft, non-tender, no rigidity. Extremities: Both UE contracted. R chest HD catheter and R UE midline noted. Neuro: Nonverbal, opening eyes, not tracking or following commands. Palliative Quality Palliative Quality: Screen for Code Status: Yes, Screen for Goals of Care: Yes, Screen for Pain: Yes, If Pain Regimen Started, Initiate Bowel Regimen: NA (pt has diarrhea), Screen for Nausea/Vomitting: Yes Code Status: 07/15/18 12:06 Resuscitation Status: Active [RES] Routine Comment: Resuscitation Status: DNR-Comfort Care-Arrest - Labs CBC & Chem 7: 08/02/18 04:28 08/02/18 04:28 Labs: Laboratory Results - last 24 hr 08/01/18 08/01/18 08/02/18 11:34 18:01 04:28 WBC 19.9 H RBC 2.80 L Hgb 7.4 L Hct 23.7 L MCV 84.6 MCH 26.4 L MCHC 31.2 L RDW 16.2 H Plt Count 475 H MPV 8.9 L Seg Neutrophils % 78.0 Band Neutrophils % 2.0 Lymphocytes % 6.0 Monocytes % 8.0 Myelocytes % 6.0 H Neutrophils # 15.9 H Lymphocytes # 1.2 Monocytes # 1.6 H Nucleated RBCs/100 WBC 0.1 H Platelet Estimate Increased H Polychromasia 1+ A Sodium Potassium Chloride Carbon Dioxide BUN Creatinine Est GFR ( Amer) Est GFR (Non-Af Amer) BUN/Creatinine Ratio Glucose POC Glucose 135 H 257 H Calculated Osmolality Calcium 08/02/18 04:28 WBC RBC Hgb Hct MCV MCH MCHC RDW Plt Count MPV Seg Neutrophils % Band Neutrophils % Lymphocytes % Monocytes % Myelocytes % Neutrophils # Lymphocytes # Monocytes # Nucleated RBCs/100 WBC Platelet Estimate Polychromasia Sodium 134 L Potassium 3.5 Chloride 99 Carbon Dioxide 25 BUN 34 H Creatinine 2.80 H Est GFR ( Amer) 21 L Est GFR (Non-Af Amer) 18 L BUN/Creatinine Ratio 12 Glucose 179 H POC Glucose Calculated Osmolality 290 Calcium 8.6 - ABG Interpretation ABG results: PT/INR, D-dimer PT 12.0 Seconds (9.4-12.1) 07/16/18 05:36 Palliative Scale - Palliative Performance Scale How ambulatory is this patient?: Totally bed bound What is patient's level of activity and evidence of disease?: Unable to do any activity, Extensive disease How much self-care assistance does patient require?: Total care Palliative Performance Score: 20 % Consult Discharge Plan - Plan Referrals: NONE,PCP [Primary Care Provider] - (PATIENT IS FROM [facility] NO PCP APPOINTMENT NEEDED)
[2018-08-02] MEDS: Atropine 1% Opth Drops 100 DROP/5 ML BOTTLE SL PRN (16:59)
[2018-08-02] MEDS: *HR* LORazepam 2 MG/ML VIAL IVP PRN (17:00)
[2018-08-03] MEDS: MORPHINE SUL Oral CONC 10 MG/0.5 ML ORAL.SYG GTUBE PRN ×3 (03:58→17:04)
[2018-08-03] MEDS: levETIRAcetam 500 MG/5 ML UDC GTUBE SCH (09:47)
[2018-08-03] MEDS: *HR* LORazepam 2 MG/ML VIAL IVP PRN ×2 (09:47→17:04)
[2018-08-03] MEDS: Atropine 1% Opth Drops 100 DROP/5 ML BOTTLE SL PRN ×2 (09:47→17:04)
[2018-08-03] MEDS: Leptospermum Honey Gel 44 ML TUBE TP SCH (09:59)
--- NOTE | 2018-08-03 11:52 | Internal Med Progress Note ---
Hospitalist Progress Note - Encounter Date of Encounter: 08/03/18 Time of Encounter: 09:00 - Subjective Interval History: Patient laying on bed in NAD. Closing eyes. On ventilator. - Exam Vitals: Temp Pulse Resp BP Pulse Ox 98.9 F 96 16 111/64 99 08/03/18 11:04 08/03/18 11:04 08/03/18 11:05 08/03/18 11:05 08/03/18 11:05 Exam: General: breathing spontaneously or on ventilator. Not oriented, non-verbal Chest: Right perma-cath Neck: Trached with mucopurulent discharge in the tubes Cardiovascular:Normal S1 & S2, No JVD. Borderline tachycardia Lungs: diminished breath sounds bilaterally, coarse breath sound b/l Abdomen:Soft, non-tender, no rigidity. Extremities: Both UE contracted. Groin: not assessed Neuro: Nonverbal - Assessment and Plan (1) ESRD (end stage renal disease) Current Visit: Yes Status: Chronic Assessment and Plan: Family will persue hospice and now code status is DNRCC, no further HD. (2) Sepsis Current Visit: Yes Status: Acute Assessment and Plan: Will stop all the abx and cont comfort care only per family wishes. (3) CLABSI (central line-associated bloodstream infection) Current Visit: Yes Status: Resolved (4) Pneumonia Current Visit: Yes Status: Acute Assessment and Plan: On comfor care only. (5) Diabetes mellitus type 2 in obese Current Visit: Yes Status: Chronic Assessment and Plan: Insulin stopped as pt is on comfort care only. (6) Anoxic brain injury Current Visit: Yes Status: Chronic Assessment and Plan: Per family wish: still keep ventilator but stop tube feeding. (7) Chronic respiratory failure Current Visit: Yes Status: Chronic Assessment and Plan: Patient with chronic respiratory failure, vent dependent. Trach, vent management per respiratory (8) Goals of care, counseling/discussion Current Visit: Yes Status: Acute Assessment and Plan: Palliative care consult on case, had family meeting, changed code to DNRCC, plan to d/c to hospice on Saturday. (9) Rectal vaginal fistula Current Visit: Yes Status: Acute Assessment and Plan: No further treatment as pt is on DNRCC. Pain med is pt has signs of any pain. DVT Prophylaxis: No further heparin or EPCDs. - Time Spent with Patient Total time spent is greater than 50% in coordination of care (as documented) at patient's floor/unit and/or counseling patient: 25 - 35 minutes Plan of Care Discussed with: technical marketing consultant Internal Medicine: Result - Labs CBC & Chem 7: 08/02/18 04:28 08/02/18 04:28 - ABG Interpretation ABG results: PT/INR, D-dimer PT 12.0 Seconds (9.4-12.1) 07/16/18 05:36 Consult Discharge Plan - Plan Referrals: NONE,PCP [Primary Care Provider] - (PATIENT IS FROM [facility] NO PCP APPOINTMENT NEEDED) (2) Sepsis Qualifiers: Sepsis type: sepsis due to unspecified organism Qualified Code(s): A41.9 - Sepsis, unspecified organism (3) CLABSI (central line-associated bloodstream infection) Qualifiers: Encounter type: initial encounter Qualified Code(s): T80.211A - Bloodstream infection due to central venous catheter, initial encounter (4) Pneumonia Qualifiers: Pneumonia type: due to other aerobic Gram-negative bacteria Laterality: bilateral Lung location: lower lobe of lung Qualified Code(s): J15.6 - Pneumonia due to other Gram-negative bacteria (7) Chronic respiratory failure Qualifiers: Respiratory failure complication: hypoxia Qualified Code(s): J96.11 - Chronic respiratory failure with hypoxia
[2018-08-04 07:43] VITALS: BP 120/78
--- NOTE | 2018-08-04 08:45 | Event Note ---
Date of Encounter: 08/04/18 Time of Encounter: 08:44 Weekend notes reviewed. Code status changed and Palliative care initiated. Antibiotics discontinued. Family planning stopping mechanical ventilation today. No further recommendations from the ID team. Will sign off. Please re-consult if needed.
[2018-08-04] MEDS: levETIRAcetam 500 MG/5 ML UDC GTUBE SCH (11:35)
[2018-08-04] MEDS: Leptospermum Honey Gel 44 ML TUBE TP SCH (11:36)
--- NOTE | 2018-08-04 11:39 | Discharge Summary ---
Date of Encounter: 08/04/18 Time of Encounter: 09:00 - Discharge Diagnosis (1) ESRD (end stage renal disease) Priority: Secondary Status: Chronic (2) Sepsis Priority: Primary Status: Acute Qualifiers: Sepsis type: sepsis due to unspecified organism Qualified Code(s): A41.9 - Sepsis, unspecified organism (3) CLABSI (central line-associated bloodstream infection) Priority: Primary Status: Resolved Qualifiers: Encounter type: initial encounter Qualified Code(s): T80.211A - Bloodstream infection due to central venous catheter, initial encounter (4) Pneumonia Priority: Primary Status: Acute Qualifiers: Pneumonia type: due to other aerobic Gram-negative bacteria Laterality: bilateral Lung location: lower lobe of lung Qualified Code(s): J15.6 - Pneumonia due to other Gram-negative bacteria (5) Diabetes mellitus type 2 in obese Priority: Secondary Status: Chronic (6) Anoxic brain injury Priority: Secondary Status: Chronic (7) Chronic respiratory failure Priority: Secondary Status: Chronic Qualifiers: Respiratory failure complication: hypoxia Qualified Code(s): J96.11 - Chronic respiratory failure with hypoxia (8) Goals of care, counseling/discussion Priority: Primary Status: Acute (9) Rectal vaginal fistula Priority: Primary Status: Acute Hospital course: Ms. Ngo is a 53 year old female admitted for sepsis, pneumonia, permacath infection. Patient is ventilator dependent and need PEG tube feeding due to anoxia brain injury. Patient was placed on IV antibiotic, ID consult was called. Patient also was counseled by nephrology for hemodialysis. After about 20 days treatment patient still have high white count and no fever, clinically no progression. Palliative care consult Saw patient and discussed with family. Family decided to pursue hospice care. Will discharge patient to inpatient hospice today. I have seen and examined the patient today. General condition no change. In no acute distress on sedative and pain medication. Will DC patient to inpatient hospice and continue hospice care there. Discharge discussed with: other (Palliative consult) - Time Spent with Patient Total time spent providing and/or coordinating discharge services: 25 min Less than 30 minutes - Discharge Medications Home Medications: Atorvastatin Calcium [Lipitor] 40 mg GTUBE DAILY 07/14/18 [History] Baclofen 5 mg GTUBE TID 07/14/18 [History] Benzocaine [Orabase] 1 appl MM QID PRN 07/14/18 [History] Chlorhexidine Gluconate [Peridex] 1 appl MM QID PRN 07/14/18 [History] Docusate [Colace] 100 mg GTUBE DAILY 07/14/18 [History] Esomeprazole Magnesium [Nexium] 40 mg GTUBE BID 07/14/18 [History] Heparin 5,000 unit SQ Q8HR 07/14/18 [History] Mineral Oil/Petrolatum,White [Minerin Creme] 1 appl TP DAILY 07/14/18 [History] Nystatin [Nystatin Suspension] 500,000 units PO QID PRN 07/14/18 [History] Sennosides/Docusate Sodium [Senna-Docusate Sodium Tablet] 1 tab GTUBE DAILY PRN 07/14/18 [History] Vancomycin HCl 500 mg IV MOWEFR 07/14/18 [History] Vit B Comp C 19/Folic Acid/D3 [Nephronex-Sl Tablet] 1 tab GTUBE DAILY 07/14/18 [History] Amino Acids/Protein Hydrolys [Pro-Stat Awc Liquid Packet] 30 ml GTUBE TID 07/15/18 [History] Aspirin [Lo-Dose Aspirin EC] 81 mg GTUBE DAILY 07/15/18 [History] Cefepime HCl [Maxipime] 500 mg IV 2000 07/15/18 [History] Insulin Glargine [Lantus] 40 unit SQ DAILY 07/15/18 [History] Insulin Human Regular [HumuLIN R] 0 - 12 unit SQ QID 07/15/18 [History] Ipratropium/Albuterol Neb [Duoneb] 3 ml IH Q6HR PRN 07/15/18 [History] LevETIRAcetam [Keppra] 500 mg GTUBE DAILY 07/15/18 [History] Polyvinyl Alcohol [Artificial Tears] 1 drop BOTH EYES QID PRN 07/15/18 [History] Allergies/Adverse Reactions: Allergy/AdvReac Type Severity Reaction Status Date / Time No Known Allergies Allergy Verified 07/14/18 17:44 Date of admission: 07/15/18 11:29 Primary care physician: PCP NONE Consults: 07/23/18 07:45 Consult to Dialysis [CONS] ONCE 07/23/18 12:25 Consult to Palliative Care [CONS] Routine Comment: Consulting Provider: Palliative Care Sneha Reason for Consult: End of life care. Spoke with MADY Duarte. Time Notified: 09:00 Call Completed: Yes 07/25/18 08:14 Consult to Dialysis [CONS] Stat 07/28/18 08:15 Consult to Dialysis [CONS] ONCE 07/30/18 07:45 Consult to Dialysis [CONS] ONCE 07/30/18 15:23 Consult to Surgery [CONS] Routine Consulting Provider: Surgery [facility] Reason for Consult: Rectal fistula and PEG tube leak Call Completed: Yes 07/31/18 12:50 Consult to HEAT TREATING FURNACE TENDER [CONS] Routine Consulting Provider: PRINTING PLATE CLERK Sneha Reason for Consult: Possible viginal fistula Call Completed: Yes 08/01/18 07:15 Consult to Dialysis [CONS] ONCE 07/15/18 07:48 Consult to Nephrology [CONS] Routine Consulting Provider: Kidney Sneha/ISRAEL/ABHAY/HEATHER Reason for Consult: ESRD Time Notified: 07:49 Call Completed: No 07/15/18 11:25 Consult to Infectious Diseases [CONS] Routine Consulting Provider: Infectious Disease Sneha Reason for Consult: ?PICC line infection, E. cloacae bacteremia Call Completed: Yes 07/15/18 11:38 Consult to Wound Care [CONS] Routine Reason for Consult: decubitus ulcer Call Completed: No 07/15/18 12:06 consult to spring assembler supervisor [Consult to Nutrition] [CONS] Routine Comment: Consulting Provider: NUTRITION Reason for Dietary Consult: Tube Feed Start & Manage 07/16/18 06:45 Consult to Dialysis [CONS] QMWF 07/16/18 09:33 Consult to Interventional Radiology [CONS] Routine Consulting Provider: Radiology Interventional Cols Reason for Consult: Please remove Permacath for line holiday. Will replace on 07/18/18. Thanks! Time Notified: 09:34 Call Completed: Yes 07/16/18 14:21 Consult to Physical Therapy [CONS] Routine Comment: Evaluate, develop and implement POC Reason for Consult: eval for PTOT Does patient have active BEDREST order?: No Is patient medically & hemodynamically stable?: Yes 07/18/18 06:45 Consult to Dialysis [CONS] QMWF 07/18/18 09:35 Consult to Interventional Radiology [CONS] Routine Consulting Provider: Radiology Interventional Cols Reason for Consult: Please place permacath or temp line for HD. Thanks Time Notified: 09:35 Call Completed: Yes 07/21/18 06:30 Consult to Dialysis [CONS] ONCE 07/21/18 06:45 Consult to Dialysis [CONS] QMWF Discharging clinician: Naa Leigh Anticipated date of discharge: 08/04/18 - Constitutional Vitals: Temp Pulse Resp BP Pulse Ox 99.6 F 96 16 120/78 100 08/04/18 07:42 08/04/18 07:42 08/04/18 07:42 08/04/18 07:42 08/04/18 07:42 Exam: General: breathing spontaneously or on ventilator. Not oriented, non-verbal Chest: Right perma-cath Neck: Trached with mucopurulent discharge in the tubes Cardiovascular:Normal S1 & S2, No JVD. Borderline tachycardia Lungs: diminished breath sounds bilaterally, coarse breath sound b/l Abdomen:Soft, non-tender, no rigidity. Extremities: Both UE contracted. Groin: not assessed Neuro: Nonverbal - Patient Status Disposition: Hospice - Medical Facility Condition: Undetermined Functional capacity at discharge: bed bound Overall status at discharge: patient is not back to baseline - Discharge Instructions Follow Up With: NONE,PCP [Primary Care Provider] - (PATIENT IS FROM [facility] NO PCP APPOINTMENT NEEDED)
--- NOTE | 2018-08-04 11:41 | Physician Discharge Referral ---
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 - Diagnosis (1) ESRD (end stage renal disease) Status: Chronic (2) Sepsis Status: Acute (3) CLABSI (central line-associated bloodstream infection) Status: Resolved (4) Pneumonia Status: Acute (5) Diabetes mellitus type 2 in obese Status: Chronic (6) Anoxic brain injury Status: Chronic (7) Chronic respiratory failure Status: Chronic (8) Goals of care, counseling/discussion Status: Acute (9) Rectal vaginal fistula Status: Acute - Transfer Medications Home Medications: Atorvastatin Calcium [Lipitor] 40 mg GTUBE DAILY 07/14/18 [History] Baclofen 5 mg GTUBE TID 07/14/18 [History] Benzocaine [Orabase] 1 appl MM QID PRN 07/14/18 [History] Chlorhexidine Gluconate [Peridex] 1 appl MM QID PRN 07/14/18 [History] Docusate [Colace] 100 mg GTUBE DAILY 07/14/18 [History] Esomeprazole Magnesium [Nexium] 40 mg GTUBE BID 07/14/18 [History] Heparin 5,000 unit SQ Q8HR 07/14/18 [History] Mineral Oil/Petrolatum,White [Minerin Creme] 1 appl TP DAILY 07/14/18 [History] Nystatin [Nystatin Suspension] 500,000 units PO QID PRN 07/14/18 [History] Sennosides/Docusate Sodium [Senna-Docusate Sodium Tablet] 1 tab GTUBE DAILY PRN 07/14/18 [History] Vancomycin HCl 500 mg IV MOWEFR 07/14/18 [History] Vit B Comp C 19/Folic Acid/D3 [Nephronex-Sl Tablet] 1 tab GTUBE DAILY 07/14/18 [History] Amino Acids/Protein Hydrolys [Pro-Stat [facility]c Liquid Packet] 30 ml GTUBE TID 07/15/18 [History] Aspirin [Lo-Dose Aspirin EC] 81 mg GTUBE DAILY 07/15/18 [History] Cefepime HCl [Maxipime] 500 mg IV 2000 07/15/18 [History] Insulin Glargine [Lantus] 40 unit SQ DAILY 07/15/18 [History] Insulin Human Regular [HumuLIN R] 0 - 12 unit SQ QID 07/15/18 [History] Ipratropium/Albuterol Neb [Duoneb] 3 ml IH Q6HR PRN 07/15/18 [History] LevETIRAcetam [Keppra] 500 mg GTUBE DAILY 07/15/18 [History] Polyvinyl Alcohol [Artificial Tears] 1 drop BOTH EYES QID PRN 07/15/18 [History] Allergies/Adverse Reactions: Allergy/AdvReac Type Severity Reaction Status Date / Time No Known Allergies Allergy Verified 07/14/18 17:44 - Respiratory Orders Smoking Cessation: Smoking cessation has been advised. For more information, call the [place] Tobacco Quit Line at 6-596-ENHR-NOW. - Advance Directives Code Status: DNR-Comfort Care CERTIFICATION: I certify that the transfer of the above named patient to an Extended Care Facility is necessary for the continuing treatment of the diagnosis listed. The above information is true and accurate reflection of patient's current condition. Confidential - Redisclosure prohibited without a patient's written consent.
[2018-08-04] MEDS ORDERED: Glycopyrrolate 0.2 MG/ML VIAL IVP ONE (13:41)
[2018-08-04] MEDS: *HR* FentaNYL (PF) 100 MCG/2 ML VIAL IVP PRN ×2 (14:00→15:15)
[2018-08-04] MEDS: *HR* LORazepam 2 MG/ML VIAL IVP PRN (14:02)
--- NOTE | 2018-08-04 14:32 | Event Note ---
Date of Encounter: 08/04/18 Time of Encounter: 14:00 Palliative extubation at 14:10, famil was present at the bedside: son Maged, brother Kyrie(MARY), cousin Darius and sister in law. Discussed with family that prognosis after palliative extubation is hours to days. Patient was pre-medicated with phentanyl 25mcg IV, Ativan 1mg Iv and Robinul .2mg IV. Mechanical ventilation was disconnected and trach collar placed. Pt tolerated well the procedure, spontaneous shallow breathing noted. Patient for [facility] admission, hospice nurse [place] present.
[2018-08-04] MEDS ORDERED: Aminoglycoside Consult 1 EACH MC ONE (15:20)
== END 2018-08-04 15:21 | disposition hospice, inpatient (51) | DRG 721 ==
LOC: 2NNU → SUATTDRO 23:11
PROVIDERS: ADMIT Internal Medicine Nephrology; ATTEND Internal Medicine

== ENCOUNTER 2018-08-04 11:50 | Inpatient (IN) ==
[2018-08-04] MEDS ORDERED: MORPHINE SUL Oral CONC 10 MG/0.5 ML ORAL.SYG PO PRN (13:26)
[2018-08-04] MEDS ORDERED: Atropine Sulfate 1% 40 DROP/2 ML BOTTLE SL PRN (13:26)
[2018-08-04] MEDS ORDERED: *HR* LORazepam 2 MG/ML VIAL IVP PRN (13:26)
[2018-08-04] MEDS ORDERED: Ondansetron 4 MG/2 ML VIAL IVP PRN (13:26)
--- NOTE | 2018-08-04 14:00 | Pallative History & Physical ---
Date of Encounter: 08/04/18 Time of Encounter: 14:26 Assessment and Plan (1) Hospice care Status: Acute Secretions: Atropine prn Agitation and anxiety: Ativan 1 mg IV prn. Roxanol q4hrs before care and PRN for pain and dyspnea continue wound care with [facility] care (2) Goals of care, counseling/discussion Status: Acute Pt being admitted to hospice [facility] s/p palliative extubation; hemodialysis and PEG feedings discontinued, as well as antibiotics. Pt need [facility] admissin for management of pain, dyspnea, secretions. Patient is unstable and unlikely to survive this admission. (3) Pain Status: Acute Patient has several pressure wounds, and as such may be experiencing pain even if she is unable to show signs of distress. Roxanol 5 mg q4hrs prn for pain, Encouraged nurse to administer at least 15 minutes before care. (4) Anoxic brain injury Status: Chronic Pt is opening eyes, but not interacting with surroundings or following commands. Comfort measures only. (5) ESRD (end stage renal disease) on dialysis Status: Acute Pt last Hd attempt was Saturday, and was not fully comleted due to Permacath not working. Pt is day 3 post HD. Comfort care only. Internal Medicine - H&P: [facility] Plans for Post Hospital Care: at Medical Facility History of present illness: Ms. Ngo is a 53 year old female admitted for sepsis, pneumonia, permacath infection. Pt is s/p anoxic brain injury, ventilator dependent, on PEG feedings and HD. Patient was placed on IV antibiotic, ID consult was called. Patient also was counseled by nephrology for hemodialysis. After about 20 days treatment patient still have high white count and no fever, clinically no progression. After multiple family meetings with palliative care, family decided for de-escalation of care to comfort care only. Palliative extubation today, Abx and PEG feeds discontinued. Pt admitted to [facility] for symptom management and end-of-life care. Past Med Surg Social Fam HX - Past Medical History Medical history: diabetes, GERD, hyperlipidemia, renal disease, seizures, other Additional medical history: Anoxic brain injury. Anemia. Contracture Psychiatric history: other - Past Surgical History Surgical History: other (Toe amputation right foot, tracheostomy) - Social History Smoking Status: Smoker, status unknown Smokeless Tobacco Status: No (unknown) Alcohol use: none Drug use: unknown Internal Medicine - H&P: Meds Atorvastatin Calcium [Lipitor] 40 mg GTUBE DAILY 07/14/18 [History] Benzocaine [Orabase] 1 appl MM QID PRN 07/14/18 [History] Chlorhexidine Gluconate [Peridex] 1 appl MM QID PRN 07/14/18 [History] Docusate [Colace] 100 mg GTUBE DAILY 07/14/18 [History] Esomeprazole Magnesium [Nexium] 40 mg GTUBE BID 07/14/18 [History] Mineral Oil/Petrolatum,White [Minerin Creme] 1 appl TP DAILY 07/14/18 [History] Nystatin [Nystatin Suspension] 500,000 units PO QID PRN 07/14/18 [History] RX: Baclofen 5 mg GTUBE TID 07/14/18 [History] RX: Heparin 5,000 unit SQ Q8HR 07/14/18 [History] RX: Vancomycin HCl 500 mg IV MOWEFR 07/14/18 [History] Sennosides/Docusate Sodium [Senna-Docusate Sodium Tablet] 1 tab GTUBE DAILY PRN 07/14/18 [History] Vit B Comp C 19/Folic Acid/D3 [Nephronex-Sl Tablet] 1 tab GTUBE DAILY 07/14/18 [History] Amino Acids/Protein Hydrolys [Pro-Stat [facility] Liquid Packet] 30 ml GTUBE TID 07/15/18 [History] Aspirin [Lo-Dose Aspirin EC] 81 mg GTUBE DAILY 07/15/18 [History] Cefepime HCl [Maxipime] 500 mg IV 2000 07/15/18 [History] Insulin Glargine [Lantus] 40 unit SQ DAILY 07/15/18 [History] Insulin Human Regular [HumuLIN R] 0 - 12 unit SQ QID 07/15/18 [History] Ipratropium/Albuterol Neb [Duoneb] 3 ml IH Q6HR PRN 07/15/18 [History] LevETIRAcetam [Keppra] 500 mg GTUBE DAILY 07/15/18 [History] Polyvinyl Alcohol [Artificial Tears] 1 drop BOTH EYES QID PRN 07/15/18 [History] Allergy/AdvReac Type Severity Reaction Status Date / Time No Known Allergies Allergy Verified 07/14/18 17:44 Palliative Care-Exam - Constitutional Exam: General: opens eyes, in no acute distress. Not oriented, non-verbal Chest: Right perma-cath Neck: Trach collar in place Cardiovascular:Normal S1 & S2, No JVD. Borderline tachycardia Lungs: diminished breath sounds bilaterally, challow breathing Abdomen:Soft, non-tender, no rigidity. Extremities: Both UE contracted. R chest HD catheter and R UE midline noted. Neuro: Nonverbal, opening eyes, not tracking or following commands. Palliative Quality Palliative Quality: Screen for Code Status: Yes, Screen for Goals of Care: Yes, Screen for Pain: Yes, If Pain Regimen Started, Initiate Bowel Regimen: No (Frequent loose stool), Screen for Nausea/Vomitting: Yes Code Status: 08/04/18 13:26 Resuscitation Status: Active [RES] Routine Comment: Resuscitation Status: DNR-Comfort Care
[2018-08-04] MEDS ORDERED: Atropine 1% Opth Drops 100 DROP/5 ML BOTTLE SL PRN (16:15)
[2018-08-04] MEDS ORDERED: Leptospermum Honey Gel 44 ML TUBE TP SCH (21:00)
[2018-08-04 21:59] VITALS: BP 117/77
--- NOTE | 2018-08-05 08:06 | Death Note ---
Discharge Sum: Summary - Date and Time Date of admission: 08/04/18 16:03 Date of : 08/05/18 Time of : 03:07 - Summary Details: 53 y.o female, with anoxic brain injury 4 months ago, sepsis and multiorgan failure and ventilator dependent, was admitted to hospice after Palliative disconnection from respirator. She was kept comfortable and peacefully today at 03:07. - Additional Data Confirmation of as documented by pronouncing clinician: no pulse, no respirations, no heart sounds, pupils fixed and dilated Family: contacted Attending/PCP notified?: Yes Attending physician: Carlene Feliz MD Was code activated?: No Autopsy requested?: No payroll examiner notified?: No Organ bank notified?: Yes Advance directives: Yes Hospice patient?: Yes Discharge Sum: Diag - PCOD Probable Cause of : Respiratory arrest Discharge Sum: Prov - Provider Admitting clinician: Carlene Feliz Attending physician on admission: Carlene Feliz Consults: 08/04/18 13:26 Consult to Palliative Care [CONS] Routine Comment: Consulting Provider: Palliative Care Sneha Reason for Consult: hospice admission Call Completed: Yes
[2018-08-05] MEDS ORDERED: levETIRAcetam 500 MG/5 ML UDC GTUBE SCH (09:00)
== END 2018-08-05 03:07 | disposition expired | DRG 951 ==
LOC: 2ANU 16:03
PROVIDERS: ADMIT Internal Medicine Hospice and Palliative Medicine; ATTEND Internal Medicine Hospice and Palliative Medicine